=== PATIENT | male | born 1935 | race Caucasian/White ===

== ENCOUNTER 2016-05-23 08:20 | Inpatient (IN) | payer MEDICARE, OTHER ==
[2016-05-23] MEDS ORDERED: LEVALBUTEROL 1.25 MG INH STA (08:44)
[2016-05-23] MEDS ORDERED: methylPREDNISolone SUCCINATE 125 MG/2 ML VIAL IVP STA (08:44)
[2016-05-23] MEDS ORDERED: methylPREDNISolone SUCCINATE 125 MG/2 ML VIAL IVP ONE (08:55)
[2016-05-23] MEDS ORDERED: SODIUM CHLORIDE INHALATION 3 ML NEB ONE (09:00)
[2016-05-23] MEDS ORDERED: LEVALBUTEROL 1.25 MG INH ONE (09:00)
[2016-05-23] MEDS ORDERED: HYDROcod/ACETAM 5/325 MG TABLET PO PRN (12:27)
[2016-05-23] MEDS ORDERED: SODIUM CHLORIDE FLUSH 0.9% 10 ML SYRINGE IVP PRN (12:27)
[2016-05-23] MEDS ORDERED: HYDROcod/ACETAM 10 MG/325 MG TABLET PO PRN (12:27)
[2016-05-23] MEDS ORDERED: ONDANSETRON ODT 4 MG TABLET TL PRN (12:27)
[2016-05-23] MEDS: SODIUM CHLORIDE FLUSH 0.9% 10 ML SYRINGE IVP SCH ×2 (15:02→21:29)
[2016-05-23] MEDS: methylPREDNISolone SUCCINATE 40 MG/ML VIAL IVP SCH ×2 (15:02→21:29)
[2016-05-23] MEDS: ENOXAPARIN 40 MG/0.4 ML SYRINGE SUBQ SCH (15:02)
[2016-05-23] MEDS: IPRATROPIUM/ALBUTEROL 3 ML NEB INH PRN (16:29)
[2016-05-24] MEDS: methylPREDNISolone SUCCINATE 40 MG/ML VIAL IVP SCH ×2 (06:29→23:05)
[2016-05-24] MEDS: PANTOPRAZOLE 40 MG TABLET PO SCH (06:34)
[2016-05-24] MEDS: SODIUM CHLORIDE FLUSH 0.9% 10 ML SYRINGE IVP SCH ×3 (06:34→23:06)
[2016-05-24] MEDS: POLYETHYLENE GLYCOL 3350 17 GM PACKET PO SCH (08:22)
[2016-05-24] MEDS: MULTIVITAMIN W/MINERALS TABLET PO SCH (08:23)
[2016-05-24] MEDS: METOPROLOL SUCCINATE 50 MG TABLET PO SCH (08:23)
[2016-05-24] MEDS: ESCITALOPRAM 10 MG TABLET PO SCH (08:23)
[2016-05-24] MEDS: ASPIRIN CHEW 81 MG TABLET PO SCH (08:24)
[2016-05-24] MEDS: LOSARTAN 50 MG TABLET PO SCH (08:24)
[2016-05-24] MEDS: ENOXAPARIN 40 MG/0.4 ML SYRINGE SUBQ SCH (08:25)
[2016-05-24] MEDS ORDERED: OXYGEN NAS SCH (09:00)
[2016-05-24] MEDS ORDERED: LABETALOL 20 MG/4 ML SYRINGE IVP PRN (09:32)
[2016-05-24] MEDS: IPRATROPIUM/ALBUTEROL 3 ML NEB INH PRN (09:40)
[2016-05-24] MEDS: SODIUM CHLORIDE 0.45% 1,000 ML IV SCH ×2 (12:07→23:07)
[2016-05-25] MEDS: SODIUM CHLORIDE FLUSH 0.9% 10 ML SYRINGE IVP SCH (07:11)
[2016-05-25] MEDS: PANTOPRAZOLE 40 MG TABLET PO SCH (07:11)
[2016-05-25] MEDS: MULTIVITAMIN W/MINERALS TABLET PO SCH (08:23)
[2016-05-25] MEDS: ASPIRIN CHEW 81 MG TABLET PO SCH (08:23)
[2016-05-25] MEDS: LOSARTAN 50 MG TABLET PO SCH (08:23)
[2016-05-25] MEDS: ESCITALOPRAM 10 MG TABLET PO SCH (08:23)
[2016-05-25] MEDS: METOPROLOL SUCCINATE 50 MG TABLET PO SCH (08:24)
[2016-05-25] MEDS: ENOXAPARIN 40 MG/0.4 ML SYRINGE SUBQ SCH (08:24)
[2016-05-25] MEDS: POLYETHYLENE GLYCOL 3350 17 GM PACKET PO SCH (08:24)
[2016-05-25] MEDS: methylPREDNISolone SUCCINATE 40 MG/ML VIAL IVP SCH (10:11)
== END 2016-05-25 11:00 | disposition home or self-care (01) | DRG 190 ==
DX: J44.1 Chronic obstructive pulmonary disease with (acute) exacerbation (principal); J18.9 Pneumonia, unspecified organism; I50.32 Chronic diastolic (congestive) heart failure; I50.9 Heart failure, unspecified; J44.0 Chronic obstructive pulmonary disease with (acute) lower respiratory infection; E78.5 Hyperlipidemia, unspecified; J45.909 Unspecified asthma, uncomplicated; Z87.891 Personal history of nicotine dependence; Z99.81 Dependence on supplemental oxygen; Z79.52 Long term (current) use of systemic steroids; I11.0 Hypertensive heart disease with heart failure; Z85.51 Personal history of malignant neoplasm of bladder; Z98.42 Cataract extraction status, left eye; Z98.41 Cataract extraction status, right eye; Z96.1 Presence of intraocular lens; N40.0 Benign prostatic hyperplasia without lower urinary tract symptoms; Z88.2 Allergy status to sulfonamides; K21.9 Gastro-esophageal reflux disease without esophagitis; Z79.82 Long term (current) use of aspirin

== ENCOUNTER 2016-09-19 10:08 | Emergency (ER) | payer MEDICARE, OTHER ==
[2016-09-19] MEDS ORDERED: IPRATROPIUM/ALBUTEROL 3 ML NEB INH STA (10:33)
--- NOTE | 2016-09-19 10:38 | ED Physician Documentation ---
PD HPI CHEST PAIN - Stated complaint Stated Complaint: SOA/CHEST PX - Chief complaint Chief Complaint: Cardiac - History obtained from History obtained from: Patient, Family (spouse) - History of Present Illness Timing - onset: Yesterday Timing - duration: Days (2) Timing - details: Still present Quality: Tightness Location: Substernal Worsened by: Inspiration Associated symptoms: Shortness of air, Cough Similar symptoms before: Diagnosis (He reports history of similar symptoms with pneumonia/COPD exacerbation.) - Additional information Additional information: The patient is an 81-year-old male with history of COPD, who presents with shortness of breath and anterior chest pain that started yesterday and continues today. This pain is worse with inspiration. He reports productive cough, but denies fever, nausea or vomiting. He was more fatigued than usual yesterday. He has a history of similar symptoms when hospitalized with pneumonia/COPD exacerbation in June 2016. He quit smoking cigarettes about 11 years ago. Review of Systems Constitutional: reports: Fatigue. denies: Fever Ears: denies: Tinnitus/ringing Nose: denies: Congestion Throat: denies: Sore throat Cardiac: reports: Chest pain / pressure Respiratory: reports: Dyspnea, Cough GI: denies: Abdominal Pain, Nausea, Vomiting : denies: Dysuria Skin: denies: Rash Musculoskeletal: denies: Back pain, Extremity swelling Neurologic: denies: Focal weakness, Numbness, Headache PD PAST MEDICAL HISTORY - Past Medical History Cardiovascular: Hypertension Respiratory: Asthma, COPD, Emphysema Neuro: None Endocrine/Autoimmune: None GI: None : None HEENT: None Psych: None Musculoskeletal: None Derm: None - Past Surgical History Past Surgical History: Yes Ortho: Arthroscopic surgery HEENT: Cataracts - Present Medications Home Medications: Ambulatory Orders Medication Instructions Recorded Confirmed Aspirin Chewable [St Vlad 81 mg PO DAILY 09/04/12 09/19/16 Aspirin] Metoprolol Succinate [Toprol Xl] 50 mg PO DAILY 09/04/12 09/19/16 Tiotropium Joseph [Spiriva] 18 mcg IH DAILY 10/23/12 09/19/16 Fluticasone/Salmeterol [Advair 1 inh IH BID 02/26/15 09/19/16 500-50 Diskus] Multivitamin [Daily [place]] 1 each PO DAILY 02/26/15 09/19/16 Telmisartan [Micardis] 20 mg PO DAILY 02/26/15 09/19/16 Esomeprazole Magnesium [Nexium] 40 mg PO DAILY 02/27/16 09/19/16 Albuterol 2.5 mg INH Q4HR PRN #120 neb 03/02/16 09/19/16 Atorvastatin Calcium 20 mg PO Q1HR 05/24/16 09/19/16 Citalopram [CeleXA] 20 mg PO DAILY 05/24/16 09/19/16 Levofloxacin [Levaquin] 500 mg PO DAILY #5 tablet 05/25/16 09/19/16 Azithromycin [Zithromax] 250 mg PO DAILY #6 tablet 09/19/16 - Allergies Allergies/Adverse Reactions: Allergies Allergy/AdvReac Type Severity Reaction Status Date / Time Sulfa (Sulfonamide Allergy Unknown Rash Verified 09/19/16 10:19 Antibiotics) - Social History Does the pt smoke?: No Smoking Status: Former smoker Does the pt drink ETOH?: Yes Does the pt have substance abuse?: No - Immunizations Immunizations are current?: Yes - POLST Patient has POLST: No PD ED PE NORMAL - Vitals Vital signs reviewed: Yes (hypertensive) - General General: Alert and oriented X 3, Well developed/nourished - HEENT HEENT: Atraumatic, EOMI, Pharynx benign - Neck Neck: No adenopathy, No JVD - Cardiac Cardiac: RRR, No murmur - Respiratory Respiratory: Other (Appears dyspneic, and has inspiratory and expiratory wheezes bilaterally, worse on the right than the left.) - Abdomen Abdomen: Soft, Non tender - Back Back: No CVA TTP - Derm Derm: No rash - Extremities Extremities: No edema, No calf tenderness / cord - Neuro Neuro: Alert and oriented X 3, No motor deficit, Normal speech Results - Vitals Vitals: Vital Signs - 24 hr 09/19/16 09/19/16 09/19/16 10:11 11:11 11:15 Temperature 37.0 C Heart Rate 97 82 83 Respiratory 24 18 17 Rate Blood Pressure 155/97 H 159/89 H O2 Saturation 94 98 09/19/16 09/19/16 12:45 12:50 Temperature Heart Rate 89 87 Respiratory 13 16 Rate Blood Pressure 154/81 H O2 Saturation 97 Oxygen O2 Source [] Nasal cannula O2 Source [] Room air O2 Source Nasal cannula - EKG (time done) 10:21 Rate: Rate (enter#) (90) Rhythm: NSR [place]: Normal Intervals: RBBB Ischemia: No: ST elevation c/w repol Compare to prior EKG: Unchanged from prior EKG (No significant change compared to prior tracing dated 05/23/2016.) Computer interpretation: Agree with computer - Labs Labs: Laboratory Tests 09/19/16 09/19/16 09/19/16 10:28 10:28 10:28 WBC 8.9 RBC 4.05 L Hgb 12.6 L Hct 37.6 L MCV 93.0 MCH 31.2 H MCHC 33.5 RDW 13.0 Plt Count 236 MPV 7.9 Neut # 5.7 Lymph # 1.6 [place] # 1.4 H Eos # 0.1 Baso # 0.1 Absolute Nucleated RBC 0.00 Nucleated RBCs 0.0 Sodium 136 Potassium 3.8 Chloride 97 L Carbon Dioxide 31 Anion Gap 8.0 BUN 16 Creatinine 1.0 Estimated GFR (MDRD) 72 L Glucose 97 Calcium 9.0 Total Bilirubin 0.7 AST 81 H ALT 96 H Alkaline Phosphatase 69 Troponin I < 0.04 B-Natriuretic Peptide Total Protein 7.5 Albumin 3.7 Globulin 3.8 Albumin/Globulin Ratio 1.0 Lipase 32 09/19/16 10:28 WBC RBC Hgb Hct MCV MCH MCHC RDW Plt Count MPV Neut # Lymph # [place] # Eos # Baso # Absolute Nucleated RBC Nucleated RBCs Sodium Potassium Chloride Carbon Dioxide Anion Gap BUN Creatinine Estimated GFR (MDRD) Glucose Calcium Total Bilirubin AST ALT Alkaline Phosphatase Troponin I B-Natriuretic Peptide 15 Total Protein Albumin Globulin Albumin/Globulin Ratio Lipase - Rads (name of study) 2 view chest x-ray Radiology: Prelim report reviewed, EMP read contemporaneously, See rad report ( Bibasilar infiltration versus atelectasis, right more than left, with tiny right effusion.) PD MEDICAL DECISION MAKING - ED course Complexity details: reviewed old records, reviewed results, re-evaluated patient , considered differential, d/w patient, d/w family ED course: The patient's presentation is most consistent with acute exacerbation of COPD. Chest x-ray reveals bibasilar infiltrates versus atelectasis, with a small right pleural effusion.. His white blood cell count is normal at 8.9. Electrocardiogram reveals no ischemic abnormalities, and his troponin level is normal, as is his BNP. His presentation does not suggest cardiac ischemia, congestive heart failure, and I doubt pulmonary embolus. Treatment in the emergency department included administration of DuoNeb nebulizer, followed by Xopenex nebulizer, as well as dexamethasone 10 mg orally. His air movement improved with the above treatment. Ceftriaxone 1 g was administered IV. He is being discharged with prescription for Zithromax. I discussed with him and his the expected course of illness, treatment and outpatient follow-up, as well as potentially worrisome signs or symptoms that should prompt reevaluation in the emergency department. Departure - Departure Disposition: 01 Home, Self Care Clinical Impression: COPD with acute exacerbation Condition: Stable Instructions: ED COPD Flare Follow-Up: Jameel Spaulding DO [Primary Care Provider] - Prescriptions: Azithromycin [Zithromax] 250 mg PO DAILY #6 tablet Comments: 1. Take Zithromax daily as prescribed. 2. Take prednisone as previously prescribed, 4 tablets tomorrow, followed by 3 tablets the next day, followed by 2 tablets next day, followed by 1 tablet the next day, followed by 1 tablet the last day. 3. Use your albuterol inhaler as previously prescribed. 4. Follow-up with your primary physician within 1 week. Call to schedule appointment. 5. Return to the emergency department if you develop increasing difficulty breathing, or otherwise worsening symptoms. Discharge Date/Time: 09/19/16 13:25
[2016-09-19 10:50] LABS: BASOPHILS # (AUTO) 0.1 10^3/uL (0.0-0.1); BASOPHILS % (AUTO) 0.7 %; EOSINOPHILS # (AUTO) 0.1 10^3/uL (0.0-0.7); EOSINOPHILS % (AUTO) 0.9 %; HCT - HEMATOCRIT 37.6 % (42.0-52.0); HGB - HEMOGLOBIN 12.6 g/dL (14.0-18.0); LYMPHOCYTES # (AUTO) 1.6 10^3/uL (1.5-3.5); LYMPHOCYTES % (AUTO) 18.4 %; MEAN CORPUSCULAR HEMOGLOBIN 31.2 pg (27.0-31.0); MEAN CORPUSCULAR HGB CONC 33.5 g/dL (32.0-36.0); MEAN PLATELET VOLUME 7.9 fL (7.4-11.4); MONOCYTES # (AUTO) 1.4 10^3/uL (0.0-1.0); MONOCYTES % (AUTO) 15.8 %; NEUTROPHILS # (AUTO) 5.7 10^3/uL (1.5-6.6); NEUTROPHILS % (AUTO) 64.2 %; RED BLOOD COUNT 4.05 10^6/uL (4.70-6.10); UNCORRECTED WHITE BLOOD COUNT 8.9 x10^3/uL; WHITE BLOOD COUNT 8.9 x10^3/uL (4.8-10.8)
[2016-09-19 11:09] LABS: BILIRUBIN,TOTAL 0.7 mg/dL (0.2-1.0); POTASSIUM 3.8 mmol/L (3.5-5.0); TOTAL PROTEIN 7.5 g/dL (6.7-8.2)
[2016-09-19] MEDS ORDERED: IPRATROPIUM/ALBUTEROL 3 ML NEB INH ONE (11:13)
--- NOTE | 2016-09-19 11:27 | XRAY Preliminary Report ---
Exam: XR Chest 1 View IMPRESSION: Bibasilar infiltration versus atelectasis, right more than left, with tiny right effusion . [facility] SITE ID: [id number]
--- NOTE | 2016-09-19 11:30 | XRAY Report ---
EXAM: CHEST RADIOGRAPHY EXAM DATE: 09/19/2016 10:59 AM. CLINICAL HISTORY: Chest pain with dyspnea. COMPARISON: 05/23/2016 and 11/17/2015. TECHNIQUE: 1 view. FINDINGS: Lungs/Pleura: Patchy hazy densities in both lung bases, right more than left, infiltration versus ate lectasis. No consolidation or pneumothorax. Tiny right pleural effusion, but no definite left effusio n. Mediastinum: Within exam limitations, cardiomediastinal contour is normal. Upper lobe vessels not dis tended. Other: Degenerative changes. IMPRESSION: Bibasilar infiltration versus atelectasis, right more than left, with tiny right effusion . [facility] Referring Provider Line: [phone] SITE ID: [id number]
[2016-09-19] MEDS ORDERED: DEXAMETHASONE 10 MG/ML VIAL PO STA (11:57)
[2016-09-19] MEDS ORDERED: cefTRIAXone 1 GM in SODIUM CHLORIDE 0.9% MINIBAG 100 ML IV STA (11:57)
[2016-09-19] MEDS ORDERED: cefTRIAXone 1 GM VIAL ONE (11:58)
[2016-09-19] MEDS ORDERED: DEXAMETHASONE 10 MG/ML VIAL ONE (11:58)
[2016-09-19] MEDS ORDERED: CHERRY SYRUP 10 ML UDC PO ONE (11:59)
[2016-09-19] MEDS ORDERED: LEVALBUTEROL 1.25 MG INH STA (12:32)
[2016-09-19 12:51] VITALS: BP 154/81
[2016-09-19] MEDS ORDERED: LEVALBUTEROL 1.25 MG INH ONE (12:51)
[2016-09-19] MEDS ORDERED: SODIUM CHLORIDE INHALATION 3 ML NEB ONE (12:51)
== END 2016-09-19 13:25 | disposition home or self-care (01) ==
LOC: ED 10:08
DX: J44.1 Chronic obstructive pulmonary disease with (acute) exacerbation (principal); I10 Essential (primary) hypertension; I45.10 Unspecified right bundle-branch block; Z79.82 Long term (current) use of aspirin; Z87.891 Personal history of nicotine dependence
CPT/HCPCS: 36415; 71010; 80053; 83690; 83880; 84484; 85025; 93005; 94640; 96374; 99284; A9270; J7620

== ENCOUNTER 2017-02-01 07:39 | Emergency (ER) | payer MEDICARE, OTHER ==
[2017-02-01] MEDS ORDERED: DOXYCYCLINE 100 MG TABLET PO STA (08:10)
[2017-02-01] MEDS ORDERED: DEXAMETHASONE 10 MG/ML VIAL PO STA (08:10)
[2017-02-01] MEDS ORDERED: IPRATROPIUM/ALBUTEROL 3 ML NEB INH STA (08:10)
[2017-02-01] MEDS ORDERED: HYDROcod/ACETAM 5/325 MG TABLET PO STA (08:10)
--- NOTE | 2017-02-01 08:19 | XRAY Preliminary Report ---
Exam: XR CHEST 2 VIEW PA/LAT IMPRESSION: 1. Obstructive airways disease 2. Heterogeneous right lung base opacity is similar, may be infectious in etiology. Recommend follow- up. CT could evaluate. [facility] SITE ID: [id number]
--- NOTE | 2017-02-01 08:21 | XRAY Report ---
EXAM: CHEST RADIOGRAPHY EXAM DATE: 02/01/2017 08:02 AM. CLINICAL HISTORY: Cough. COMPARISON: Chest radiograph 09/19/2016. TECHNIQUE: 2 views. FINDINGS: Lungs/Pleura: Increased lung volumes. Increased lung markings. Heterogeneous right lung base opacity. No effusions. Mediastinum: Stable Other: Diffuse idiopathic skeletal hyperostosis IMPRESSION: 1. Obstructive airways disease 2. Heterogeneous right lung base opacity is similar, may be infectious in etiology. Recommend follow- up. CT could evaluate. [facility] Referring Provider Line: [phone] SITE ID: [id number]
[2017-02-01] MEDS ORDERED: IPRATROPIUM/ALBUTEROL 3 ML NEB INH ONE (08:22)
[2017-02-01] MEDS ORDERED: DEXAMETHASONE 10 MG/ML VIAL ONE (08:39)
--- NOTE | 2017-02-01 08:39 | ED Physician Documentation ---
PD HPI URI - Stated complaint Stated Complaint: BODYACHE/COUGH - Chief complaint Chief Complaint: Resp - History obtained from History obtained from: Patient - History of Present Illness Timing - onset: How many days ago (5) Timing duration: Days (5) Timing details: Abrupt onset, Still present Associated symptoms: Fever, Chills, Nasal congestion, Productive cough, Dyspnea. No: Hemoptysis, NVD, Bilateral edema Contributing factors: COPD / asthma. No: Sick contact, Travel, Immunocompromised Similar symptoms before: Diagnosis (bronchitis and pneumonia) Recently seen: Not recently seen Review of Systems Constitutional: reports: Fever, Chills, Myalgias, Fatigue Nose: reports: Congestion Throat: denies: Sore throat Cardiac: denies: Chest pain / pressure, Palpitations Respiratory: reports: Dyspnea, Cough, Wheezing GI: reports: Nausea. denies: Vomiting, Diarrhea Skin: denies: Rash Musculoskeletal: denies: Extremity swelling PD PAST MEDICAL HISTORY - Past Medical History Cardiovascular: Hypertension Respiratory: Asthma, COPD, Emphysema Neuro: None Endocrine/Autoimmune: None GI: None : None HEENT: None Psych: None Musculoskeletal: None Derm: None - Past Surgical History Past Surgical History: Yes Ortho: Arthroscopic surgery HEENT: Cataracts - Present Medications Home Medications: Ambulatory Orders Medication Instructions Recorded Confirmed Aspirin Chewable [St Vlad 81 mg PO DAILY 09/04/12 02/01/17 Aspirin] Metoprolol Succinate [Toprol Xl] 50 mg PO DAILY 09/04/12 02/01/17 Tiotropium [place] [Spiriva] 18 mcg IH DAILY 10/23/12 02/01/17 Fluticasone/Salmeterol [Advair 1 inh IH BID 02/26/15 02/01/17 500-50 Diskus] Multivitamin [Daily [place]] 1 each PO DAILY 02/26/15 02/01/17 Telmisartan [Micardis] 20 mg PO DAILY 02/26/15 02/01/17 Albuterol 2.5 mg INH Q4HR PRN #120 neb 03/02/16 02/01/17 Atorvastatin Calcium 20 mg PO Q1HR 05/24/16 02/01/17 Citalopram [CeleXA] 20 mg PO DAILY 05/24/16 02/01/17 Levofloxacin [Levaquin] 500 mg PO DAILY #5 tablet 05/25/16 02/01/17 Dexamethasone [Decadron] 4 mg PO DAILY #5 tablet 02/01/17 Doxycycline Monohydrate 100 mg PO BID #14 tablet 02/01/17 guaiFENesin/CODEINE [Robitussin AC] 10 ml PO Q6H PRN #240 ml 02/01/17 - Allergies Allergies/Adverse Reactions: Allergies Allergy/AdvReac Type Severity Reaction Status Date / Time Sulfa (Sulfonamide Allergy Unknown Rash Verified 02/01/17 07:48 Antibiotics) - Social History Does the pt smoke?: No Smoking Status: Never smoker Does the pt drink ETOH?: Yes Does the pt have substance abuse?: No - Immunizations Immunizations are current?: Yes - POLST Patient has POLST: No PD ED PE NORMAL - Vitals Vital signs reviewed: Yes - General General: Alert and oriented X 3, No acute distress, Well developed/nourished - HEENT HEENT: Moist mucous membranes, Pharynx benign - Neck Neck: Supple, no meningeal sign, No adenopathy - Cardiac Cardiac: RRR, No murmur - Respiratory Respiratory: No respiratory distress, Other (diffuse wheezing; no coarse sounds. ) - Abdomen Abdomen: Soft, Non tender - Derm Derm: Normal color, Warm and dry - Extremities Extremities: No tenderness to palpate, No edema, No calf tenderness / cord - Neuro Neuro: Alert and oriented X 3, No motor deficit, Normal speech - Psych Psych: Normal mood, Normal affect Results - Vitals Vitals: Oxygen O2 Source [With Activity] Nasal cannula O2 Source [Without Activity] Room air O2 Source Nasal cannula Oxygen Flow Rate 3 - Labs Labs: Laboratory Tests 02/01/17 07:50 Influenza A (Rapid) Negative Influenza B (Rapid) Negative Influenza Types A,B Ag - - Rads (name of study) chest Radiology: Prelim report reviewed, EMP read contemporaneously (right lung base scarring, similar to prior exams. COPD. ) PD MEDICAL DECISION MAKING - ED course Complexity details: reviewed results, re-evaluated patient, considered differential (URI which is likely viral, but with h/o COPD would be concerned for bacterial co-infection and will treat with abx/steroids/inhalers. Does not appear ill enough to need hospitalization. He would prefer home. ), d/w patient Departure - Departure Disposition: 01 Home, Self Care Clinical Impression: COPD with acute exacerbation Upper respiratory tract infection Qualifiers: URI type: unspecified URI Qualified Code(s): J06.9 - Acute upper respiratory infection, unspecified Condition: Stable Record reviewed to determine appropriate education?: Yes Instructions: ED Upper Resp Infec Abx Tx, ED COPD Flare Prescriptions: Dexamethasone [Decadron] 4 mg PO DAILY #5 tablet Doxycycline Monohydrate 100 mg PO BID #14 tablet guaiFENesin/CODEINE [Robitussin AC] 10 ml PO Q6H PRN #240 ml PRN Reason: Cough Comments: Continue usual medications. Add your nebulizer at home 4 times a day for the next week. We will treat with antibiotics for concern of bacterial infection given your COPD and current symptoms. Doxycycline twice daily for a week. We will also treat with steroids to decrease inflammation of the airways and use Decadron daily for 5 more days. He can use cough medicine such as codeine cough medicine to help with cough and will help a little with the pain. Tylenol if needed for pains. Recheck if not improving over the next few days. Return sooner if worsening. Discharge Date/Time: 02/01/17 08:57
[2017-02-01] MEDS ORDERED: CHERRY SYRUP 10 ML UDC PO ONE (08:40)
[2017-02-01] MEDS ORDERED: DOXYCYCLINE 100 MG TABLET PO ONE (08:40)
[2017-02-01] MEDS ORDERED: HYDROcod/ACETAM 5/325 MG TABLET ONE (08:41)
[2017-02-01 08:53] VITALS: BP 143/78
== END 2017-02-01 08:57 | disposition home or self-care (01) ==
LOC: ED 07:39
DX: J44.1 Chronic obstructive pulmonary disease with (acute) exacerbation (principal); J06.9 Acute upper respiratory infection, unspecified; I10 Essential (primary) hypertension; Z79.82 Long term (current) use of aspirin
CPT/HCPCS: 71020; 87275; 87276; 94640; 99283; 99284; A9270; J7620

== ENCOUNTER 2017-02-22 07:45 | Outpatient (CLI) | payer MEDICARE, OTHER | END 2017-02-22 07:46 | disposition critical access hospital (66) | LOC: EMS 07:45 | PROVIDERS: ATTEND Surgery | DX: M25.551 Pain in right hip (principal); M54.9 Dorsalgia, unspecified; R51 Headache; W10.9XXA Fall (on) (from) unspecified stairs and steps, initial encounter; Y92.008 Other place in unspecified non-institutional (private) residence as the place of occurrence of the external cause | CPT/HCPCS: A0425; A0429 ==

== ENCOUNTER 2017-02-22 08:05 | Emergency (ER) | payer MEDICARE, OTHER ==
[2017-02-22] MEDS ORDERED: TETANUS/DIPHTHERIA/PERTUSSIS 0.5 ML SYRINGE IM ONE ×2 (08:19→10:04)
--- NOTE | 2017-02-22 08:23 | ED Physician Documentation ---
History of Present Illness - Stated complaint Stated Complaint: FALL/HIP & BACK PX - Chief complaint Chief Complaint: Ext Problem - Additonal information Additional information: 81-year-old male With history of COPD and hypertensionbrought by EMS after a fall down 3 steps just prior to arrival. He reports that his foot slipped out from under him no presyncope or syncopal symptoms, no loss of consciousness. Patient had back of head and neck and right side of body during his fall. On arrival to the emergency department he complains of neck pain, right shoulder pain, right low back buttock and hip pain. He was ambulatory after the fall. He takes an 81 mg aspirin daily and no other blood thinners. Review of Systems Constitutional: denies: Fatigue Eyes: denies: Loss of vision Cardiac: reports: Other (Reports chronic chest discomfort that occurs only when he is breathing more heavily as he is right now due to pain.) Respiratory: reports: Wheezing, Other (Chronic wheezing does not feel needs nebulizer currently) GI: denies: Abdominal Pain Musculoskeletal: reports: Other (skin tear right arm) Neurologic: denies: Syncope, Confused PD PAST MEDICAL HISTORY - Past Medical History Cardiovascular: Hypertension Respiratory: Asthma, COPD, Emphysema Neuro: None Endocrine/Autoimmune: None GI: None : None HEENT: None Psych: None Musculoskeletal: None Derm: None - Past Surgical History Past Surgical History: Yes Ortho: Arthroscopic surgery HEENT: Cataracts - Present Medications Home Medications: Ambulatory Orders Medication Instructions Recorded Confirmed Aspirin Chewable [St Vlad 81 mg PO DAILY 09/04/12 02/22/17 Aspirin] Metoprolol Succinate [Toprol Xl] 50 mg PO DAILY 09/04/12 02/22/17 Tiotropium [place] [Spiriva] 18 mcg IH DAILY 10/23/12 02/22/17 Fluticasone/Salmeterol [Advair 1 inh IH BID 02/26/15 02/22/17 500-50 Diskus] Multivitamin [Daily [place]] 1 each PO DAILY 02/26/15 02/22/17 Telmisartan [Micardis] 20 mg PO DAILY 02/26/15 02/22/17 Atorvastatin Calcium 20 mg PO Q1HR 05/24/16 02/22/17 Citalopram [CeleXA] 20 mg PO DAILY 05/24/16 02/22/17 HYDROcod/ACETAM 5/325 [[place] 5/325] 1 - 2 ea PO Q6H PRN #11 tablet 02/22/17 Prednisone 5 mg PO .FREQ 02/22/17 02/22/17 - Allergies Allergies/Adverse Reactions: Allergies Allergy/AdvReac Type Severity Reaction Status Date / Time Sulfa (Sulfonamide Allergy Unknown Rash Verified 02/22/17 08:09 Antibiotics) - Social History Does the pt smoke?: No Smoking Status: Never smoker Does the pt drink ETOH?: Yes Does the pt have substance abuse?: No - Immunizations Immunizations are current?: Yes - POLST Patient has POLST: No PD ED PE NORMAL - Vitals Vital signs reviewed: Yes - General General: Alert and oriented X 3, No acute distress - HEENT HEENT: PERRL - Neck Neck: Other (mild lower cspine ttp ) - Cardiac Cardiac: RRR, No murmur - Respiratory Respiratory: Other (diffuse wheeze). No: No respiratory distress - Abdomen Abdomen: Normal bowel sounds, Soft, Non tender, Non distended - Back Back: Other (right lower back TTP, no midline ttp ) - Derm Derm: Warm and dry - Neuro Neuro: Alert and oriented X 3 Eye Opening: Spontaneous Motor: Obeys Commands Verbal: Oriented GCS Score: 15 - Psych Psych: Normal mood, Normal affect PD ED PE EXPANDED - Extremities Extremities: Right elbow (FROM but causes pain, radial head TTP, skin tear extensor surface just distal to right elbow), Right leg (right buttock eccymosis , right Trochanter tenderness, no deformities, no leg length discrepancy, no knee tenderness or joint effusion. Patient able to stand and weight-bear in the emergency department. No ankle tenderness or deformity.), Left leg (No tenderness or deformity), Pedal Pulses Present - Neuro Neuro: Normal motor, Normal Sensation, Normal speech Results - Vitals Vitals: Vital Signs - 24 hr 02/22/17 02/22/17 02/22/17 08:06 08:18 09:17 Temperature 36.7 C 36.5 C Heart Rate 88 74 75 Respiratory 18 18 16 Rate Blood Pressure 184/108 H 154/98 H 178/108 H O2 Saturation 98 99 98 02/22/17 02/22/17 10:23 11:20 Temperature Heart Rate 72 72 Respiratory 15 18 Rate Blood Pressure 165/114 H 184/104 H O2 Saturation 99 98 Oxygen O2 Source [] Nasal cannula O2 Source [] Room air O2 Source Nasal cannula Oxygen Flow Rate 2 - Rads (name of study) Hip and pelvis Radiology: Final report received (No definite acute fracture or dislocation, 2.8 x 2.3 cm circumscribed bone lesion in the medial right femoral neck MRI recommended) Chest x-ray Radiology: Other (No definite acute process identified in the chest. There is likely underlying COPD.) Head CT Radiology: Final report received (Generalized age-related cortical atrophic changes without evidence of acute intracranial abnormality no significant change from prior) lumbar spine 2 Radiology: Prelim report reviewed (No acute fracture or other acute bony abnormality is identified in the lumbar spine) right elbow Radiology: Other (No acute bony abnormality is identified in the right elbow. Limited by suboptimal positioning and osteopenia.) PD MEDICAL DECISION MAKING - ED course ED course: 81 year old with mechanical trip and fall. Patient had a head CT cervical spine CT, x-rays of low back hip and right elbow with no acute fracture seen. Patient was ambulatory, he had full range of motion of his elbow I have a low suspicion for an occult fracture of hip/pelvis or with elbow. He did have an incidental finding of a bony lesion in his right femur with recommended MRI, I discussed this with the patient and he reports that he will not have issues following up with his PCP this. Departure - Departure Disposition: 01 Home, Self Care Clinical Impression: Fall (on) (from) other stairs and steps, initial encounter, Hip pain, Low back pain Condition: Good Instructions: ED Low Back Pain Injury, ED Contusion Back Prescriptions: HYDROcod/ACETAM 5/325 [[place] 5/325] 1 - 2 ea PO Q6H PRN #11 tablet PRN Reason: Pain Comments: Make an appointment follow-up with your primary care doctor. There was a finding on an x-ray of your right hip that shows a 2.8 x 2.3 cm bone lesion in the right femoral neck. It is recommended that you have an MRI to further evaluate this. Please schedule this with your primary doctor. You may continue to be sore over the next couple of days and you should take it easy and rest you can use ice or heat for your pain. You were prescribed a small amount of pain medication for this. This medication can make you sleepy and you should not drink or drive while taking it. Return to the emergency department if you develop any new or worsening symptoms such as severe pain, difficulty breathing, Weakness or numbness, urinary or bowel incontinence, nausea and vomiting. Discharge Date/Time: 02/22/17 11:15
[2017-02-22] MEDS ORDERED: HYDROcod/ACETAM 5/325 MG TABLET PO STA (08:36)
--- NOTE | 2017-02-22 09:02 | CT Preliminary Report ---
Exam: CT HEAD W/O IMPRESSION: Generalized age-related cortical atrophic changes without evidence of acute intracranial abnormality. No significant change from prior. [id number]
--- NOTE | 2017-02-22 09:04 | CT Report ---
EXAM: CT HEAD EXAM DATE: 02/22/2017 08:36 AM. CLINICAL HISTORY: Fall with head strike. Pain. COMPARISON: 09/14/2014. TECHNIQUE: Multiaxial CT images were obtained from the foramen magnum to the vertex. Reformats: Coron al. IV contrast: None. In accordance with CT protocol optimization, one or more of the following dose reduction techniques w ere utilized for this exam: automated exposure control, adjustment of mA and/or KV based on patient s ize, or use of iterative reconstructive technique. FINDINGS: Parenchyma: No intraparenchymal hemorrhage. No evidence of mass, midline shift, or CT findings of acu te infarction. Maya-white differentiation is distinct. Diffuse chronic microangiopathic white matter changes are evident. Extraaxial Spaces: Normal for age. No subdural or epidural collections identified. Ventricles: The ventricles and cortical sulci are enlarged, consistent with age-related tissue loss. Sinuses and orbits: Imaged paranasal sinuses, orbits, and mastoids show no significant abnormality. Bones: No evidence of fracture or calvarial defect. Other: None. IMPRESSION: Generalized age-related cortical atrophic changes without evidence of acute intracranial abnormality. No significant change from prior. [facility] Referring Provider Line: [phone] SITE ID: [id number]
--- NOTE | 2017-02-22 09:06 | CT Preliminary Report ---
Exam: CT CERVICAL SPINE W/O IMPRESSION: No acute fracture or subluxation of the cervical spine. [facility] SITE ID: [id number]
--- NOTE | 2017-02-22 09:09 | CT Report ---
EXAM: CT CERVICAL SPINE WITHOUT CONTRAST DATE: 02/22/2017 08:44 AM. HISTORY: Fall neck pain . COMPARISONS: 09/14/2014. TECHNIQUE: Thin-section axial images were acquired of the cervical spine without contrast. Post-proce ssing: Coronal and sagittal reformats. Other: None. In accordance with CT protocol optimization, one or more of the following dose reduction techniques w ere utilized for this exam: automated exposure control, adjustment of mA and/or KV based on patient s ize, or use of iterative reconstructive technique. FINDINGS: Alignment: No scoliosis or spondylolisthesis. Bones: No fracture or bone lesion. Interspace Levels/Facets: Moderate decreased disk height at C5-C6 and C6-C7. Mild to moderate multile sada facet arthropathy, left worse than right. Other: No prevertebral soft tissue thickening. The lung apices are clear. IMPRESSION: No acute fracture or subluxation of the cervical spine. [facility] Referring Provider Line: [phone] SITE ID: [id number]
[2017-02-22] MEDS ORDERED: HYDROcod/ACETAM 5/325 MG TABLET ONE (09:40)
--- NOTE | 2017-02-22 09:43 | XRAY Preliminary Report ---
Exam: XR CHEST 1 VIEW IMPRESSION: No definite acute process identified in the chest. There is likely underlying COPD. There may be some atelectasis or scarring at the lung bases, similar to prior exam. [facility] SITE ID: [id number]
--- NOTE | 2017-02-22 09:43 | XRAY Report ---
EXAM: CHEST RADIOGRAPHY EXAM DATE: 02/22/2017 09:20 AM. CLINICAL HISTORY: Fall, chest discomfort. COMPARISON: 02/01/2017. TECHNIQUE: 2 AP upright images of the chest were obtained. FINDINGS: Lungs/Pleura: No focal consolidation evident. There may be a small amount of atelectasis or scarring at the lung bases, similar to prior exam. Persistent hyperinflation suggests underlying COPD. No pleu ral effusion. No pneumothorax. Mediastinum: Within exam limitations, the cardiomediastinal contour is normal. Other: Technique limits evaluation of the bony structures, but no definite acute bony abnormality is identif ied. IMPRESSION: No definite acute process identified in the chest. There is likely underlying COPD. There may be some atelectasis or scarring at the lung bases, similar to prior exam. [facility] Referring Provider Line: [phone] SITE ID: [id number]
--- NOTE | 2017-02-22 09:58 | XRAY Preliminary Report ---
Exam: XR HIP W/PELVIS 2-3V RT IMPRESSION: No definite acute fracture or dislocation is identified, although osteopenia decreases th e sensitivity of this exam. There is a 2.8 x 2.3 cm circumscribed bone lesion in the medial right fem oral neck. Given the patient's symptoms/history and the presence of a bone lesion, MRI is recommended for further evaluation. [facility] SITE ID: [id number]
--- NOTE | 2017-02-22 10:01 | XRAY Preliminary Report ---
Exam: XR ELBOW 3 VIEW RT IMPRESSION: Osteopenia and suboptimal lateral view positioning decreases the sensitivity of this exam . No definite acute bony abnormality is identified in the right elbow. [facility] SITE ID: [id number]
--- NOTE | 2017-02-22 10:01 | XRAY Report ---
EXAM: RIGHT HIP AND PELVIS RADIOGRAPHY EXAM DATE: 02/22/2017 09:20 AM. HISTORY: Fall, right hip pain. Patient was reportedly able to walk from the stretcher to the x-ray ta ble. COMPARISONS: None. TECHNIQUE: 1 view of the pelvis and 1 view of the hip. FINDINGS: Bones: No definite acute fracture is identified. There is diffuse osteopenia which decreases the sens itivity of this exam. In the medial right femoral neck, there is a circumscribed 2.8 x 2.3 cm bone le estuardo possibly containing chondroid matrix. There is a narrow zone of transition and no definite perio steal reaction. However, this abuts the cortex. There is a tiny likely benign bone island at the righ t symphysis pubis. Joints: The bilateral hip, pubis symphysis, and sacroiliac joints are preserved. Soft Tissues: Unremarkable. IMPRESSION: No definite acute fracture or dislocation is identified, although osteopenia decreases th e sensitivity of this exam. There is a 2.8 x 2.3 cm circumscribed bone lesion in the medial right fem oral neck. Given the patient's symptoms/history and the presence of a bone lesion, MRI is recommended for further evaluation. [facility] Referring Provider Line: [phone] SITE ID: [id number]
--- NOTE | 2017-02-22 10:04 | XRAY Report ---
EXAM: RIGHT ELBOW RADIOGRAPHY EXAM DATE: 02/22/2017 09:20 AM. CLINICAL HISTORY: Fall, radial head pain. COMPARISON: None. TECHNIQUE: 3 views. FINDINGS: Bones: There is osteopenia. No definite acute fracture or bone lesion is identified. Joints: Lateral view is suboptimally positioned. No definite effusion or dislocation is identified. Soft Tissues: Unremarkable. IMPRESSION: Osteopenia and suboptimal lateral view positioning decreases the sensitivity of this exam . No definite acute bony abnormality is identified in the right elbow. [facility] Referring Provider Line: [phone] SITE ID: [id number]
--- NOTE | 2017-02-22 10:05 | XRAY Preliminary Report ---
Exam: XR LUMBAR SPINE 2 VIEW IMPRESSION: Diffuse osteopenia decreases the sensitivity of this exam. No acute fracture or other acu te bony abnormality is identified in the lumbar spine. Mild degenerative changes noted. [facility] SITE ID: [id number]
--- NOTE | 2017-02-22 10:07 | XRAY Report ---
EXAM: LUMBOSACRAL SPINE RADIOGRAPHY EXAM DATE: 02/22/2017 09:20 AM. CLINICAL HISTORY: Fall, low back pain . COMPARISONS: None. TECHNIQUE: 3 views. FINDINGS: Alignment: Normal. No spondylolisthesis or scoliosis. Bones: Five fat-vge-spvvvpa lumbar vertebral bodies are present. Diffuse osteopenia decreases the sen sitivity of this exam. No definite acute fracture or bone lesion is seen. Disks: There is minimal multilevel degenerative disk disease. Some mild anterior osteophyte formation is noted at L1-L2 and L3-L4. Facets: Mild posterior facet DJD is seen in the lower lumbar spine. Sacroiliac Joints: Unremarkable. Soft Tissues: Normal. The visualized bowel gas pattern is normal. IMPRESSION: Diffuse osteopenia decreases the sensitivity of this exam. No acute fracture or other acu te bony abnormality is identified in the lumbar spine. Mild degenerative changes noted. [facility] Referring Provider Line: [phone] SITE ID: [id number]
[2017-02-22 11:34] VITALS: BP 184/104
== END 2017-02-22 11:15 | disposition home or self-care (01) ==
LOC: EDUNIT# → ED 08:05
DX: S51.011A Laceration without foreign body of right elbow, initial encounter (principal); S30.0XXA Contusion of lower back and pelvis, initial encounter; W10.9XXA Fall (on) (from) unspecified stairs and steps, initial encounter; Z23 Encounter for immunization; I10 Essential (primary) hypertension; J44.9 Chronic obstructive pulmonary disease, unspecified; Z79.82 Long term (current) use of aspirin
CPT/HCPCS: 70450; 71010; 72100; 72125; 73080; 73502; 90471; 90715; 99283; A9270

== ENCOUNTER 2017-03-20 08:26 | Outpatient (CLI) | payer MEDICARE, OTHER ==
--- NOTE | 2017-03-20 14:49 | MRI Report ---
EXAM: MRI PELVIS WITHOUT CONTRAST EXAM DATE: 03/20/2017 09:34 AM. CLINICAL HISTORY: Incidental right hip lesion seen on x-ray. Fall on 03/14/2017. COMPARISON: 02/22/2017 radiograph. TECHNIQUE: Multiplanar, multisequence T1-weighted and fluid-sensitive sequences of the pelvis without contrast. Other: None. FINDINGS: Bones: No fractures or subluxations. No marrow edema or bone lesions. Lower Lumbar Spine: Unremarkable. Sacroiliac Joints: No effusion or sacroiliitis. Right Hip: No acetabular retroversion. Femoral head/neck offset is normal. The ligamentum teres is in tact. The articular cartilage is intact. Corresponding to findings seen on the prior radiograph is a calcified loose body in the anterior joint space measuring 2.0 x 0.9 x 2.6 cm. Left Hip: No acetabular retroversion. Femoral head-neck offset is within normal limits. No effusion. Symphysis Pubis: Unremarkable. Musculature: No edema or fatty atrophy. Pelvic Cavity: The visualized bowel, bladder, and reproductive organs are unremarkable. No lymphadeno magui. No free fluid in the pelvis. Other: The visualized sciatic nerves are unremarkable. No bursitis. The patient has a small left ingu inal hernia containing fat. IMPRESSION: 1. The finding on the prior radiograph corresponds to a 2.6 cm loose body in the right anterior hip stephanie raman. [facility] Referring Provider Line: [phone] SITE ID: [id number]
== END 2017-03-20 08:27 | disposition home or self-care (01) ==
LOC: DI 08:26
PROVIDERS: ATTEND Internal Medicine
DX: M24.051 Loose body in right hip (principal)
CPT/HCPCS: 72195

== ENCOUNTER 2017-03-20 09:33 | Inpatient (IN) | payer MEDICARE, OTHER ==
[2017-03-20] MEDS ORDERED: BENZONATATE 100 MG CAPSULE PO STA (10:13)
--- NOTE | 2017-03-20 10:16 | ED Physician Documentation ---
History of Present Illness - Stated complaint Stated Complaint: COUGH - Chief complaint Chief Complaint: Resp - Additonal information Additional information: hx from pt 81 male home O2 dependent COPD cough productive of green sputum X 10 days now with right sided pain worse with coughing - actually had outpt MRI to eval this region today prior to coming to the ER because he fell a week or so ago no sick contacts no travel no fever generalized faitgue and myalgias got a flu shot Review of Systems Constitutional: reports: Myalgias, Fatigue. denies: Fever Cardiac: reports: Chest pain / pressure (R lower) Respiratory: reports: Dyspnea, Cough GI: reports: Abdominal Pain (R lateral) Endocrine: denies: Easy bruising / bleeding Immunocompromised: denies: Immunocompromised PD PAST MEDICAL HISTORY - Past Medical History Cardiovascular: Hypertension Respiratory: Asthma, COPD, Emphysema Neuro: None Endocrine/Autoimmune: None GI: None : None HEENT: None Psych: None Musculoskeletal: None Derm: None - Past Surgical History Past Surgical History: Yes Ortho: Arthroscopic surgery HEENT: Cataracts - Present Medications Home Medications: Ambulatory Orders Medication Instructions Recorded Confirmed RX: Aspirin Chewable [St Vlad 81 mg PO DAILY 09/04/12 03/20/17 Aspirin] RX: Metoprolol Succinate [Toprol 50 mg PO DAILY 09/04/12 03/20/17 Xl] RX: Tiotropium [place] [Spiriva] 18 mcg IH DAILY 10/23/12 03/20/17 RX: Fluticasone/Salmeterol [Advair 1 inh IH BID 02/26/15 03/20/17 500-50 Diskus] RX: Multivitamin [Daily [place]] 1 each PO DAILY 02/26/15 03/20/17 RX: Telmisartan [Micardis] 20 mg PO DAILY 02/26/15 03/20/17 RX: Atorvastatin Calcium 20 mg PO Q1HR 05/24/16 03/20/17 RX: Citalopram [CeleXA] 20 mg PO DAILY 05/24/16 03/20/17 RX: HYDROcod/ACETAM 5/325 [Breaks 1 - 2 ea PO Q6H PRN #11 tablet 02/22/17 5/325] RX: Prednisone 5 mg PO .FREQ 02/22/17 03/20/17 Levofloxacin [Levaquin] 500 mg PO DAILY 03/20/17 03/20/17 - Allergies Allergies/Adverse Reactions: Allergies Allergy/AdvReac Type Severity Reaction Status Date / Time Sulfa (Sulfonamide Allergy Unknown Rash Verified 03/20/17 09:45 Antibiotics) - Social History Does the pt smoke?: No Smoking Status: Never smoker Does the pt drink ETOH?: Yes Does the pt have substance abuse?: No - Immunizations Immunizations are current?: Yes - POLST Patient has POLST: No PD ED PE NORMAL - Vitals Vital signs reviewed: Yes - General General: Alert and oriented X 3 - HEENT HEENT: PERRL - Neck Neck: Supple, no meningeal sign - Cardiac Cardiac: RRR - Respiratory Respiratory: Other (ronchi R lungs, not wheezing right now, TTP lower lateral R ribs and far lat upper abd) - Abdomen Abdomen: Other (see chest) - Derm Derm: Normal color - Extremities Extremities: No edema - Neuro Neuro: Alert and oriented X 3 Results - Vitals Vitals: Vital Signs - 24 hr 03/20/17 03/20/17 09:41 12:09 Temperature 37.3 C 37.1 C Heart Rate 93 84 Respiratory 22 24 Rate Blood Pressure 148/95 H 168/95 H O2 Saturation 94 99 Oxygen O2 Source [] Nasal cannula O2 Source [] Room air O2 Source Nasal cannula Oxygen Flow Rate 3 - EKG (time done) 0955 Rate: Rate (enter#) (92) Rhythm: NSR Intervals: RBBB Other comments: Other comments (done per protocol upon triage - chest pain seems to be TTP after a fall and coughing for 10 days) Compare to prior EKG: Unchanged from prior EKG (09/19/16) - Labs Labs: Laboratory Tests 03/20/17 03/20/17 03/20/17 10:10 12:09 12:09 WBC 9.5 RBC 3.62 L Hgb 11.8 L Hct 34.6 L MCV 95.6 H MCH 32.6 H MCHC 34.1 RDW 13.2 Plt Count 205 MPV 7.6 Neut # 6.9 H Lymph # 1.2 L [place] # 1.2 H Eos # 0.1 Baso # 0.0 Absolute Nucleated RBC 0.00 Nucleated RBC % 0.0 Manual Slide Review Indicated Platelet Morphology RARE GIANT PLATELETS RBC Morph Micro Appear 1+ ANISOCYTOSIS Sodium 138 Potassium 4.4 Chloride 97 L Carbon Dioxide 29 Anion Gap 12.0 BUN 18 Creatinine 1.0 Estimated GFR (MDRD) 72 L Glucose 96 Calcium 9.4 Influenza A (Rapid) Negative Influenza B (Rapid) Negative Influenza Types A,B Ag - - Rads (name of study) CXR Radiology: See rad report (R pna) PD MEDICAL DECISION MAKING - ED course ED course: pna in 81 male with home O2 dep COPD CURB 65 1 but he does not feels safe going home with his lung dz and pna and it is a holiday weekend so no PMD follow up will be possible may merit obs at least will ask hospitaloist to consult for admit gave rocephin zmax, QT nl on EKG, hold celexa X 1 wk 2/2 zmax anemia not new paged hospitalist at 1110 AM spoke to hospitalist at noon Departure - Departure Disposition: ED Place in Observation Clinical Impression: Pneumonia Comments: Do not take you celexa for a week - it interacts with the antibiotic
--- NOTE | 2017-03-20 10:58 | XRAY Report ---
EXAM: CHEST RADIOGRAPHY EXAM DATE: 03/20/2017 10:28 AM. CLINICAL HISTORY: Cough R lung ronchi. COMPARISON: 05/20/2010. TECHNIQUE: 2 views. FINDINGS: The heart is not enlarged. There is atherosclerosis of the aorta. Increased lung markings are noted w ithin the right lung base may represent scattered infiltrates. Blunting of the right costophrenic ang le is noted but may represent a small pleural effusion. No pneumothorax. The left lung is well aerate d. Impression: Increased lung markings in the inferior aspect of the right lung may represent infiltrate sJoelle JOSÉ Referring Provider Line: [phone] SITE ID: [id number]
[2017-03-20] MEDS ORDERED: AZITHROMYCIN INJ 500 MG in SODIUM CHLORIDE 0.9% 250 ML IV STA (11:08)
[2017-03-20] MEDS ORDERED: cefTRIAXone 1 GM in SODIUM CHLORIDE 0.9% MINIBAG 100 ML IV STA (11:08)
[2017-03-20 12:20] LABS: BASOPHILS % (AUTO) 0.5 %; EOSINOPHILS # (AUTO) 0.1 10^3/uL (0.0-0.7); EOSINOPHILS % (AUTO) 1.2 %; HGB - HEMOGLOBIN 11.8 g/dL (14.0-18.0); LYMPHOCYTES # (AUTO) 1.2 10^3/uL (1.5-3.5); MEAN CORPUSCULAR HEMOGLOBIN 32.6 pg (27.0-31.0); MEAN CORPUSCULAR HGB CONC 34.1 g/dL (32.0-36.0); MEAN CORPUSCULAR VOLUME 95.6 fL (80.0-94.0); MEAN PLATELET VOLUME 7.6 fL (7.4-11.4); MONOCYTES # (AUTO) 1.2 10^3/uL (0.0-1.0); MONOCYTES % (AUTO) 12.8 %; NEUTROPHILS # (AUTO) 6.9 10^3/uL (1.5-6.6); NEUTROPHILS % (AUTO) 72.5 %; PLT - PLATELET COUNT 205 10^3/uL (130-450); RED BLOOD COUNT 3.62 10^6/uL (4.70-6.10); RED CELL DISTRIBUTION WIDTH 13.2 % (12.0-15.0); WHITE BLOOD COUNT 9.5 x10^3/uL (4.8-10.8)
[2017-03-20 12:26] LABS: CALCIUM 9.4 mg/dL (8.5-10.3)
[2017-03-20 12:36] LABS: PLATELET MORPHOLOGY RARE GIANT PLATELETS (NORMAL); RBC MORPHOLOGY (MULTIPLE) 1+ ANISOCYTOSIS (NORMAL)
--- NOTE | 2017-03-20 18:27 | HISTORY & PHYSICAL EXAMINATION ---
Chief Complaint - Chief Complaint Chief Complaint: productive cough x10 days, right sided flank pain. Respiratory Admission HPI - Admitted From Admitted from: ED - History Obtained From Records Reviewed: Old records reviewed History obtained from: Patient Exam limitations: No limitations - History of Present Illness Location Problem/Description: shortness of breath, right flank Severity at the worst: reports: Moderate Associated Pain Quality Description: reports: Sharp Context of Onset: reports: Exertion Timing: reports: Gradual onset Duration: reports: Other (at least 10 days.) Improved with: reports: Nothing Worsened by: reports: Exertion Associated symptoms: reports: General weakness HPI Comment/Other: Ozzy Flores is a pleasant 81-year old male with a past medical history of HTN, asthma, COPD-dependent home oxygen, emphysema, bilateral hearing loss, and a recent fall. Patient admits to a recent fall ~a week ago, which he came to the ED. He did not have any head injuries, or fractures, but has had ongoing right hip pain ever since. He had an out patient MRI today to check on a questionable "spot on his hip". Patient states that he has had a productive cough for the last 10 days which produces yellow/green, thick sputum. He also complains of fatigue, shortness of breath and trouble sleeping lately. He admits to using his home nebulizer at least 4 times this morning before coming to the ED. He will be admitted to observation for symptom control with IV steroids, IV antibiotics, and respiratory therapy. PMH/PSH - Past Medical History Cardiovascular: positive: Hypertension Respiratory: positive: Asthma, COPD, Emphysema Neuro: positive: Tremors (mild, noticable in the past few weeks and localized to right hand, right leg. Comes and goes.). negative: Headache/migraine Endocrine/Autoimmune: positive: None GI: positive: None : positive: Nocturia, Frequency, Other (urgency.) HEENT: positive: Chronic hearing loss, Other (post cataract surgery.) Psych: positive: None Musculoskeletal: positive: Chronic back pain (sees a chiropractor regularily.) Derm: positive: None MRSA Hx?: No - Past Surgical History Ortho: positive: Arthroscopic surgery HEENT: positive: Cataracts Derm: positive: Other (sees a senior oracle applications developer regularily.) Other past surgical history: status post bladder cancer that was treated with "TB infusions" in the year 1999. Social & Family Hx - Living Situation Living Arrangement: At home Living Situation: With spouse/s.o. 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 - POLST Patient has POLST: No POLST Status: Full Code - Family History Family History: Mother: , Cancer (mother-pancreatic, sister-liver), Father: , CAD, CVA/TIA, Sister: , Cancer Meds/Allgy - Home Medications Home Medications: Ambulatory Orders Medication Instructions Recorded Confirmed Aspirin Chewable [St Vlad 81 mg PO DAILY 09/04/12 03/20/17 Aspirin] Metoprolol Succinate [Toprol Xl] 50 mg PO DAILY 09/04/12 03/20/17 Tiotropium [place] [Spiriva] 18 mcg IH DAILY 10/23/12 03/20/17 Fluticasone/Salmeterol [Advair 1 inh IH BID 02/26/15 03/20/17 500-50 Diskus] Multivitamin [Daily [place]] 1 each PO DAILY 02/26/15 03/20/17 Telmisartan [Micardis] 20 mg PO DAILY 02/26/15 03/20/17 Atorvastatin Calcium 20 mg PO QPM 05/24/16 03/21/17 Citalopram [CeleXA] 20 mg PO DAILY 05/24/16 03/20/17 HYDROcod/ACETAM 5/325 [[place] 5/325] 1 - 2 ea PO Q6H PRN #11 tablet 02/22/17 Prednisone 5 mg PO .FREQ 02/22/17 03/20/17 Levofloxacin [Levaquin] 500 mg PO DAILY 03/20/17 03/20/17 - Allergies Allergies/Adverse Reactions: Allergies Allergy/AdvReac Type Severity Reaction Status Date / Time Sulfa (Sulfonamide Allergy Unknown Rash Verified 03/20/17 09:45 Antibiotics) Review of Systems - Constitutional Constitutional: reports: Fatigue, Weakness - Eyes Eyes: reports: Corrective lenses - Ears, Nose & Throat Ears, Nose & Throat: reports: Hearing loss, Hearing aids, Dentures (uppers) - Cardiovascular Cariovascular: reports: Exertional dyspnea, Decr. exercise tolerance - Respiratory Respiratory: reports: Cough, Sputum production, SOB with exertion, Pleuritic pain (right) - Gastrointestinal Gastrointestinal: reports: Abdominal distention (increased abdominal girth) - Genitourinary Genitourinary: reports: Urgency, Nocturia. denies: Incontinence - Musculoskeletal Musculoskeletal: reports: Joint pain (right shoulder), Joint swelling - Integumentary Integumentary: reports: Dryness - Neurological Neurological: reports: General weakness, Other (slight right arm, right leg tremor.) - Psychiatric Psychiatric: denies: Depression, Anxiety, Suicidal - Endocrine Endocrine: denies: Polyuria, Polydypsia - Hematologic/Lymphatic Hematologic/Lymphatic: denies: Anemia, Bruising, Petechiae - All Other Systems All Other Systems: reports: Reviewed and negative Exam - Vital Signs Reviewed Vital Signs: Yes Vital Signs: Vital Signs x48h Temp Pulse Pulse Resp BP BP Pulse Ox 03/20/17 16:29 36.8 C 89 20 189/92 H 99 03/20/17 15:40 36.6 C 64 14 158/84 H 100 - Physical Exam General Appearance: positive: No acute distress, Anxious Eyes Bilateral: positive: Normal inspection, PERRL ENT: positive: ENT inspection nml, Pharynx nml, Dry mucous membranes, Other (YAVAP[place]-APACHE ) Neck: positive: Nml inspection, Thyroid nml, No JVD, Trachea midline Respiratory: positive: Chest non-tender, Wheezes, Rhonchi, Other (coarse crackles over all lung sommer.) Cardiovascular: positive: Regular rate & rhythm, No gallop, Systolic murmur Peripheral Pulses: positive: 2+ Abdomen: positive: Non-tender, No organomegaly, Nml bowel sounds, No distention Back: positive: Nml inspection Skin: positive: No rash, Warm, Dry, Pallor Extremities: positive: Non-tender, Full ROM, Nml appearance, No pedal edema, Joint swelling Neurologic/Psychiatric: positive: Oriented x3, CN's nml (2-12), Motor nml, Sensation nml, Mood/affect nml Reflexes: Bicep (R): 3+, Bicep (L): 3+ Results - Lab Results Lab results reviewed: Yes Fish Bones: 03/20/17 12:09 03/20/17 12:09 - Diagnostic Imaging Results Diagnostic Imaging Results: positive: Prelim report reviewed, Final report reviewed Diagnostic Imaging Results Comments: FINDINGS: The heart is not enlarged. There is atherosclerosis of the aorta. Increased lung markings are noted within the right lung base may represent scattered infiltrates. Blunting of the right costophrenic angle is noted but may represent a small pleural effusion. No pneumothorax. The left lung is well aerated. Impression: Increased lung markings in the inferior aspect of the right lung may represent infiltrates. OUTPATIENT MRI: 03/20/17 FINDINGS: Bones: No fractures or subluxations. No marrow edema or bone lesions. Lower Lumbar Spine: Unremarkable. Sacroiliac Joints: No effusion or sacroiliitis. Right Hip: No acetabular retroversion. Femoral head/neck offset is normal. The ligamentum teres is intact. The articular cartilage is intact. Corresponding to findings seen on the prior radiograph is a calcified loose body in the anterior joint space measuring 2.0 x 0.9 x 2.6 cm. Left Hip: No acetabular retroversion. Femoral head-neck offset is within normal limits. No effusion. Symphysis Pubis: Unremarkable. Musculature: No edema or fatty atrophy. Pelvic Cavity: The visualized bowel, bladder, and reproductive organs are unremarkable. No lymphadenopathy. No free fluid in the pelvis. Other: The visualized sciatic nerves are unremarkable. No bursitis. The patient has a small left inguinal hernia containing fat. IMPRESSION: 1. The finding on the prior radiograph corresponds to a 2.6 cm loose body in the right anterior hip joint. - EKG Results EKG Interpreted Independently: Yes ARRA - Anticipated LOS Anticipated Stay Length: Less than 2 midnights - AMI - Statin at Admit Aspirin Prescribed on Admit: Yes - Stroke - Rehab Assessment Rehab services assessment to be ordered?: No Not Ordered - Medical Reason: Contraindicated - DVT/VTE - Prophylaxis VTE/DVT Device ordered at admit?: Yes VTE/DVT Prophylaxis med ordered at admit?: Yes Impression/Plan - Problem List Problem List: Chronic obstructive pulmonary disease with (acute) exacerbation: Patient is a long standing COPD patient that also has asthma and has been well controlled using LABAs and Kyle at home. Patient is dependent on oxygen. Plan: Oxygen via nasal cannula, IV steroids, IV antibiotics. Pneumonia: Based on chest x-ray, noted infiltrates. Patient complains of a productive cough for the past 10 days. Plan: IV antibiotics, IV steroids, respiratory therapy. Hypoxemia: Oxygen levels noted to be low upon presentation to ED ~89% on his usual 2L. Plan: Continue nebulizers, oxygen via nasal cannula. Cough: Thick sputum is noted upon exam. 10+ day history of a productive cough. Plan: Respiratory therapy to introduce flutter valve device or incentive spirometry. Expectorant prescribed. Code status: FULL Prophylaxis: SCDs.
[2017-03-20] MEDS: guaiFENesin 600 MG TABLET PO SCH (19:02)
[2017-03-20] MEDS ORDERED: HYDROcod/ACETAM 5/325 MG TABLET PO PRN (20:33)
[2017-03-20] MEDS: methylPREDNISolone SUCCINATE 40 MG/ML VIAL IVP SCH (22:01)
[2017-03-20] MEDS: SODIUM CHLORIDE FLUSH 0.9% 10 ML SYRINGE IVP PRN (22:04)
[2017-03-20] MEDS: PIPERACILLIN/TAZOBACTAM 3.375 GM in SODIUM CHLORIDE 0.9% MINIBAG 100 ML IV SCH (22:07)
[2017-03-20] MEDS: SODIUM CHLORIDE FLUSH 0.9% 10 ML SYRINGE IVP SCH (23:09)
[2017-03-21] MEDS: NON FORMULARY MED (Atorvastatin Calcium [Atorvastatin Calcium] 20 MG) PO SCH ×3 (00:43→00:45)
[2017-03-21] MEDS ORDERED: HYDROcod/ACETAM 5/325 MG TABLET PO PRN (02:10)
[2017-03-21] MEDS: PIPERACILLIN/TAZOBACTAM 3.375 GM in SODIUM CHLORIDE 0.9% MINIBAG 100 ML IV SCH ×4 (03:28→21:39)
[2017-03-21] MEDS: ATORVASTATIN 40 MG TABLET PO SCH ×2 (03:30→21:36)
[2017-03-21] MEDS: SODIUM CHLORIDE FLUSH 0.9% 10 ML SYRINGE IVP SCH ×3 (04:16→21:41)
[2017-03-21] MEDS: IPRATROPIUM 0.2 MG/ML NEB INH SCH ×4 (07:47→19:44)
--- NOTE | 2017-03-21 08:50 | PROVIDER PROGRESS NOTE ---
Subjective - Prog Note Date Prog Note Date: 03/21/17 Prog Note Time: 08:50 - Subjective Pt reports feeling: No change Subjective: Ozzy states he is not much improved from 24 hours ago. He denies SOB, chest pain, N/V or worsening sputum production. Current Medications - Current Medications Current Medications: Active Medications Acetaminophen/Hydrocodone Bitart ([place] 5/325) 1 tab PO Q6H PRN PRN Reason: PAIN Aspirin (St Vlad Aspirin) 81 mg PO DAILY [facility] Last Admin: 03/21/17 09:49 Dose: 81 mg Atorvastatin Calcium (Lipitor) 20 mg PO QPM BRITTANIE Last Admin: 03/21/17 21:36 Dose: 20 mg Guaifenesin (Mucinex) 600 mg PO DAILY [facility] Last Admin: 03/21/17 09:49 Dose: 600 mg Piperacillin Sod/Tazobactam (Sod 3.375 gm/ Sodium Chloride) 100 mls @ 200 mls/ hr IV Q6H [facility] Last Infusion: 03/21/17 22:19 Dose: Infused Ipratropium [place] (Atrovent) 0.5 mg INH RTQID [facility] Last Admin: 03/21/17 19:44 Dose: 0.5 mg Losartan Potassium (Cozaar) 25 mg PO DAILY [facility] Last Admin: 03/21/17 09:49 Dose: 25 mg Methylprednisolone (Solu-Medrol (40mg Vial)) 40 mg IVP BID [facility] Last Admin: 03/21/17 21:39 Dose: 40 mg Metoprolol Succinate (Toprol Xl) 50 mg PO DAILY [facility] Last Admin: 03/21/17 09:48 Dose: 50 mg Polyethylene Glycol (Miralax) 17 gm PO DAILY [facility] Last Admin: 03/21/17 09:56 Dose: Not Given Sodium Chloride (Normal Saline Flush 0.9%) 10 ml IVP PRN PRN PRN Reason: NEEDED PER PROVIDER ORDERS Last Admin: 03/21/17 15:42 Dose: 10 ml Sodium Chloride (Normal Saline Flush 0.9%) 10 ml IVP Q8HR [facility] Last Admin: 03/21/17 21:41 Dose: 10 ml Aspirin Chewable [St Vlad Aspirin] 81 mg PO DAILY 09/04/12 Metoprolol Succinate [Toprol Xl] 50 mg PO DAILY 09/04/12 Fluticasone/Salmeterol [Advair 500-50 Diskus] 1 inh IH BID 02/26/15 Multivitamin [Daily [place]] 1 each PO DAILY 02/26/15 Telmisartan [Micardis] 20 mg PO DAILY 02/26/15 Atorvastatin Calcium 20 mg PO QPM 05/24/16 Escitalopram [Lexapro] 20 mg PO DAILY 03/21/17 Pantoprazole [Protonix] 40 mg PO DAILY 03/21/17 Tiotropium [place] [Spiriva Respimat] 2.5 mcg IH DAILY 03/21/17 Objective - Vital Signs/Intake & Output Reviewed Vital Signs: Yes Vital Signs: Vital Signs x48h Temp Pulse Pulse Resp BP Pulse Ox 03/21/17 07:51 36.7 C 72 18 168/94 H 98 03/21/17 07:50 87 18 03/21/17 03:54 36.5 C 74 16 157/95 H 97 Intake & Output: Intake & Output 03/18/17 03/19/17 03/20/17 03/21/17 23:59 23:59 23:59 23:59 Intake Total 100 760 Balance 100 760 - Objective General Appearance: positive: No acute distress, Alert ENT: positive: ENT inspection nml, Pharynx nml, No signs of dehydration Neck: positive: Nml inspection, Thyroid nml, No JVD, Trachea midline Respiratory: positive: Chest non-tender, No respiratory distress, Wheezes, Rales (coarse crackles) Cardiovascular: positive: Regular rate & rhythm, No gallop Peripheral Pulses: 2+ Radial (R), 2+ Radial (L) Abdomen: positive: Non-tender, No organomegaly, Nml bowel sounds, No distention Back: positive: Nml inspection Skin: positive: Color nml, No rash, Warm, Dry Extremities: positive: Non-tender, Full ROM, Pedal edema (mild, feet elevated in bed) Reflexes: Bicep (R): 3+, Bicep (L): 3+ - Lab Results Fish Bones: 03/20/17 12:09 03/20/17 12:09 - Diagnostic Imaging Diagnostic Imaging Results: positive: Final report reviewed Assessment/Plan - Problem List (1) Pneumonia Impression: Based on chest x-ray, noted infiltrates. Patient complains of a productive cough for the past 10 days. Patient notes less sputum production today on exam and cough is improved. Plan: IV antibiotics, IV steroids, respiratory therapy. Orders for RT flutter valve therapy. (2) COPD with acute exacerbation Impression: Patient is a long standing COPD patient that also has asthma and has been well controlled using medications; LABAs and Kyle at home. Patient is dependent on oxygen. Plan: Oxygen via nasal cannula, IV steroids, IV antibiotics. Flutter valve will be ordered and is the recommended device for more severe COPD. (3) Hypoxemia Impression: Oxygen levels noted to be low upon presentation to ED ~89% on his usual 2L, now consistently above 90%. Plan: Continue nebulizers, oxygen via nasal cannula. Energy conservation techniques should be introduced and pursed lip breathing. (4) Cough Impression: Thick sputum is noted upon exam. 10+ day history of a productive cough. Patient admits to less coughing today and less sputum production. Plan: Respiratory therapy to introduce flutter valve device or incentive spirometry. Expectorant prescribed.
--- NOTE | 2017-03-21 08:55 | ADVANCE CARE PLANNING NOTE ---
Advance Care Planning - Date/Time Date: 03/20/17 Time: 18:00 - Purpose of encounter Text: To address code status and end-of-life wishes. - Parties in attendance Parties in attendance: Myself and patient, Ozzy Flores. - Decisional capacity Decisional capacity of: Ozzy understands all of his medical problems, is A & O x4, and has not shown any signs of confusion. He does not believe his needs to be present for this discussion. - Subjective/Patient's story Subjective/Patient's story: Answers to the following 4 questions: 1) If you should stop breathing, is it ok to intubate you to support your respiratory system? YES. 2) If your heart stops beating, can we do chest compressions? YES 3) If you need cardiac type medications, can we give you those either through an IV or IO? YES. 4) If you go into a shockable heart rhythm, can we shock you out of it using our zoll machine? YES. Patient had no reservations about any of these topics, but does not want to be kept in a vegetative state for an extended amount of time. 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 He has had the pleasure of having 4 biological children, 3 step children and numerous grand-children and great grand children. He continues to have support from several family members. - Objective/Medical story Objective/Medical Story: Due to patient answering YES to all questions surrounding end-of-life measures, I have designated his code status as FULL. He has a clear understanding based on my medical decision making abilities. - Goals of Care Goals of care determinations: Goals of care are based on maintaining a good quality of life and avoid technically invasive procedures and tests. He feels that his lung condition is generally well controlled and that this is just "a bump in the road". - Plan Plan: Continue to treat medically, avoiding technically invasive procedures/ surgeries. Patient is expected to respond well to current treatment of IV antibiotics, IV steroids and nebulizers. - Code Status Code Status: Attempt Resuscitation - Time Spent on Advance Care Planning Time spent on advance care plannin
[2017-03-21] MEDS ORDERED: TIOTROPIUM INHALER INH SCH ×2 (09:00)
[2017-03-21] MEDS ORDERED: TELMISARTAN 20 MG PO SCH (09:00)
[2017-03-21] MEDS: methylPREDNISolone SUCCINATE 40 MG/ML VIAL IVP SCH ×2 (09:48→21:39)
[2017-03-21] MEDS: METOPROLOL SUCCINATE 50 MG TABLET PO SCH (09:48)
[2017-03-21] MEDS: guaiFENesin 600 MG TABLET PO SCH (09:49)
[2017-03-21] MEDS: ASPIRIN CHEW 81 MG TABLET PO SCH (09:49)
[2017-03-21] MEDS: LOSARTAN 50 MG TABLET PO SCH (09:49)
[2017-03-21] MEDS: POLYETHYLENE GLYCOL 3350 17 GM PACKET PO SCH (09:56)
[2017-03-21] MEDS: SODIUM CHLORIDE FLUSH 0.9% 10 ML SYRINGE IVP PRN (15:42)
[2017-03-22] MEDS: PIPERACILLIN/TAZOBACTAM 3.375 GM in SODIUM CHLORIDE 0.9% MINIBAG 100 ML IV SCH ×2 (03:26→08:37)
[2017-03-22] MEDS: SODIUM CHLORIDE FLUSH 0.9% 10 ML SYRINGE IVP PRN (03:27)
[2017-03-22 05:36] LABS: BASOPHILS % (AUTO) 0.1 %; HGB - HEMOGLOBIN 11.3 g/dL (14.0-18.0); LYMPHOCYTES % (AUTO) 7.9 %; MEAN CORPUSCULAR HEMOGLOBIN 31.1 pg (27.0-31.0); MEAN CORPUSCULAR VOLUME 97.2 fL (80.0-94.0); MEAN PLATELET VOLUME 7.9 fL (7.4-11.4); MONOCYTES # (AUTO) 0.8 10^3/uL (0.0-1.0); MONOCYTES % (AUTO) 6.4 %; NEUTROPHILS # (AUTO) 10.7 10^3/uL (1.5-6.6); NEUTROPHILS % (AUTO) 85.6 %; PLT - PLATELET COUNT 237 10^3/uL (130-450); RED BLOOD COUNT 3.64 10^6/uL (4.70-6.10); RED CELL DISTRIBUTION WIDTH 13.4 % (12.0-15.0); WHITE BLOOD COUNT 12.5 x10^3/uL (4.8-10.8)
[2017-03-22 05:44] LABS: ALBUMIN 3.3 g/dL (3.2-5.5); ALBUMIN/GLOBULIN RATIO 0.8 (1.0-2.2); BILIRUBIN,TOTAL 0.5 mg/dL (0.2-1.0); CALCIUM 9.6 mg/dL (8.5-10.3); CREATININE 1.1 mg/dL (0.6-1.2); PHOSPHORUS 4.2 mg/dL (2.5-4.6); TOTAL PROTEIN 7.3 g/dL (6.7-8.2)
[2017-03-22] MEDS: SODIUM CHLORIDE FLUSH 0.9% 10 ML SYRINGE IVP SCH (05:50)
[2017-03-22] MEDS: IPRATROPIUM 0.2 MG/ML NEB INH SCH ×2 (07:48→11:24)
[2017-03-22] MEDS: LOSARTAN 50 MG TABLET PO SCH (08:36)
[2017-03-22] MEDS: METOPROLOL SUCCINATE 50 MG TABLET PO SCH (08:37)
[2017-03-22] MEDS: methylPREDNISolone SUCCINATE 40 MG/ML VIAL IVP SCH (08:37)
[2017-03-22] MEDS: POLYETHYLENE GLYCOL 3350 17 GM PACKET PO SCH (08:37)
[2017-03-22] MEDS: guaiFENesin 600 MG TABLET PO SCH (08:37)
[2017-03-22] MEDS: ASPIRIN CHEW 81 MG TABLET PO SCH (08:37)
--- NOTE | 2017-03-22 11:38 | Discharge Plan ---
Discharge Plan Disposition: Home, Self Care Condition: Good Prescriptions: Albuterol Sulfate [Proair Hfa Inhaler] 1 - 2 puffs INH Q4H PRN #1 inhaler PRN Reason: Shortness Of Air/Wheezing guaiFENesin [Mucinex] 600 mg PO DAILY PRN #30 tablet PRN Reason: Cough Levofloxacin [Levaquin] 500 mg PO DAILY 10 Days #10 tablet Prednisone 10 mg PO DAILY #21 tab.ds.pk Diet: Regular Activity Restrictions: No Restrictions Shower Restrictions: No Driving Restrictions: No Weight Bearing: Full Weight Instruction Topics: Pneumonia, Pneumonia Prevent, Pneumonia Dc Additional Instructions or Follow Up instructions: We have treated you for pneumonia using IV steroids and IV antibiotics. Please continue with oral forms of both as recommended. Use your oxygen as usual at home. Do not take you celexa for a week - it interacts with the antibiotic. See your PCP in the next 3-5 days as a follow up to this hospital stay. Happy New Year! No Smoking: If you smoke, Please STOP! Call for help. Follow-up with: YULI VERGARA MD [Primary Care Provider] -
--- NOTE | 2017-03-22 11:49 | DISCHARGE SUMMARY ---
Discharge Summary Admit Date: 03/20/17 Discharge Date: 03/22/17 Discharging Provider: DESTIN Gagnon Primary Care Provider: Susie Guardado Code Status: Attempt Resuscitation Condition at Discharge: Good Discharge Disposition: 01 Home, Self Care - DIAGNOSES Admission Diagnoses: Acute exacerbation of chronic obstructive pulmonary disease (J44.1) Hypoxia (R09.02) Activity intolerance (R68.89) Cough productive of purulent sputum (R05) Discharge Diagnoses with Status of Each Condition: Acute exacerbation of chronic obstructive pulmonary disease (J44.1) chronic, controlled on medications. Pneumonia (J18.9) resolving, continue short course of PO antibiotics/steroids at home. Hypoxia (R09.02) resolved, oxygen dependence is chronic. Activity intolerance (R68.89) chronic due to end stage lung disease. Cough productive of purulent sputum (R05) improved, chronic, stable. - HPI History of Present Illness: Ozzy Flores is a pleasant 81-year old male with a past medical history of HTN, asthma, COPD-dependent home oxygen, emphysema, bilateral hearing loss, and a recent fall. Patient admits to a recent fall ~a week ago, which he came to the ED. He did not have any head injuries, or fractures, but has had ongoing right hip pain ever since. He had an out patient MRI today to check on a questionable "spot on his hip". Patient states that he has had a productive cough for the last 10 days which produces yellow/green, thick sputum. He also complains of fatigue, shortness of breath and trouble sleeping lately. He admits to using his home nebulizer at least 4 times this morning before coming to the ED. He will be admitted to observation for symptom control with IV steroids, IV antibiotics, and respiratory therapy. - CONSULTS | PROCEDURES Consultations: none - HOSPITAL COURSE Hospital Course: Ozzy had an expected hospital course and was given IV antibiotics, IV steroids and nebulizers. He was updated on the findings of his out patient MRI as requested. He continued on oxygen and his lung sounds and breathing efforts improved. He was discharged in stable condition via private car back home with instructions to see his PCP in the next few days. - ALLERGIES Allergies/Adverse Reactions: Allergies Allergy/AdvReac Type Severity Reaction Status Date / Time Sulfa (Sulfonamide Allergy Unknown Rash Verified 03/20/17 09:45 Antibiotics) - MEDICATIONS Home Medications: Ambulatory Orders Medication Instructions Recorded Confirmed Aspirin Chewable [St Vlad 81 mg PO DAILY 09/04/12 03/20/17 Aspirin] Metoprolol Succinate [Toprol Xl] 50 mg PO DAILY 09/04/12 03/20/17 Fluticasone/Salmeterol [Advair 1 inh IH BID 02/26/15 03/20/17 500-50 Diskus] Multivitamin [Daily [place]] 1 each PO DAILY 02/26/15 03/20/17 Telmisartan [Micardis] 20 mg PO DAILY 02/26/15 03/20/17 Atorvastatin Calcium 20 mg PO QPM 05/24/16 03/21/17 Escitalopram [Lexapro] 20 mg PO DAILY 03/21/17 03/21/17 Pantoprazole [Protonix] 40 mg PO DAILY 03/21/17 03/21/17 Tiotropium [place] [Spiriva 2.5 mcg IH DAILY 03/21/17 03/21/17 Respimat] Albuterol Sulfate [Proair Hfa 1 - 2 puffs INH Q4H PRN #1 inhaler 03/22/17 Inhaler] Levofloxacin [Levaquin] 500 mg PO DAILY 10 Days #10 tablet 03/22/17 Prednisone 10 mg PO DAILY #21 tab.ds.pk 03/22/17 guaiFENesin [Mucinex] 600 mg PO DAILY PRN #30 tablet 03/22/17 - PHYSICAL EXAM AT DISCHARGE General Appearance: positive: No acute distress, Alert Eyes Bilateral: positive: Normal inspection, PERRL. negative: No scleral icterus ENT: positive: ENT inspection nml, Pharynx nml, No signs of dehydration Neck: positive: Nml inspection, Thyroid nml, No JVD, Trachea midline, Stiff neck Respiratory: positive: Chest non-tender, No respiratory distress, Wheezes, Other (minimal crackles to lower lobes.) Cardiovascular: positive: No gallop, Irregularly irregular, Systolic murmur, Decreased pulse(s) Peripheral Pulses: positive: 1+ Abdomen: positive: Non-tender, No organomegaly, Nml bowel sounds, No distention Back: positive: Nml inspection Skin: positive: No rash, Warm, Dry, Pallor Extremities: positive: Non-tender, Full ROM, Pedal edema (mild-trace) Neurologic/Psychiatric: positive: Oriented x3, CN's nml (2-12), Motor nml, Sensation nml, Sensory loss, Depressed mood/affect Reflexes: Bicep (R): 2+, Bicep (L): 2+ - LABS Result Diagrams: 03/22/17 05:18 03/22/17 05:18 - DIAGNOSTIC IMAGING Diagnostic Imaging Results: Final report reviewed Diagnostic Imaging Results Comments: 2-view chest x-ray: FINDINGS: The heart is not enlarged. There is atherosclerosis of the aorta. Increased lung markings are noted within the right lung base may represent scattered infiltrates. Blunting of the right costophrenic angle is noted but may represent a small pleural effusion. No pneumothorax. The left lung is well aerated. Impression: Increased lung markings in the inferior aspect of the right lung may represent infiltrates. OUTPATIENT MRI: 03/20/17 FINDINGS: Bones: No fractures or subluxations. No marrow edema or bone lesions. Lower Lumbar Spine: Unremarkable. Sacroiliac Joints: No effusion or sacroiliitis. Right Hip: No acetabular retroversion. Femoral head/neck offset is normal. The ligamentum teres is intact. The articular cartilage is intact. Corresponding to findings seen on the prior radiograph is a calcified loose body in the anterior joint space measuring 2.0 x 0.9 x 2.6 cm. Left Hip: No acetabular retroversion. Femoral head-neck offset is within normal limits. No effusion. Symphysis Pubis: Unremarkable. Musculature: No edema or fatty atrophy. Pelvic Cavity: The visualized bowel, bladder, and reproductive organs are unremarkable. No lymphadenopathy. No free fluid in the pelvis. Other: The visualized sciatic nerves are unremarkable. No bursitis. The patient has a small left inguinal hernia containing fat. IMPRESSION: 1. The finding on the prior radiograph corresponds to a 2.6 cm loose body in the right anterior hip joint. - FOLLOW UP Follow Up: We have treated you for pneumonia using IV steroids and IV antibiotics. Please continue with oral forms of both as recommended. Use your oxygen as usual at home. Do not take you celexa for a week - it interacts with the antibiotic. See your PCP in the next 3-5 days as a follow up to this hospital stay. - TIME SPENT Time Spent in Discharge (Minutes): 45
[2017-03-22 12:10] VITALS: BP 183/95
== END 2017-03-22 12:39 | disposition home or self-care (01) | DRG 190 ==
LOC: ED 09:33 → OBS 15:31 → OBSVTOIN 03-21 10:18 → MS2 03-21 15:12
PROVIDERS: ADMIT Nurse Practitioner; ATTEND Nurse Practitioner
DX: J44.1 Chronic obstructive pulmonary disease with (acute) exacerbation (principal); J18.9 Pneumonia, unspecified organism; J44.0 Chronic obstructive pulmonary disease with (acute) lower respiratory infection; D64.9 Anemia, unspecified; R09.02 Hypoxemia; I10 Essential (primary) hypertension; H91.93 Unspecified hearing loss, bilateral; M24.051 Loose body in right hip; Z99.81 Dependence on supplemental oxygen; Z85.51 Personal history of malignant neoplasm of bladder; Z87.891 Personal history of nicotine dependence; Z91.81 History of falling; Z79.82 Long term (current) use of aspirin
CPT/HCPCS: 36415; 71020; 72195; 80048; 80053; 83735; 84100; 85025; 87040; 87275; 87276; 93005; 94640; 96365; 96366; 96367; 96375; 96376; 99283; 99284

== ENCOUNTER 2017-06-03 12:43 | Emergency (ER) | payer MEDICARE, OTHER ==
[2017-06-03 13:01] VITALS: BP 153/96
--- NOTE | 2017-06-03 14:44 | ED Physician Documentation ---
PD HPI BACK PAIN - Stated complaint Stated Complaint: BACK PX - Chief complaint Chief Complaint: Back Pain - History obtained from History obtained from: Patient, Family - History of Present Illness Timing - onset: How many days ago (3) Timing - duration: Days (3) Timing - details: Abrupt onset, Still present Location: Mid, Lower, Left Quality: Pain, Spasm, Sharp Associated symptoms: No: Fever, Weakness, Numbness, Incontinent of urine, Unable to urinate, Hematuria, Incontinent of stool Improves with: Rest, Position, Meds Worsened by: Movement Contributing factors: Other (unknown) Similar symptoms before: Has not had sx before Recently seen: Not recently seen - Additional information Additional information: 82-year-old male with a history of oxygen dependent COPD was sitting in his easy chair 3 nights ago when he developed acute left flank pain. He has pain with any movement of his left side and he does not recall any form of injury to the area. Review of Systems Constitutional: denies: Fever, Chills, Myalgias Eyes: denies: Decreased vision Ears: denies: Loss of hearing, Ear pain Nose: denies: Rhinorrhea / runny nose, Congestion Throat: denies: Sore throat Respiratory: denies: Dyspnea, Cough GI: denies: Abdominal Pain, Nausea, Vomiting : reports: Frequency. denies: Dysuria, Incontinent Skin: denies: Rash Musculoskeletal: reports: Back pain. denies: Neck pain, Extremity pain PD PAST MEDICAL HISTORY - Past Medical History Cardiovascular: Hypertension Respiratory: Asthma, COPD, Emphysema Neuro: Tremors (mild, noticable in the past few weeks and localized to right hand, right leg. Comes and goes.) Endocrine/Autoimmune: None GI: None : Nocturia, Frequency, Other (urgency.) HEENT: Chronic hearing loss, Other (post cataract surgery.) Psych: None Musculoskeletal: Chronic back pain (sees a chiropractor regularily.) Derm: None - Past Surgical History Past Surgical History: Yes Ortho: Arthroscopic surgery HEENT: Cataracts Derm: Other (sees a earth moving technician regularily.) - Present Medications Home Medications: Ambulatory Orders Medication Instructions Recorded Confirmed Aspirin Chewable [St Vlad 81 mg PO DAILY 09/04/12 06/03/17 Aspirin] Metoprolol Succinate [Toprol Xl] 50 mg PO DAILY 09/04/12 06/03/17 Fluticasone/Salmeterol [Advair 1 inh IH BID 02/26/15 06/03/17 500-50 Diskus] Multivitamin [Daily [place]] 1 each PO DAILY 02/26/15 06/03/17 Telmisartan [Micardis] 20 mg PO DAILY 02/26/15 06/03/17 Atorvastatin Calcium 20 mg PO QPM 05/24/16 06/03/17 Escitalopram [Lexapro] 20 mg PO DAILY 03/21/17 06/03/17 Pantoprazole [Protonix] 40 mg PO DAILY 03/21/17 06/03/17 Tiotropium [place] [Spiriva 2.5 mcg IH DAILY 03/21/17 06/03/17 Respimat] Albuterol Sulfate [Proair Hfa 1 - 2 puffs INH Q4H PRN #1 inhaler 03/22/17 Inhaler] Levofloxacin [Levaquin] 500 mg PO DAILY 10 Days #10 tablet 03/22/17 06/03/17 Prednisone 10 mg PO DAILY #21 tab.ds.pk 03/22/17 06/03/17 guaiFENesin [Mucinex] 600 mg PO DAILY PRN #30 tablet 03/22/17 06/03/17 Levofloxacin [Levaquin] 500 mg PO DAILY #10 tablet 06/03/17 - Allergies Allergies/Adverse Reactions: Allergies Allergy/AdvReac Type Severity Reaction Status Date / Time Sulfa (Sulfonamide Allergy Unknown Rash Verified 03/20/17 09:45 Antibiotics) - Social History Does the pt smoke?: No Smoking Status: Former smoker (tobacco use from age [age].) Does the pt drink ETOH?: Yes Does the pt have substance abuse?: No - Immunizations Immunizations are current?: Yes - POLST Patient has POLST: No POLST Status: Full Code PD ED PE NORMAL - Vitals Vital signs reviewed: Yes (hypertension ) - General General: Alert and oriented X 3, No acute distress, Well developed/nourished - HEENT HEENT: Atraumatic, PERRL - Neck Neck: Supple, no meningeal sign - Respiratory Respiratory: No respiratory distress - Back Back: No spinal TTP, Other (There is point tenderness to the left paraspinous muscles and to bimanual palpation of the left kidney. ) - Derm Derm: Normal color, Warm and dry, No rash - Extremities Extremities: No deformity, No edema - Neuro Neuro: Alert and oriented X 3, No motor deficit, No sensory deficit, Normal speech Eye Opening: Spontaneous Motor: Obeys Commands Verbal: Oriented GCS Score: 15 - Psych Psych: Normal mood, Normal affect Results - Vitals Vitals: Vital Signs - 24 hr 06/03/17 12:58 Temperature 36.9 C Heart Rate 90 Respiratory 20 Rate Blood Pressure 153/96 H O2 Saturation 92 Oxygen O2 Source [] Nasal cannula O2 Source [] Room air O2 Source Room air - Labs Labs: Laboratory Tests 06/03/17 15:45 Urine Color YELLOW Urine Clarity CLEAR Urine pH 6.5 Ur Specific [place] 1.020 Urine Protein TRACE Urine Glucose (UA) NEGATIVE Urine Ketones 15 H Urine Occult Blood MODERATE H Urine Nitrite NEGATIVE Urine Bilirubin NEGATIVE Urine Urobilinogen 0.2 (NORMAL) Ur Leukocyte Esterase NEGATIVE Urine RBC 11-25 H Urine WBC 0-3 Ur Squamous Epith Cells RARE Squamous Urine Bacteria Rare Ur Microscopic Review INDICATED Urine Culture Comments NOT INDICATED - Rads (name of study) CT ab/pel without Radiology: Prelim report reviewed (Impression: 1. No urinary tract calculi are seen. No hydronephrosis. Normal appendix. Severe sigmoid diverticulosis. A few descending colon diverticula. No acute bowel findings are seen. Small hiatal hernia. 2. Small bilateral inguinal fat-containing hernias, left greater than right. 3. Fatty liver. 4. Mild bibasilar scarring and fibrotic changes again noted in the nodular reticular opacities. 5. New mild nodular hazy opacities are seen laterally in the left lower lobe, could represent mild pneumonia or aspiration.), EMP read indepedently, See rad report Procedures - Bedside sono Bedside sono by EMP: With use of bedside ultrasound the bladder is imaged there is no significant volume to the bladder. The left kidney is imaged it is sonographically tender there is some mild hydro-. PD MEDICAL DECISION MAKING - ED course Complexity details: reviewed results, re-evaluated patient, considered differential, d/w patient, d/w family ED course: 82-year-old male with pain on movement radiated to the left flank has tenderness to the left kidney he also has some mild hydro-on bedside exam. I am not entirely convinced this is a musculoskeletal injury and have ordered a CT of the abdomen pelvis as well. The CT does demonstrate what appears to be a left lower lobe pneumonia.The patient has had no pneumonia a number of times usually does not get sick with pneumonia.He has to had to be in the hospital with aggressive treatment. He has had pneumonia 1-5 times per year for the past 4 years. Departure - Departure Disposition: 01 Home, Self Care Clinical Impression: Pneumonia Qualifiers: Pneumonia type: due to unspecified organism Laterality: left Lung location: lower lobe of lung Qualified Code(s): J18.1 - Lobar pneumonia, unspecified organism Instructions: ED Pneumonia Adult Follow-Up: YULI VERGARA MD [Primary Care Provider] - Prescriptions: Levofloxacin [Levaquin] 500 mg PO DAILY #10 tablet
[2017-06-03] MEDS ORDERED: DEXAMETHASONE 10 MG/ML VIAL PO STA (15:12)
[2017-06-03 16:16] LABS: BILIRUBIN,URINE NEGATIVE (NEGATIVE); GLUCOSE, URINE (UA) NEGATIVE (NEGATIVE); KETONES,URINE (UA) 15 mg/dL (NEGATIVE); LEUKOCYTE ESTERASE, URINE NEGATIVE (NEGATIVE); NITRITE,URINE NEGATIVE (NEGATIVE); OCCULT BLOOD,URINE MODERATE (NEGATIVE); PH,URINE 6.5 PH (5.0-7.5); PROTEIN,URINE TRACE mg/dL (NEGATIVE); UROBILINOGEN,URINE 0.2 (NORMAL) E.U./dL (NORMAL)
--- NOTE | 2017-06-03 16:19 | CT Report ---
EXAM: CT ABDOMEN AND PELVIS EXAM DATE: 06/03/2017 03:45 PM. CLINICAL HISTORY: Left flank pain . COMPARISONS: Chest CT 09/25/2014. TECHNIQUE: Routine helical CT imaging was performed through the abdomen and pelvis. IV contrast: No. Enteric contrast: No. Reconstructions: Coronal and sagittal. In accordance with CT protocol optimization, one or more of the following dose reduction techniques w ere utilized for this exam: automated exposure control, adjustment of mA and/or KV based on patient s ize, or use of iterative reconstructive technique. FINDINGS: Lung Bases: Mild bibasilar scarring and fibrotic changes again noted with nodular reticular opacities . New mild nodular and hazy opacities are seen laterally in the left lower lobe, could represent mild pneumonia or aspiration. Liver: Diffuse fatty liver. Focal fatty sparing adjacent to the gallbladder. Couple of small calcific ations. Gallbladder: Unremarkable. Bile ducts: Unremarkable. Pancreas: Unremarkable. Adrenals: Unremarkable. Kidneys: Unremarkable. No hydronephrosis. No urinary tract calculi are seen. Bowel: Normal appendix. Severe sigmoid diverticulosis. A few descending colon diverticula. No acute b owel findings are seen. Small hiatal hernia. No free fluid or free air. No abscess. Pelvis: The bladder and remaining pelvic organs appear unremarkable. Vascular structures: No acute findings. Bones: No acute bone findings. Small bilateral inguinal fat-containing hernias, left greater than right. IMPRESSION: 1. No urinary tract calculi are seen. No hydronephrosis. 2. Normal appendix. Severe sigmoid diverticulosis. A few descending colon diverticula. No acute bowel findings are seen. Small hiatal hernia. 3. Small bilateral inguinal fat-containing hernias, left greater than right. 4. Fatty liver. 5. Mild bibasilar scarring and fibrotic changes again noted with nodular reticular opacities. New mil d nodular and hazy opacities are seen laterally in the left lower lobe, could represent mild pneumoni a or aspiration. [facility] Referring Provider Line: [phone] SITE ID: [id number]
[2017-06-03 16:21] LABS: CLARITY,URINE CLEAR (CLEAR)
[2017-06-03 16:24] LABS: BACTERIA,URINE Rare /HPF (None Seen); SQUAMOUS EPITHELIAL CELL,UR RARE Squamous (<= Few)
[2017-06-03] MEDS ORDERED: LIDOCAINE 1% 2 ML VIAL SUBQ ONE (16:43)
[2017-06-03] MEDS ORDERED: cefTRIAXone 1 GM VIAL IM STA (16:43)
== END 2017-06-03 17:09 | disposition home or self-care (01) ==
LOC: ED 12:43
DX: J18.1 Lobar pneumonia, unspecified organism (principal); R10.9 Unspecified abdominal pain; K57.30 Diverticulosis of large intestine without perforation or abscess without bleeding; R35.0 Frequency of micturition; I10 Essential (primary) hypertension; J44.9 Chronic obstructive pulmonary disease, unspecified; Z79.82 Long term (current) use of aspirin; Z87.891 Personal history of nicotine dependence
CPT/HCPCS: 74176; 81001; 81003; 87086; 96372; 99283; 99284

== ENCOUNTER 2017-06-10 08:20 | Inpatient (IN) | payer MEDICARE, OTHER ==
[2017-06-10] MEDS ORDERED: LEVALBUTEROL 1.25 MG/3 ML NEB INH STA ×2 (08:33→11:29)
[2017-06-10] MEDS ORDERED: DEXAMETHASONE 10 MG/ML VIAL PO STA (08:33)
--- NOTE | 2017-06-10 08:44 | ED Physician Documentation ---
History of Present Illness - Stated complaint Stated Complaint: SOA - Additonal information Additional information: hx from pt 82 male has home O2 dep COPD seen in ED recently and dx with LLL pna on levaquin also has home nebs recently finished steroids prior smoker but not now to ED with chest heaviness and worsening SOA since 2 AM use neb X 2 with some relief - but as soon as he tries to move the sx come back cough is productive no leg swelling Review of Systems Constitutional: denies: Fever, Chills Cardiac: reports: Chest pain / pressure Respiratory: reports: Dyspnea, Cough, Wheezing GI: denies: Abdominal Pain, Nausea, Vomiting Musculoskeletal: denies: Extremity swelling Endocrine: denies: Easy bruising / bleeding Immunocompromised: denies: Immunocompromised PD PAST MEDICAL HISTORY - Past Medical History Cardiovascular: Hypertension Respiratory: Asthma, COPD, Emphysema Neuro: Tremors (mild, noticable in the past few weeks and localized to right hand, right leg. 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.) - Present Medications Home Medications: Ambulatory Orders Medication Instructions Recorded Confirmed Aspirin Chewable [St Vlad 81 mg PO DAILY 09/04/12 06/10/17 Aspirin] Multivitamin [Daily [place]] 1 each PO DAILY 02/26/15 06/10/17 Telmisartan [Micardis] 20 mg PO DAILY 02/26/15 06/10/17 Tiotropium [place] [Spiriva 2 puffs INH DAILY 03/21/17 06/10/17 Respimat] Albuterol Sulfate [Proair Hfa 1 - 2 puffs INH Q4H PRN #1 inhaler 03/22/17 Inhaler] Atorvastatin Calcium 20 mg PO QPM 06/10/17 06/10/17 Escitalopram Oxalate [Lexapro] 20 mg PO DAILY 06/10/17 06/10/17 Fluticasone/Salmeterol [Advair Hfa 2 puffs INH BID 06/10/17 06/10/17 230-21 Mcg Inhaler] Metoprolol Succinate [Toprol Xl] 25 mg PO DAILY 06/10/17 06/10/17 Polyethylene Glycol 3350 [Miralax] 17 gm PO DAILY 06/10/17 06/10/17 - Allergies Allergies/Adverse Reactions: Allergies Allergy/AdvReac Type Severity Reaction Status Date / Time Sulfa (Sulfonamide Allergy Unknown Rash Verified 06/10/17 08:36 Antibiotics) - Social History Does the pt smoke?: No Smoking Status: Former smoker (tobacco use from age [age].) Does the pt drink ETOH?: Yes Does the pt have substance abuse?: No - Immunizations Immunizations are current?: Yes - POLST Patient has POLST: No POLST Status: Full Code PD ED PE NORMAL - Vitals Vital signs reviewed: Yes - General General: Alert and oriented X 3 - HEENT HEENT: PERRL - Neck Neck: Supple, no meningeal sign - Cardiac Cardiac: RRR - Respiratory Respiratory: No respiratory distress, Other (tight very limited air movement wheezing williams) - Derm Derm: Normal color - Extremities Extremities: Other (minimal williams edema) - Neuro Neuro: Alert and oriented X 3 Results - Vitals Vitals: Vital Signs - 24 hr 06/10/17 06/10/17 06/10/17 08:28 09:16 09:31 Temperature 37.3 C Heart Rate 116 H 112 H 103 H Respiratory 22 20 Rate Blood Pressure 164/86 H 118/98 H O2 Saturation 99 06/10/17 11:17 Temperature 36.7 C Heart Rate 108 H Respiratory 18 Rate Blood Pressure 141/84 H O2 Saturation 97 Oxygen O2 Source [With Activity] Nasal cannula O2 Source [Without Activity] Room air O2 Source Room air Oxygen Flow Rate 2 - EKG (time done) 0831 Rate: Rate (enter#) (112) Rhythm: Sinus tachycardia Fitzpatrick: Normal Intervals: Normal MT, RBBB Ischemia: Other (irreg baseline but possible [address] elev V5-V6) Compare to prior EKG: Other (fairly similar to 03/21/17) - Labs Labs: Microbiology 06/10/17 09:00 Respiratory Culture - Preliminary Sputum Laboratory Tests 06/10/17 06/10/17 06/10/17 08:44 08:44 08:44 WBC 8.0 RBC 4.10 L Hgb 13.0 L Hct 38.9 L MCV 94.9 H MCH 31.7 H MCHC 33.4 RDW 13.6 Plt Count 194 MPV 7.2 L Neut # Not Reportable Lymph # Not Reportable Cole # Not Reportable Eos # Not Reportable Baso # Not Reportable Absolute Nucleated RBC Not Reportable Total Counted 100 Band Neuts % (Manual) 0 Reactive Lymphs % (Man) 5 Abnorm Lymph % (Manual) 0 Nucleated RBC % Not Reportable Neutrophils # (Manual) 6.0 Lymphocytes # (Manual) 1.2 L Monocytes # (Manual) 0.7 Eosinophils # (Manual) 0.1 Basophils # (Manual) 0.0 Differential Comment MANUAL DIFFERENTIAL Manual Slide Review Indicated Platelet Morphology RARE GIANT PLATELETS RBC Morph Micro Appear 1+ ANISOCYTOSIS Sodium 137 Potassium 3.8 Chloride 98 L Carbon Dioxide 28 Anion Gap 11.0 BUN 15 Creatinine 1.0 Estimated GFR (MDRD) 72 L Glucose 135 H Calcium 9.5 Troponin I < 0.04 - Rads (name of study) CXR Radiology: See rad report (posterior opacity c/w pna or atelectasis) PD MEDICAL DECISION MAKING - ED course ED course: pt has no POLST on file in our EMR but did have d/w hospitalist 03/21/17 and at that time wished to be full code including intubation 82 male with severe home O2 dependent COPD already tried outpt tx for pna and is now worse with severe SOA despite home O2 and nebs given steroids and more nebs hard to compare imaging as pna was detected on CT AP 06/03 plan to admit unless sig better after steroids have time to work still very SOA and wheezy after steroids and nebs in the ED still a pna on CXR restarted levaquin (zmax interacts with lexapro) will admit spoke to hospitalist at 1130 Departure - Departure Disposition: 66 [facility] DC/Xfer Clinical Impression: Severe chronic obstructive pulmonary disease Pneumonia Qualifiers: Pneumonia type: due to unspecified organism Laterality: unspecified laterality Lung location: unspecified part of lung Qualified Code(s): J18.9 - Pneumonia, unspecified organism Discharge Date/Time: 06/10/17 11:48
--- NOTE | 2017-06-10 08:49 | ED Physician Documentation ---
History of Present Illness - Stated complaint Stated Complaint: SOA - Chief complaint Chief Complaint: Resp PD PAST MEDICAL HISTORY - Past Medical History Cardiovascular: Hypertension Respiratory: Asthma, COPD, Emphysema Neuro: Tremors (mild, noticable in the past few weeks and localized to right hand, right leg. 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.) - Present Medications Home Medications: Ambulatory Orders Medication Instructions Recorded Confirmed Aspirin Chewable [St Vlad 81 mg PO DAILY 09/04/12 06/03/17 Aspirin] Metoprolol Succinate [Toprol Xl] 50 mg PO DAILY 09/04/12 06/03/17 Fluticasone/Salmeterol [Advair 1 inh IH BID 02/26/15 06/03/17 500-50 Diskus] Multivitamin [Daily [place]] 1 each PO DAILY 02/26/15 06/03/17 Telmisartan [Micardis] 20 mg PO DAILY 02/26/15 06/03/17 Escitalopram [Lexapro] 20 mg PO DAILY 03/21/17 06/03/17 Pantoprazole [Protonix] 40 mg PO DAILY 03/21/17 06/03/17 Tiotropium [place] [Spiriva 2.5 mcg IH DAILY 03/21/17 06/03/17 Respimat] Albuterol Sulfate [Proair Hfa 1 - 2 puffs INH Q4H PRN #1 inhaler 03/22/17 Inhaler] Levofloxacin [Levaquin] 500 mg PO DAILY #10 tablet 06/03/17 - Allergies Allergies/Adverse Reactions: Allergies Allergy/AdvReac Type Severity Reaction Status Date / Time Sulfa (Sulfonamide Allergy Unknown Rash Verified 06/10/17 08:36 Antibiotics) - Social History Does the pt smoke?: No Smoking Status: Former smoker (tobacco use from age [age].) Does the pt drink ETOH?: Yes Does the pt have substance abuse?: No - Immunizations Immunizations are current?: Yes - POLST Patient has POLST: No POLST Status: Full Code Results - Vitals Vitals: Vital Signs - 24 hr 06/10/ 08:28 Temperature 37.3 C Heart Rate 116 H Respiratory 22 Rate Blood Pressure 164/86 H O2 Saturation 99 Oxygen O2 Source [] Nasal cannula O2 Source [] Room air O2 Source Nasal cannula PD MEDICAL DECISION MAKING - ED course ED course: no POLST in EMR but pt has advanced care planning while admitted in Feb 2017 and wished to be full code including intubation at that time
[2017-06-10 08:52] LABS: BASOPHILS % (AUTO) 0.6 %; EOSINOPHILS % (AUTO) 3.1 %; LYMPHOCYTES % (AUTO) 10.5 %; MEAN CORPUSCULAR HEMOGLOBIN 31.7 pg (27.0-31.0); MEAN CORPUSCULAR HGB CONC 33.4 g/dL (32.0-36.0); MEAN CORPUSCULAR VOLUME 94.9 fL (80.0-94.0); MEAN PLATELET VOLUME 7.2 fL (7.4-11.4); MONOCYTES % (AUTO) 11.4 %; NEUTROPHILS % (AUTO) 74.4 %; PLT - PLATELET COUNT 194 10^3/uL (130-450); RED CELL DISTRIBUTION WIDTH 13.6 % (12.0-15.0)
[2017-06-10 08:57] LABS: CALCIUM 9.5 mg/dL (8.5-10.3)
[2017-06-10 09:14] LABS: ABNORMAL LYMPHS % (MANUAL) 0 %; BAND NEUTROPHILS % (MANUAL) 0 %
[2017-06-10 09:17] LABS: EOSINOPHILS # (MANUAL) 0.1 10^3/uL (0-0.7); LYMPHOCYTES # (MANUAL) 1.2 10^3/uL (1.5-3.5); LYMPHOCYTES % (MANUAL) 10 %; MONOCYTES # (MANUAL) 0.7 10^3/uL (0.0-1.0); NEUTROPHILS % (MANUAL) 75 %
[2017-06-10 09:18] LABS: DIFFERENTIAL COMMENT MANUAL DIFFERENTIAL; PLATELET MORPHOLOGY RARE GIANT PLATELETS (NORMAL); RBC MORPHOLOGY (MULTIPLE) 1+ ANISOCYTOSIS (NORMAL)
--- NOTE | 2017-06-10 09:24 | XRAY Report ---
EXAM: CHEST RADIOGRAPHY EXAM DATE: 06/10/2017 09:11 AM. CLINICAL HISTORY: Cough soa wheeze. COMPARISON: Chest radiograph dated 03/20/2017. TECHNIQUE: 2 views. FINDINGS: Lungs/Pleura: Triangular opacity in the posterior lung field seen on the lateral view is new from the prior examination. Mild blunting of the right costophrenic angle. Mediastinum: Heart and mediastinal contours are unremarkable. Other: None. IMPRESSION: Subtle opacities in the posterior lung field, side indeterminate, can be seen in the sett ing of atelectasis, aspiration or infectious process. [facility] Referring Provider Line: [phone] SITE ID: [id number]
[2017-06-10] MEDS ORDERED: levoFLOXacin 750 MG/150 ML 750 MG/150 ML BAG IV ONE (11:29)
--- NOTE | 2017-06-10 11:35 | HISTORY & PHYSICAL EXAMINATION ---
Chief Complaint - Chief Complaint Chief Complaint: SOB History of Present Illness - Admitted From Admitted From:: ED - History Obtained From Records Reviewed: yes History obtained from: chart review, patient Exam Limitations: none - History of Present Illness HPI Comment/Other: Eduar Flores (Bill) is an 82-year old white male with a past medical history of hypertension, asthma, COPD, emphysema, chronic home oxygen use, essential tremors, nocturia, urinary urgency/frequency, s/p TURP x2, BPH, chronic hearing loss, macular degeneration, post cataract surgery, chronic back pain, osteoarthritis, skin cancer, and depression with anxiety. The patient claims that at home, he has been falling. He can remember resting against the wall, then waking back up on the floor. Luckily he has not sustained any life altering injuries. The patient was in the ED a week ago (06/03/17) for similar symptoms was treated with oral antibiotics and a steroid taper. His symptoms of shortness of breath, productive cough, and activity intolerance never completely resolved and he found himself using his rescue nebulizer more often with no relief. Around 2AM this morning the patient was "gasping for air" and his nebulizer made almost no difference. As soon as he would attempt to move or walk, the symptoms were worsened. Once in the ED he was found to have unremarkable labs including a negative troponin, but a chest x-ray shows posterior opacity suspicious for pneumonia or atelectasis. He will be admitted to inpatient for further treatment of pneumonia, manage symptoms, and evaluate chest heaviness complaints with recent falls. History - Past Medical History Cardiovascular: reports: Hypertension Respiratory: reports: Asthma, COPD, Emphysema, Pneumonia, Shortness of breath Neuro: reports: Tremors (mild, noticable in the past few weeks and localized to right hand, right leg. 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 Mother at a young age of pancreatic cancer. The patient had one sister and she of liver CA. Living arrangement: At home Living Situation: With spouse/s.o. 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 Retired, lives independently with , one dog, one cat and 3 cows that they drywaller for meat. He has 4 biological children, , Ellen has 3, so they have 7 children and have been for the past 22 years. He enjoys his numerous grand children and great-grand children. He left this [place] and lived in [place]. He and his returned a few years ago and live in [place], [place] near the [facility]. He drives a car very occasionally. He admits to tobacco dependence, but has since quit, denies illicit drug use, and uses alcohol only occasionally. He denies ever being an alcoholic. He wishes to remain a FULL code. - Substance History Use: Uses substance without health or social issues: NONE Abuse: Recurrent use of substance despite neg consequences: NONE Dependence: Experiences withdrawal or developed tolerances: NONE Tobacco Details: Cigarettes (history- started at age [age].) - POLST Patient has POLST: No POLST Status: Full Code Meds/Allgy - Home Medications Home Medications: Ambulatory Orders Medication Instructions Recorded Confirmed Aspirin Chewable [St Vlad 81 mg PO DAILY 09/04/12 06/10/17 Aspirin] Multivitamin [Daily [place]] 1 each PO DAILY 02/26/15 06/10/17 Telmisartan [Micardis] 20 mg PO DAILY 02/26/15 06/10/17 Tiotropium [place] [Spiriva 2 puffs INH DAILY 03/21/17 06/10/17 Respimat] Albuterol Sulfate [Proair Hfa 1 - 2 puffs INH Q4H PRN #1 inhaler 12/31/17 03/21/ 18 Inhaler] Atorvastatin Calcium 20 mg PO QPM 06/10/17 06/10/17 Escitalopram Oxalate [Lexapro] 20 mg PO DAILY 06/10/17 06/10/17 Fluticasone/Salmeterol [Advair Hfa 2 puffs INH BID 06/10/17 06/10/17 230-21 Mcg Inhaler] Metoprolol Succinate [Toprol Xl] 25 mg PO DAILY 06/10/17 06/10/17 Polyethylene Glycol 3350 [Miralax] 17 gm PO DAILY 06/10/17 06/10/17 - Allergies Allergies/Adverse Reactions: Allergies Allergy/AdvReac Type Severity Reaction Status Date / Time Sulfa (Sulfonamide Allergy Unknown Rash Verified 06/10/17 08:36 Antibiotics) Review of Systems - Constitutional Constitutional: reports: Fatigue, Weakness. denies: Weight gain, Weight loss - Eyes Eyes: reports: Vision loss, Corrective lenses. denies: Pain, Irritation - Ears, Nose & Throat Ears, Nose & Throat: reports: Hearing loss, Hearing aids, Dentures. denies: Ear pain, Tinnitus, Sore throat, Hoarseness - Cardiovascular Cariovascular: reports: Irregular heart rate, Lightheadedness, Syncope, Exertional dyspnea, Decr. 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 technology manager) - Neurological Neurological: reports: General weakness, Pre-existing deficit, Incoordination, Other (essential tremors) - Psychiatric Psychiatric: reports: Depression, Anxiety - Hematologic/Lymphatic Hematologic/Lymphatic: reports: Bruising, Recurrent infections - All Other Systems All Other Systems: reports: Reviewed and negative Exam - Vital Signs Reviewed Vital Signs: Yes Vital Signs: Vital Signs x48h Temp Pulse Resp BP Pulse Ox 06/10/17 11:17 36.7 C 108 H 18 141/84 H 97 03/21/18 09:31 103 H 118/98 H 06/10/17 09:16 112 H 20 06/10/17 08:28 37.3 C 116 H 22 164/86 H 99 - Physical Exam General Appearance: positive: Alert, Moderate distress, Anxious Eyes Bilateral: positive: Normal inspection, PERRL ENT: positive: ENT inspection nml, Pharynx nml, Dry mucous membranes Neck: positive: Nml inspection, Thyroid nml, No JVD, Trachea midline Respiratory: positive: Chest non-tender, No respiratory distress, Wheezes, Rhonchi Cardiovascular: positive: Irregularly irregular, Systolic murmur, Decreased pulse(s) Peripheral Pulses: positive: 1+ Abdomen: positive: Non-tender, Nml bowel sounds, Other (rounded, soft) Back: positive: Nml inspection Skin: positive: No rash, Warm, Dry, Pallor Extremities: positive: Non-tender, Full ROM, Nml appearance, No pedal edema Neurologic/Psychiatric: positive: Oriented x3, CN's nml (2-12), Motor nml, Sensation nml, Weakness, Sensory loss, Depressed mood/affect Reflexes: Bicep (R): 3+, Bicep (L): 3+ Conclusion/Plan - Problem List (1) Bilateral pneumonia Conclusion/Plan: As per imaging, patient has infiltrates in both posterior lung sommer. He had just finished PO outpatient treatment. Plan: Start IV antibiotic, nebs, high dose IV steroids. (2) Oxygen dependent Conclusion/Plan: Patient admits to being oxygen dependent for several years and generally wears 2 -4L per nasal cannula at home. During this exam, he was on 5L. Plan: Continue to monitor and wean in a few days. Respiratory therapy. 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 No one smokes in the home currently, and he admits to cessation for several years. Plan: Continue oxygen per nasal cannula and monitor vital signs. - Lab Results Lab results reviewed: Yes Fish Bones: 06/11/17 06:19 06/11/17 06:19 - Diagnostic Imaging Results Diagnostic Imaging Results: positive: Final report reviewed - EKG Results EKG Interpreted Independently: Yes Core Measures - Anticipated LOS I expect patient to be DC'd or transferred within 96 hours.: Yes - DVT/VTE - Prophylaxis VTE/DVT Device ordered at admit?: Yes VTE/DVT Prophylaxis med ordered at admit?: Yes - Stroke - Rehab Assessment Rehab services assessment to be ordered?: Yes - AMI - Statin at Admit Aspirin Prescribed on Admit: Yes
[2017-06-10] MEDS: SODIUM CHLORIDE 0.9% 1,000 ML IV SCH (13:26)
[2017-06-10] MEDS: SODIUM CHLORIDE FLUSH 0.9% 10 ML SYRINGE IVP SCH ×2 (13:26→15:36)
--- NOTE | 2017-06-10 13:45 | ADVANCE CARE PLANNING NOTE ---
Advance Care Planning - Date/Time Date: 06/10/17 Time: 13:44 - Purpose of encounter Text: To establish code status and talk about end of life wishes. - Parties in attendance Parties in attendance: My self and my patient Eduar Flores. - Decisional capacity Decisional capacity of: Ozzy can articulate his medical conditions and remains A & O x4. - Subjective/Patient's story Subjective/Patient's story: Ozzy states that we are to make attempts, but do no perform life saving measures. He states, "I do not want to be kept alive and dependent on machines ". - Objective/Medical story Objective/Medical Story: Ozzy was questioned about resuscitation with the following questions; Do you want chest compressions?-yes, do you want us to shock your heart?-yes, do you want cardiac medications?-yes and do you want intubation in the event you stop breathing?-yes. Ozzy states that he has talked to his about this and he wishes to remain a FULL code. - Goals of Care Goals of care determinations: Goals of care are focused around treating this acute illness and in the event Ozzy becomes worse, or is found unresponsive, we are to attempt resuscitation. - Plan Plan: Continue to treat this unresolved pneumonia in light of his severe-end stage COPD as he enjoys being independent at home and feels when he is not sick his quality of life is good. He enjoys his grand children and now his great-grand children and "has a lot more livin to do". - Code Status Code Status: Attempt Resuscitation - Time Spent on Advance Care Planning Time spent on advance care plannin
[2017-06-10] MEDS ORDERED: IPRATROPIUM/ALBUTEROL 3 ML NEB INH PRN (14:09)
[2017-06-10] MEDS: IPRATROPIUM/ALBUTEROL 3 ML NEB INH SCH ×2 (15:23→18:24)
[2017-06-10] MEDS: methylPREDNISolone SUCCINATE 125 MG/2 ML VIAL IVP SCH ×2 (15:36→22:01)
[2017-06-10] MEDS: guaiFENesin 600 MG TABLET PO SCH (15:37)
[2017-06-10] MEDS: PIPERACILLIN/TAZOBACTAM 4.5 GM in SODIUM CHLORIDE 0.9% MINIBAG 100 ML IV SCH ×2 (15:37→22:01)
[2017-06-10] MEDS: SODIUM CHLORIDE 0.65% NASAL SPRAY NAS SCH (22:01)
[2017-06-10] MEDS: SODIUM CHLORIDE FLUSH 0.9% 10 ML SYRINGE IVP PRN (22:01)
[2017-06-11] MEDS: SODIUM CHLORIDE 0.9% 1,000 ML IV SCH ×2 (00:26→13:21)
[2017-06-11] MEDS: SODIUM CHLORIDE FLUSH 0.9% 10 ML SYRINGE IVP SCH ×3 (00:26→16:49)
[2017-06-11] MEDS: PIPERACILLIN/TAZOBACTAM 4.5 GM in SODIUM CHLORIDE 0.9% MINIBAG 100 ML IV SCH ×4 (03:49→21:16)
[2017-06-11] MEDS: methylPREDNISolone SUCCINATE 125 MG/2 ML VIAL IVP SCH ×3 (05:45→21:15)
[2017-06-11] MEDS: SODIUM CHLORIDE FLUSH 0.9% 10 ML SYRINGE IVP PRN (05:45)
[2017-06-11 06:35] LABS: BASOPHILS % (AUTO) 0.1 %; LYMPHOCYTES # (AUTO) 0.5 10^3/uL (1.5-3.5); LYMPHOCYTES % (AUTO) 4.5 %; MEAN CORPUSCULAR HEMOGLOBIN 31.4 pg (27.0-31.0); MEAN CORPUSCULAR HGB CONC 33.3 g/dL (32.0-36.0); MEAN CORPUSCULAR VOLUME 94.4 fL (80.0-94.0); MEAN PLATELET VOLUME 7.9 fL (7.4-11.4); MONOCYTES # (AUTO) 0.4 10^3/uL (0.0-1.0); NEUTROPHILS # (AUTO) 9.5 10^3/uL (1.5-6.6); NEUTROPHILS % (AUTO) 91.4 %; PLT - PLATELET COUNT 171 10^3/uL (130-450); RED BLOOD COUNT 3.51 10^6/uL (4.70-6.10); WHITE BLOOD COUNT 10.4 x10^3/uL (4.8-10.8)
[2017-06-11 06:48] LABS: ALBUMIN 3.2 g/dL (3.2-5.5); ALBUMIN/GLOBULIN RATIO 0.9 (1.0-2.2); BILIRUBIN,TOTAL 0.6 mg/dL (0.2-1.0); CALCIUM 8.6 mg/dL (8.5-10.3); CREATININE 0.9 mg/dL (0.6-1.2); MAGNESIUM 1.7 mg/dL (1.7-2.8); PHOSPHORUS 2.8 mg/dL (2.5-4.6); TOTAL PROTEIN 6.7 g/dL (6.7-8.2)
[2017-06-11] MEDS: IPRATROPIUM/ALBUTEROL 3 ML NEB INH SCH ×4 (07:16→18:05)
[2017-06-11] MEDS: SODIUM CHLORIDE 0.65% NASAL SPRAY NAS SCH ×2 (08:15→21:16)
[2017-06-11] MEDS: guaiFENesin 600 MG TABLET PO SCH ×2 (08:17→21:16)
[2017-06-11] MEDS: POLYETHYLENE GLYCOL 3350 17 GM PACKET PO SCH (08:17)
[2017-06-11] MEDS: cefTRIAXone 2 GM in SODIUM CHLORIDE 0.9% MINIBAG 100 ML IV SCH (08:18)
[2017-06-11] MEDS: ENOXAPARIN 40 MG/0.4 ML SYRINGE SUBQ SCH (08:20)
[2017-06-11] MEDS: AZITHROMYCIN INJ 500 MG in SODIUM CHLORIDE 0.9% 250 ML IV SCH (09:01)
[2017-06-11] MEDS: METOPROLOL SUCCINATE 25 MG TABLET PO SCH (09:40)
[2017-06-11] MEDS: ASPIRIN CHEW 81 MG TABLET PO SCH (09:40)
[2017-06-11] MEDS: ESCITALOPRAM 10 MG TABLET PO SCH (09:40)
[2017-06-11] MEDS ORDERED: SODIUM CHLORIDE 0.9% 500 ML IV PRN (11:22)
[2017-06-11] MEDS: MULTIVITAMIN TABLET PO SCH (11:29)
--- NOTE | 2017-06-11 16:25 | PROVIDER PROGRESS NOTE ---
Subjective - Prog Note Date Prog Note Date: 06/11/17 Prog Note Time: 12:00 - Subjective Pt reports feeling: Improved Subjective: Ozzy continues to have profound activity intolerance and states that his tremors are not improved and he believes it may be the high dose steroids. He denies chest pain or pressure, worsening SOB, changes in sputum, anorexia, nausea, vomiting or changes in bowels. Current Medications - Current Medications Current Medications: Active Medications Albuterol/Ipratropium (Duoneb) 3 ml INH Q4HR PRN PRN Reason: Wheezing Albuterol/Ipratropium (Duoneb) 3 ml INH RTQID [facility] Last Admin: 06/11/17 14:53 Dose: 3 ml Aspirin (St Vlad Aspirin) 81 mg PO DAILY [facility] Last Admin: 06/11/17 09:40 Dose: 81 mg Atorvastatin Calcium (Lipitor) 20 mg PO QPM [facility] Enoxaparin Sodium (Lovenox) 40 mg SUBQ DAILY [facility] Last Admin: 06/11/17 08:20 Dose: 40 mg Escitalopram Oxalate (Lexapro) 20 mg PO DAILY [facility] Last Admin: 06/11/17 09:40 Dose: 20 mg Guaifenesin (Mucinex) 600 mg PO BID [facility] Last Admin: 06/11/17 08:17 Dose: 600 mg Sodium Chloride (Normal Saline 0.9%) 1,000 mls @ 100 mls/hr IV .Q10H [facility] Last Admin: 06/11/17 13:21 Dose: 100 mls/hr Piperacillin Sod/Tazobactam (Sod 4.5 gm/ Sodium Chloride) 100 mls @ 200 mls/hr IV Q6H [facility] Last Infusion: 06/11/17 10:45 Dose: Infused Azithromycin 500 mg/ Sodium (Chloride) 250 mls @ 250 mls/hr IV DAILY@1000 [facility] Last Admin: 06/11/17 09:01 Dose: 250 mls/hr Ceftriaxone Sodium 2 gm/ (Sodium Chloride) 100 mls @ 200 mls/hr IV DAILY [facility] Last Infusion: 06/11/17 08:55 Dose: Infused Sodium Chloride (Normal Saline 0.9%) 500 mls @ 20 mls/hr IV .Q25H PRN PRN Reason: [facility] protocol Methylprednisolone Sodium Succinate (Solu-Medrol (125mg Vial)) 125 mg IVP TID [facility] Last Admin: 06/11/17 13:22 Dose: 125 mg Metoprolol Succinate (Toprol Xl) 25 mg PO DAILY [facility] Last Admin: 06/11/17 09:40 Dose: 25 mg Multivitamins (Theragran) 1 tab PO DAILYWM [facility] Last Admin: 06/11/17 11:29 Dose: 1 tab Polyethylene Glycol (Miralax) 17 gm PO DAILY [facility] Last Admin: 06/11/17 08:17 Dose: 17 gm Sodium Chloride (Normal Saline Flush 0.9%) 10 ml IVP PRN PRN PRN Reason: NEEDED PER PROVIDER ORDERS Last Admin: 06/11/17 05:45 Dose: 10 ml Sodium Chloride (Normal Saline Flush 0.9%) 10 ml IVP 0100,0900,1700 [facility] Last Admin: 06/11/17 08:21 Dose: Not Given Sodium Chloride (Shell) 2 sprays PRITESH BID [facility] Last Admin: 06/11/17 08:15 Dose: 2 sprays Aspirin Chewable [St Vlad Aspirin] 81 mg PO DAILY 09/04/12 Multivitamin [Daily [place]] 1 each PO DAILY 02/26/15 Telmisartan [Micardis] 20 mg PO DAILY 02/26/15 Tiotropium [place] [Spiriva Respimat] 2 puffs INH DAILY 03/21/17 Atorvastatin Calcium 20 mg PO QPM 06/10/17 Escitalopram Oxalate [Lexapro] 20 mg PO DAILY 06/10/17 Fluticasone/Salmeterol [Advair Hfa 230-21 Mcg Inhaler] 2 puffs INH BID 06/10/17 Metoprolol Succinate [Toprol Xl] 25 mg PO DAILY 06/10/17 Polyethylene Glycol 3350 [Miralax] 17 gm PO DAILY 06/10/17 Objective - Vital Signs/Intake & Output Reviewed Vital Signs: Yes Vital Signs: Vital Signs x48h Temp Pulse Pulse Resp BP Pulse Ox 06/11/17 15:29 36.9 C 102 H 20 168/92 H 100 06/11/17 14:54 100 20 06/11/17 11:10 100 16 Intake & Output: Intake & Output 06/08/17 06/09/17 06/10/17 06/11/17 23:59 23:59 23:59 23:59 Intake Total 1550 1980 Output Total 500 1660 Balance 1050 320 - Objective General Appearance: positive: Alert, Moderate distress, Anxious, Other ( Irritable d/t just getting up to the bathroom.) Eyes Bilateral: positive: Normal inspection, PERRL Eyes: OU Conjunctivae pale, OU Scleral icterus ENT: positive: ENT inspection nml, Pharynx nml, Dry mucous membranes Neck: positive: Nml inspection, Thyroid nml, No JVD, Trachea midline Respiratory: positive: Chest non-tender, No respiratory distress, Wheezes, Rhonchi Cardiovascular: positive: Regular rate & rhythm, No gallop, Tachycardia, Systolic murmur, Decreased pulse(s) Peripheral Pulses: 1+ Radial (R), 1+ Radial (L) Abdomen: positive: Non-tender, Nml bowel sounds, Other (rounded, soft) Back: positive: Nml inspection Skin: positive: No rash, Warm, Dry, Pallor Extremities: positive: Non-tender, Full ROM, No pedal edema Neurologic/Psychiatric: positive: Oriented x3, CN's nml (2-12), Motor nml, Sensation nml, Weakness, Depressed mood/affect Reflexes: Bicep (R): 3+, Bicep (L): 3+ - Lab Results Fish Bones: 06/11/17 06:19 06/11/17 06:19 Other Labs: Lab Results x24hrs 06/11/17 06/11/17 Range/Units 06:19 06:19 WBC 10.4 (4.8-10.8) x10^3/uL RBC 3.51 L (4.70-6.10) 10^6/uL Hgb 11.0 L (14.0-18.0) g/dL Hct 33.1 L (42.0-52.0) % MCV 94.4 H (80.0-94.0) fL MCH 31.4 H (27.0-31.0) pg MCHC 33.3 (32.0-36.0) g/dL RDW 13.0 (12.0-15.0) % Plt Count 171 (130-450) 10^3/uL MPV 7.9 (7.4-11.4) fL Neut # 9.5 H (1.5-6.6) 10^3/uL Lymph # 0.5 L (1.5-3.5) 10^3/uL [place] # 0.4 (0.0-1.0) 10^3/uL Eos # 0.0 (0.0-0.7) 10^3/uL Baso # 0.0 (0.0-0.1) 10^3/uL Absolute Nucleated RBC 0.00 x10^3/uL Nucleated RBC % 0.0 /100WBC Sodium 138 (135-145) mmol/L Potassium 4.0 (3.5-5.0) mmol/L Chloride 105 (101-111) mmol/L Carbon Dioxide 24 (21-32) mmol/L Anion Gap 9.0 (6-13) BUN 17 (6-20) mg/dL Creatinine 0.9 (0.6-1.2) mg/dL Estimated GFR (MDRD) 81 L (>89) Glucose 172 H (70-100) mg/dL Calcium 8.6 (8.5-10.3) mg/dL Phosphorus 2.8 (2.5-4.6) mg/dL Magnesium 1.7 (1.7-2.8) mg/dL Total Bilirubin 0.6 (0.2-1.0) mg/dL AST 57 H (10-42) IU/L ALT 88 H (10-60) IU/L Alkaline Phosphatase 53 (42-121) IU/L Total Protein 6.7 (6.7-8.2) g/dL Albumin 3.2 (3.2-5.5) g/dL Globulin 3.5 (2.1-4.2) g/dL Albumin/Globulin Ratio 0.9 L (1.0-2.2) - Diagnostic Imaging Diagnostic Imaging Results: positive: Prelim report reviewed, Final report reviewed Assessment/Plan - Problem List (1) Bilateral pneumonia Impression: As per imaging, patient has infiltrates in both posterior lung sommer. He had just finished PO outpatient treatment. This is worrisome for aspiration, so a swallow study was ordered and is pending. Plan: Continue pip-tazo, ceftriaxone, and azithromycin IV antibiotics, nebulizers including MERLE,LABAs, high dose IV steroids at 125mg. (2) Oxygen dependent Impression: Patient's home dose of oxygen is 2-4L and he has been dependent for a few years. He now is requiring 3-4L per nasal cannula. He continues to have profound activity intolerance, which appears to be upsetting to him during his exam today. He was reminded that this is a slow process. Plan: Continue supplemental oxygen, high quality nursing care, and excellent respiratory care. 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 No one smokes in the home currently and there are no other known irritants. He admits cessation was several years ago. Plan: Continue oxygen per nasal cannula, respiratory toileting with the use of a flutter valve per RT, and monitor vital signs.
[2017-06-11] MEDS: ATORVASTATIN 10 MG TABLET PO SCH (21:16)
[2017-06-12] MEDS: SODIUM CHLORIDE 0.9% 1,000 ML IV SCH ×3 (01:07→17:55)
[2017-06-12] MEDS: SODIUM CHLORIDE FLUSH 0.9% 10 ML SYRINGE IVP SCH ×3 (01:08→17:16)
[2017-06-12] MEDS: PIPERACILLIN/TAZOBACTAM 4.5 GM in SODIUM CHLORIDE 0.9% MINIBAG 100 ML IV SCH ×4 (04:37→21:54)
[2017-06-12 06:26] LABS: BASOPHILS % (AUTO) 0.1 %; HGB - HEMOGLOBIN 10.8 g/dL (14.0-18.0); LYMPHOCYTES # (AUTO) 0.5 10^3/uL (1.5-3.5); LYMPHOCYTES % (AUTO) 3.6 %; MEAN CORPUSCULAR HEMOGLOBIN 31.6 pg (27.0-31.0); MEAN CORPUSCULAR HGB CONC 33.3 g/dL (32.0-36.0); MEAN CORPUSCULAR VOLUME 94.9 fL (80.0-94.0); MEAN PLATELET VOLUME 7.7 fL (7.4-11.4); MONOCYTES # (AUTO) 0.9 10^3/uL (0.0-1.0); MONOCYTES % (AUTO) 6.4 %; NEUTROPHILS # (AUTO) 13.2 10^3/uL (1.5-6.6); NEUTROPHILS % (AUTO) 89.9 %; PLT - PLATELET COUNT 207 10^3/uL (130-450); RED CELL DISTRIBUTION WIDTH 13.1 % (12.0-15.0); WHITE BLOOD COUNT 14.7 x10^3/uL (4.8-10.8)
[2017-06-12 06:37] LABS: ALBUMIN/GLOBULIN RATIO 0.9 (1.0-2.2); BILIRUBIN,TOTAL 0.4 mg/dL (0.2-1.0); CALCIUM 8.7 mg/dL (8.5-10.3); CREATININE 0.9 mg/dL (0.6-1.2); MAGNESIUM 1.8 mg/dL (1.7-2.8); TOTAL PROTEIN 6.4 g/dL (6.7-8.2)
[2017-06-12] MEDS: methylPREDNISolone SUCCINATE 125 MG/2 ML VIAL IVP SCH ×3 (06:38→21:54)
[2017-06-12] MEDS: ASPIRIN CHEW 81 MG TABLET PO SCH (08:21)
[2017-06-12] MEDS: MULTIVITAMIN TABLET PO SCH (08:21)
[2017-06-12] MEDS: POLYETHYLENE GLYCOL 3350 17 GM PACKET PO SCH (08:22)
[2017-06-12] MEDS: guaiFENesin 600 MG TABLET PO SCH ×2 (08:22→21:54)
[2017-06-12] MEDS: ENOXAPARIN 40 MG/0.4 ML SYRINGE SUBQ SCH (08:22)
[2017-06-12] MEDS: METOPROLOL SUCCINATE 25 MG TABLET PO SCH (08:22)
[2017-06-12] MEDS: ESCITALOPRAM 10 MG TABLET PO SCH (08:22)
[2017-06-12] MEDS: SODIUM CHLORIDE 0.65% NASAL SPRAY NAS SCH ×2 (08:23→22:00)
[2017-06-12] MEDS: cefTRIAXone 2 GM in SODIUM CHLORIDE 0.9% MINIBAG 100 ML IV SCH (08:23)
[2017-06-12] MEDS: IPRATROPIUM/ALBUTEROL 3 ML NEB INH SCH ×4 (08:48→20:25)
[2017-06-12] MEDS: AZITHROMYCIN INJ 500 MG in SODIUM CHLORIDE 0.9% 250 ML IV SCH (10:47)
--- NOTE | 2017-06-12 11:44 | PROVIDER PROGRESS NOTE ---
Subjective - Prog Note Date Prog Note Date: 06/12/17 Prog Note Time: 12:00 - Subjective Pt reports feeling: Improved Subjective: Pt feels a slight improvement in his shortness of breath but otherwise feels the same: weak, poor appetite, no exercise tolerance. Current Medications - Current Medications Current Medications: Albuterol/Ipratropium (Duoneb) 3 ml INH Q4HR PRN PRN Reason: Wheezing Albuterol/Ipratropium (Duoneb) 3 ml INH RTQID [facility] Last Admin: 06/11/17 14:53 Dose: 3 ml Aspirin (St Vlad Aspirin) 81 mg PO DAILY [facility] Last Admin: 06/11/17 09:40 Dose: 81 mg Atorvastatin Calcium (Lipitor) 20 mg PO QPM [facility] Enoxaparin Sodium (Lovenox) 40 mg SUBQ DAILY [facility] Last Admin: 06/11/17 08:20 Dose: 40 mg Escitalopram Oxalate (Lexapro) 20 mg PO DAILY [facility] Last Admin: 06/11/17 09:40 Dose: 20 mg Guaifenesin (Mucinex) 600 mg PO BID [facility] Last Admin: 06/11/17 08:17 Dose: 600 mg Sodium Chloride (Normal Saline 0.9%) 1,000 mls @ 100 mls/hr IV .Q10H [facility] Last Admin: 06/11/17 13:21 Dose: 100 mls/hr Piperacillin Sod/Tazobactam (Sod 4.5 gm/ Sodium Chloride) 100 mls @ 200 mls/hr IV Q6H [facility] Last Infusion: 06/11/17 10:45 Dose: Infused Azithromycin 500 mg/ Sodium (Chloride) 250 mls @ 250 mls/hr IV DAILY@1000 [facility] Last Admin: 06/11/17 09:01 Dose: 250 mls/hr Ceftriaxone Sodium 2 gm/ (Sodium Chloride) 100 mls @ 200 mls/hr IV DAILY [facility] Last Infusion: 06/11/17 08:55 Dose: Infused Sodium Chloride (Normal Saline 0.9%) 500 mls @ 20 mls/hr IV .Q25H PRN PRN Reason: [facility] protocol Methylprednisolone Sodium Succinate (Solu-Medrol (125mg Vial)) 125 mg IVP TID [facility] Last Admin: 06/11/17 13:22 Dose: 125 mg Metoprolol Succinate (Toprol Xl) 25 mg PO DAILY [facility] Last Admin: 06/11/17 09:40 Dose: 25 mg Multivitamins (Theragran) 1 tab PO DAILYWM [facility] Last Admin: 06/11/17 11:29 Dose: 1 tab Polyethylene Glycol (Miralax) 17 gm PO DAILY [facility] Last Admin: 06/11/17 08:17 Dose: 17 gm Sodium Chloride (Normal Saline Flush 0.9%) 10 ml IVP PRN PRN PRN Reason: NEEDED PER PROVIDER ORDERS Last Admin: 06/11/17 05:45 Dose: 10 ml Sodium Chloride (Normal Saline Flush 0.9%) 10 ml IVP 0100,0900,1700 [facility] Last Admin: 06/11/17 08:21 Dose: Not Given Sodium Chloride ([place]) 2 sprays PRITESH BID [facility] Last Admin: 06/11/17 08:15 Dose: 2 sprays Aspirin Chewable [St Vlad Aspirin] 81 mg PO DAILY 09/04/12 Multivitamin [Daily [place]] 1 each PO DAILY 02/26/15 Telmisartan [Micardis] 20 mg PO DAILY 02/26/15 Tiotropium [place] [Spiriva Respimat] 2 puffs INH DAILY 03/21/17 Atorvastatin Calcium 20 mg PO QPM 06/10/17 Escitalopram Oxalate [Lexapro] 20 mg PO DAILY 06/10/17 Fluticasone/Salmeterol [Advair Hfa 230-21 Mcg Inhaler] 2 puffs INH BID 06/10/17 Metoprolol Succinate [Toprol Xl] 25 mg PO DAILY 06/10/17 Polyethylene Glycol 3350 [Miralax] 17 gm PO DAILY 06/10/17 Objective - Vital Signs/Intake & Output Reviewed Vital Signs: Yes Vital Signs: Vital Signs x48h Temp Pulse Pulse Resp BP Pulse Ox 06/12/17 08:48 96 20 06/12/17 08:17 92 181/96 H 06/12/17 07:49 36.5 C 78 20 180/102 H 98 Intake & Output: Intake & Output 06/09/17 06/10/17 06/11/17 06/12/17 23:59 23:59 23:59 23:59 Intake Total 1550 3750 1508.333 Output Total 500 2360 1000 Balance 1050 1390 508.333 - Objective General Appearance: positive: No acute distress, Alert Eyes Bilateral: positive: Normal inspection, PERRL, EOMI, No lid inflammation, Conjunctivae nml, No scleral icterus ENT: positive: ENT inspection nml, Pharynx nml, No signs of dehydration Neck: positive: Nml inspection, Thyroid nml, No JVD, Trachea midline. negative : Thyromegaly Respiratory: positive: Chest non-tender, No respiratory distress, Breath sounds nml. negative: Rales, Rhonchi Cardiovascular: positive: Regular rate & rhythm, No murmur, No gallop Abdomen: positive: Non-tender, No organomegaly, Nml bowel sounds, No distention. negative: Guarding, Rebound Back: positive: Nml inspection. negative: CVA tenderness (R), CVA tenderness (L ) Skin: positive: Color nml, No rash, Warm, Dry. negative: Cyanosis Extremities: positive: Non-tender, Full ROM, Nml appearance Neurologic/Psychiatric: positive: Oriented x3, CN's nml (2-12), Motor nml, Sensation nml, Mood/affect nml - Lab Results Fish Bones: 06/12/17 06:17 06/12/17 06:17 Other Labs: Lab Results x24hrs 06/12/17 06/12/17 Range/Units 06:17 06:17 WBC 14.7 H (4.8-10.8) x10^3/uL RBC 3.40 L (4.70-6.10) 10^6/uL Hgb 10.8 L (14.0-18.0) g/dL Hct 32.3 L (42.0-52.0) % MCV 94.9 H (80.0-94.0) fL MCH 31.6 H (27.0-31.0) pg MCHC 33.3 (32.0-36.0) g/dL RDW 13.1 (12.0-15.0) % Plt Count 207 (130-450) 10^3/uL MPV 7.7 (7.4-11.4) fL Neut # 13.2 H (1.5-6.6) 10^3/uL Lymph # 0.5 L (1.5-3.5) 10^3/uL [place] # 0.9 (0.0-1.0) 10^3/uL Eos # 0.0 (0.0-0.7) 10^3/uL Baso # 0.0 (0.0-0.1) 10^3/uL Absolute Nucleated RBC 0.00 x10^3/uL Nucleated RBC % 0.0 /100WBC Sodium 140 (135-145) mmol/L Potassium 4.1 (3.5-5.0) mmol/L Chloride 107 (101-111) mmol/L Carbon Dioxide 24 (21-32) mmol/L Anion Gap 9.0 (6-13) BUN 21 H (6-20) mg/dL Creatinine 0.9 (0.6-1.2) mg/dL Estimated GFR (MDRD) 81 L (>89) Glucose 138 H (70-100) mg/dL Calcium 8.7 (8.5-10.3) mg/dL Magnesium 1.8 (1.7-2.8) mg/dL Total Bilirubin 0.4 (0.2-1.0) mg/dL AST 62 H (10-42) IU/L ALT 90 H (10-60) IU/L Alkaline Phosphatase 50 (42-121) IU/L Total Protein 6.4 L (6.7-8.2) g/dL Albumin 3.0 L (3.2-5.5) g/dL Globulin 3.4 (2.1-4.2) g/dL Albumin/Globulin Ratio 0.9 L (1.0-2.2) - Diagnostic Imaging Diagnostic Imaging Comments: EXAM: CHEST RADIOGRAPHY EXAM DATE: 06/10/2017 09:11 AM. CLINICAL HISTORY: Cough soa wheeze. COMPARISON: Chest radiograph dated 03/20/2017. TECHNIQUE: 2 views. FINDINGS: Lungs/Pleura: Triangular opacity in the posterior lung field seen on the lateral view is new from the prior examination. Mild blunting of the right costophrenic angle. Mediastinum: Heart and mediastinal contours are unremarkable. Other: None. IMPRESSION: Subtle opacities in the posterior lung field, side indeterminate, can be seen in the setting of atelectasis, aspiration or infectious process. Assessment/Plan - Problem List (1) Bilateral pneumonia Impression: Doubt aspiration is cause of bilateral pneumonia, await swallow study report. Continue zosyn, ceftriaxone, and azithromycin IV antibiotics, nebulizers including MERLE,LABAs, high dose IV steroids at 125mg. (2) Oxygen dependent Impression: The patient has been oxygen dependant, 2-4L/m for years. He is 3-4L/m dependent in hospital. This may be simply a worsening of the pt's underlying lung disease state. 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 No one smokes in the home currently and there are no other known irritants. He admits cessation was several years ago. Continue oxygen per nasal cannula, respiratory toileting with the use of a flutter valve per RT, and monitor vital signs.
[2017-06-12] MEDS: ATORVASTATIN 10 MG TABLET PO SCH (21:54)
[2017-06-13] MEDS: SODIUM CHLORIDE FLUSH 0.9% 10 ML SYRINGE IVP SCH ×4 (00:26→16:45)
[2017-06-13] MEDS: PIPERACILLIN/TAZOBACTAM 4.5 GM in SODIUM CHLORIDE 0.9% MINIBAG 100 ML IV SCH ×4 (04:04→21:20)
[2017-06-13 05:30] LABS: HGB - HEMOGLOBIN 10.8 g/dL (14.0-18.0); LYMPHOCYTES # (AUTO) 0.5 10^3/uL (1.5-3.5); MEAN CORPUSCULAR HEMOGLOBIN 31.1 pg (27.0-31.0); MEAN CORPUSCULAR HGB CONC 32.4 g/dL (32.0-36.0); MONOCYTES # (AUTO) 0.6 10^3/uL (0.0-1.0); NEUTROPHILS # (AUTO) 10.4 10^3/uL (1.5-6.6); PLT - PLATELET COUNT 210 10^3/uL (130-450); RED BLOOD COUNT 3.49 10^6/uL (4.70-6.10); RED CELL DISTRIBUTION WIDTH 13.3 % (12.0-15.0); WHITE BLOOD COUNT 11.4 x10^3/uL (4.8-10.8)
[2017-06-13 05:31] LABS: ALBUMIN 3.1 g/dL (3.2-5.5); ALBUMIN/GLOBULIN RATIO 0.9 (1.0-2.2); ALKALINE PHOSPHATASE 51 IU/L (42-121); ALT ALANINE AMINOTRANSFERASE 109 IU/L (10-60); AST ASPARTATE AMINOTRANSFERASE 77 IU/L (10-42); BILIRUBIN,TOTAL < 0.2 mg/dL (0.2-1.0); BUN - BLOOD UREA NITROGEN 22 mg/dL (6-20); CALCIUM 8.7 mg/dL (8.5-10.3); CARBON DIOXIDE - CO2 25 mmol/L (21-32); CHLORIDE 108 mmol/L (101-111); CREATININE 0.9 mg/dL (0.6-1.2); GFR - MDRD 81 (>89); GLUCOSE 144 mg/dL (70-100); MAGNESIUM 1.8 mg/dL (1.7-2.8); SODIUM 141 mmol/L (135-145); TOTAL PROTEIN 6.5 g/dL (6.7-8.2)
[2017-06-13] MEDS: methylPREDNISolone SUCCINATE 125 MG/2 ML VIAL IVP SCH ×3 (06:08→21:28)
[2017-06-13] MEDS: IPRATROPIUM/ALBUTEROL 3 ML NEB INH SCH ×4 (07:24→18:16)
[2017-06-13 07:35] LABS: DIFFERENTIAL COMMENT MANUAL=AUTO DIFF; PLATELET ESTIMATE, MANUAL NORMAL (130-450,000) (NORMAL); PLATELET MORPHOLOGY NORMAL APPEARANCE (NORMAL); RBC MORPHOLOGY (MULTIPLE) NORMAL APPEARANCE (NORMAL)
[2017-06-13] MEDS: SODIUM CHLORIDE 0.9% 1,000 ML IV SCH ×3 (07:42→21:19)
[2017-06-13] MEDS: POLYETHYLENE GLYCOL 3350 17 GM PACKET PO SCH (08:01)
[2017-06-13] MEDS: MULTIVITAMIN TABLET PO SCH (08:02)
[2017-06-13] MEDS: METOPROLOL SUCCINATE 25 MG TABLET PO SCH ×2 (08:02→21:19)
[2017-06-13] MEDS: LOSARTAN 50 MG TABLET PO SCH (08:02)
[2017-06-13] MEDS: cefTRIAXone 2 GM in SODIUM CHLORIDE 0.9% MINIBAG 100 ML IV SCH (09:43)
[2017-06-13] MEDS: ENOXAPARIN 40 MG/0.4 ML SYRINGE SUBQ SCH (09:45)
[2017-06-13] MEDS: ESCITALOPRAM 10 MG TABLET PO SCH (09:45)
[2017-06-13] MEDS: ASPIRIN CHEW 81 MG TABLET PO SCH (09:46)
[2017-06-13] MEDS: SODIUM CHLORIDE 0.65% NASAL SPRAY NAS SCH ×2 (09:46→21:20)
[2017-06-13] MEDS: guaiFENesin 600 MG TABLET PO SCH ×2 (09:46→21:20)
[2017-06-13] MEDS: LOPERAMIDE 2 MG CAPSULE PO PRN (10:36)
[2017-06-13] MEDS: AZITHROMYCIN INJ 500 MG in SODIUM CHLORIDE 0.9% 250 ML IV SCH (11:27)
--- NOTE | 2017-06-13 14:08 | PROVIDER PROGRESS NOTE ---
Assessment/Plan - Problem List (1) Bilateral pneumonia Assessment/Plan: The patient is doing well. He typically uses 2L/m oxygen at home, is on 2L/m now here. Pt still with significant DAO. Continue zosyn, ceftriaxone, and azithromycin IV antibiotics, nebulizers including MERLE,LABAs, high dose IV steroids at 125mg. (2) Severe chronic obstructive pulmonary disease Assessment/Plan: The patient has been oxygen dependant, 2 L/m for years. He is 2 L/m dependent in hospital. AE COPD appears resolved. (3) Hypertension Qualifiers: Hypertension type: essential hypertension Qualified Code(s): I10 - Essential (primary) hypertension Assessment/Plan: The pt typically takes 50mg metoprolol at home, will adjust mar to reflect this ; will add HCTZ. - Current Meds Current Meds: Current Medications Generic Name Dose Route Start Last Admin Trade Name Freq PRN Reason Stop Dose Admin Albuterol/Ipratropium 3 ml 06/10/17 15:00 06/13/17 10:53 Duoneb INH 3 ml RTQID [facility] Administration Aspirin 81 mg 06/11/17 10:00 06/13/17 09:46 St Vlad Aspirin PO 81 mg DAILY [facility] Administration Atorvastatin Calcium 20 mg 06/11/17 21:00 06/12/17 21:54 Lipitor PO 20 mg QPM [facility] Administration Enoxaparin Sodium 40 mg 06/11/17 09:00 06/13/17 09:45 Lovenox SUBQ 40 mg DAILY [facility] Administration Escitalopram Oxalate 20 mg 06/11/17 09:30 06/13/17 09:45 Lexapro PO 20 mg DAILY [facility] Administration Guaifenesin 600 mg 06/10/17 15:00 06/13/17 09:46 Mucinex PO 600 mg BID [facility] Administration Sodium Chloride 1,000 mls @ 100 mls/hr 06/10/17 12:00 06/13/17 13:01 Normal Saline 0.9% IV 100 mls/hr .Q10H [facility] Infusion Piperacillin Sod/Tazobactam 100 mls @ 200 mls/hr 06/10/17 16:00 06/13/17 11: 24 Sod 4.5 gm/ Sodium Chloride IV Infused Q6H [facility] Infusion Azithromycin 500 mg/ Sodium 250 mls @ 250 mls/hr 06/11/17 10:00 06/13/17 13: 02 Chloride IV Infused DAILY@1000 [facility] Infusion Ceftriaxone Sodium 2 gm/ 100 mls @ 200 mls/hr 06/11/17 09:00 06/13/17 10:20 Sodium Chloride IV Infused DAILY [facility] Infusion Loperamide HCl 2 mg 06/13/17 10:25 06/13/17 10:36 Imodium PO 2 mg QID PRN Administration Diarrhea Losartan Potassium 25 mg 06/13/17 09:00 06/13/17 08:02 Cozaar PO 25 mg DAILY [facility] Administration Methylprednisolone Sodium Succinate 125 mg 06/10/17 15:00 06/13/17 06:08 Solu-Medrol (125mg Vial) IVP 125 mg TID [facility] Administration Metoprolol Succinate 25 mg 06/11/17 10:00 06/13/17 08:02 Toprol Xl PO 25 mg DAILY [facility] Administration Multivitamins 1 tab 06/11/17 12:00 06/13/17 08:02 Theragran PO 1 tab DAILYWM [facility] Administration Polyethylene Glycol 17 gm 06/11/17 09:00 06/13/17 08:01 Miralax PO Not Given DAILY [facility] Sodium Chloride 10 ml 06/10/17 11:33 06/11/17 05:45 Normal Saline Flush 0.9% IVP 10 ml PRN PRN Administration NEEDED PER PROVIDER ORDERS Sodium Chloride 10 ml 06/10/17 17:00 06/13/17 09:46 Normal Saline Flush 0.9% IVP Not Given 0100,0900,1700 [facility] Sodium Chloride 2 sprays 06/10/17 21:00 06/13/17 09:46 Stacy PRITESH 2 sprays BID [facility] Administration - Lab Result Lab results reviewed: Yes Fish Bone Diagrams: 06/13/17 04:58 06/13/17 04:58 - Additional Planning My Orders: My Active Orders 06/13/17 10:25 Loperamide [Imodium] 2 mg PO QID PRN Subjective - Subjective Patient Reports: Feeling Better, Resting Comfortably, No Complaints, Shortness of Breath Nursing Reports: No Complaints, Shortness of Breath Objective Vital Signs: Vital Signs - 24 hr 06/12/17 06/12/17 06/12/17 15:48 16:45 17:20 Temperature 36.6 C Heart Rate 96 Heart Rate [ 77 92 Brachial] Respiratory 18 22 Rate Blood Pressure 187/96 H [Left Brachial artery] Blood Pressure 185/94 H [Right Brachial artery] O2 Saturation 100 06/12/17 06/13/17 06/13/17 20:27 00:38 07:25 Temperature 36.5 C Heart Rate 73 86 Heart Rate [ 77 Brachial] Respiratory 20 20 18 Rate Blood Pressure 172/94 H [Left Brachial artery] Blood Pressure [Right Brachial artery] O2 Saturation 97 06/13/17 06/13/17 06/13/17 08:34 09:09 11:05 Temperature 36.6 C Heart Rate 80 Heart Rate [ 65 Brachial] Respiratory 20 18 Rate Blood Pressure 208/98 H 177/90 H [Left Brachial artery] Blood Pressure [Right Brachial artery] O2 Saturation 100 Oxygen O2 Source Nasal cannula I&O (Last 24 Hrs): Intake and Output Totals x24h 06/11/17 06/12/17 06/13/17 23:59 23:59 23:59 Intake Total 3750 2710.000 2395 Output Total 2360 1800 1450 Balance 1390 910.000 945 General: Alert, Oriented x3, Cooperative, No acute distress HEENT: Atraumatic, PERRLA, EOMI, Mucous membr. moist/pink Neck: Supple, No JVD, No thyromegaly Lymphatic: no adenopathy Neuro: Alert, CN 2-12 Grossly Intact, Oriented Times 3 Cardiovascular: Regular rate, Normal S1, Normal S2 Respiratory: Chest non-tender, No respiratory distress, Breath sounds nml Abdomen: Normal bowel sounds, Soft, No tenderness, No hepatospenomegaly Extremities: No clubbing, No cyanosis, No edema, Normal pulses, No tenderness/ swelling Skin: No rashes, No breakdown, No significant lesion - Results Results: Laboratory Results WBC 11.4 x10^3/uL (4.8-10.8) H 06/13/17 04:58 RBC 3.49 10^6/uL (4.70-6.10) L 06/13/17 04:58 Hgb 10.8 g/dL (14.0-18.0) L 06/13/17 04:58 Hct 33.5 % (42.0-52.0) L 06/13/17 04:58 MCV 96.0 fL (80.0-94.0) H 06/13/17 04:58 MCH 31.1 pg (27.0-31.0) H 06/13/17 04:58 MCHC 32.4 g/dL (32.0-36.0) 06/13/17 04:58 RDW 13.3 % (12.0-15.0) 06/13/17 04:58 Plt Count 210 10^3/uL (130-450) 06/13/17 04:58 MPV 8.0 fL (7.4-11.4) 06/13/17 04:58 Neut # 10.4 10^3/uL (1.5-6.6) H 06/13/17 04:58 Lymph # 0.5 10^3/uL (1.5-3.5) L 06/13/17 04:58 [place] # 0.6 10^3/uL (0.0-1.0) 06/13/17 04:58 Eos # 0.0 10^3/uL (0.0-0.7) 06/13/17 04:58 Baso # 0.0 10^3/uL (0.0-0.1) 06/13/17 04:58 Absolute Nucleated RBC 0.01 x10^3/uL 06/13/17 04:58 Total Counted 100 06/10/17 08:44 Band Neuts % (Manual) Not Reportable 06/13/17 04:58 Reactive Lymphs % (Man) 5 % 06/10/17 08:44 Abnorm Lymph % (Manual) Not Reportable 06/13/17 04:58 Nucleated RBC % 0.1 /100WBC 06/13/17 04:58 Neutrophils # (Manual) Not Reportable 06/13/17 04:58 Lymphocytes # (Manual) Not Reportable 06/13/17 04:58 Monocytes # (Manual) Not Reportable 06/13/17 04:58 Eosinophils # (Manual) Not Reportable 06/13/17 04:58 Basophils # (Manual) Not Reportable 06/13/17 04:58 Differential Comment MANUAL=AUTO DIFF 06/13/17 04:58 Manual Slide Review Indicated 06/10/17 08:44 Platelet Estimate NORMAL (130-450,000) (NORMAL) 06/13/17 04:58 Platelet Morphology NORMAL APPEARANCE (NORMAL) 06/13/17 04:58 RBC Morph Micro Appear NORMAL APPEARANCE (NORMAL) 06/13/17 04:58 ESR 85 mm/Hr (0-20) H 06/10/17 15:06 Sodium 141 mmol/L (135-145) 06/13/17 04:58 Potassium 4.0 mmol/L (3.5-5.0) 06/13/17 04:58 Chloride 108 mmol/L (101-111) 06/13/17 04:58 Carbon Dioxide 25 mmol/L (21-32) 06/13/17 04:58 Anion Gap 8.0 (6-13) 06/13/17 04:58 BUN 22 mg/dL (6-20) H 06/13/17 04:58 Creatinine 0.9 mg/dL (0.6-1.2) 06/13/17 04:58 Estimated GFR (MDRD) 81 (>89) L 06/13/17 04:58 Glucose 144 mg/dL (70-100) H 06/13/17 04:58 Calcium 8.7 mg/dL (8.5-10.3) 06/13/17 04:58 Phosphorus 2.8 mg/dL (2.5-4.6) 06/11/17 06:19 Magnesium 1.8 mg/dL (1.7-2.8) 06/13/17 04:58 Total Bilirubin < 0.2 mg/dL (0.2-1.0) L 06/13/17 04:58 AST 77 IU/L (10-42) H 06/13/17 04:58 ALT 109 IU/L (10-60) H 06/13/17 04:58 Alkaline Phosphatase 51 IU/L (42-121) 06/13/17 04:58 Troponin I < 0.04 ng/mL (<0.49) 06/10/17 15:06 C-Reactive Protein 7.7 mg/dL (0-1.0) H 06/10/17 15:06 Total Protein 6.5 g/dL (6.7-8.2) L 06/13/17 04:58 Albumin 3.1 g/dL (3.2-5.5) L 06/13/17 04:58 Globulin 3.4 g/dL (2.1-4.2) 06/13/17 04:58 Albumin/Globulin Ratio 0.9 (1.0-2.2) L 06/13/17 04:58
[2017-06-13] MEDS: hydroCHLOROthiazide 25 MG TABLET PO SCH (14:43)
[2017-06-13] MEDS: ATORVASTATIN 10 MG TABLET PO SCH (21:20)
[2017-06-14] MEDS: SODIUM CHLORIDE FLUSH 0.9% 10 ML SYRINGE IVP SCH ×4 (00:02→23:52)
[2017-06-14] MEDS: PIPERACILLIN/TAZOBACTAM 4.5 GM in SODIUM CHLORIDE 0.9% MINIBAG 100 ML IV SCH ×2 (04:05→10:06)
[2017-06-14] MEDS: methylPREDNISolone SUCCINATE 125 MG/2 ML VIAL IVP SCH (05:55)
[2017-06-14] MEDS: IPRATROPIUM/ALBUTEROL 3 ML NEB INH SCH ×4 (07:27→19:42)
[2017-06-14] MEDS: POLYETHYLENE GLYCOL 3350 17 GM PACKET PO SCH (07:31)
[2017-06-14] MEDS: MULTIVITAMIN TABLET PO SCH (08:36)
[2017-06-14] MEDS: LOSARTAN 50 MG TABLET PO SCH (08:36)
[2017-06-14] MEDS: guaiFENesin 600 MG TABLET PO SCH ×2 (08:36→20:35)
[2017-06-14] MEDS: hydroCHLOROthiazide 25 MG TABLET PO SCH (08:36)
[2017-06-14] MEDS: METOPROLOL SUCCINATE 25 MG TABLET PO SCH (08:36)
[2017-06-14] MEDS: ASPIRIN CHEW 81 MG TABLET PO SCH (08:36)
[2017-06-14] MEDS: ESCITALOPRAM 10 MG TABLET PO SCH (08:36)
[2017-06-14] MEDS: LOPERAMIDE 2 MG CAPSULE PO PRN (08:36)
[2017-06-14] MEDS: ENOXAPARIN 40 MG/0.4 ML SYRINGE SUBQ SCH (09:14)
[2017-06-14] MEDS: cefTRIAXone 2 GM in SODIUM CHLORIDE 0.9% MINIBAG 100 ML IV SCH (09:14)
[2017-06-14] MEDS: SODIUM CHLORIDE 0.65% NASAL SPRAY NAS SCH ×2 (09:15→20:36)
[2017-06-14] MEDS: SODIUM CHLORIDE 0.9% 1,000 ML IV SCH (09:15)
[2017-06-14] MEDS: AZITHROMYCIN INJ 500 MG in SODIUM CHLORIDE 0.9% 250 ML IV SCH (10:44)
[2017-06-14] MEDS: amLODIPine 5 MG TABLET PO SCH (14:02)
--- NOTE | 2017-06-14 14:49 | PROVIDER PROGRESS NOTE ---
Assessment/Plan - Problem List (1) Pneumonia Assessment/Plan: Presented to ED 06/03 with increasing SOB and increased use of nebs without improvement, recently treated for LLL PNA with levaquin (4d left) and prednisone (finished). Returned on 06/10 with increasing symptoms despite antibx and nebs. Had multiple falls with out injury. No fever/chills. CXR 06/10, triangular opacity in the posterior lung field. Sputum cx with normal macie. Did not develop leukocystosis until hosp day 2 which leads me to think this may be steroid induced, not infectious related. -If Cdiff +, Follow-up CT chest, persistent pneumonia vs just COPD exacerbation persisting -Continue CTX and azithromycin, DC zosyn -Mucinex bid DIARRHEA Patient with 4 episodes of watery stool. Recent flouroquinolone therapy places hin at higher risk of Cdiff -Check Cdiff -Add florastor Volume overload Patient eating and drinking well, has been on NS@100 since admission. BNP up to 219, likely iatrogenic volume overload, normal ECHO. -Lasix 40mg PO x1 today (2) Hypertension Assessment/Plan: Hx of HTN on BB and ARB at home. Initial BB reduced to 25mg daily, unclear why , seems med list wrong. Now significantly HTN, 192/96 this AM. -Increase toprol XL to 50mg daily -Continue losartan (sub for micardis) 25mg -Add norvasc daily, start now -Monitor BP routinely and titrate meds as needed (3) COPD with acute exacerbation Assessment/Plan: On advair and spiriva with PRN albuterol [employer]. Increased symptoms since pneumonia noted 1 mo ago. Diffuse wheeze on exam, move air well. -Duoneb q6 -DC iv solumedrol, start prednisone 40mg daily in AM (4) Chronic hypoxemic respiratory failure Assessment/Plan: ON 2L nc at home [employer]. Currently at baseline O2 needs. -Continue 2L, keep sats >90% (5) Depression Assessment/Plan: Chronic on lexapro, mood stable. -Continue lexapro (6) Transaminitis Assessment/Plan: Noting increased LFTS, fatty liver noted on last CT abd. No abdominal pain. ? due to congestion from fluid overload. -Abd US, limited -NPO for scan (7) Hyperlipidemia Assessment/Plan: Chronic, stable. At goal as of last FLP 2014. -Continue statin - Current Meds Current Meds: Current Medications Generic Name Dose Route Start Last Admin Trade Name Freq PRN Reason Stop Dose Admin Albuterol/Ipratropium 3 ml 06/10/17 15:00 06/14/17 14:44 Duoneb INH 3 ml RTQID BRITTANIE Administration Amlodipine Besylate 5 mg 06/14/17 14:00 06/14/17 14:02 Norvasc PO 5 mg DAILY BRITTANIE Administration Aspirin 81 mg 06/11/17 10:00 06/14/17 08:36 [facility] [place] Aspirin PO 81 mg DAILY BRITTANIE Administration Atorvastatin Calcium 20 mg 06/11/17 21:00 06/13/17 21:20 Lipitor PO 20 mg QPM BRITTANIE Administration Enoxaparin Sodium 40 mg 06/11/17 09:00 06/14/17 09:14 Lovenox SUBQ 40 mg DAILY BRITTANIE Administration Escitalopram Oxalate 20 mg 06/11/17 09:30 06/14/17 08:36 Lexapro PO 20 mg DAILY BRITTANIE Administration Guaifenesin 600 mg 06/10/17 15:00 06/14/17 08:36 Mucinex PO 600 mg BID BRITTANIE Administration Hydrochlorothiazide 25 mg 06/13/17 15:00 06/14/17 08:36 Hydrodiuril PO 25 mg DAILY BRITTANIE Administration Azithromycin 500 mg/ Sodium 250 mls @ 250 mls/hr 06/11/17 10:00 06/14/17 11: 46 Chloride IV Infused DAILY@1000 BRITTANIE Infusion Ceftriaxone Sodium 2 gm/ 100 mls @ 200 mls/hr 06/11/17 09:00 06/14/17 09:45 Sodium Chloride IV Infused DAILY BRITTANIE Infusion Loperamide HCl 2 mg 06/13/17 10:25 06/14/17 08:36 Imodium PO 2 mg QID PRN Administration Diarrhea Losartan Potassium 25 mg 06/13/17 09:00 06/14/17 08:36 Cozaar PO 25 mg DAILY BRITTANIE Administration Multivitamins 1 tab 06/11/17 12:00 06/14/17 08:36 Theragran PO 1 tab DAILYWM BRITTANIE Administration Polyethylene Glycol 17 gm 06/11/17 09:00 06/14/17 07:31 Miralax PO Not Given DAILY BRITTANIE Sodium Chloride 10 ml 06/10/17 11:33 06/11/17 05:45 Normal Saline Flush 0.9% IVP 10 ml PRN PRN Administration NEEDED PER PROVIDER ORDERS Sodium Chloride 10 ml 06/10/17 17:00 06/14/17 09:15 Normal Saline Flush 0.9% IVP 10 ml 0100,[id number],1700 BRITTANIE Administration Sodium Chloride 2 sprays 06/10/17 21:00 06/14/17 09:15 [place] PRITESH Not Given BID BRITTANIE - Lab Result Lab results reviewed: Yes Fish Bone Diagrams: 06/13/17 04:58 06/13/17 04:58 - Diagnostic Imaging Results Diagnostic Imaging Results: Final report reviewed - Additional Planning Condition/Complexity: Stable My Orders: My Active Orders 06/14/17 14:00 amLODIPine [Norvasc] 5 mg PO DAILY 06/15/17 08:00 predniSONE [Deltasone] 40 mg PO DAILYWM 06/15/17 09:00 Metoprolol Succinate [Toprol Xl] 50 mg PO DAILY Time Spent: 15-30 minutes Subjective - Subjective Patient Reports: Other (Patient complains of SOB that is slightly better but still not back to baseline. He reports + cough, wet, but little sputum. He denies fever or chills. He has DAO which is more pronounced. His BP is high but he denies) Nursing Reports: Other (PT reports he is still unstable for DC home, will see him again tomorrow.) Objective Vital Signs: Vital Signs - 24 hr 06/13/17 06/13/17 06/13/17 15:23 16:19 18:17 Temperature 36.5 C Heart Rate 88 98 Heart Rate [ 67 Brachial] Respiratory 20 24 0 L Rate Blood Pressure 187/78 H [Left Brachial artery] Blood Pressure [Right Brachial artery] O2 Saturation 99 06/14/17 06/14/17 06/14/17 00:05 07:29 08:07 Temperature 36.6 C 36.4 C L Heart Rate 71 Heart Rate [ 82 89 Brachial] Respiratory 22 20 20 Rate Blood Pressure 174/86 H 192/96 H [Left Brachial artery] Blood Pressure [Right Brachial artery] O2 Saturation 98 99 06/14/17 06/14/17 06/14/17 11:00 12:40 14:03 Temperature Heart Rate 100 Heart Rate [ 81 Brachial] Respiratory 22 Rate Blood Pressure 179/100 H [Left Brachial artery] Blood Pressure 178/102 H [Right Brachial artery] O2 Saturation 03/25/18 14:46 Temperature Heart Rate 88 Heart Rate [ Brachial] Respiratory 20 Rate Blood Pressure [Left Brachial artery] Blood Pressure [Right Brachial artery] O2 Saturation Oxygen O2 Source Nasal cannula I&O (Last 24 Hrs): Intake and Output Totals x24h 06/12/17 06/13/17 06/14/17 23:59 23:59 23:59 Intake Total 2710.000 3749.333 2246.667 Output Total 1800 2850 2375 Balance 910.000 899.333 -128.333 General: Alert, Oriented x3, Cooperative HEENT: PERRLA Neck: No JVD Neuro: Alert Cardiovascular: Regular rate, No murmurs Respiratory: Chest non-tender, Other (diffuse wheeze) Abdomen: Normal bowel sounds, Soft Extremities: No clubbing, No cyanosis, No edema Skin: No rashes - Results Results: Laboratory Results WBC 11.4 x10^3/uL (4.8-10.8) H 06/13/17 04:58 RBC 3.49 10^6/uL (4.70-6.10) L 06/13/17 04:58 Hgb 10.8 g/dL (14.0-18.0) L 06/13/17 04:58 Hct 33.5 % (42.0-52.0) L 06/13/17 04:58 MCV 96.0 fL (80.0-94.0) H 06/13/17 04:58 MCH 31.1 pg (27.0-31.0) H 06/13/17 04:58 MCHC 32.4 g/dL (32.0-36.0) 06/13/17 04:58 RDW 13.3 % (12.0-15.0) 06/13/17 04:58 Plt Count 210 10^3/uL (130-450) 06/13/17 04:58 MPV 8.0 fL (7.4-11.4) 06/13/17 04:58 Neut # 10.4 10^3/uL (1.5-6.6) H 06/13/17 04:58 Lymph # 0.5 10^3/uL (1.5-3.5) L 06/13/17 04:58 [place] # 0.6 10^3/uL (0.0-1.0) 06/13/17 04:58 Eos # 0.0 10^3/uL (0.0-0.7) 06/13/17 04:58 Baso # 0.0 10^3/uL (0.0-0.1) 06/13/17 04:58 Absolute Nucleated RBC 0.01 x10^3/uL 06/13/17 04:58 Total Counted 100 06/10/17 08:44 Band Neuts % (Manual) Not Reportable 06/13/17 04:58 Reactive Lymphs % (Man) 5 % 06/10/17 08:44 Abnorm Lymph % (Manual) Not Reportable 06/13/17 04:58 Nucleated RBC % 0.1 /100WBC 06/13/17 04:58 Neutrophils # (Manual) Not Reportable 06/13/17 04:58 Lymphocytes # (Manual) Not Reportable 06/13/17 04:58 Monocytes # (Manual) Not Reportable 06/13/17 04:58 Eosinophils # (Manual) Not Reportable 06/13/17 04:58 Basophils # (Manual) Not Reportable 06/13/17 04:58 Differential Comment MANUAL=AUTO DIFF 06/13/17 04:58 Manual Slide Review Indicated 06/10/17 08:44 Platelet Estimate NORMAL (130-450,000) (NORMAL) 06/13/17 04:58 Platelet Morphology NORMAL APPEARANCE (NORMAL) 06/13/17 04:58 RBC Morph Micro Appear NORMAL APPEARANCE (NORMAL) 06/13/17 04:58 ESR 85 mm/Hr (0-20) H 06/10/17 15:06 Sodium 141 mmol/L (135-145) 06/13/17 04:58 Potassium 4.0 mmol/L (3.5-5.0) 06/13/17 04:58 Chloride 108 mmol/L (101-111) 06/13/17 04:58 Carbon Dioxide 25 mmol/L (21-32) 06/13/17 04:58 Anion Gap 8.0 (6-13) 06/13/17 04:58 BUN 22 mg/dL (6-20) H 06/13/17 04:58 Creatinine 0.9 mg/dL (0.6-1.2) 06/13/17 04:58 Estimated GFR (MDRD) 81 (>89) L 06/13/17 04:58 Glucose 144 mg/dL (70-100) H 06/13/17 04:58 Calcium 8.7 mg/dL (8.5-10.3) 06/13/17 04:58 Phosphorus 2.8 mg/dL (2.5-4.6) 06/11/17 06:19 Magnesium 1.8 mg/dL (1.7-2.8) 06/13/17 04:58 Total Bilirubin < 0.2 mg/dL (0.2-1.0) L 06/13/17 04:58 AST 77 IU/L (10-42) H 06/13/17 04:58 ALT 109 IU/L (10-60) H 06/13/17 04:58 Alkaline Phosphatase 51 IU/L (42-121) 06/13/17 04:58 Troponin I < 0.04 ng/mL (<0.49) 06/10/17 15:06 C-Reactive Protein 7.7 mg/dL (0-1.0) H 06/10/17 15:06 B-Natriuretic Peptide 219 pg/mL (5-100) H 06/14/17 13:30 Total Protein 6.5 g/dL (6.7-8.2) L 06/13/17 04:58 Albumin 3.1 g/dL (3.2-5.5) L 06/13/17 04:58 Globulin 3.4 g/dL (2.1-4.2) 06/13/17 04:58 Albumin/Globulin Ratio 0.9 (1.0-2.2) L 06/13/17 04:58
[2017-06-14] MEDS ORDERED: FUROSEMIDE 40 MG TABLET PO ONE (16:00)
[2017-06-14] MEDS: SACCHAROMYCES BOULARDII 250 MG CAPSULE PO SCH (16:08)
[2017-06-14] MEDS: ATORVASTATIN 10 MG TABLET PO SCH (20:35)
--- NOTE | 2017-06-14 23:29 | Ultrasound Preliminary Report ---
Exam: US ABDOMEN LIMITED IMPRESSION: 1. Normal gallbladder. 2. Enlarged, fatty liver. No mass. 3. Pancreas obscured by bowel gas. Normal caliber common bile duct. However, common bile that is not well seen or evaluated. [facility] SITE ID: [id number]
--- NOTE | 2017-06-15 00:56 | Ultrasound Report ---
EXAM: ABDOMEN ULTRASOUND LIMITED, RUQ EXAM DATE: 06/14/2017 07:48 PM. CLINICAL HISTORY: Rising LFTs. COMPARISON: 06/03/2017. TECHNIQUE: Real-time scanning was performed with static images obtained. FINDINGS: Liver: Liver parenchyma is heterogeneous and markedly hyperechoic. No discrete liver masses or intrah epatic bile duct dilation. However, evaluation for masses is limited secondary to the echogenicity. 16.9 cm. Main portal vein flow: Hepatopetal. Gallbladder: Normal. No stones, wall thickening, or sonographic Smith's sign. Biliary System: CBD measures 4 mm. No intrahepatic or extrahepatic ductal dilatation. Not well-seen. Pancreas: Obscured by bowel gas. Right kidney: Length measures 10.6 cm. No hydronephrosis. Small 0.7 cm renal simple cyst. Other: None. IMPRESSION: 1. Normal gallbladder. 2. Enlarged, fatty liver. No mass. 3. Pancreas obscured by bowel gas. Normal caliber common bile duct. However, common bile duct is not well-seen or evaluated. [facility] Referring Provider Line: [phone] SITE ID: [id number]
[2017-06-15] MEDS: IPRATROPIUM/ALBUTEROL 3 ML NEB INH SCH ×4 (07:00→21:15)
[2017-06-15] MEDS: ESCITALOPRAM 10 MG TABLET PO SCH (08:30)
[2017-06-15] MEDS: cefTRIAXone 2 GM in SODIUM CHLORIDE 0.9% MINIBAG 100 ML IV SCH (08:30)
[2017-06-15] MEDS: SODIUM CHLORIDE FLUSH 0.9% 10 ML SYRINGE IVP SCH ×3 (08:30→23:52)
[2017-06-15] MEDS: SACCHAROMYCES BOULARDII 250 MG CAPSULE PO SCH ×2 (08:30→17:10)
[2017-06-15] MEDS: ENOXAPARIN 40 MG/0.4 ML SYRINGE SUBQ SCH (08:30)
[2017-06-15] MEDS: predniSONE 20 MG TABLET PO SCH (08:31)
[2017-06-15] MEDS: LOSARTAN 50 MG TABLET PO SCH (08:31)
[2017-06-15] MEDS: amLODIPine 5 MG TABLET PO SCH (08:31)
[2017-06-15] MEDS: METOPROLOL SUCCINATE 25 MG TABLET PO SCH (08:31)
[2017-06-15] MEDS: MULTIVITAMIN TABLET PO SCH (08:31)
[2017-06-15] MEDS: guaiFENesin 600 MG TABLET PO SCH ×2 (08:31→21:35)
[2017-06-15] MEDS: ASPIRIN CHEW 81 MG TABLET PO SCH (08:31)
[2017-06-15] MEDS: POLYETHYLENE GLYCOL 3350 17 GM PACKET PO SCH (08:32)
[2017-06-15] MEDS: SODIUM CHLORIDE 0.65% NASAL SPRAY NAS SCH ×2 (08:32→21:36)
[2017-06-15] MEDS: hydroCHLOROthiazide 25 MG TABLET PO SCH (08:32)
[2017-06-15] MEDS: AZITHROMYCIN INJ 500 MG in SODIUM CHLORIDE 0.9% 250 ML IV SCH (10:45)
--- NOTE | 2017-06-15 19:06 | PROVIDER PROGRESS NOTE ---
Assessment/Plan - Problem List (1) Pneumonia Assessment/Plan: Presented to ED 06/03 with increasing SOB and increased use of nebs without improvement, recently treated for LLL PNA with levaquin (4d left) and prednisone (finished). Returned on 06/10 with increasing symptoms despite antibx and nebs. Had multiple falls with out injury. No fever/chills. CXR 06/10, triangular opacity in the posterior lung field. Sputum cx with normal macie. Did not develop leukocytosis until hosp day 2 which leads me to think this may be steroid induced, not infectious related. -Continue CTX and azithromycin -Mucinex bid -Procalcitonin ordered, will report Thursday. If negative then DC home only with steroids DIARRHEA Patient with 4 episodes of watery stool on 06/14. Recent flouroquinolone therapy places hin at higher risk of Cdiff. Sample sent and negative -Florastor added 06/14, continue Volume overload Patient eating and drinking well, had been on NS@100 since admission. BNP up to 219, likely iatrogenic volume overload, normal ECHO. Lasix 40mg PO x1 06/15. Breathing better today. (2) Hypertension Assessment/Plan: Hx of HTN on BB and ARB at home. Initial BB reduced to 25mg daily, unclear why , seems med list wrong. Significantl HTN, 192/96 when I first saw him 06/14. Corrected toprol to home dose and added norvasc, improved, 137/85. -Toprol XL 50mg daily -Continue losartan (sub for micardis) 25mg -Norvasc daily, started 06/15 -Monitor BP routinely and titrate meds as needed (3) COPD with acute exacerbation Assessment/Plan: On advair and spiriva with PRN albuterol [employer]. Increased symptoms since pneumonia noted 1 mo ago. Diffuse wheeze on exam 06/14, fine coarse breath sounds today but moving air well. -Duoneb q6 -Prednisone 40mg daily, wean (4) Chronic hypoxemic respiratory failure Assessment/Plan: ON 2L nc at home [employer]. Currently at baseline O2 needs. -Continue 2L, keep sats >90% (5) Depression Assessment/Plan: Chronic on lexapro, mood stable. -Continue lexapro (6) Transaminitis Assessment/Plan: Noting increased LFTS, fatty liver noted on last CT abd. No abdominal pain. ? due to congestion from fluid overload. ABd US obtained, fatty liver but otherwise ok. -PCP follow-up (7) Hyperlipidemia Assessment/Plan: Chronic, stable. At goal as of 2014. -Continue statin ATTESTATION: Patient remains in the hospital for medical treatment of pneumonia and COPD exacerbation DISCHARGE PLAN: Plan to DC home tomorrow 06/06 - Current Meds Current Meds: Current Medications Generic Name Dose Route Start Last Admin Trade Name Freq PRN Reason Stop Dose Admin Albuterol/Ipratropium 3 ml 06/10/17 15:00 06/15/17 16:02 Duoneb INH 3 ml RTQID BRITTANIE Administration Amlodipine Besylate 5 mg 06/14/17 14:00 06/15/17 08:31 Norvasc PO 5 mg DAILY BRITTANIE Administration Aspirin 81 mg 06/11/17 10:00 06/15/17 08:31 [facility] [place] Aspirin PO 81 mg DAILY BRITTANIE Administration Atorvastatin Calcium 20 mg 06/11/17 21:00 06/14/17 20:35 Lipitor PO 20 mg QPM BRITTANIE Administration Enoxaparin Sodium 40 mg 06/11/17 09:00 06/15/17 08:30 Lovenox SUBQ 40 mg DAILY BRITTANIE Administration Escitalopram Oxalate 20 mg 06/11/17 09:30 06/15/17 08:30 Lexapro PO 20 mg DAILY BRITTANIE Administration Guaifenesin 600 mg 06/10/17 15:00 06/15/17 08:31 Mucinex PO 600 mg BID BRITTANIE Administration Hydrochlorothiazide 25 mg 06/13/17 15:00 06/15/17 08:32 Hydrodiuril PO 25 mg DAILY BRITTANIE Administration Azithromycin 500 mg/ Sodium 250 mls @ 250 mls/hr 06/11/17 10:00 06/15/17 12: 29 Chloride IV Infused DAILY@1000 BRITTANIE Infusion Ceftriaxone Sodium 2 gm/ 100 mls @ 200 mls/hr 06/11/17 09:00 06/15/17 09:46 Sodium Chloride IV Infused DAILY BRITTANIE Infusion Loperamide HCl 2 mg 06/13/17 10:25 06/14/17 08:36 Imodium PO 2 mg QID PRN Administration Diarrhea Losartan Potassium 25 mg 06/13/17 09:00 06/15/17 08:31 Cozaar PO 25 mg DAILY BRITTANIE Administration Metoprolol Succinate 50 mg 06/15/17 09:00 06/15/17 08:31 Toprol Xl PO 50 mg DAILY BRITTANIE Administration Multivitamins 1 tab 06/11/17 12:00 06/15/17 08:31 Theragran PO 1 tab DAILYWM BRITTANIE Administration Polyethylene Glycol 17 gm 06/11/17 09:00 06/15/17 08:32 Miralax PO Not Given DAILY BRITTANIE Prednisone 40 mg 06/15/17 08:00 06/15/17 08:31 Deltasone PO 40 mg DAILYWM BRITTANIE Administration Saccharomyces Boulardii 250 mg 06/14/17 17:00 06/15/17 17:10 Florastor PO 250 mg BIDWM BRITTANIE Administration Sodium Chloride 10 ml 06/10/17 11:33 06/11/17 05:45 Normal Saline Flush 0.9% IVP 10 ml PRN PRN Administration NEEDED PER PROVIDER ORDERS Sodium Chloride 10 ml 06/10/17 17:00 06/15/17 08:30 Normal Saline Flush 0.9% IVP 10 ml 0100,0900,1700 BRITTANIE Administration Sodium Chloride 2 sprays 06/10/17 21:00 06/15/17 08:32 [place] PRITESH Not Given BID BRITTANIE - Lab Result Fish Bone Diagrams: 06/13/17 04:58 06/13/17 04:58 - Diagnostic Imaging Results Diagnostic Imaging Results: Final report reviewed - Additional Planning Condition/Complexity: Improved My Orders: My Active Orders 06/15/17 08:00 predniSONE [Deltasone] 40 mg PO DAILYWM 06/15/17 09:00 Metoprolol Succinate [Toprol Xl] 50 mg PO DAILY 06/15/17 Lunch Regular Diet [DIET] Plan Discussed with:: Patient Time Spent: 15-30 minutes Subjective - Subjective Patient Reports: Feeling Better (SOB slowly improving, had more formed BM this AM. No abd pain. No fever, chills. No chest pain. Still doesn't feel "good" but better than on admit.) Objective Vital Signs: Vital Signs - 24 hr 06/14/17 06/14/17 06/15/17 19:45 23:57 07:00 Temperature 36.7 C Heart Rate 90 72 Heart Rate [ 100 Brachial] Respiratory 20 18 16 Rate Blood Pressure 119/75 [Right Brachial artery] O2 Saturation 97 06/15/17 06/15/17 06/15/17 07:27 12:22 15:47 Temperature 36.5 C 36.6 C Heart Rate 105 H Heart Rate [ 81 99 Brachial] Respiratory 20 22 20 Rate Blood Pressure 128/88 H 137/85 H [Right Brachial artery] O2 Saturation 100 97 06/15/17 16:02 Temperature Heart Rate 100 Heart Rate [ Brachial] Respiratory 20 Rate Blood Pressure [Right Brachial artery] O2 Saturation Oxygen O2 Source Nasal cannula I&O (Last 24 Hrs): Intake and Output Totals x24h 06/13/17 06/14/17 06/15/17 23:59 23:59 23:59 Intake Total 3749.333 2919.667 2100 Output Total 2850 5000 1075 Balance 899.333 -2080.333 1025 General: No acute distress HEENT: Atraumatic Neck: No JVD Neuro: Alert, Non Focal, Oriented Times 3 Cardiovascular: Regular rate Respiratory: Chest non-tender, No respiratory distress, Breath sounds nml (fine coarse inspiratory breath sounds) Abdomen: Normal bowel sounds, Soft Extremities: No cyanosis, No edema, Normal pulses Skin: No rashes, No breakdown - Results Results: Laboratory Results WBC 11.4 x10^3/uL (4.8-10.8) H 06/13/17 04:58 RBC 3.49 10^6/uL (4.70-6.10) L 06/13/17 04:58 Hgb 10.8 g/dL (14.0-18.0) L 06/13/17 04:58 Hct 33.5 % (42.0-52.0) L 06/13/17 04:58 MCV 96.0 fL (80.0-94.0) H 06/13/17 04:58 MCH 31.1 pg (27.0-31.0) H 06/13/17 04:58 MCHC 32.4 g/dL (32.0-36.0) 06/13/17 04:58 RDW 13.3 % (12.0-15.0) 06/13/17 04:58 Plt Count 210 10^3/uL (130-450) 06/13/17 04:58 MPV 8.0 fL (7.4-11.4) 06/13/17 04:58 Neut # 10.4 10^3/uL (1.5-6.6) H 06/13/17 04:58 Lymph # 0.5 10^3/uL (1.5-3.5) L 06/13/17 04:58 [place] # 0.6 10^3/uL (0.0-1.0) 06/13/17 04:58 Eos # 0.0 10^3/uL (0.0-0.7) 06/13/17 04:58 Baso # 0.0 10^3/uL (0.0-0.1) 06/13/17 04:58 Absolute Nucleated RBC 0.01 x10^3/uL 06/13/17 04:58 Total Counted 100 06/10/17 08:44 Band Neuts % (Manual) Not Reportable 06/13/17 04:58 Reactive Lymphs % (Man) 5 % 06/10/17 08:44 Abnorm Lymph % (Manual) Not Reportable 06/13/17 04:58 Nucleated RBC % 0.1 /100WBC 06/13/17 04:58 Neutrophils # (Manual) Not Reportable 06/13/17 04:58 Lymphocytes # (Manual) Not Reportable 06/13/17 04:58 Monocytes # (Manual) Not Reportable 06/13/17 04:58 Eosinophils # (Manual) Not Reportable 06/13/17 04:58 Basophils # (Manual) Not Reportable 06/13/17 04:58 Differential Comment MANUAL=AUTO DIFF 06/13/17 04:58 Manual Slide Review Indicated 06/10/17 08:44 Platelet Estimate NORMAL (130-450,000) (NORMAL) 06/13/17 04:58 Platelet Morphology NORMAL APPEARANCE (NORMAL) 06/13/17 04:58 RBC Morph Micro Appear NORMAL APPEARANCE (NORMAL) 06/13/17 04:58 ESR 85 mm/Hr (0-20) H 06/10/17 15:06 Sodium 141 mmol/L (135-145) 06/13/17 04:58 Potassium 4.0 mmol/L (3.5-5.0) 06/13/17 04:58 Chloride 108 mmol/L (101-111) 06/13/17 04:58 Carbon Dioxide 25 mmol/L (21-32) 06/13/17 04:58 Anion Gap 8.0 (6-13) 06/13/17 04:58 BUN 22 mg/dL (6-20) H 06/13/17 04:58 Creatinine 0.9 mg/dL (0.6-1.2) 06/13/17 04:58 Estimated GFR (MDRD) 81 (>89) L 06/13/17 04:58 Glucose 144 mg/dL (70-100) H 06/13/17 04:58 Calcium 8.7 mg/dL (8.5-10.3) 06/13/17 04:58 Phosphorus 2.8 mg/dL (2.5-4.6) 06/11/17 06:19 Magnesium 1.8 mg/dL (1.7-2.8) 06/13/17 04:58 Total Bilirubin < 0.2 mg/dL (0.2-1.0) L 06/13/17 04:58 AST 77 IU/L (10-42) H 06/13/17 04:58 ALT 109 IU/L (10-60) H 06/13/17 04:58 Alkaline Phosphatase 51 IU/L (42-121) 06/13/17 04:58 Troponin I < 0.04 ng/mL (<0.49) 06/10/17 15:06 C-Reactive Protein 7.7 mg/dL (0-1.0) H 06/10/17 15:06 B-Natriuretic Peptide 219 pg/mL (5-100) H 06/14/17 13:30 Total Protein 6.5 g/dL (6.7-8.2) L 06/13/17 04:58 Albumin 3.1 g/dL (3.2-5.5) L 06/13/17 04:58 Globulin 3.4 g/dL (2.1-4.2) 06/13/17 04:58 Albumin/Globulin Ratio 0.9 (1.0-2.2) L 06/13/17 04:58
[2017-06-15] MEDS: ATORVASTATIN 10 MG TABLET PO SCH (21:35)
[2017-06-16] MEDS: IPRATROPIUM/ALBUTEROL 3 ML NEB INH SCH (07:51)
[2017-06-16] MEDS: POLYETHYLENE GLYCOL 3350 17 GM PACKET PO SCH (08:15)
[2017-06-16] MEDS ORDERED: predniSONE 20 MG TABLET PO SCH (08:16)
[2017-06-16] MEDS: SACCHAROMYCES BOULARDII 250 MG CAPSULE PO SCH (08:16)
[2017-06-16] MEDS: MULTIVITAMIN TABLET PO SCH (08:16)
[2017-06-16] MEDS: hydroCHLOROthiazide 25 MG TABLET PO SCH (08:16)
[2017-06-16] MEDS: predniSONE 20 MG TABLET PO SCH (08:17)
[2017-06-16] MEDS: LOSARTAN 50 MG TABLET PO SCH (08:17)
[2017-06-16] MEDS: METOPROLOL SUCCINATE 25 MG TABLET PO SCH (08:18)
[2017-06-16] MEDS: ESCITALOPRAM 10 MG TABLET PO SCH (08:18)
[2017-06-16] MEDS: amLODIPine 5 MG TABLET PO SCH (08:18)
[2017-06-16] MEDS: ASPIRIN CHEW 81 MG TABLET PO SCH (08:18)
[2017-06-16] MEDS: ENOXAPARIN 40 MG/0.4 ML SYRINGE SUBQ SCH (08:18)
[2017-06-16] MEDS: SODIUM CHLORIDE FLUSH 0.9% 10 ML SYRINGE IVP SCH (08:19)
[2017-06-16] MEDS: cefTRIAXone 2 GM in SODIUM CHLORIDE 0.9% MINIBAG 100 ML IV SCH (08:19)
[2017-06-16 08:26] LABS: BASOPHILS # (AUTO) 0.1 10^3/uL (0.0-0.1); BASOPHILS % (AUTO) 0.6 %; EOSINOPHILS # (AUTO) 0.1 10^3/uL (0.0-0.7); EOSINOPHILS % (AUTO) 0.7 %; HGB - HEMOGLOBIN 12.6 g/dL (14.0-18.0); LYMPHOCYTES % (AUTO) 11.6 %; MEAN CORPUSCULAR HEMOGLOBIN 31.7 pg (27.0-31.0); MEAN CORPUSCULAR HGB CONC 33.5 g/dL (32.0-36.0); MEAN CORPUSCULAR VOLUME 94.5 fL (80.0-94.0); MEAN PLATELET VOLUME 8.9 fL (7.4-11.4); MONOCYTES # (AUTO) 1.2 10^3/uL (0.0-1.0); MONOCYTES % (AUTO) 7.3 %; NEUTROPHILS # (AUTO) 13.5 10^3/uL (1.5-6.6); NEUTROPHILS % (AUTO) 79.8 %; PLT - PLATELET COUNT 307 10^3/uL (130-450); RED BLOOD COUNT 3.99 10^6/uL (4.70-6.10); RED CELL DISTRIBUTION WIDTH 13.8 % (12.0-15.0)
[2017-06-16 08:37] LABS: ALBUMIN 3.3 g/dL (3.2-5.5); ALBUMIN/GLOBULIN RATIO 0.9 (1.0-2.2); BILIRUBIN,TOTAL 0.4 mg/dL (0.2-1.0); CALCIUM 9.5 mg/dL (8.5-10.3); CREATININE 1.3 mg/dL (0.6-1.2); TOTAL PROTEIN 6.8 g/dL (6.7-8.2)
[2017-06-16 08:50] LABS: PLATELET MORPHOLOGY RARE GIANT PLATELETS (NORMAL); RBC MORPHOLOGY (MULTIPLE) 2+ ANISOCYTOSIS (NORMAL)
[2017-06-16] MEDS: AZITHROMYCIN INJ 500 MG in SODIUM CHLORIDE 0.9% 250 ML IV SCH (11:53)
[2017-06-16] MEDS: SODIUM CHLORIDE 0.65% NASAL SPRAY NAS SCH (11:53)
[2017-06-16] MEDS: guaiFENesin 600 MG TABLET PO SCH (11:53)
[2017-06-16] MEDS ORDERED: SODIUM CHLORIDE FLUSH 0.9% 10 ML SYRINGE ONE (11:54)
--- NOTE | 2017-06-16 12:48 | XRAY Report ---
FRONTAL CHEST: 06/16/2017 CLINICAL INDICATION: Shortness of breath. COMPARISON: 06/10/2017. FINDINGS: Frontal view of the chest demonstrates a normal cardiac silhouette. The lungs are hyperinflated, compatible with COPD. Minimal linear atelectasis or scarring at the bases is noted. No focal infiltrate, effusion, or pneumothorax. IMPRESSION: COPD WITH MINIMAL BASILAR ATELECTASIS OR SCARRING. TD: 06/16/2017 12:37
--- NOTE | 2017-06-16 13:21 | Discharge Plan ---
Discharge Plan Disposition: Home, Self Care Condition: Stable Prescriptions: amLODIPine [Norvasc] 5 mg PO DAILY #10 tablet hydroCHLOROthiazide [Hydrodiuril] 25 mg PO DAILY #10 tablet predniSONE [Deltasone] 10 mg PO [id number] #21 tab Diet: Regular Activity Restrictions: Activity as Tolerated Shower Restrictions: No Assistance Devices: Walker Weight Bearing: Full Weight Instruction Topics: Prednisone tablets, Amlodipine tablets, Hydrochlorothiazide HCTZ capsules or tablets Additional Instructions or Follow Up instructions: May see PCP in 2-3 days, may have CMP blood work when seeing PCP, may hold Atorvastatin now until seeing PCP. Follow-Up Care: [facility], [facility] No Smoking: If you smoke, Please STOP! Call for help. Follow-up with: YULI VERGARA MD [Primary Care Provider] -
--- NOTE | 2017-06-16 13:33 | DISCHARGE SUMMARY ---
Discharge Summary Discharge Date: 06/16/17 Discharging Provider: BUSTILLOS Primary Care Provider: Susie Banks Condition at Discharge: Stable Discharge Disposition: 01 Home, Self Care Discharge Facility Name: home - DIAGNOSES Admission Diagnoses: (1) Bilateral pneumonia (2) Oxygen dependent (3) Severe chronic obstructive pulmonary disease Discharge Diagnoses with Status of Each Condition: (1) Pneumonia CXR on today reveals clearance of pneumonia. Pt did not have fever, chill, cough. Pt took 2 liter of O2 at home. Pt's O2 Sats is 98% at 2 liter of oxygen. (2) Hypertension stable, after treatment at hospital. pt is prescribed two new meds Norvasc and HCTZ, will continue to be managed by PCP (3) COPD with acute exacerbation stable, after treatment. continue to be managed by PCP. Steroid Taper is prescribed to pt. (4) Chronic hypoxemic respiratory failure stable, Sats of O2 is 98% on 2 liter of O2, continue O2 supplement as needed, managed by PCP (5) Depression stable (6) Transaminitis it seems be caused by medication, hold Atorvastatin now until seen by PCP and follow up CMP test to monitor (7)lymphocytosis It seems be caused by Steroid usage. Taper down of Steroid. (8) slightly elevated BUN and Creatinine level it seems be caused by Diuretic, meds, fluid restriction. D/C Lasix. Pt is educated for properly hydration, follow up CMP test and managed by PCP. - HPI History of Present Illness: please refer from Ms Church's HPI for pt as the following: Eduar Flores (Bill) is an 82-year old white male with a past medical history of hypertension, asthma, COPD, emphysema, chronic home oxygen use, essential tremors, nocturia, urinary urgency/frequency, s/p TURP x2, BPH, chronic hearing loss, macular degeneration, post cataract surgery, chronic back pain, osteoarthritis, skin cancer, and depression with anxiety. The patient claims that at home, he has been falling. He can remember resting against the wall, then waking back up on the floor. Luckily he has not sustained any life altering injuries. The patient was in the ED a week ago (06/03/17) for similar symptoms was treated with oral antibiotics and a steroid taper. His symptoms of shortness of breath, productive cough, and activity intolerance never completely resolved and he found himself using his rescue nebulizer more often with no relief. Around 2AM this morning the patient was "gasping for air" and his nebulizer made almost no difference. As soon as he would attempt to move or walk, the symptoms were worsened. Once in the ED he was found to have unremarkable labs including a negative troponin, but a chest x-ray shows posterior opacity suspicious for pneumonia or atelectasis. He will be admitted to inpatient for further treatment of pneumonia, manage symptoms, and evaluate chest heaviness complaints with recent falls. - HOSPITAL COURSE Hospital Course: pt was admitted for bilateral pneumonia, severe COPD, hypoxia. Pt was treated with antibiotics, and steroid, INH. Pt also developed uncontrolled HTN. After treatment, pt is cleared for PNA, shown at CXR. No fever, chill, cough. Sats of O2 98% at 2 liter of O2. Pt took 2 liter of O2 at home. COPD is also controlled , hypoxia is resolved. pt request to be discharged on today. - ALLERGIES Allergies/Adverse Reactions: Allergies Allergy/AdvReac Type Severity Reaction Status Date / Time Sulfa (Sulfonamide Allergy Unknown Rash Verified 06/10/17 08:36 Antibiotics) - MEDICATIONS Home Medications: Ambulatory Orders Medication Instructions Recorded Confirmed Aspirin Chewable [St Vlad 81 mg PO DAILY 09/04/12 06/10/17 Aspirin] Multivitamin [Daily Cl[place]is] 1 each PO DAILY 02/26/15 06/10/17 Telmisartan [Micardis] 20 mg PO DAILY 02/26/15 06/10/17 Tiotropium Lead [Spiriva 2 puffs INH DAILY 03/21/17 06/10/17 Respimat] Albuterol Sulfate [Proair Hfa 1 - 2 puffs INH Q4H PRN #1 inhaler 03/22/17 Inhaler] Escitalopram Oxalate [Lexapro] 20 mg PO DAILY 06/10/17 06/10/17 Fluticasone/Salmeterol [Advair Hfa 2 puffs INH BID 06/10/17 06/10/17 230-21 Mcg Inhaler] Metoprolol Succinate [Toprol Xl] 25 mg PO DAILY 06/10/17 06/10/17 Polyethylene Glycol 3350 [Miralax] 17 gm PO DAILY 06/10/17 06/10/17 amLODIPine [Norvasc] 5 mg PO DAILY #10 tablet 06/16/17 hydroCHLOROthiazide [Hydrodiuril] 25 mg PO DAILY #10 tablet 06/16/17 predniSONE [Deltasone] 10 mg PO [id number] #21 tab 06/16/17 - PHYSICAL EXAM AT DISCHARGE General Appearance: positive: No acute distress, Alert. negative: Lethargic Eyes Bilateral: positive: Normal inspection, PERRL, No lid inflammation, Conjunctivae nml ENT: positive: ENT inspection nml, Pharynx nml. negative: Purulent nasal drainage, Pharyngeal erythema, Oral lesions Neck: positive: Nml inspection, Thyroid nml, No JVD, Trachea midline. negative : Thyromegaly, Lymphadenopathy (R), Lymphadenopathy (L), Stiff neck, Carotid bruit, Swelling/bruising, Tracheal deviation Respiratory: positive: Chest non-tender, No respiratory distress, Breath sounds nml. negative: Wheezes, Rales, Rhonchi Cardiovascular: positive: Regular rate & rhythm, No murmur, No gallop. negative : Irregularly irregular, Extrasystoles, Tachycardia, Bradycardia, Systolic murmur, Diastolic murmur Peripheral Pulses: positive: 2+ Abdomen: positive: Non-tender, No organomegaly, Nml bowel sounds, No distention. negative: Tenderness, Guarding, Rebound Back: positive: Nml inspection. negative: CVA tenderness (R), CVA tenderness (L ) Skin: positive: Color nml, No rash, Warm, Dry. negative: Cyanosis, Diaphoresis , Pallor Extremities: positive: Non-tender, Full ROM, Nml appearance. negative: Calf tenderness, Joint swelling, Kayla's sign/cords Neurologic/Psychiatric: positive: Oriented x3, Sensation nml, Mood/affect nml. negative: Weakness, Sensory loss, Facial droop, Slurred/abnml speech, Depressed mood/affect - LABS Result Diagrams: 06/16/17 05:13 06/16/17 05:13 - DIAGNOSTIC IMAGING Diagnostic Imaging Results Comments: FINDINGS: Frontal view of the chest demonstrates a normal cardiac silhouette. The lungs are hyperinflated, compatible with COPD. Minimal linear atelectasis or scarring at the bases is noted. No focal infiltrate, effusion, or pneumothorax. IMPRESSION: COPD WITH MINIMAL BASILAR ATELECTASIS OR SCARRING. IMPRESSION: 1. Normal gallbladder. 2. Enlarged, fatty liver. No mass. 3. Pancreas obscured by bowel gas. Normal caliber common bile duct. However, common bile duct is not well-seen or evaluated. - FOLLOW UP Follow Up: May see PCP in 2-3 days, may have CMP blood work when seeing PCP, may hold Atorvastatin now until seeing PCP. Advise pt: should symptoms return or worse, may present ER or call 911 for help. - TIME SPENT Time Spent in Discharge (Minutes): 50
[2017-06-16 14:23] VITALS: BP 149/75
== END 2017-06-16 14:35 | disposition home or self-care (01) | DRG 190 ==
LOC: ED 08:20 → MS2 11:33
PROVIDERS: ADMIT Nurse Practitioner; ATTEND Nurse Practitioner Gerontology
DX: J43.9 Emphysema, unspecified (principal); J44.0 Chronic obstructive pulmonary disease with (acute) lower respiratory infection; J18.9 Pneumonia, unspecified organism; J96.11 Chronic respiratory failure with hypoxia; J44.1 Chronic obstructive pulmonary disease with (acute) exacerbation; Z99.81 Dependence on supplemental oxygen; I10 Essential (primary) hypertension; F41.8 Other specified anxiety disorders; R74.0 Nonspecific elevation of levels of transaminase and lactic acid dehydrogenase [LDH]; D72.820 Lymphocytosis (symptomatic); R79.89 Other specified abnormal findings of blood chemistry; Z87.891 Personal history of nicotine dependence; N40.1 Benign prostatic hyperplasia with lower urinary tract symptoms; R35.1 Nocturia; R35.0 Frequency of micturition; R39.15 Urgency of urination; H91.90 Unspecified hearing loss, unspecified ear; M54.9 Dorsalgia, unspecified; G25.0 Essential tremor; H35.30 Unspecified macular degeneration; G89.29 Other chronic pain; M19.90 Unspecified osteoarthritis, unspecified site; K21.9 Gastro-esophageal reflux disease without esophagitis; E78.5 Hyperlipidemia, unspecified; Z79.82 Long term (current) use of aspirin; Z79.51 Long term (current) use of inhaled steroids; Z79.899 Other long term (current) drug therapy; Z85.828 Personal history of other malignant neoplasm of skin; Z91.81 History of falling; T38.0X5A Adverse effect of glucocorticoids and synthetic analogues, initial encounter
CPT/HCPCS: 36415; 71045; 71046; 76705; 80048; 80053; 81599; 83735; 83880; 84100; 84484; 85025; 85651; 86140; 87040; 87070; 87205; 87493; 93005; 93306; 94640; 94664; 99284

== ENCOUNTER 2017-07-09 07:47 | Emergency (ER) | payer MEDICARE, OTHER ==
[2017-07-09 07:59] VITALS: BP 149/88
--- NOTE | 2017-07-09 08:18 | ED Physician Documentation ---
PD HPI UPPER EXT INJURY - Stated complaint Stated Complaint: LT SHOULDER PX - Chief complaint Chief Complaint: Ext Problem - History obtained from History obtained from: Patient - History of Present Illness Location: Left, Shoulder Type of injury: Other (No specific injury.) Timing - duration: Days (3) Timing - details: Still present in ED Worsened by: Moving, Palpating Associated symptoms: No: Weakness, Numbness, Swelling Similar symptoms before: Has not had sx before - Treatment prior to arrival Treatment prior to arrival: Advil - Additonal information Additional information: The patient is an 82-year-old oxygen dependent male with COPD who presents with left shoulder pain. His pain has been ongoing for the past 3 days, having awoken with it 3 days ago. He denies any specific injury. The pain is worse with any attempt to move his shoulder. He is right-hand dominant. He denies history of similar symptoms in the past. Review of his medical record reveals he was hospitalized here 3 weeks ago for bilateral pneumonia. Review of Systems Constitutional: denies: Fever Nose: denies: Congestion Throat: denies: Sore throat Cardiac: denies: Chest pain / pressure Respiratory: reports: Dyspnea (Chronically). denies: Cough GI: denies: Abdominal Pain, Nausea, Vomiting : denies: Dysuria Skin: denies: Rash Musculoskeletal: reports: Joint pain (Left shoulder). denies: Back pain, Extremity swelling Neurologic: denies: Focal weakness, Numbness, Headache PD PAST MEDICAL HISTORY - Past Medical History Cardiovascular: Hypertension Respiratory: Asthma, COPD, Emphysema, Pneumonia, Shortness of breath Neuro: Tremors Endocrine/Autoimmune: None GI: GERD ATTENDING PHYSICIAN: None : Benign prostate hypertrophy, Nocturia, Frequency, Other HEENT: Chronic vision loss, Macular degeneration, Chronic hearing loss, Other Psych: Depression, Anxiety Musculoskeletal: Osteoarthritis, Chronic back pain Derm: Other - Past Surgical History Past Surgical History: Yes Ortho: Arthroscopic surgery HEENT: Cataracts Derm: Skin cancer surgery, Other - Present Medications Home Medications: Ambulatory Orders Medication Instructions Recorded Confirmed Aspirin Chewable [St Vlad 81 mg PO DAILY 09/04/12 06/10/17 Aspirin] Multivitamin [Daily [place]] 1 each PO DAILY 02/26/15 06/10/17 Tiotropium Mena [Spiriva 2 puffs INH DAILY 03/21/17 06/10/17 Respimat] Albuterol Sulfate [Proair Hfa 1 - 2 puffs INH Q4H PRN #1 inhaler 03/22/17 Inhaler] Escitalopram Oxalate [Lexapro] 20 mg PO DAILY 06/10/17 06/10/17 Fluticasone/Salmeterol [Advair Hfa 2 puffs INH BID 06/10/17 06/10/17 230-21 Mcg Inhaler] Metoprolol Succinate [Toprol Xl] 25 mg PO DAILY 06/10/17 06/10/17 Polyethylene Glycol 3350 [Miralax] 17 gm PO DAILY 06/10/17 06/10/17 Lidocaine 1 each TP DAILY #10 adh..patch 07/09/17 - Allergies Allergies/Adverse Reactions: Allergies Allergy/AdvReac Type Severity Reaction Status Date / Time Sulfa (Sulfonamide Allergy Unknown Rash Verified 06/10/17 08:36 Antibiotics) - Social History Does the pt smoke?: No Smoking Status: Never smoker Does the pt drink ETOH?: Yes Does the pt have substance abuse?: No - Immunizations Immunizations are current?: Yes - POLST Patient has POLST: No POLST Status: Full Code PD ED PE NORMAL - Vitals Vital signs reviewed: Yes (Hypertensive) - General General: Alert and oriented X 3, Other (Deconditioned, wearing nasal cannula supplemental oxygen.) - HEENT HEENT: Atraumatic - Neck Neck: Supple, no meningeal sign, No bony TTP, No adenopathy, No JVD - Cardiac Cardiac: RRR - Respiratory Respiratory: Other (Diffuse expiratory wheezes.) - Abdomen Abdomen: Soft, Non tender, Other (Rotund abdomen.) - Back Back: No CVA TTP - Derm Derm: No rash - Extremities Extremities: No edema, No calf tenderness / cord, Other (There is tenderness to palpation over the posterior superior aspect of the left shoulder/neck, as well as the anterior deltoid aspect. He resists any movement of the shoulder due to associated pain. Distal neurovascular is intact.) - Neuro Neuro: Alert and oriented X 3, No motor deficit, Normal speech Results - Vitals Vitals: Oxygen O2 Source [] Nasal cannula O2 Source [] Room air O2 Source Room air - Rads (name of study) Left shoulder Radiology: Prelim report reviewed, EMP read contemporaneously, See rad report ( 1. No fractures or erosive changes. 2. Acromioclavicular joint is moderately osteoarthritic. Glenohumeral joint is normal.) PD MEDICAL DECISION MAKING - ED course Complexity details: reviewed old records, reviewed results, re-evaluated patient , considered differential, d/w patient, d/w family ED course: The patient's presentation is most consistent with arthritic pain of the left shoulder. His presentation does not suggest referred pain from cardiac etiology , or pulmonary etiology for his pain. An x-ray of the shoulder reveals degenerative joint disease, without acute fracture or bony erosion. Treatment in the emergency department included administration of an arm sling and Vicodin one tablet orally. He is being discharged with prescription for lidocaine patch. I discussed with him and his female [employer] revenue officer the diagnosis, symptomatic treatment and outpatient follow-up, as well as potentially worrisome signs or symptoms that should prompt reevaluation in the emergency department. Departure - Departure Disposition: 01 Home, Self Care Clinical Impression: Arthralgia Qualifiers: Joint pain location: shoulder Laterality: left Qualified Code(s): M25.512 - Pain in left shoulder Osteoarthritis Qualifiers: Osteoarthritis location: shoulder Osteoarthritis type: unspecified Laterality: left Qualified Code(s): M19.012 - Primary osteoarthritis, left shoulder Condition: Stable Instructions: ED Degenerative Joint Disease Follow-Up: YULI VERGARA MD [Primary Care Provider] - Prescriptions: Lidocaine 1 each TP DAILY #10 adh..patch Comments: Use the arm sling if it provides comfort. Apply lidocaine patch daily. You can apply hot pack intermittently with cold pack. Let pain be your guide to activity level. Follow up with your primary physician within 2 weeks. Call to schedule an appointment. Return to the emergency department if you develop increasing pain, or otherwise worsening symptoms. Discharge Date/Time: 07/09/17 09:36
--- NOTE | 2017-07-09 08:58 | XRAY Preliminary Report ---
Exam: XR SHOULDER 3 VIEW LT IMPRESSION: 1. No fractures or erosive changes. 2. AC joint is moderately osteoarthritic. Glenohumeral joint is normal. [facility] SITE ID: [id number]
--- NOTE | 2017-07-09 09:02 | XRAY Report ---
EXAM: LEFT SHOULDER RADIOGRAPHY EXAM DATE: 07/09/2017 08:41 AM. CLINICAL HISTORY: Musculoskeletal pain left shoulder. COMPARISON: None. TECHNIQUE: 3 views. FINDINGS: Bones: Normal. No fracture or bone lesion. Joints: AC joint is moderately osteoarthritic. Glenohumeral joint is unremarkable. Soft tissues: The visualized hemithorax is unremarkable. No soft tissue swelling. IMPRESSION: 1. No fractures or erosive changes. 2. AC joint is moderately osteoarthritic. Glenohumeral joint is normal. [facility] Referring Provider Line: [phone] SITE ID: [id number]
[2017-07-09] MEDS ORDERED: HYDROcod/ACETAM 5/325 MG TABLET PO STA (09:24)
== END 2017-07-09 09:36 | disposition home or self-care (01) ==
LOC: ED 07:47
DX: M25.512 Pain in left shoulder (principal); M19.012 Primary osteoarthritis, left shoulder; J44.9 Chronic obstructive pulmonary disease, unspecified; Z99.81 Dependence on supplemental oxygen; I10 Essential (primary) hypertension; K21.9 Gastro-esophageal reflux disease without esophagitis; N40.0 Benign prostatic hyperplasia without lower urinary tract symptoms; Z79.82 Long term (current) use of aspirin
CPT/HCPCS: 73030; 99283; A9270

== ENCOUNTER 2017-07-23 06:19 | Outpatient (CLI) | payer MEDICARE, OTHER | END 2017-07-23 06:20 | disposition critical access hospital (66) | LOC: EMS 06:19 | PROVIDERS: ATTEND Surgery | DX: R06.02 Shortness of breath (principal); R05 Cough | CPT/HCPCS: A0425; A0427 ==

== ENCOUNTER 2017-07-23 06:42 | Inpatient (IN) | payer MEDICARE, OTHER ==
[2017-07-23] MEDS ORDERED: SODIUM CHLORIDE 0.9% 1,000 ML IV ONE ×2 (06:49)
[2017-07-23] MEDS ORDERED: IPRATROPIUM/ALBUTEROL 3 ML NEB INH STA (06:50)
[2017-07-23 07:11] LABS: BASOPHILS % (AUTO) 0.6 %; HGB - HEMOGLOBIN 12.4 g/dL (14.0-18.0); LYMPHOCYTES # (AUTO) 0.8 10^3/uL (1.5-3.5); LYMPHOCYTES % (AUTO) 10.3 %; MEAN CORPUSCULAR HEMOGLOBIN 31.6 pg (27.0-31.0); MEAN CORPUSCULAR HGB CONC 32.4 g/dL (32.0-36.0); MEAN CORPUSCULAR VOLUME 97.5 fL (80.0-94.0); MEAN PLATELET VOLUME 7.7 fL (7.4-11.4); MONOCYTES # (AUTO) 1.2 10^3/uL (0.0-1.0); MONOCYTES % (AUTO) 15.6 %; NEUTROPHILS # (AUTO) 5.6 10^3/uL (1.5-6.6); NEUTROPHILS % (AUTO) 73.5 %; PLT - PLATELET COUNT 176 10^3/uL (130-450); RED BLOOD COUNT 3.93 10^6/uL (4.70-6.10); RED CELL DISTRIBUTION WIDTH 15.2 % (12.0-15.0); WHITE BLOOD COUNT 7.6 x10^3/uL (4.8-10.8)
[2017-07-23 07:23] LABS: ALBUMIN 3.7 g/dL (3.2-5.5); BILIRUBIN,TOTAL 0.7 mg/dL (0.2-1.0); CALCIUM 8.9 mg/dL (8.5-10.3); TOTAL PROTEIN 7.4 g/dL (6.7-8.2)
--- NOTE | 2017-07-23 07:35 | XRAY Report ---
EXAM: CHEST RADIOGRAPHY EXAM DATE: 07/23/2017 07:10 AM. CLINICAL HISTORY: Cough, fever. COMPARISON: 06/16/2017. TECHNIQUE: 1 view. 2 images are provided. FINDINGS: Lungs/Pleura: Minimal blunting of the bilateral costophrenic angles is similar to prior and may be ch ronic. No focal consolidation evident. No pneumothorax or large pleural effusion. Mediastinum: Within exam limitations, the cardiomediastinal contour is normal. Aortic atherosclerosis . Other: None. IMPRESSION: No radiographically apparent acute abnormality in the chest. No significant change from p rior. [facility] Referring Provider Line: [phone] SITE ID: [id number]
--- NOTE | 2017-07-23 07:51 | ED Physician Documentation ---
PD HPI DYSPNEA - Stated complaint Stated Complaint: SOA - Chief complaint Chief Complaint: Resp - History obtained from History obtained from: Patient, EMS - History of Present Illness Timing - onset: Last night Timing - details: Gradual onset, Still present, Constant Worsened by: Coughing Associated symptoms: Fever, Cough Similar symptoms before: Diagnosis (Hospitalized with pneumonia/acute COPD exacerbation five weeks ago.) - Treatment prior to arrival Treatment prior to arrival: DuoNeb - Additional information Additional information: The patient is an 82-year-old male with history of oxygen dependent COPD, who presents with shortness of breath that is worse than usual this morning. He has had cough for the past 2 days, productive of frothy sputum. He reports fever, without chills. He has history of similar symptoms, and review of his medical record reveals hospitalization here 5 weeks ago with pneumonia/acute exacerbation of COPD. On further review of systems he reports mild headache and nausea. He denies chest pain, sore throat, abdominal pain, vomiting or diarrhea. He is a former cigarette smoker, but no longer smokes. Review of Systems Constitutional: reports: Fever Nose: denies: Congestion Throat: denies: Sore throat Cardiac: denies: Chest pain / pressure Respiratory: reports: Dyspnea, Cough GI: reports: Nausea. denies: Abdominal Pain, Vomiting, Diarrhea : denies: Dysuria Skin: denies: Rash Musculoskeletal: denies: Extremity swelling Neurologic: reports: Headache (mild). denies: Focal weakness, Numbness PD PAST MEDICAL HISTORY - Past Medical History Cardiovascular: Hypertension Respiratory: Asthma, COPD, Emphysema, Pneumonia, Shortness of breath Neuro: Tremors Endocrine/Autoimmune: None GI: GERD MEDICAL FIELD REPRESENTATIVE: None : Benign prostate hypertrophy, Nocturia, Frequency, Other HEENT: Chronic vision loss, Macular degeneration, Chronic hearing loss, Other Psych: Depression, Anxiety Musculoskeletal: Osteoarthritis, Chronic back pain Derm: Other - Past Surgical History Past Surgical History: Yes Ortho: Arthroscopic surgery HEENT: Cataracts Derm: Skin cancer surgery, Other - Present Medications Home Medications: Ambulatory Orders Medication Instructions Recorded Confirmed Aspirin Chewable [St Vlad 81 mg PO DAILY 09/04/12 07/23/17 Aspirin] Multivitamin [Daily [place]] 1 each PO DAILY 02/26/15 07/23/17 Tiotropium Dinosaur [Spiriva 2 puffs INH DAILY 03/21/17 07/23/17 Respimat] Albuterol Sulfate [Proair Hfa 1 - 2 puffs INH Q4H PRN #1 inhaler 03/22/17 Inhaler] Escitalopram Oxalate [Lexapro] 20 mg PO DAILY 06/10/17 07/23/17 Fluticasone/Salmeterol [Advair Hfa 2 puffs INH BID 06/10/17 07/23/17 230-21 Mcg Inhaler] Metoprolol Succinate [Toprol Xl] 25 mg PO DAILY 06/10/17 07/23/17 Polyethylene Glycol 3350 [Miralax] 17 gm PO DAILY 06/10/17 07/23/17 Atorvastatin Calcium 20 mg PO DAILY 07/23/17 07/23/17 Lidocaine [Lidocaine] 1 patch TP DAILY 07/23/17 07/23/17 Telmisartan 20 mg PO DAILY 07/23/17 07/23/17 - Allergies Allergies/Adverse Reactions: Allergies Allergy/AdvReac Type Severity Reaction Status Date / Time Sulfa (Sulfonamide Allergy Unknown Rash Verified 07/23/17 06:47 Antibiotics) - Social History Does the pt smoke?: No Smoking Status: Never smoker Does the pt drink ETOH?: Yes Does the pt have substance abuse?: No - Immunizations Immunizations are current?: Yes - POLST Patient has POLST: No POLST Status: Full Code PD ED PE NORMAL - Vitals Vital signs reviewed: Yes (Febrile, tachycardic, and hypertensive) - General General: Alert and oriented X 3, Well developed/nourished - HEENT HEENT: Atraumatic, EOMI, Moist mucous membranes, Pharynx benign - Neck Neck: Supple, no meningeal sign, No adenopathy, No JVD - Cardiac Cardiac: Other (Rapid rate, regular rhythm.) - Respiratory Respiratory: Other (Diffuse expiratory wheezing, with prolonged expiratory phase.) - Abdomen Abdomen: Soft, Non tender - Back Back: No CVA TTP - Derm Derm: No rash - Extremities Extremities: No edema, No calf tenderness / cord - Neuro Neuro: Alert and oriented X 3, No motor deficit, Normal speech Results - Vitals Vitals: Vital Signs - 24 hr 07/23/17 07/23/17 07/23/17 06:43 07:00 07:22 Temperature 38.0 C H Heart Rate 125 H 122 H 117 H Respiratory 25 H 23 19 Rate Blood Pressure 162/93 H O2 Saturation 87 L 95 07/23/17 07/23/17 07/23/17 07:59 09:00 10:17 Temperature Heart Rate 124 H 18 L 122 H Respiratory 23 16 24 Rate Blood Pressure 162/87 H 158/75 H O2 Saturation 99 98 Oxygen O2 Source [With Activity] Nasal cannula O2 Source [Without Activity] Room air O2 Source Nasal cannula Oxygen Flow Rate 4 - EKG (time done) 06:56 Rate: Rate (enter#) (123) Rhythm: Sinus tachycardia Morrill: Normal Intervals: Other (Nonspecific IVCD.) Ischemia: Non specific changes Compare to prior EKG: Unchanged from prior EKG Computer interpretation: Agree with computer - Labs Labs: Laboratory Tests 07/23/17 07/23/17 07/23/17 06:15 06:45 06:55 WBC 7.6 RBC 3.93 L Hgb 12.4 L Hct 38.3 L MCV 97.5 H MCH 31.6 H MCHC 32.4 RDW 15.2 H Plt Count 176 MPV 7.7 Neut # 5.6 Lymph # 0.8 L [place] # 1.2 H Eos # 0.0 Baso # 0.0 Absolute Nucleated RBC 0.00 Nucleated RBC % 0.0 Manual Slide Review Indicated WBC Morphology Platelet Estimate NORMAL (130-450,000) Platelet Morphology NORMAL APPEARANCE RBC Morph Micro Appear NORMAL APPEARANCE Sodium 136 Potassium 4.3 Chloride 98 L Carbon Dioxide 27 Anion Gap 11.0 BUN 15 Creatinine 1.0 Estimated GFR (MDRD) 72 L Glucose 97 Lactic Acid Calcium 8.9 Total Bilirubin 0.7 AST 179 H ALT 168 H Alkaline Phosphatase 72 Troponin I B-Natriuretic Peptide 22 Total Protein 7.4 Albumin 3.7 Globulin 3.7 Albumin/Globulin Ratio 1.0 Lipase 33 07/23/17 07/23/17 06:55 06:55 WBC RBC Hgb Hct MCV MCH MCHC RDW Plt Count MPV Neut # Lymph # [place] # Eos # Baso # Absolute Nucleated RBC Nucleated RBC % Manual Slide Review WBC Morphology Platelet Estimate Platelet Morphology RBC Morph Micro Appear Sodium Potassium Chloride Carbon Dioxide Anion Gap BUN Creatinine Estimated GFR (MDRD) Glucose Lactic Acid 2.0 Calcium Total Bilirubin AST ALT Alkaline Phosphatase Troponin I < 0.04 B-Natriuretic Peptide Total Protein Albumin Globulin Albumin/Globulin Ratio Lipase - Rads (name of study) CXR Radiology: Prelim report reviewed, EMP read contemporaneously, See rad report ( No radiographic acute abnormality in the chest. No significant change from prior.) PD MEDICAL DECISION MAKING - ED course Complexity details: reviewed old records, reviewed results, re-evaluated patient , considered differential, d/w patient, d/w marketing consultant ED course: The patient's presentation is most consistent with acute exacerbation of COPD. His presentation with fever of 38.0, also raises the concern for pneumonia, although his current chest x-ray is not convincing. His presentation does not suggest congestive heart failure, with a normal BNP. I doubt pulmonary embolus. Treatment in the emergency department included administration of DuoNeb nebulizer, and dexamethasone 10 mg IV. Xopenex nebulizer was also administered. On repeat examinations the patient remains only slightly improved , and continues to have diffuse expiratory wheezing. I discussed his condition with Dr. Bustamante, who accepts him for further evaluation and treatment. Departure - Departure Disposition: 66 [facility] DC/Oleg Clinical Impression: COPD with acute exacerbation Condition: Stable Discharge Date/Time: 07/23/17 11:12
[2017-07-23] MEDS ORDERED: DEXAMETHASONE 10 MG/ML VIAL IVP STA (07:52)
[2017-07-23 07:57] LABS: PLATELET ESTIMATE, MANUAL NORMAL (130-450,000) (NORMAL); PLATELET MORPHOLOGY NORMAL APPEARANCE (NORMAL); RBC MORPHOLOGY (MULTIPLE) NORMAL APPEARANCE (NORMAL)
[2017-07-23] MEDS ORDERED: ACETAMINOPHEN 325 MG TABLET PO STA (08:03)
[2017-07-23] MEDS ORDERED: LEVALBUTEROL 1.25 MG/3 ML NEB INH STA (08:16)
[2017-07-23] MEDS ORDERED: cefTRIAXone 1 GM in SODIUM CHLORIDE 0.9% MINIBAG 100 ML IV STA (09:39)
[2017-07-23] MEDS ORDERED: ONDANSETRON 4 MG/2 ML VIAL IVP PRN (10:28)
[2017-07-23] MEDS ORDERED: ZOLPIDEM 5 MG TABLET PO PRN (10:28)
[2017-07-23] MEDS ORDERED: LEVALBUTEROL 1.25 MG/3 ML NEB INH PRN (10:32)
[2017-07-23] MEDS ORDERED: IPRATROPIUM 0.2 MG/ML NEB INH SCH (11:00)
[2017-07-23] MEDS: methylPREDNISolone SUCCINATE 40 MG/ML VIAL IVP SCH ×3 (11:44→21:23)
[2017-07-23] MEDS: FAMOTIDINE 20 MG TABLET PO SCH (11:45)
[2017-07-23] MEDS: METOPROLOL SUCCINATE 25 MG TABLET PO SCH (11:45)
[2017-07-23] MEDS: ASPIRIN CHEW 81 MG TABLET PO SCH (11:45)
[2017-07-23] MEDS: AZITHROMYCIN 250 MG TABLET PO SCH (11:49)
[2017-07-23] MEDS: SODIUM CHLORIDE FLUSH 0.9% 10 ML SYRINGE IVP SCH ×2 (11:50→23:42)
[2017-07-23 12:22] LABS: GLUCOSE, URINE (UA) NEGATIVE (NEGATIVE); KETONES,URINE (UA) >=80 mg/dL (NEGATIVE); LEUKOCYTE ESTERASE, URINE NEGATIVE (NEGATIVE); NITRITE,URINE NEGATIVE (NEGATIVE); OCCULT BLOOD,URINE NEGATIVE (NEGATIVE); PH,URINE 5.5 PH (5.0-7.5); PROTEIN,URINE TRACE mg/dL (NEGATIVE); UROBILINOGEN,URINE 0.2 (NORMAL) E.U./dL (NORMAL)
[2017-07-23 12:24] LABS: BILIRUBIN,URINE NEGATIVE (NEGATIVE); CLARITY,URINE CLEAR (CLEAR); ICTOTEST,URINE NEGATIVE
[2017-07-23] MEDS ORDERED: LEVALBUTEROL 1.25 MG/3 ML NEB INH SCH (13:00)
--- NOTE | 2017-07-23 13:16 | HISTORY & PHYSICAL EXAMINATION ---
Chief Complaint - Chief Complaint Chief Complaint: shortness of breath History of Present Illness - History of Present Illness HPI Comment/Other: Eduar Flores (Bill) is an 82-year old white male with a past medical history of hypertension, asthma, chronic [id number], COPD, emphysema, frequent visiting ER for COPD/emphysema exacerbation, essential tremors, nocturia, urinary urgency/frequency, s/p TURP x2, BPH, chronic hearing loss, macular degeneration, post cataract surgery, chronic back pain, osteoarthritis, skin cancer, and depression with anxiety, who present ER for chief complaint of shortness of breath, cough with sputum, and low degree of fever. Pt report he has had cough for the past 2 days, productive of frothy sputum. He state his is sick with PNA and cough, fever as well. He reports low degree of fever, without chills. Pt also report he had mild headache and nausea but without vomiting. He denies chest pain, sore throat. No abdominal pain, vomiting or diarrhea. He report he had smoked cigarette for 40-50 yrs, the he quitted smoking 15 yrs ago. Lab test reveals elevated liver enzyme but with normal WBC, CXR reveals no radiographically apparent acute abnormality in the chest, no significant change from prior. History - Past Medical History Cardiovascular: reports: Hypertension Respiratory: reports: Asthma, COPD, Emphysema, Pneumonia, Shortness of breath Neuro: reports: None, Tremors Endocrine/Autoimmune: reports: None GI: reports: GERD ACCREDITATION MANAGER: reports: None : reports: Benign prostate hypertrophy, Nocturia, Frequency, Other HEENT: reports: Chronic vision loss, Macular degeneration, Chronic hearing loss , Other Psych: reports: Depression, Anxiety Musculoskeletal: reports: Osteoarthritis, Chronic back pain Derm: reports: Other MRSA Hx?: No - Past Surgical History Ortho: reports: Arthroscopic surgery HEENT: reports: Cataracts Derm: reports: Skin cancer surgery, Other - Family & Social History Family History: Mother: , Cancer, Father: , CAD, CVA/TIA, Sister : , Cancer Family History Comment/Other: Father of heart disease and had a CVA. Mother at a young age of pancreatic cancer. The patient had one sister and she of liver CA. 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 Retired, lives independently with , one dog, one cat and 3 cows that they patient attendant for meat. He has 4 biological children, , Ellen has 3, so they have 7 children and have been for the past 22 years. He enjoys his numerous grand children and great-grand children. He left this [place] in 1988 and lived in [place]. He and his returned a few years ago and live in [place], [place] near the [facility]. He drives a car very occasionally. He admits to tobacco dependence, but has since quit, denies illicit drug use, and uses alcohol only occasionally. He denies ever being an alcoholic. He wishes to remain a FULL code. - Substance History Use: Uses substance without health or social issues: NONE - POLST Patient has POLST: No POLST Status: Full Code Meds/Allgy - Home Medications Home Medications: Ambulatory Orders Medication Instructions Recorded Confirmed Aspirin Chewable [St Vlad 81 mg PO DAILY 09/04/12 07/23/17 Aspirin] Multivitamin [Daily [place]] 1 each PO DAILY 02/26/15 07/23/17 Tiotropium [place] [Spiriva 2 puffs INH DAILY 03/21/17 07/23/17 Respimat] Albuterol Sulfate [Proair Hfa 1 - 2 puffs INH Q4H PRN #1 inhaler 03/22/17 Inhaler] Escitalopram Oxalate [Lexapro] 20 mg PO DAILY 06/10/17 07/23/17 Fluticasone/Salmeterol [Advair Hfa 2 puffs INH BID 06/10/17 07/23/17 230-21 Mcg Inhaler] Metoprolol Succinate [Toprol Xl] 25 mg PO DAILY 06/10/17 07/23/17 Polyethylene Glycol 3350 [Miralax] 17 gm PO DAILY 06/10/17 07/23/17 Atorvastatin Calcium 20 mg PO DAILY 07/23/17 07/23/17 Lidocaine [Lidocaine] 1 patch TP DAILY 07/23/17 07/23/17 Telmisartan 20 mg PO DAILY 07/23/17 07/23/17 - Allergies Allergies/Adverse Reactions: Allergies Allergy/AdvReac Type Severity Reaction Status Date / Time Sulfa (Sulfonamide Allergy Unknown Rash Verified 07/23/17 06:47 Antibiotics) Review of Systems - Constitutional Constitutional: reports: Fever. denies: Fatigue, Chills, Malaise, Weakness, Poor appetite, Diaphoresis, Night sweats, Weight gain, Weight loss - Eyes Eyes: denies: Pain, Irritation, Amaurosis, Blurred vision, Spots in vision, Field loss, Vision loss, Dipolpia - Ears, Nose & Throat Ears, Nose & Throat: denies: Ear pain, Hearing loss, Hearing aids, Tinnitus, Nasal pain, Nasal discharge, Nosebleeds, Nasal congestion, Postnasal drainage, Sore throat, Mouth lesions, Bleeding gums - Cardiovascular Cariovascular: denies: Irregular heart rate, Palpitations, Chest pain, Edema, Lightheadedness, Syncope, Exertional dyspnea, Decr. exercise tolerance - Respiratory Respiratory: reports: Cough, Sputum production, Wheezing, SOB with exertion. denies: Snoring, Hemoptysis, Orthopnea, SOB at rest, Apnea - Gastrointestinal Gastrointestinal: reports: Nausea. denies: Abdominal pain, Abdominal distention , Constipation, Diarrhea, Change in bowel habits, Rectal bleeding, Black stools , Bloody stools, Vomiting, Bile emesis, [place] blood emesis, Coffee grounds emesis, Reflux/heartburn - Genitourinary Genitourinary: denies: Dysuria, Frequency, Urgency, Hematuria, Incontinence, Flank pain, Nocturia, Urethral discharge - Musculoskeletal Musculoskeletal: denies: Muscle pain, Back pain, Muscle aches, Stiffness, Limited range of motion, Muscle weakness, Gout, Joint pain - Integumentary Integumentary: denies: Rash, Pruritis, Lesions, Dryness, Lumps, Acne, Pigment changes, Nail changes - Neurological Neurological: denies: General weakness, Focal weakness, Headache, Dizziness, Numbness, Memory problems, Pre-existing deficit, Abnormal gait, Seizures, Incoordination, Slurred speech - Psychiatric Psychiatric: denies: Depression, Anxiety, Suicidal, Delusions, Hallucinations, Homicidal - Endocrine Endocrine: denies: Polyuria, Polydypsia, Polyphagia, Intolerance to cold - Hematologic/Lymphatic Hematologic/Lymphatic: reports: Recurrent infections. denies: Anemia, Bruising , Petechiae, Blood clots, Lymphadenopathy, Bleeding tendencies Exam - Vital Signs Reviewed Vital Signs: Yes Vital Signs: Vital Signs x48h Temp Pulse Pulse Resp BP Pulse Ox 07/23/17 11:47 125 H 24 07/23/17 11:29 36.5 C 05/03/18 11:26 112 H 19 146/68 H 99 - Physical Exam General Appearance: positive: Alert, Mild distress. negative: Lethargic Eyes Bilateral: positive: Normal inspection, PERRL, No lid inflammation, Conjunctivae nml ENT: positive: ENT inspection nml, Pharynx nml, No signs of dehydration. negative: Purulent nasal drainage, Pharyngeal erythema, Oral lesions Neck: positive: Nml inspection, Thyroid nml, No JVD, Trachea midline. negative : Thyromegaly, Lymphadenopathy (R), Lymphadenopathy (L), Stiff neck, Carotid bruit, Swelling/bruising, Tracheal deviation Respiratory: positive: Chest non-tender, No respiratory distress, Wheezes. negative: Rales, Rhonchi Cardiovascular: positive: Regular rate & rhythm, No murmur, No gallop. negative : Irregularly irregular, Extrasystoles, Tachycardia, Bradycardia, Systolic murmur, Diastolic murmur Peripheral Pulses: positive: 2+ Abdomen: positive: Non-tender, No organomegaly, Nml bowel sounds, No distention. negative: Tenderness, Guarding, Rebound Back: positive: Nml inspection. negative: CVA tenderness (R), CVA tenderness (L ) Skin: positive: Color nml, No rash, Warm, Dry. negative: Cyanosis, Diaphoresis , Pallor Extremities: positive: Non-tender, Full ROM, Nml appearance. negative: Calf tenderness, Joint swelling, Kayla's sign/cords Neurologic/Psychiatric: positive: Oriented x3, Motor nml, Sensation nml. negative: Sensory loss, Facial droop, Slurred/abnml speech, Depressed mood/ affect Conclusion/Plan - Problem List (1) COPD with acute exacerbation Conclusion/Plan: pt frequently visit hospital with similar problem solu-metro ipro xopenix since pt has tachycardia at 120 O2 supplement as needed INH and RT consult (2) Fever Conclusion/Plan: low degree fever at home and ER, but WBC normal and CXR without acute finding blood culture, follow up IVF add Azithyroimycin vital monitor (3) Sinus tachycardia Conclusion/Plan: it appears from respiratory distress, compensation reaction. EKG as needed resume home meds metoprolol treat the COPD exacerbation O2 supplement as needed IVF tele, vital monitor (4) Elevated liver enzymes Conclusion/Plan: pt had both ALT and AST elevated, unknown etiology order Hepatitis acute test panel hold hepatic toxical agent daily lab monitor (5) HTN (hypertension) Conclusion/Plan: it seems stable now, resume home BP meds continue vital monitor (6) DVT prophylaxis Conclusion/Plan: SCD and Lovenox (7) Full code status Conclusion/Plan: pt request full code status - Lab Results Fish Bones: 07/23/17 06:55 07/23/17 06:15 Core Measures - Anticipated LOS I expect patient to be DC'd or transferred within 96 hours.: Yes - DVT/VTE - Prophylaxis VTE/DVT Device ordered at admit?: Yes VTE/DVT Prophylaxis med ordered at admit?: Yes
[2017-07-23] MEDS: SODIUM CHLORIDE FLUSH 0.9% 10 ML SYRINGE IVP PRN ×2 (14:36→18:04)
[2017-07-23] MEDS: LEVALBUTEROL 1.25 MG/3 ML NEB INH PRN ×2 (15:00→20:36)
[2017-07-23] MEDS: IPRATROPIUM 0.2 MG/ML NEB INH PRN ×2 (15:00→20:36)
[2017-07-23 15:33] LABS: ABG PH 7.34 (7.35-7.45)
[2017-07-23 15:34] LABS: ABG HCO3 20.3 mmol/L (22.0-26.0); ABG OXYGEN SATURATION 98 % (94-98); ABG PCO2 39 mmHg (34-45); ABG PO2 111 mmHg (80-100); ABG TCO2 21.4 MMOL/L (21.0-29.0)
[2017-07-23] MEDS: SODIUM CHLORIDE 0.9% 1,000 ML IV SCH (18:03)
[2017-07-23] MEDS: BUDESONIDE 0.5 MG/2 ML NEB INH PRN (20:36)
--- NOTE | 2017-07-24 00:19 | Ultrasound Preliminary Report ---
Exam: US ABDOMEN LIMITED IMPRESSION: 1. Enlarged, markedly fatty liver. No mass. 2. Contracted gallbladder. Normal common bile duct. [facility] SITE ID: [id number]
--- NOTE | 2017-07-24 02:51 | Ultrasound Report ---
EXAM: ABDOMEN ULTRASOUND LIMITED, RUQ EXAM DATE: 07/23/2017 11:35 PM. CLINICAL HISTORY: 06/03/2017 and 06/14/2017 COMPARISON: None. TECHNIQUE: Real-time scanning was performed with static images obtained. FINDINGS: Liver: Liver parenchyma is heterogeneous and markedly hyperechoic. No discrete liver masses or intr ahepatic bile duct dilation. However, evaluation for masses is limited secondary to the echogenicity . 17.2 cm. Main portal vein flow: Hepatopetal. Gallbladder: Contracted gallbladder. No gallstones or pericholecystic inflammation is noted. Biliary System: CBD measures 4 mm. No intrahepatic or extrahepatic ductal dilatation. Right kidney: Length measures 10.7 cm. No mass or hydronephrosis. Other: None. IMPRESSION: 1. Enlarged, markedly fatty liver. No mass. 2. Contracted gallbladder. Normal common bile duct. [facility] Referring Provider Line: [phone] SITE ID: [id number]
[2017-07-24 06:01] LABS: BASOPHILS % (AUTO) 0.1 %; HGB - HEMOGLOBIN 11.1 g/dL (14.0-18.0); LYMPHOCYTES # (AUTO) 0.3 10^3/uL (1.5-3.5); LYMPHOCYTES % (AUTO) 3.2 %; MEAN CORPUSCULAR HEMOGLOBIN 31.9 pg (27.0-31.0); MEAN CORPUSCULAR VOLUME 96.8 fL (80.0-94.0); MONOCYTES # (AUTO) 0.9 10^3/uL (0.0-1.0); MONOCYTES % (AUTO) 9.9 %; NEUTROPHILS # (AUTO) 7.5 10^3/uL (1.5-6.6); NEUTROPHILS % (AUTO) 86.8 %; PLT - PLATELET COUNT 151 10^3/uL (130-450); RED BLOOD COUNT 3.49 10^6/uL (4.70-6.10); RED CELL DISTRIBUTION WIDTH 14.8 % (12.0-15.0); WHITE BLOOD COUNT 8.7 x10^3/uL (4.8-10.8)
[2017-07-24 06:09] LABS: ALBUMIN 3.3 g/dL (3.2-5.5); BILIRUBIN,TOTAL 0.4 mg/dL (0.2-1.0); CALCIUM 8.1 mg/dL (8.5-10.3); CREATININE 0.8 mg/dL (0.6-1.2); TOTAL PROTEIN 6.5 g/dL (6.7-8.2)
[2017-07-24] MEDS: methylPREDNISolone SUCCINATE 40 MG/ML VIAL IVP SCH ×3 (07:19→22:12)
[2017-07-24] MEDS: SODIUM CHLORIDE 0.9% 1,000 ML IV SCH ×2 (07:19→22:12)
[2017-07-24] MEDS: LOSARTAN 50 MG TABLET PO SCH (08:27)
[2017-07-24] MEDS: FAMOTIDINE 20 MG TABLET PO SCH (08:28)
[2017-07-24] MEDS: AZITHROMYCIN 250 MG TABLET PO SCH (08:28)
[2017-07-24] MEDS: ATORVASTATIN 10 MG TABLET PO SCH (08:28)
[2017-07-24] MEDS: ASPIRIN CHEW 81 MG TABLET PO SCH (08:29)
[2017-07-24] MEDS: METOPROLOL SUCCINATE 25 MG TABLET PO SCH (08:29)
[2017-07-24] MEDS: POLYETHYLENE GLYCOL 3350 17 GM PACKET PO SCH (08:29)
[2017-07-24] MEDS: SODIUM CHLORIDE FLUSH 0.9% 10 ML SYRINGE IVP SCH ×2 (08:30→20:41)
[2017-07-24] MEDS: ENOXAPARIN 40 MG/0.4 ML SYRINGE SUBQ SCH (08:30)
[2017-07-24] MEDS: IPRATROPIUM 0.2 MG/ML NEB INH PRN ×4 (09:01→21:16)
[2017-07-24] MEDS: BUDESONIDE 0.5 MG/2 ML NEB INH PRN ×2 (09:01→17:35)
[2017-07-24] MEDS: LEVALBUTEROL 1.25 MG/3 ML NEB INH PRN ×4 (09:01→21:15)
--- NOTE | 2017-07-24 17:45 | PROVIDER PROGRESS NOTE ---
Subjective - Prog Note Date Prog Note Date: 07/24/17 - Subjective Pt reports feeling: No change Subjective: pt state he still feel SOB and had cough, but denies chest pain, fever, chill. Current Medications - Current Medications Current Medications: Active Medications Acetaminophen (Tylenol) 650 mg PO Q4HR PRN PRN Reason: Pain 1 to 4 Aspirin (St Vlad Aspirin) 81 mg PO DAILY [facility] Last Admin: 07/24/17 08:29 Dose: 81 mg Atorvastatin Calcium (Lipitor) 20 mg PO DAILY [facility] Last Admin: 07/24/17 08:28 Dose: 20 mg Azithromycin (Zithromax) 500 mg PO DAILY [facility] Last Admin: 07/24/17 08:28 Dose: 500 mg Budesonide (Pulmicort) 0.5 mg INH RTBID PRN PRN Reason: Wheezing Last Admin: 07/24/17 17:35 Dose: 0.5 mg Enoxaparin Sodium (Lovenox) 40 mg SUBQ DAILY [facility] Last Admin: 07/24/17 08:30 Dose: 40 mg Famotidine (Pepcid) 20 mg PO DAILY [facility] Last Admin: 07/24/17 08:28 Dose: 20 mg Sodium Chloride (Normal Saline 0.9%) 1,000 mls @ 75 mls/hr IV .[id number] [facility] Last Admin: 07/24/17 07:19 Dose: 75 mls/hr Ipratropium [place] (Atrovent) 0.5 mg INH RTQ4H PRN PRN Reason: Wheezing Last Admin: 07/24/17 17:34 Dose: 0.5 mg Levalbuterol HCl (Xopenex) 1.25 mg INH QID PRN PRN Reason: Wheezing Last Admin: 07/24/17 17:35 Dose: 1.25 mg Losartan Potassium (Cozaar) 25 mg PO DAILY [facility] Last Admin: 07/24/17 08:27 Dose: 25 mg Methylprednisolone (Solu-Medrol (40mg Vial)) 40 mg IVP TID [facility] Last Admin: 07/24/17 14:29 Dose: 40 mg Metoprolol Succinate (Toprol Xl) 25 mg PO DAILY [facility] Last Admin: 07/24/17 08:29 Dose: 25 mg Ondansetron HCl (Zofran Inj) 4 mg IVP Q6HR PRN PRN Reason: Nausea / Vomiting Polyethylene Glycol (Miralax) 17 gm PO DAILY [facility] Last Admin: 07/24/17 08:29 Dose: 17 gm Sodium Chloride (Normal Saline Flush 0.9%) 10 ml IVP PRN PRN PRN Reason: NEEDED PER PROVIDER ORDERS Last Admin: 07/23/17 18:04 Dose: 10 ml Sodium Chloride (Normal Saline Flush 0.9%) 10 ml IVP 0100,0900,1700 [facility] Last Admin: 07/24/17 08:30 Dose: Not Given Zolpidem Tartrate (Ambien) 5 mg PO QPM PRN PRN Reason: Insomnia Aspirin Chewable [St Vlad Aspirin] 81 mg PO DAILY 09/04/12 Multivitamin [Daily [place]] 1 each PO DAILY 02/26/15 Tiotropium [place] [Spiriva Respimat] 2 puffs INH DAILY 03/21/17 Escitalopram Oxalate [Lexapro] 20 mg PO DAILY 06/10/17 Fluticasone/Salmeterol [Advair Hfa 230-21 Mcg Inhaler] 2 puffs INH BID 06/10/17 Metoprolol Succinate [Toprol Xl] 25 mg PO DAILY 06/10/17 Polyethylene Glycol 3350 [Miralax] 17 gm PO DAILY 06/10/17 Atorvastatin Calcium 20 mg PO DAILY 07/23/17 Lidocaine [Lidocaine] 1 patch TP DAILY 07/23/17 Telmisartan 20 mg PO DAILY 07/23/17 Objective - Vital Signs/Intake & Output Reviewed Vital Signs: Yes Vital Signs: Vital Signs x48h Temp Pulse Pulse Resp BP Pulse Ox 07/24/17 17:34 94 16 07/24/17 15:24 36.5 C 104 H 22 163/89 H 100 07/24/17 13:06 100 20 Intake & Output: Intake & Output 07/21/17 07/22/17 07/23/17 07/24/17 23:59 23:59 23:59 23:59 Intake Total 180 Output Total 950 Balance -770 - Objective General Appearance: positive: No acute distress, Alert. negative: Lethargic Eyes Bilateral: positive: Normal inspection, PERRL, No lid inflammation, Conjunctivae nml ENT: positive: ENT inspection nml, Pharynx nml, No signs of dehydration. negative: Purulent nasal drainage, Pharyngeal erythema, Oral lesions Neck: positive: Nml inspection, Thyroid nml, No JVD, Trachea midline. negative : Thyromegaly, Lymphadenopathy (R), Lymphadenopathy (L), Stiff neck, Carotid bruit, Swelling/bruising, Tracheal deviation Respiratory: positive: Chest non-tender, Wheezes Cardiovascular: positive: Regular rate & rhythm, No murmur, No gallop, Tachycardia. negative: Irregularly irregular, Extrasystoles, Bradycardia, Systolic murmur, Diastolic murmur Peripheral Pulses: 2+ Radial (R), 2+ Radial (L), 2+ Dorsalis pedis (R), 2+ Dorsalis pedis (L) Abdomen: positive: Non-tender, No organomegaly, Nml bowel sounds, No distention. negative: Tenderness, Guarding, Rebound Back: positive: Nml inspection. negative: CVA tenderness (R), CVA tenderness (L ) Skin: positive: Color nml, No rash, Warm, Dry. negative: Cyanosis, Diaphoresis , Pallor Extremities: positive: Non-tender, Full ROM, Nml appearance. negative: Calf tenderness, Joint swelling, Kayla's sign/cords Neurologic/Psychiatric: positive: Oriented x3, Sensation nml. negative: Sensory loss, Facial droop, Slurred/abnml speech, Depressed mood/affect - Lab Results Fish Bones: 07/25/17 05:30 07/25/17 05:30 ABX Reporting Has patient been on IV antibiotics over the past 48 hours?: Yes Assessment/Plan - Problem List (1) COPD with acute exacerbation Impression: Conclusion/Plan: 100% Sats at 2 liter of O2, is improved compared in the admission. pt frequently visit hospital with similar problem solu-metro ipro xopenix since pt has tachycardia at 120 O2 supplement as needed INH and RT consult (2) Fever Conclusion/Plan: no fever, follow up blood culture low degree fever at home and ER, but WBC normal and CXR without acute finding blood culture, follow up IVF add Azithyroimycin vital monitor (3) Sinus tachycardia Conclusion/Plan: resolved it appears from respiratory distress, compensation reaction. EKG as needed resume home meds metoprolol treat the COPD exacerbation O2 supplement as needed IVF tele, vital monitor (4) Elevated liver enzymes Conclusion/Plan: slight down UA reveal fatty liver, hold Lipitor pt had both ALT and AST elevated, unknown etiology order Hepatitis acute test panel hold hepatic toxical agent daily lab monitor (5) HTN (hypertension) Conclusion/Plan: it seems stable now, resume home BP meds continue vital monitor
[2017-07-25] MEDS: SODIUM CHLORIDE FLUSH 0.9% 10 ML SYRINGE IVP SCH ×3 (00:18→18:40)
[2017-07-25] MEDS: ACETAMINOPHEN 325 MG TABLET PO PRN ×4 (00:19→18:39)
[2017-07-25 05:51] LABS: HGB - HEMOGLOBIN 11.2 g/dL (14.0-18.0); LYMPHOCYTES # (AUTO) 0.4 10^3/uL (1.5-3.5); LYMPHOCYTES % (AUTO) 3.5 %; MEAN CORPUSCULAR HEMOGLOBIN 31.6 pg (27.0-31.0); MEAN CORPUSCULAR HGB CONC 32.6 g/dL (32.0-36.0); MEAN CORPUSCULAR VOLUME 96.9 fL (80.0-94.0); NEUTROPHILS # (AUTO) 8.7 10^3/uL (1.5-6.6); NEUTROPHILS % (AUTO) 86.5 %; PLT - PLATELET COUNT 165 10^3/uL (130-450); RED BLOOD COUNT 3.56 10^6/uL (4.70-6.10); RED CELL DISTRIBUTION WIDTH 14.9 % (12.0-15.0); WHITE BLOOD COUNT 10.1 x10^3/uL (4.8-10.8)
[2017-07-25] MEDS: methylPREDNISolone SUCCINATE 40 MG/ML VIAL IVP SCH ×3 (06:01→21:09)
[2017-07-25 06:10] LABS: ALBUMIN 3.2 g/dL (3.2-5.5); BILIRUBIN,TOTAL 0.7 mg/dL (0.2-1.0); CALCIUM 8.4 mg/dL (8.5-10.3); CREATININE 0.8 mg/dL (0.6-1.2); TOTAL PROTEIN 6.5 g/dL (6.7-8.2)
[2017-07-25] MEDS: BUDESONIDE 0.5 MG/2 ML NEB INH PRN ×2 (07:06→17:47)
[2017-07-25] MEDS: IPRATROPIUM 0.2 MG/ML NEB INH PRN ×3 (07:07→17:47)
[2017-07-25] MEDS: LEVALBUTEROL 1.25 MG/3 ML NEB INH PRN ×3 (07:07→17:47)
[2017-07-25] MEDS: ASPIRIN CHEW 81 MG TABLET PO SCH (09:33)
[2017-07-25] MEDS: AZITHROMYCIN 250 MG TABLET PO SCH (09:33)
[2017-07-25] MEDS: SODIUM CHLORIDE 0.9% 1,000 ML IV SCH (09:33)
[2017-07-25] MEDS: ENOXAPARIN 40 MG/0.4 ML SYRINGE SUBQ SCH (09:34)
[2017-07-25] MEDS: ATORVASTATIN 10 MG TABLET PO SCH (09:34)
[2017-07-25] MEDS: FAMOTIDINE 20 MG TABLET PO SCH (09:34)
[2017-07-25] MEDS: LOSARTAN 50 MG TABLET PO SCH (09:34)
[2017-07-25] MEDS: METOPROLOL SUCCINATE 25 MG TABLET PO SCH (09:34)
[2017-07-25] MEDS: POLYETHYLENE GLYCOL 3350 17 GM PACKET PO SCH (09:35)
[2017-07-25] MEDS: guaiFENesin 600 MG TABLET PO SCH ×2 (09:42→21:10)
[2017-07-25] MEDS: SODIUM CHLORIDE FLUSH 0.9% 10 ML SYRINGE IVP PRN (14:28)
[2017-07-25] MEDS: cloNIDine 0.1 MG TABLET PO PRN (16:22)
--- NOTE | 2017-07-25 17:10 | PROVIDER PROGRESS NOTE ---
Subjective - Prog Note Date Prog Note Date: 07/25/17 - Subjective Pt reports feeling: Improved Subjective: pt state he feel better than yesterday. No fever, chill, CP. plan to d/c tomorrow Current Medications - Current Medications Current Medications: Active Medications Acetaminophen (Tylenol) 650 mg PO Q4HR PRN PRN Reason: Pain 1 to 4 Last Admin: 07/25/17 09:33 Dose: 650 mg Aspirin (St Vlad Aspirin) 81 mg PO DAILY [facility] Last Admin: 07/25/17 09:33 Dose: 81 mg Azithromycin (Zithromax) 500 mg PO DAILY [facility] Last Admin: 07/25/17 09:33 Dose: 500 mg Budesonide (Pulmicort) 0.5 mg INH RTBID PRN PRN Reason: Wheezing Last Admin: 07/25/17 17:47 Dose: 0.5 mg Clonidine HCl (Catapres) 0.1 mg PO BID PRN PRN Reason: Hypertensive Emergency Last Admin: 07/25/17 16:22 Dose: 0.1 mg Enoxaparin Sodium (Lovenox) 40 mg SUBQ DAILY [facility] Famotidine (Pepcid) 20 mg PO DAILY [facility] Last Admin: 07/25/17 09:34 Dose: 20 mg Guaifenesin (Mucinex) 600 mg PO BID [facility] Last Admin: 07/25/17 09:42 Dose: 600 mg Ipratropium [place] (Atrovent) 0.5 mg INH RTQ4H PRN PRN Reason: Wheezing Last Admin: 07/25/17 17:47 Dose: 0.5 mg Levalbuterol HCl (Xopenex) 1.25 mg INH QID PRN PRN Reason: Wheezing Last Admin: 07/25/17 17:47 Dose: 1.25 mg Losartan Potassium (Cozaar) 25 mg PO DAILY [facility] Last Admin: 07/25/17 09:34 Dose: 25 mg Methylprednisolone (Solu-Medrol (40mg Vial)) 30 mg IVP TID [facility] Metoprolol Succinate (Toprol Xl) 25 mg PO DAILY [facility] Last Admin: 07/25/17 09:34 Dose: 25 mg Non-Formulary Medication (Escitalopram Oxalate [Lexapro]) 20 mg PO DAILY [facility] Non-Formulary Medication (Fluticasone/Salmeterol [Advair Hfa 230-21 Mcg Inhaler] ) 2 puffs INH BID [facility] Non-Formulary Medication (Multivitamin [Daily [place]]) 1 each PO DAILY [facility] Ondansetron HCl (Zofran Inj) 4 mg IVP Q6HR PRN PRN Reason: Nausea / Vomiting Polyethylene Glycol (Miralax) 17 gm PO DAILY [facility] Last Admin: 07/25/17 09:35 Dose: Not Given Sodium Chloride (Normal Saline Flush 0.9%) 10 ml IVP PRN PRN PRN Reason: NEEDED PER PROVIDER ORDERS Last Admin: 07/25/17 14:28 Dose: 10 ml Sodium Chloride (Normal Saline Flush 0.9%) 10 ml IVP 0100,0900,1700 [facility] Last Admin: 07/25/17 09:35 Dose: Not Given Zolpidem Tartrate (Ambien) 5 mg PO QPM PRN PRN Reason: Insomnia Aspirin Chewable [St Vlad Aspirin] 81 mg PO DAILY 09/04/12 Multivitamin [Daily [place]] 1 each PO DAILY 02/26/15 Tiotropium [place] [Spiriva Respimat] 2 puffs INH DAILY 03/21/17 Escitalopram Oxalate [Lexapro] 20 mg PO DAILY 06/10/17 Fluticasone/Salmeterol [Advair Hfa 230-21 Mcg Inhaler] 2 puffs INH BID 06/10/17 Metoprolol Succinate [Toprol Xl] 25 mg PO DAILY 06/10/17 Polyethylene Glycol 3350 [Miralax] 17 gm PO DAILY 06/10/17 Atorvastatin Calcium 20 mg PO DAILY 07/23/17 Lidocaine [Lidocaine] 1 patch TP DAILY 07/23/17 Telmisartan 20 mg PO DAILY 07/23/17 Objective - Vital Signs/Intake & Output Reviewed Vital Signs: Yes Vital Signs: Vital Signs x48h Temp Pulse Pulse Resp BP Pulse Ox 07/25/17 15:48 36.6 C 84 20 183/97 H 98 07/25/17 11:53 82 20 Intake & Output: Intake & Output 07/22/17 07/23/17 07/24/17 07/25/17 23:59 23:59 23:59 23:59 Intake Total 1580 1600 Output Total 1150 2125 Balance 430 -525 - Objective General Appearance: positive: No acute distress, Alert. negative: Lethargic Eyes Bilateral: positive: Normal inspection, PERRL, No lid inflammation, Conjunctivae nml ENT: positive: ENT inspection nml, Pharynx nml, No signs of dehydration. negative: Purulent nasal drainage, Pharyngeal erythema, Oral lesions Neck: positive: Nml inspection, Thyroid nml, No JVD, Trachea midline. negative : Thyromegaly, Lymphadenopathy (R), Lymphadenopathy (L), Stiff neck, Swelling/ bruising, Tracheal deviation Respiratory: positive: Chest non-tender, No respiratory distress, Other ( reduced bilateral lung sound). negative: Wheezes, Rales, Rhonchi Cardiovascular: positive: Regular rate & rhythm, No murmur, No gallop. negative : Irregularly irregular, Extrasystoles, Tachycardia, Bradycardia, Systolic murmur, Diastolic murmur Peripheral Pulses: 2+ Radial (R), 2+ Radial (L), 2+ Dorsalis pedis (R), 2+ Dorsalis pedis (L) Abdomen: positive: Non-tender, No organomegaly, Nml bowel sounds, No distention. negative: Tenderness, Guarding, Rebound Back: positive: Nml inspection. negative: CVA tenderness (R), CVA tenderness (L ) Skin: positive: Color nml, No rash, Warm, Dry. negative: Cyanosis, Diaphoresis , Pallor Extremities: positive: Non-tender, Full ROM, Nml appearance. negative: Calf tenderness, Joint swelling, Kayla's sign/cords Neurologic/Psychiatric: positive: Oriented x3, Sensation nml, Mood/affect nml. negative: Sensory loss, Facial droop, Slurred/abnml speech, Depressed mood/ affect - Lab Results Fish Bones: 07/25/17 05:30 07/25/17 05:30 Other Labs: Lab Results x24hrs 07/25/17 07/25/17 Range/Units 05:30 05:30 WBC 10.1 (4.8-10.8) x10^3/uL RBC 3.56 L (4.70-6.10) 10^6/uL Hgb 11.2 L (14.0-18.0) g/dL Hct 34.5 L (42.0-52.0) % MCV 96.9 H (80.0-94.0) fL MCH 31.6 H (27.0-31.0) pg MCHC 32.6 (32.0-36.0) g/dL RDW 14.9 (12.0-15.0) % Plt Count 165 (130-450) 10^3/uL MPV 8.0 (7.4-11.4) fL Neut # 8.7 H (1.5-6.6) 10^3/uL Lymph # 0.4 L (1.5-3.5) 10^3/uL Delta # 1.0 (0.0-1.0) 10^3/uL Eos # 0.0 (0.0-0.7) 10^3/uL Baso # 0.0 (0.0-0.1) 10^3/uL Absolute Nucleated RBC 0.00 x10^3/uL Nucleated RBC % 0.0 /100WBC Sodium 138 (135-145) mmol/L Potassium 4.6 (3.5-5.0) mmol/L Chloride 105 (101-111) mmol/L Carbon Dioxide 27 (21-32) mmol/L Anion Gap 6.0 (6-13) BUN 15 (6-20) mg/dL Creatinine 0.8 (0.6-1.2) mg/dL Estimated GFR (MDRD) 93 (>89) Glucose 132 H (70-100) mg/dL Calcium 8.4 L (8.5-10.3) mg/dL Total Bilirubin 0.7 (0.2-1.0) mg/dL AST 130 H (10-42) IU/L ALT 147 H (10-60) IU/L Alkaline Phosphatase 54 (42-121) IU/L Total Protein 6.5 L (6.7-8.2) g/dL Albumin 3.2 (3.2-5.5) g/dL Globulin 3.3 (2.1-4.2) g/dL Albumin/Globulin Ratio 1.0 (1.0-2.2) ABX Reporting Has patient been on IV antibiotics over the past 48 hours?: Yes Assessment/Plan - Problem List (1) COPD with acute exacerbation Impression: Conclusion/Plan: stable with 98% at 2 liter of O2 continue INH, RT treatment 100% Sats at 2 liter of O2, is improved compared in the admission. pt frequently visit hospital with similar problem solu-metro ipro xopenix since pt has tachycardia at 120 O2 supplement as needed INH and RT consult (2) Fever Conclusion/Plan: no fever, blood culture preliminary negative no fever, follow up blood culture low degree fever at home and ER, but WBC normal and CXR without acute finding blood culture, follow up IVF add Azithyroimycin vital monitor (3) Sinus tachycardia Conclusion/Plan: resolved it appears from respiratory distress, compensation reaction. EKG as needed resume home meds metoprolol treat the COPD exacerbation O2 supplement as needed IVF tele, vital monitor (4) Elevated liver enzymes Conclusion/Plan: continue monitor, stable slight down UA reveal fatty liver, hold Lipitor pt had both ALT and AST elevated, unknown etiology order Hepatitis acute test panel hold hepatic toxical agent daily lab monitor (5) HTN (hypertension) Conclusion/Plan: slight elevated BP add PRN Clonidine Losartan to 50 mg daily it seems stable now, resume home BP meds continue vital monitor
[2017-07-25] MEDS ORDERED: ENOXAPARIN 40 MG/0.4 ML SYRINGE SUBQ SCH (17:53)
[2017-07-26] MEDS: SODIUM CHLORIDE FLUSH 0.9% 10 ML SYRINGE IVP SCH ×3 (00:34→17:00)
[2017-07-26] MEDS: cloNIDine 0.1 MG TABLET PO PRN ×2 (00:34→21:39)
[2017-07-26] MEDS: methylPREDNISolone SUCCINATE 40 MG/ML VIAL IVP SCH ×2 (05:57→13:38)
[2017-07-26] MEDS: SODIUM CHLORIDE FLUSH 0.9% 10 ML SYRINGE IVP PRN (05:57)
[2017-07-26 05:58] LABS: BASOPHILS % (AUTO) 0.1 %; HGB - HEMOGLOBIN 12.6 g/dL (14.0-18.0); LYMPHOCYTES # (AUTO) 1.3 10^3/uL (1.5-3.5); LYMPHOCYTES % (AUTO) 11.6 %; MEAN CORPUSCULAR HGB CONC 31.9 g/dL (32.0-36.0); MEAN CORPUSCULAR VOLUME 97.2 fL (80.0-94.0); MEAN PLATELET VOLUME 8.5 fL (7.4-11.4); MONOCYTES # (AUTO) 1.4 10^3/uL (0.0-1.0); MONOCYTES % (AUTO) 11.7 %; NEUTROPHILS # (AUTO) 8.8 10^3/uL (1.5-6.6); NEUTROPHILS % (AUTO) 76.6 %; PLT - PLATELET COUNT 222 10^3/uL (130-450); RED BLOOD COUNT 4.06 10^6/uL (4.70-6.10); RED CELL DISTRIBUTION WIDTH 15.1 % (12.0-15.0); WHITE BLOOD COUNT 11.5 x10^3/uL (4.8-10.8)
[2017-07-26 06:04] LABS: ALBUMIN 3.6 g/dL (3.2-5.5); ALBUMIN/GLOBULIN RATIO 0.9 (1.0-2.2); BILIRUBIN,TOTAL 0.6 mg/dL (0.2-1.0); CALCIUM 8.8 mg/dL (8.5-10.3); CREATININE 0.9 mg/dL (0.6-1.2); TOTAL PROTEIN 7.6 g/dL (6.7-8.2)
[2017-07-26] MEDS: IPRATROPIUM 0.2 MG/ML NEB INH PRN ×2 (07:31→11:04)
[2017-07-26] MEDS: LEVALBUTEROL 1.25 MG/3 ML NEB INH PRN ×2 (07:31→11:04)
[2017-07-26] MEDS ORDERED: hydrALAZINE INJ 20 MG/ML VIAL IVP PRN (07:45)
[2017-07-26] MEDS ORDERED: FORMOTEROL FUMARATE NEB 20 MCG/2 ML INH SCH (08:00)
[2017-07-26] MEDS: MULTIVITAMIN TABLET PO SCH (10:02)
[2017-07-26] MEDS: guaiFENesin 600 MG TABLET PO SCH ×2 (10:02→20:24)
[2017-07-26] MEDS: FAMOTIDINE 20 MG TABLET PO SCH (10:02)
[2017-07-26] MEDS: ESCITALOPRAM 10 MG TABLET PO SCH (10:03)
[2017-07-26] MEDS: METOPROLOL SUCCINATE 25 MG TABLET PO SCH ×2 (10:04→20:24)
[2017-07-26] MEDS: AZITHROMYCIN 250 MG TABLET PO SCH (10:04)
[2017-07-26] MEDS: ASPIRIN CHEW 81 MG TABLET PO SCH (10:04)
[2017-07-26] MEDS: ENOXAPARIN 40 MG/0.4 ML SYRINGE SUBQ SCH (10:05)
[2017-07-26] MEDS: LOSARTAN 50 MG TABLET PO SCH (10:05)
[2017-07-26] MEDS: POLYETHYLENE GLYCOL 3350 17 GM PACKET PO SCH (10:06)
--- NOTE | 2017-07-26 14:20 | PROVIDER PROGRESS NOTE ---
Subjective - Prog Note Date Prog Note Date: 07/26/17 - Subjective Pt reports feeling: Improved Subjective: pt report his breath is as his baseline. Denies CP and SOB. complaint of some headache. Current Medications - Current Medications Current Medications: Active Medications Acetaminophen (Tylenol) 650 mg PO Q4HR PRN PRN Reason: Pain 1 to 4 Last Admin: 07/25/17 18:39 Dose: 650 mg Aspirin ([place] Vlad Aspirin) 81 mg PO DAILY [facility] Last Admin: 07/26/17 10:04 Dose: 81 mg Budesonide (Pulmicort) 0.5 mg INH RTBID PRN PRN Reason: Wheezing Last Admin: 07/25/17 17:47 Dose: 0.5 mg Clonidine HCl (Catapres) 0.1 mg PO BID PRN PRN Reason: Hypertensive Emergency Last Admin: 07/26/17 00:34 Dose: 0.1 mg Enoxaparin Sodium (Lovenox) 40 mg SUBQ DAILY [facility] Last Admin: 07/26/17 10:05 Dose: 40 mg Escitalopram Oxalate (Lexapro) 20 mg PO DAILY [facility] Last Admin: 07/26/17 10:03 Dose: 20 mg Famotidine (Pepcid) 20 mg PO DAILY [facility] Last Admin: 07/26/17 10:02 Dose: 20 mg Guaifenesin (Mucinex) 600 mg PO BID [facility] Last Admin: 07/26/17 10:02 Dose: 600 mg Hydralazine HCl (Apresoline Inj) 10 mg IVP DAILY PRN PRN Reason: Hypertensive Emergency Ipratropium [place] (Atrovent) 0.5 mg INH RTQ4H PRN PRN Reason: Wheezing Last Admin: 07/26/17 11:04 Dose: 0.5 mg Levalbuterol HCl (Xopenex) 1.25 mg INH QID PRN PRN Reason: Wheezing Last Admin: 07/26/17 11:04 Dose: 1.25 mg Losartan Potassium (Cozaar) 50 mg PO DAILY [facility] Last Admin: 07/26/17 10:05 Dose: 50 mg Metoprolol Succinate (Toprol Xl) 25 mg PO BID [facility] Multivitamins (Theragran) 1 tab PO DAILYWM [facility] Last Admin: 07/26/17 10:02 Dose: 1 tab Ondansetron HCl (Zofran Inj) 4 mg IVP Q6HR PRN PRN Reason: Nausea / Vomiting Polyethylene Glycol (Miralax) 17 gm PO DAILY [facility] Last Admin: 07/26/17 10:06 Dose: Not Given Prednisone (Deltasone) 30 mg PO DAILYWM [facility] Sodium Chloride (Normal Saline Flush 0.9%) 10 ml IVP PRN PRN PRN Reason: NEEDED PER PROVIDER ORDERS Last Admin: 07/26/17 05:57 Dose: 10 ml Sodium Chloride (Normal Saline Flush 0.9%) 10 ml IVP 0100,0900,1700 [facility] Last Admin: 07/26/17 10:06 Dose: 10 ml Zolpidem Tartrate (Ambien) 5 mg PO QPM PRN PRN Reason: Insomnia Aspirin Chewable [St Vlad Aspirin] 81 mg PO DAILY 09/04/12 Multivitamin [Daily [place]] 1 each PO DAILY 02/26/15 Tiotropium [place] [Spiriva Respimat] 2 puffs INH DAILY 03/21/17 Escitalopram Oxalate [Lexapro] 20 mg PO DAILY 06/10/17 Fluticasone/Salmeterol [Advair Hfa 230-21 Mcg Inhaler] 2 puffs INH BID 06/10/17 Metoprolol Succinate [Toprol Xl] 25 mg PO DAILY 06/10/17 Polyethylene Glycol 3350 [Miralax] 17 gm PO DAILY 06/10/17 Atorvastatin Calcium 20 mg PO DAILY 07/23/17 Lidocaine [Lidocaine] 1 patch TP DAILY 07/23/17 Telmisartan 20 mg PO DAILY 07/23/17 Objective - Vital Signs/Intake & Output Reviewed Vital Signs: Yes Vital Signs: Vital Signs x48h Temp Pulse Pulse Resp BP Pulse Ox 07/26/17 12:39 36.4 C L 98 20 169/89 H 99 07/26/17 11:49 164/97 H 07/26/17 11:14 90 20 07/26/17 08:09 36.5 C 87 20 178/97 H 100 07/26/17 07:17 76 20 Intake & Output: Intake & Output 07/23/17 07/24/17 07/25/17 07/26/17 23:59 23:59 23:59 23:59 Intake Total 1580 3200 476 Output Total 1150 3325 1150 Balance 430 -125 -674 - Objective General Appearance: positive: No acute distress, Alert. negative: Lethargic Eyes Bilateral: positive: Normal inspection, PERRL, No lid inflammation, Conjunctivae nml ENT: positive: ENT inspection nml, Pharynx nml, No signs of dehydration. negative: Purulent nasal drainage, Pharyngeal erythema, Oral lesions Neck: positive: Nml inspection, Thyroid nml, No JVD, Trachea midline. negative : Thyromegaly, Lymphadenopathy (R), Lymphadenopathy (L), Stiff neck, Carotid bruit, Swelling/bruising, Tracheal deviation Respiratory: positive: Chest non-tender, No respiratory distress, Other ( reduced lung bilaterally). negative: Wheezes, Rales Cardiovascular: positive: Regular rate & rhythm, No murmur, No gallop. negative : Irregularly irregular, Extrasystoles, Tachycardia, Bradycardia, JVD present, Systolic murmur, Diastolic murmur Peripheral Pulses: 2+ Radial (R), 2+ Radial (L), 2+ Dorsalis pedis (R), 2+ Dorsalis pedis (L) Abdomen: positive: Non-tender, No organomegaly, Nml bowel sounds, No distention. negative: Tenderness, Guarding, Rebound Back: positive: Nml inspection. negative: CVA tenderness (R), CVA tenderness (L ) Skin: positive: Color nml, No rash, Warm, Dry. negative: Cyanosis, Diaphoresis Extremities: positive: Non-tender, Full ROM, Nml appearance. negative: Calf tenderness, Joint swelling, Kayla's sign/cords Neurologic/Psychiatric: positive: Oriented x3, Sensation nml. negative: Weakness, Sensory loss, Facial droop, Slurred/abnml speech, Depressed mood/ affect - Lab Results Fish Bones: 07/26/17 05:30 07/26/17 05:30 Other Labs: Lab Results x24hrs 07/26/17 07/26/17 Range/Units 05:30 05:30 WBC 11.5 H (4.8-10.8) x10^3/uL RBC 4.06 L (4.70-6.10) 10^6/uL Hgb 12.6 L (14.0-18.0) g/dL Hct 39.5 L (42.0-52.0) % MCV 97.2 H (80.0-94.0) fL MCH 31.0 (27.0-31.0) pg MCHC 31.9 L (32.0-36.0) g/dL RDW 15.1 H (12.0-15.0) % Plt Count 222 (130-450) 10^3/uL MPV 8.5 (7.4-11.4) fL Neut # 8.8 H (1.5-6.6) 10^3/uL Lymph # 1.3 L (1.5-3.5) 10^3/uL [place] # 1.4 H (0.0-1.0) 10^3/uL Eos # 0.0 (0.0-0.7) 10^3/uL Baso # 0.0 (0.0-0.1) 10^3/uL Absolute Nucleated RBC 0.01 x10^3/uL Nucleated RBC % 0.1 /100WBC Sodium 136 (135-145) mmol/L Potassium 3.8 (3.5-5.0) mmol/L Chloride 98 L (101-111) mmol/L Carbon Dioxide 29 (21-32) mmol/L Anion Gap 9.0 (6-13) BUN 18 (6-20) mg/dL Creatinine 0.9 (0.6-1.2) mg/dL Estimated GFR (MDRD) 81 L (>89) Glucose 121 H (70-100) mg/dL Calcium 8.8 (8.5-10.3) mg/dL Total Bilirubin 0.6 (0.2-1.0) mg/dL AST 174 H (10-42) IU/L ALT 203 H (10-60) IU/L Alkaline Phosphatase 62 (42-121) IU/L Total Protein 7.6 (6.7-8.2) g/dL Albumin 3.6 (3.2-5.5) g/dL Globulin 4.0 (2.1-4.2) g/dL Albumin/Globulin Ratio 0.9 L (1.0-2.2) ABX Reporting Has patient been on IV antibiotics over the past 48 hours?: No Assessment/Plan - Problem List (1) COPD with acute exacerbation Impression: Conclusion/Plan: gradually wane of steroid stable with O2 sats continue INH, RT treatment O2 supplement stable with 99% at 2 liter of O2 continue INH, RT treatment 100% Sats at 2 liter of O2, is improved compared in the admission. pt frequently visit hospital with similar problem solu-metro ipro xopenix since pt has tachycardia at 120 O2 supplement as needed INH and RT consult (2) Fever Conclusion/Plan: resolved no fever, blood culture preliminary negative no fever, follow up blood culture low degree fever at home and ER, but WBC normal and CXR without acute finding blood culture, follow up IVF add Azithyroimycin vital monitor (3) Sinus tachycardia Conclusion/Plan: resolved it appears from respiratory distress, compensation reaction. EKG as needed resume home meds metoprolol treat the COPD exacerbation O2 supplement as needed IVF tele, vital monitor (4) Elevated liver enzymes Conclusion/Plan: continue monitor, stable slight down UA reveal fatty liver, hold Lipitor pt had both ALT and AST elevated, unknown etiology order Hepatitis acute test panel hold hepatic toxical agent daily lab monitor (5) HTN (hypertension) Conclusion/Plan: slight elevated BP, it may be caused by steroid wane off steroid gradually tynelol as needed add Hydralazine and Clonidine as PRN switch Metoprolol to Bid from daily continue monitor pt state he has no more headache. slight elevated BP add PRN Clonidine Losartan to 50 mg daily it seems stable now, resume home BP meds continue vital monitor
[2017-07-27] MEDS: SODIUM CHLORIDE FLUSH 0.9% 10 ML SYRINGE IVP SCH ×2 (02:49→09:24)
[2017-07-27 05:26] LABS: BASOPHILS % (AUTO) 0.1 %; HGB - HEMOGLOBIN 12.5 g/dL (14.0-18.0); LYMPHOCYTES # (AUTO) 1.2 10^3/uL (1.5-3.5); MEAN CORPUSCULAR HEMOGLOBIN 31.7 pg (27.0-31.0); MEAN CORPUSCULAR HGB CONC 33.1 g/dL (32.0-36.0); MEAN CORPUSCULAR VOLUME 95.7 fL (80.0-94.0); MEAN PLATELET VOLUME 8.4 fL (7.4-11.4); MONOCYTES # (AUTO) 1.2 10^3/uL (0.0-1.0); MONOCYTES % (AUTO) 12.9 %; NEUTROPHILS # (AUTO) 6.6 10^3/uL (1.5-6.6); PLT - PLATELET COUNT 182 10^3/uL (130-450); RED BLOOD COUNT 3.94 10^6/uL (4.70-6.10); RED CELL DISTRIBUTION WIDTH 14.6 % (12.0-15.0)
[2017-07-27 05:34] LABS: ALBUMIN 3.1 g/dL (3.2-5.5); ALBUMIN/GLOBULIN RATIO 0.9 (1.0-2.2); BILIRUBIN,TOTAL 0.7 mg/dL (0.2-1.0); CREATININE 0.8 mg/dL (0.6-1.2); TOTAL PROTEIN 6.7 g/dL (6.7-8.2)
[2017-07-27] MEDS ORDERED: predniSONE 10 MG TABLET PO SCH (08:00)
[2017-07-27] MEDS: IPRATROPIUM 0.2 MG/ML NEB INH PRN (09:03)
[2017-07-27] MEDS: LEVALBUTEROL 1.25 MG/3 ML NEB INH PRN (09:03)
[2017-07-27] MEDS: ASPIRIN CHEW 81 MG TABLET PO SCH (09:23)
[2017-07-27] MEDS: MULTIVITAMIN TABLET PO SCH (09:23)
[2017-07-27] MEDS: LOSARTAN 50 MG TABLET PO SCH (09:23)
[2017-07-27] MEDS: FAMOTIDINE 20 MG TABLET PO SCH (09:23)
[2017-07-27] MEDS: guaiFENesin 600 MG TABLET PO SCH (09:23)
[2017-07-27] MEDS: METOPROLOL SUCCINATE 25 MG TABLET PO SCH (09:23)
[2017-07-27] MEDS: ENOXAPARIN 40 MG/0.4 ML SYRINGE SUBQ SCH (09:24)
[2017-07-27] MEDS: POLYETHYLENE GLYCOL 3350 17 GM PACKET PO SCH (09:24)
[2017-07-27] MEDS: ESCITALOPRAM 10 MG TABLET PO SCH (09:24)
--- NOTE | 2017-07-27 10:30 | Discharge Plan ---
Discharge Plan Disposition: Home, Self Care Condition: Poor Prescriptions: predniSONE [Deltasone] 10 mg PO [id number] #21 tab Diet: Regular Activity Restrictions: Activity as Tolerated Shower Restrictions: No (caregiver closely monitor, fall precaution) Assistance Devices: Walker Weight Bearing: Full Weight Instruction Topics: Prednisone tablets, COPD, NAFLD Additional Instructions or Follow Up instructions: You may follow up your PCP in 2-3 days. You had the elevated liver enzyme when you was admitted. US of liver reveals fatty liver, no mass. You may follow up clubhouse manager and your drug safety specialist as out-pt. Should your symptoms return or worsen, you may present ER or call 911 for help. Follow-Up Care: [facility] No Smoking: If you smoke, Please STOP! Call for help. Follow-up with: YULI VERGARA MD [Primary Care Provider] -
--- NOTE | 2017-07-27 11:13 | DISCHARGE SUMMARY ---
Discharge Summary Discharge Date: 07/27/17 Discharging Provider: BUSTILLOS Primary Care Provider: Susie Banks Condition at Discharge: Poor Discharge Disposition: 01 Home, Self Care Discharge Facility Name: home - DIAGNOSES Admission Diagnoses: (1) COPD with acute exacerbation (2) Fever (3) Sinus tachycardia (4) Elevated liver enzymes (5) HTN (hypertension) Discharge Diagnoses with Status of Each Condition: (1) COPD with acute exacerbation 100% Sats of O2 with 2 liter of O2. Pt is chronic O2 usage in the home. 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 (2) Fever resolved (3) Sinus tachycardia resolved (4) Elevated liver enzymes pt had mild elevated liver enzyme in admission. Pt state he had an appointment with GI specialist to consult the medical problem. US of liver reveals fatty liver, no mass. (5) HTN (hypertension) slight elevated BP. Pt state every time he had steroid, his BP elevated. Steroid will be weaned for a few days. BP is 158/99 now. continued to be managed by PCP. - HPI History of Present Illness: Eduar Flores (Bill) is an 82-year old white male with a past medical history of hypertension, asthma, chronic [id number], COPD, emphysema, frequent visiting ER for COPD/emphysema exacerbation, essential tremors, nocturia, urinary urgency/frequency, s/p TURP x2, BPH, chronic hearing loss, macular degeneration, post cataract surgery, chronic back pain, osteoarthritis, skin cancer, and depression with anxiety, who present ER for chief complaint of shortness of breath, cough with sputum, and low degree of fever. Pt report he has had cough for the past 2 days, productive of frothy sputum. He state his is sick with PNA and cough, fever as well. He reports low degree of fever, without chills. Pt also report he had mild headache and nausea but without vomiting. He denies chest pain, sore throat. No abdominal pain, vomiting or diarrhea. He report he had smoked cigarette for 40-50 yrs, the he quitted smoking 15 yrs ago. Lab test reveals elevated liver enzyme but with normal WBC, CXR reveals no radiographically apparent acute abnormality in the chest, no significant change from prior. - HOSPITAL COURSE Hospital Course: pt was admitted for COPD exacerbation and hypoxia, and SOB. after treated with INH, steroid. pt's symptoms had great improved. Pt is d/c with continue home meds, wean off steroid. pt is advised to follow up PCP and GI specialist. - ALLERGIES Allergies/Adverse Reactions: Allergies Allergy/AdvReac Type Severity Reaction Status Date / Time Sulfa (Sulfonamide Allergy Unknown Rash Verified 07/23/17 06:47 Antibiotics) - MEDICATIONS Home Medications: Ambulatory Orders Medication Instructions Recorded Confirmed Aspirin Chewable [St Vlad 81 mg PO DAILY 09/04/12 07/23/17 Aspirin] Multivitamin [Daily [place]] 1 each PO DAILY 02/26/15 07/23/17 Tiotropium [place] [Spiriva 2 puffs INH DAILY 03/21/17 07/23/17 Respimat] Albuterol Sulfate [Proair Hfa 1 - 2 puffs INH Q4H PRN #1 inhaler 03/22/17 Inhaler] Escitalopram Oxalate [Lexapro] 20 mg PO DAILY 06/10/17 07/23/17 Fluticasone/Salmeterol [Advair Hfa 2 puffs INH BID 06/10/17 07/23/17 230-21 Mcg Inhaler] Metoprolol Succinate [Toprol Xl] 25 mg PO DAILY 06/10/17 07/23/17 Polyethylene Glycol 3350 [Miralax] 17 gm PO DAILY 06/10/17 07/23/17 Atorvastatin Calcium 20 mg PO DAILY 07/23/17 07/23/17 Lidocaine 1 patch TP DAILY 07/23/17 07/23/17 Telmisartan 20 mg PO DAILY 07/23/17 07/23/17 predniSONE [Deltasone] 10 mg PO [id number] #21 tab 07/27/17 - PHYSICAL EXAM AT DISCHARGE General Appearance: positive: No acute distress, Alert. negative: Lethargic Eyes Bilateral: positive: Normal inspection, PERRL, No lid inflammation, Conjunctivae nml ENT: positive: ENT inspection nml, Pharynx nml, No signs of dehydration. negative: Purulent nasal drainage, Pharyngeal erythema, Oral lesions Neck: positive: Nml inspection, Thyroid nml, No JVD, Trachea midline. negative : Thyromegaly, Lymphadenopathy (R), Lymphadenopathy (L), Stiff neck, Carotid bruit, Swelling/bruising, Tracheal deviation Respiratory: positive: Chest non-tender, No respiratory distress, Breath sounds nml. negative: Wheezes, Rales, Rhonchi Cardiovascular: positive: Regular rate & rhythm, No murmur, No gallop. negative : Irregularly irregular, Extrasystoles, Tachycardia, Bradycardia, Systolic murmur, Diastolic murmur Peripheral Pulses: positive: 2+ Abdomen: positive: Non-tender, No organomegaly, Nml bowel sounds, No distention. negative: Tenderness, Guarding, Rebound Back: positive: Nml inspection. negative: CVA tenderness (R), CVA tenderness (L ) Skin: positive: Color nml, No rash, Warm, Dry. negative: Cyanosis, Diaphoresis , Pallor Extremities: positive: Non-tender, Full ROM, Nml appearance. negative: Pedal edema, Calf tenderness, Joint swelling, Kayla's sign/cords Neurologic/Psychiatric: positive: Oriented x3, Motor nml, Sensation nml, Mood/ affect nml. negative: Weakness, Sensory loss, Facial droop, Slurred/abnml speech, Depressed mood/affect - LABS Result Diagrams: 07/27/17 04:54 07/27/17 04:54 - FOLLOW UP Follow Up: You may follow up your PCP in 2-3 days. You had the elevated liver enzyme when you was admitted. US of liver reveals fatty liver, no mass. You may follow up jewel inserter and your bricklayer supervisor as out-pt. Should your symptoms return or worsen, you may present ER or call 911 for help. - TIME SPENT Time Spent in Discharge (Minutes): 40
[2017-07-27 12:15] VITALS: BP 158/99
[2017-07-27 12:31] LABS: HEPATITIS A IGM NON-REACTIVE (NON-REACTIVE); HEPATITIS B CORE ANTIBODY IGM NON-REACTIVE (NON-REACTIVE); HEPATITIS B SURFACE ANTIGEN NON-REACTIVE (NON-REACTIVE); HEPATITIS C ANTIBODY NON-REACTIVE (NON-REACTIVE)
== END 2017-07-27 13:10 | disposition home or self-care (01) | DRG 192 ==
LOC: EDUNIT# → ED 06:42 → OBS 10:28 → OBSVTOIN 07-24 10:31 → MS2 07-24 13:40
PROVIDERS: ADMIT Nurse Practitioner Gerontology; ATTEND Nurse Practitioner Gerontology
DX: J43.9 Emphysema, unspecified (principal); R50.9 Fever, unspecified; R00.0 Tachycardia, unspecified; R74.8 Abnormal levels of other serum enzymes; R09.02 Hypoxemia; K76.0 Fatty (change of) liver, not elsewhere classified; I10 Essential (primary) hypertension; N40.1 Benign prostatic hyperplasia with lower urinary tract symptoms; R35.1 Nocturia; R35.0 Frequency of micturition; R39.15 Urgency of urination; F41.8 Other specified anxiety disorders; Z87.01 Personal history of pneumonia (recurrent); Z99.81 Dependence on supplemental oxygen; Z85.828 Personal history of other malignant neoplasm of skin; Z87.891 Personal history of nicotine dependence; Z79.82 Long term (current) use of aspirin; Z79.51 Long term (current) use of inhaled steroids
CPT/HCPCS: 36415; 36600; 71045; 76705; 80053; 80074; 81001; 81003; 82803; 83605; 83690; 83735; 83880; 84484; 85025; 87040; 87086; 93005; 94640; 96361; 96365; 96372; 96375; 96376; 99284

== ENCOUNTER 2017-08-11 07:08 | Emergency (ER) | payer MEDICARE, OTHER ==
--- NOTE | 2017-08-11 07:37 | ED Physician Documentation ---
PD HPI ABD PAIN - Stated complaint Stated Complaint: ABD PX - Chief complaint Chief Complaint: Abd Pain - History obtained from History obtained from: Patient, Family - History of Present Illness Timing - onset: How many days ago (4) Timing - duration: Days (4) Timing - details: Gradual onset, Still present Quality: Aching, Dull, Pain Location: Suprapubic Improved by: Other (nothing) Worsened by: Position (laying on either side makes pain worse) Associated symptoms: No: Fever, Nausea, Vomiting, Hematemesis, Diarrhea, Constipation, Melena, Hematochezia, Dysuria, Hematuria, Chest pain, Dizzy, Near syncope / syncope, Loss of appetite, Weight loss Similar symptoms before: Has not had sx before Recently seen: Admitted - Additional information Additional information: 82-year-old male with oxygen dependent COPD and hypertension has developed new onset suprapubic abdominal pain that has progressed over the past 4 days. He has not had any change in his appetite associated with this is having normal bowel movements he does have a little more urinary hesitancy than previously but does not feel like urinary retention that he has had previously. Review of Systems Constitutional: denies: Fever, Chills, Fatigue Eyes: denies: Decreased vision Ears: denies: Ear pain Nose: denies: Congestion Throat: denies: Sore throat Cardiac: denies: Chest pain / pressure, Palpitations Respiratory: reports: Dyspnea. denies: Cough GI: reports: Abdominal Pain, Nausea. denies: Vomiting, Constipation, Diarrhea : denies: Dysuria, Frequency Skin: denies: Rash Musculoskeletal: denies: Neck pain, Back pain, Extremity pain Neurologic: denies: Generalized weakness, Focal weakness, Numbness PD PAST MEDICAL HISTORY - Past Medical History Past Medical History: Yes Cardiovascular: Hypertension Respiratory: Asthma, COPD, Emphysema, Pneumonia, Shortness of breath Neuro: None Endocrine/Autoimmune: None GI: GERD TIRE ADJUSTER: None : Benign prostate hypertrophy, Nocturia, Frequency, Other HEENT: Chronic vision loss, Macular degeneration, Chronic hearing loss, Other Psych: Depression, Anxiety Musculoskeletal: Osteoarthritis, Chronic back pain Derm: Other Other Past Medical History: lin surgery for cancer - Past Surgical History Past Surgical History: Yes Ortho: Arthroscopic surgery HEENT: Cataracts Derm: Skin cancer surgery, Other - Present Medications Home Medications: Ambulatory Orders Medication Instructions Recorded Confirmed Aspirin Chewable [St Vlad 81 mg PO DAILY 09/04/12 07/23/17 Aspirin] Multivitamin [Daily [place]] 1 each PO DAILY 02/26/15 07/23/17 Tiotropium [place] [Spiriva 2 puffs INH DAILY 03/21/17 07/23/17 Respimat] Albuterol Sulfate [Proair Hfa 1 - 2 puffs INH Q4H PRN #1 inhaler 03/22/17 Inhaler] Escitalopram Oxalate [Lexapro] 20 mg PO DAILY 06/10/17 07/23/17 Fluticasone/Salmeterol [Advair Hfa 2 puffs INH BID 06/10/17 07/23/17 230-21 Mcg Inhaler] Metoprolol Succinate [Toprol Xl] 25 mg PO DAILY 06/10/17 07/23/17 Atorvastatin Calcium 20 mg PO DAILY 07/23/17 07/23/17 Levofloxacin [Levaquin] 500 mg PO DAILY #10 tablet 08/11/17 - Allergies Allergies/Adverse Reactions: Allergies Allergy/AdvReac Type Severity Reaction Status Date / Time Sulfa (Sulfonamide Allergy Unknown Rash Verified 08/11/17 07:16 Antibiotics) - Social History Does the pt smoke?: No Smoking Status: Never smoker Does the pt drink ETOH?: Yes Does the pt have substance abuse?: No - Immunizations Immunizations are current?: Yes - POLST Patient has POLST: No POLST Status: Full Code PD ED PE NORMAL - Vitals Vital signs reviewed: Yes (hypertensive ) - General General: Alert and oriented X 3, Well developed/nourished, Other (pursed lip breathing with n/C oxygen in place. ) - HEENT HEENT: Atraumatic, PERRL, EOMI - Neck Neck: Supple, no meningeal sign - Cardiac Cardiac: RRR, No murmur - Respiratory Respiratory: No respiratory distress, Other (scattered wheezes and rhonchi) - Abdomen Abdomen: Normal bowel sounds, Soft, Other (suprapubic tenderness bilaterally without gaurding or rebound tenderness. ) - Back Back: No CVA TTP, No spinal TTP - Derm Derm: Normal color, Warm and dry, No rash - Extremities Extremities: No deformity, No edema - Neuro Neuro: Alert and oriented X 3, No motor deficit, Normal speech Eye Opening: Spontaneous Motor: Obeys Commands Verbal: Oriented GCS Score: 15 - Psych Psych: Normal mood, Normal affect Results - Vitals Vitals: Vital Signs - 24 hr 08/11/17 08/11/17 08/11/17 07:13 09:40 10:14 Temperature 36.5 C Heart Rate 98 84 86 Respiratory 18 20 18 Rate Blood Pressure 136/89 H 158/98 H 145/95 H O2 Saturation 94 96 98 08/11/17 08/11/17 11:02 12:03 Temperature Heart Rate 87 85 Respiratory 16 18 Rate Blood Pressure 137/97 H 144/102 H O2 Saturation 97 94 Oxygen O2 Source [] Nasal cannula O2 Source [] Room air O2 Source Room air - Labs Labs: Laboratory Tests 08/11/17 08/11/17 08/11/17 07:57 07:57 07:57 WBC 10.8 RBC 3.96 L Hgb 12.7 L Hct 38.0 L MCV 95.9 H MCH 32.1 H MCHC 33.5 RDW 15.1 H Plt Count 202 MPV 8.1 Neut # Not Reportable Lymph # Not Reportable [place] # Not Reportable Eos # Not Reportable Baso # Not Reportable Absolute Nucleated RBC Not Reportable Total Counted 100 Band Neuts % (Manual) 3 Reactive Lymphs % (Man) 5 Abnorm Lymph % (Manual) 0 Myelocytes % 1 H Nucleated RBC % Not Reportable Neutrophils # (Manual) 7.6 H Lymphocytes # (Manual) 1.8 Monocytes # (Manual) 1.3 H Eosinophils # (Manual) 0.0 Basophils # (Manual) 0.0 Differential Comment MANUAL DIFFERENTIAL Manual Slide Review Indicated Platelet Morphology RARE GIANT PLATELETS RBC Morph Micro Appear 2+ ANISOCYTOSIS Sodium 136 Potassium 4.1 Chloride 97 L Carbon Dioxide 31 Anion Gap 8.0 BUN 14 Creatinine 1.0 Estimated GFR (MDRD) 72 L Glucose 131 H Calcium 8.9 Total Bilirubin 1.5 H AST 63 H ALT 135 H Alkaline Phosphatase 64 Total Creatine Kinase CK-MB (CK-2) Troponin I < 0.04 Total Protein 7.8 Albumin 3.7 Globulin 4.1 Albumin/Globulin Ratio 0.9 L Lipase 48 Urine Color Urine Clarity Urine pH Ur Specific [place] Urine Protein Urine Glucose (UA) Urine Ketones Urine Occult Blood Urine Nitrite Urine Bilirubin Urine Urobilinogen Ur Leukocyte Esterase Ur Microscopic Review Urine Culture Comments 08/11/17 08/11/17 08/11/17 07:57 07:57 09:40 WBC RBC Hgb Hct MCV MCH MCHC RDW Plt Count MPV Neut # Lymph # [place] # Eos # Baso # Absolute Nucleated RBC Total Counted Band Neuts % (Manual) Reactive Lymphs % (Man) Abnorm Lymph % (Manual) Myelocytes % Nucleated RBC % Neutrophils # (Manual) Lymphocytes # (Manual) Monocytes # (Manual) Eosinophils # (Manual) Basophils # (Manual) Differential Comment Manual Slide Review Platelet Morphology RBC Morph Micro Appear Sodium Potassium Chloride Carbon Dioxide Anion Gap BUN Creatinine Estimated GFR (MDRD) Glucose Calcium Total Bilirubin AST ALT Alkaline Phosphatase Total Creatine Kinase 24 CK-MB (CK-2) 1.2 Troponin I Total Protein Albumin Globulin Albumin/Globulin Ratio Lipase Urine Color DARK YELLOW Urine Clarity CLEAR Urine pH 8.0 H Ur Specific [place] <=1.005 Urine Protein TRACE Urine Glucose (UA) NEGATIVE Urine Ketones NEGATIVE Urine Occult Blood NEGATIVE Urine Nitrite NEGATIVE Urine Bilirubin NEGATIVE Urine Urobilinogen 0.2 (NORMAL) Ur Leukocyte Esterase NEGATIVE Ur Microscopic Review NOT INDICATED Urine Culture Comments NOT INDICATED - Rads (name of study) CT abdomen and pelvis with Radiology: Prelim report reviewed (Impression: 1. No definite acute abnormality of the abdomen or pelvis. 2. Probable small right renal cyst. 3. Chronic bilateral lower lobe pulmonary changes with very mild increased right lower lobe reticulonodular infiltrate. 4. Additional stable chronic findings.), EMP read indepedently, See rad report PD MEDICAL DECISION MAKING - ED course Complexity details: reviewed results, re-evaluated patient, considered differential, d/w patient, d/w family ED course: 82 y/o male with suprapubic pain and some tenderness has a negative exam on evaluation today. He does have the appearance of an infiltrate in the right lower lobe today on CT scanning. He does not feel ill like he has with pneumonia previously and he has had a hard time with outpatient treatment being adequate and he has required hospitalization. Today he would like to go home and he would like to treat the findings on CT. Departure - Departure Disposition: 01 Home, Self Care Clinical Impression: Pneumonia Abdominal pain Qualifiers: Abdominal location: lower abdomen, unspecified Qualified Code(s): R10.30 - Lower abdominal pain, unspecified Condition: Stable Instructions: ED Abdominal Pain Unkn Cause, ED Pneumonia Adult Follow-Up: YULI VERGARA MD [Primary Care Provider] - Prescriptions: Levofloxacin [Levaquin] 500 mg PO DAILY #10 tablet Discharge Date/Time: 08/11/17 12:04
[2017-08-11 08:06] LABS: BASOPHILS % (AUTO) 0.3 %; EOSINOPHILS % (AUTO) 0.5 %; HGB - HEMOGLOBIN 12.7 g/dL (14.0-18.0); LYMPHOCYTES % (AUTO) 13.2 %; MEAN CORPUSCULAR HEMOGLOBIN 32.1 pg (27.0-31.0); MEAN CORPUSCULAR HGB CONC 33.5 g/dL (32.0-36.0); MEAN CORPUSCULAR VOLUME 95.9 fL (80.0-94.0); MEAN PLATELET VOLUME 8.1 fL (7.4-11.4); MONOCYTES % (AUTO) 12.3 %; NEUTROPHILS % (AUTO) 73.7 %; PLT - PLATELET COUNT 202 10^3/uL (130-450); RED BLOOD COUNT 3.96 10^6/uL (4.70-6.10); RED CELL DISTRIBUTION WIDTH 15.1 % (12.0-15.0); WHITE BLOOD COUNT 10.8 x10^3/uL (4.8-10.8)
[2017-08-11 08:15] LABS: ALBUMIN 3.7 g/dL (3.2-5.5); ALBUMIN/GLOBULIN RATIO 0.9 (1.0-2.2); BILIRUBIN,TOTAL 1.5 mg/dL (0.2-1.0); CALCIUM 8.9 mg/dL (8.5-10.3); TOTAL PROTEIN 7.8 g/dL (6.7-8.2)
[2017-08-11] MEDS ORDERED: IOPAMIDOL-300 100 ML VIAL ONE (08:28)
[2017-08-11] MEDS ORDERED: IOPAMIDOL-300 100 ML VIAL IVP ONE (08:40)
[2017-08-11 08:47] LABS: ABNORMAL LYMPHS % (MANUAL) 0 %
[2017-08-11 08:50] LABS: BAND NEUTROPHILS % (MANUAL) 3 %; LYMPHOCYTES # (MANUAL) 1.8 10^3/uL (1.5-3.5); LYMPHOCYTES % (MANUAL) 12 %; MONOCYTES # (MANUAL) 1.3 10^3/uL (0.0-1.0); MYELOCYTES % (MANUAL) 1 %; NEUTROPHILS # (MANUAL) 7.6 10^3/uL (1.5-6.6); NEUTROPHILS % (MANUAL) 67 %; PLATELET MORPHOLOGY RARE GIANT PLATELETS (NORMAL); RBC MORPHOLOGY (MULTIPLE) 2+ ANISOCYTOSIS (NORMAL)
[2017-08-11 08:51] LABS: DIFFERENTIAL COMMENT MANUAL DIFFERENTIAL
--- NOTE | 2017-08-11 09:00 | CT Preliminary Report ---
Exam: CT ABDOMEN/PELVIS W/ IMPRESSION: 1. No definite acute abnormality of the abdomen or pelvis. 2. Probable small right renal cyst. 3. Chronic bilateral lower lobe pulmonary changes with very mild increased right lower lobe reticulon odular infiltrate. 4. Additional stable chronic findings. RADIA SITE ID: [id number]
--- NOTE | 2017-08-11 09:00 | CT Report ---
EXAM: CT ABDOMEN AND PELVIS EXAM DATE: 08/11/2017 08:36 AM. CLINICAL HISTORY: Lower abdominal pain/tenderness. COMPARISONS: Noncontrast CT abdomen and pelvis 06/03/2017. TECHNIQUE: Routine helical CT imaging was performed through the abdomen and pelvis. IV contrast: 100M L ISOVUE 300. Enteric contrast: No. Reconstructions: Coronal and sagittal. In accordance with CT protocol optimization, one or more of the following dose reduction techniques w ere utilized for this exam: automated exposure control, adjustment of mA and/or KV based on patient s ize, or use of iterative reconstructive technique. FINDINGS: Lung Bases: Bilateral lower lobe reticular nodular infiltrate, right greater than left, appears very mildly increased on the right. Some left lower lobe and minimal right lower lobe. Scarring is stable. Stable mild right lower lobe bronchiectasis. Liver: Diffuse fatty infiltration and small calcified nodules/granulomata again demonstrated. No evid ence of mass. Gallbladder/Bile Ducts: Unremarkable. Spleen: Normal. Pancreas: Normal. Adrenal Glands: Normal. Kidneys: Subcentimeter anterior right upper pole cortical hypodensity is too small to definitively ch aracterize but is probably without significant change in its compatible phthisis. No definite mass. N o hydronephrosis, hydroureter or perinephric stranding. Peritoneal Cavity/Bowel: Substantial colonic diverticulosis without evidence of diverticulitis. No fr ee fluid, free air or adenopathy. No masses or acute inflammatory process. The appendix is well visua lized and normal. Pelvic Organs: Normal. The bladder and visualized pelvic organs are within normal limits apart from s table prostate calcifications. Vasculature: No aneurysms or other significant abnormality. Bones: No acute abnormality. Other: None. IMPRESSION: 1. No definite acute abnormality of the abdomen or pelvis. 2. Probable small right renal cyst. 3. Chronic bilateral lower lobe pulmonary changes with very mild increased right lower lobe reticulon odular infiltrate. 4. Additional stable chronic findings. [facility] Referring Provider Line: [phone] SITE ID: [id number]
[2017-08-11 10:17] LABS: BILIRUBIN,URINE NEGATIVE (NEGATIVE); GLUCOSE, URINE (UA) NEGATIVE (NEGATIVE); KETONES,URINE (UA) NEGATIVE (NEGATIVE); LEUKOCYTE ESTERASE, URINE NEGATIVE (NEGATIVE); NITRITE,URINE NEGATIVE (NEGATIVE); OCCULT BLOOD,URINE NEGATIVE (NEGATIVE); PROTEIN,URINE TRACE mg/dL (NEGATIVE); UROBILINOGEN,URINE 0.2 (NORMAL) E.U./dL (NORMAL)
[2017-08-11 10:18] LABS: CLARITY,URINE CLEAR (CLEAR)
[2017-08-11 12:19] VITALS: BP 144/102
== END 2017-08-11 12:04 | disposition home or self-care (01) ==
LOC: ED 07:08
DX: J18.9 Pneumonia, unspecified organism (principal); R10.30 Lower abdominal pain, unspecified; J44.9 Chronic obstructive pulmonary disease, unspecified; Z99.81 Dependence on supplemental oxygen; I10 Essential (primary) hypertension; Z79.82 Long term (current) use of aspirin
CPT/HCPCS: 36415; 74177; 80053; 81003; 82550; 82553; 83690; 84484; 85025; 99283; 99284; Q9967; 81001; 87086

== ENCOUNTER 2018-01-19 09:18 | Emergency (ER) | payer MEDICARE, OTHER ==
--- NOTE | 2018-01-19 10:18 | XRAY Report ---
Reason: fall/sternum pain Procedure Date: 01/19/2018 Accession Number: [id number] / [id number] Procedure: XR - Chest 2 View X-Ray CPT Code: 36973 FULL RESULT: EXAM: CHEST RADIOGRAPHY EXAM DATE: 01/19/2018 09:59 AM. CLINICAL HISTORY: Fall/sternum pain. COMPARISON: CHEST 1 VIEW 07/23/2017 6:52 AM. TECHNIQUE: 2 views. FINDINGS: Lungs/Pleura: No focal opacities evident. No pleural effusion. No pneumothorax. Flattened diaphragms with relatively high lung volumes are again seen, often a result of obstructive lung disease. Mediastinum: The cardiomediastinal silhouette including minimally calcified aortic arch and prominent pulmonary vasculature is stable. Other: No acute fracture is identified. IMPRESSION: Suspect obstructive lung disease; no acute cardiopulmonary abnormality. [facility]
--- NOTE | 2018-01-19 10:53 | ED Physician Documentation ---
PD HPI TRUNK INJURY - Stated complaint Stated Complaint: GLF - Chief complaint Chief Complaint: General - History obtained from History obtained from: Patient - History of Present Illness Location: Anterior chest (sternal area) Type of injury: Fall, Blunt / blow Timing - onset: Yesterday (he slipped and fell, falling forward and struck sternal area on counter. Pain locally sternal area. Denies other injury.) Timing - details: Abrupt onset, Still present Quality: Pain. No: Tearing, Aching Worsened by: Moving, Palpating, Other (breathing) Associated symtptoms: No: Weakness, Numbness, Swelling Contributing factors: No: Anticoagulated Where injury occured: Home Similar symptoms before: Has not had sx before Recently seen: Not recently seen Review of Systems Constitutional: denies: Fever, Chills Nose: denies: Rhinorrhea / runny nose, Congestion Throat: denies: Sore throat Cardiac: reports: Chest pain / pressure. 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 : Benign prostate hypertrophy, Nocturia, Frequency, Other HEENT: Chronic vision loss, Macular degeneration, Chronic hearing loss, Other Psych: Depression, Anxiety Musculoskeletal: Osteoarthritis, Chronic back pain Derm: Other - Past Surgical History Past Surgical History: Yes Ortho: Arthroscopic surgery HEENT: Cataracts Derm: Skin cancer surgery, Other - Present Medications Home Medications: Ambulatory Orders Medication Instructions Recorded Confirmed Aspirin Chewable [St Vlad 81 mg PO DAILY 09/04/12 07/23/17 Aspirin] Multivitamin [Daily [place]] 1 each PO DAILY 02/26/15 07/23/17 Tiotropium [place] [Spiriva 2 puffs INH DAILY 03/21/17 07/23/17 Respimat] Escitalopram Oxalate [Lexapro] 20 mg PO DAILY 06/10/17 07/23/17 Fluticasone/Salmeterol [Advair Hfa 2 puffs INH BID 06/10/17 07/23/17 230-21 Mcg Inhaler] Metoprolol Succinate [Toprol Xl] 25 mg PO DAILY 06/10/17 07/23/17 Atorvastatin Calcium 20 mg PO DAILY 07/23/17 07/23/17 Dexamethasone [Decadron] 4 mg PO DAILY #5 tablet 01/19/18 HYDROcod/ACETAM 5/325 [[place] 5/325] 1 tab PO Q6H PRN #20 tablet 01/19/18 - Allergies Allergies/Adverse Reactions: Allergies Allergy/AdvReac Type Severity Reaction Status Date / Time Sulfa (Sulfonamide Allergy Unknown Rash Verified 01/19/18 11:30 Antibiotics) - Social History Does the pt smoke?: No Smoking Status: Never smoker Does the pt drink ETOH?: Yes Does the pt have substance abuse?: No - Immunizations Immunizations are current?: Yes - POLST Patient has POLST: No POLST Status: Full Code PD ED PE NORMAL - Vitals Vital signs reviewed: Yes - General General: Alert and oriented X 3, No acute distress, Well developed/nourished - HEENT HEENT: Atraumatic, Pharynx benign - Neck Neck: Supple, no meningeal sign, No adenopathy - Cardiac Cardiac: RRR, No murmur - Respiratory Respiratory: Clear bilaterally, Other (sternal area with some tenderness, both sides without crepitance. Mid sternal area, lung sounds clear. ) - Abdomen Abdomen: Normal bowel sounds, Soft, Non tender, Non distended - Back Back: No spinal TTP - Derm Derm: Normal color, Warm and dry, No rash - Extremities Extremities: No deformity, No tenderness to palpate, Normal ROM s pain, No edema, No calf tenderness / cord - Neuro Neuro: Alert and oriented X 3, No motor deficit, No sensory deficit, Normal speech Eye Opening: Spontaneous Motor: Obeys Commands Verbal: Oriented GCS Score: 15 Results - Vitals Vitals: Oxygen O2 Source [With Activity] Nasal cannula O2 Source [Without Activity] Room air O2 Source Nasal cannula - Rads (name of study) chest xray Radiology: Prelim report reviewed (no acute process) PD MEDICAL DECISION MAKING - ED course Complexity details: considered differential, d/w patient Departure - Departure Disposition: 01 Home, Self Care Clinical Impression: Moderate COPD (chronic obstructive pulmonary disease), Syncope due to orthostatic hypotension Chest wall contusion Qualifiers: Encounter type: initial encounter Laterality: unspecified laterality Qualified Code(s): S20.219A - Contusion of unspecified front wall of thorax, initial encounter Condition: Stable Record reviewed to determine appropriate education?: Yes Instructions: ED Contusion Chest Wall Follow-Up: Cr Peterson ARNP [Primary Care Provider] - Prescriptions: Dexamethasone [Decadron] 4 mg PO DAILY #5 tablet HYDROcod/ACETAM 5/325 [[place] 5/325] 1 tab PO Q6H PRN #20 tablet PRN Reason: Pain Comments: I would agree with you to hold your new prostate medicine as it presumably led to the lightheadedness and therefore fainting and falling. Drink lots of fluids. Continue your other usual medicines. Add Decadron anti-inflammatory daily for several days to help with some of the pain and bruising. Add Tylenol or hydrocodone as needed for pain. Recheck if not improving over the next several days to week. Discharge Date/Time: 01/19/18 11:34
[2018-01-19] MEDS ORDERED: DEXAMETHASONE 10 MG/ML VIAL PO STA (11:12)
[2018-01-19] MEDS ORDERED: HYDROcod/ACETAM 5/325 MG TABLET PO STA (11:12)
[2018-01-19 11:35] VITALS: BP 133/94
== END 2018-01-19 11:34 | disposition home or self-care (01) ==
LOC: ED 09:18
DX: J44.1 Chronic obstructive pulmonary disease with (acute) exacerbation (principal); I95.1 Orthostatic hypotension; S20.219A Contusion of unspecified front wall of thorax, initial encounter; W01.10XA Fall on same level from slipping, tripping and stumbling with subsequent striking against unspecified object, initial encounter; Y92.009 Unspecified place in unspecified non-institutional (private) residence as the place of occurrence of the external cause; I10 Essential (primary) hypertension; Z79.82 Long term (current) use of aspirin; N40.0 Benign prostatic hyperplasia without lower urinary tract symptoms
CPT/HCPCS: 71046; 99283; A9270

== ENCOUNTER 2018-01-26 10:47 | Emergency (ER) | payer MEDICARE, OTHER ==
--- NOTE | 2018-01-26 11:53 | ED Physician Documentation ---
PD HPI UPPER EXT INJURY - Stated complaint Stated Complaint: RT WRIST INJ - Chief complaint Chief Complaint: Ext Problem - History obtained from History obtained from: Patient - History of Present Illness Location: Left, Wrist Type of injury: Fall Where injury occurred: Home Timing - onset: How many hours ago (3) Worsened by: Moving, Palpating Associated symptoms: No: Weakness, Numbness - Additonal information Additional information: The patient is an 82-year-old male who fell off a two-step stepstool about 3 hours prior to arrival, impacting his left wrist on concrete. He presents now with pain in his left wrist. He denies any other injuries. He is right-hand dominant. His last tetanus booster was about 4 years ago. He has a remote history of left metacarpal fractures for which he underwent ORIF. Past medical history is also significant for COPD for which he is on 2 L supplemental oxygen by nasal cannula routinely. Review of Systems Constitutional: denies: Fever Cardiac: denies: Chest pain / pressure Respiratory: reports: Dyspnea (chronically) GI: denies: Abdominal Pain, Nausea, Vomiting Skin: reports: Abrasion (s) Musculoskeletal: reports: Joint pain (left wrist). 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 : Benign prostate hypertrophy, Nocturia, Frequency, Other HEENT: Chronic vision loss, Macular degeneration, Chronic hearing loss, Other Psych: Depression, Anxiety Musculoskeletal: Osteoarthritis, Chronic back pain Derm: Other - Past Surgical History Past Surgical History: Yes Ortho: Arthroscopic surgery HEENT: Cataracts Derm: Skin cancer surgery, Other - Present Medications Home Medications: Ambulatory Orders Medication Instructions Recorded Confirmed Aspirin Chewable [St Vlad 81 mg PO DAILY 09/04/12 01/26/18 Aspirin] Multivitamin [Daily [place]] 1 each PO DAILY 02/26/15 01/26/18 Tiotropium [place] [Spiriva 2 puffs INH DAILY 03/21/17 01/26/18 Respimat] Escitalopram Oxalate [Lexapro] 20 mg PO DAILY 06/10/17 01/26/18 Fluticasone/Salmeterol [Advair Hfa 2 puffs INH BID 06/10/17 01/26/18 230-21 Mcg Inhaler] Metoprolol Succinate [Toprol Xl] 25 mg PO DAILY 06/10/17 01/26/18 Dexamethasone [Decadron] 4 mg PO DAILY #5 tablet 01/19/18 01/26/18 HYDROcod/ACETAM 5/325 [[place] 5/325] 1 tab PO Q6H PRN #20 tablet 01/19/18 01/26/18 Hydrocodone/Acetaminophen 1 - 2 each PO Q6H PRN #20 tablet 01/26/18 [Hydrocodon-Acetaminophen 5-325] - Allergies Allergies/Adverse Reactions: Allergies Allergy/AdvReac Type Severity Reaction Status Date / Time Sulfa (Sulfonamide Allergy Unknown Rash Verified 01/26/18 11:00 Antibiotics) - Social History Does the pt smoke?: No Smoking Status: Never smoker Does the pt drink ETOH?: Yes ETOH Use: Liquor Does the pt have substance abuse?: No - Immunizations Immunizations are current?: Yes Immunizations: TDAP current <10years - POLST Patient has POLST: No POLST Status: Full Code PD ED PE NORMAL - Vitals Vital signs reviewed: Yes (hypertensive) - General General: Alert and oriented X 3, Well developed/nourished - HEENT HEENT: Atraumatic - Neck Neck: No bony TTP - Cardiac Cardiac: RRR - Respiratory Respiratory: Other (Diffuse expiratory wheezes,) - Abdomen Abdomen: Soft, Non tender - Back Back: No spinal TTP - Derm Derm: No rash - Extremities Extremities: Other (There is swelling over the dorsal aspect of the left wrist, with associated tenderness to palpation. There is superficial skin tear at the dorsum of the left wrist, as well as the extensor aspect of the left proximal forearm. There is no tenderness at the elbow or shoulder. Distal neurovascular is intact.) - Neuro Neuro: Alert and oriented X 3, No motor deficit, Normal speech Results - Vitals Vitals: Vital Signs - 24 hr 01/26/18 01/26/18 10:56 14:21 Temperature 36.6 C Heart Rate 88 73 Respiratory 20 16 Rate Blood Pressure 151/96 H 177/103 H O2 Saturation 95 98 Oxygen O2 Source [With Activity] Nasal cannula O2 Source [Without Activity] Room air O2 Source Nasal cannula Procedures - Splint (location) left wrist Splint applied by: Tech Type of splint: Fiberglass, Volar cock up Other: Patient tolerated well, No complications, Neurovascular intact PD MEDICAL DECISION MAKING - ED course Complexity details: reviewed results, re-evaluated patient, considered differential, d/w patient ED course: The patient's presentation is significant for a left distal radius fracture, which is visualized on x-ray. Treatment in the emergency department included administration of Vicodin 1 tablet orally, and application of a volar wrist splint. Superficial skin tears were cleaned and antibiotic wound dressings applied. I discussed with the patient and his the expected course of injury, follow- up with orthopedics, as well as potentially worrisome signs or symptoms that should prompt reevaluation in the emergency department. He is being discharged with prescription for Vicodin, 20 tablets. Departure - Departure Disposition: 01 Home, Self Care Clinical Impression: Skin tear Fracture of left distal radius Qualifiers: Encounter type: initial encounter Fracture type: closed Fracture morphology: unspecified fracture morphology Qualified Code(s): S52.502A - Unspecified fracture of the lower end of left radius, initial encounter for closed fracture Condition: Stable Instructions: ED Fx Colles Wrist No Redu Requ Follow-Up: [facility] [Provider Group] Prescriptions: Hydrocodone/Acetaminophen [Hydrocodon-Acetaminophen 5-325] 1 - 2 each PO Q6H PRN #20 tablet PRN Reason: pain Comments: Keep your left hand elevated as much the time as possible. Keep the splint dry. You can use Vicodin as prescribed if needed for pain. Follow-up with orthopedics within 1 week. Call to schedule an appointment. Return to the emergency department if you develop markedly increasing pain despite the pain medication, or otherwise worsening symptoms.
[2018-01-26] MEDS ORDERED: HYDROcod/ACETAM 5/325 MG TABLET PO STA (12:43)
[2018-01-26] MEDS ORDERED: BACITRACIN OINT TOP ONE (13:38)
[2018-01-26 14:22] VITALS: BP 177/103
--- NOTE | 2018-01-26 15:16 | XRAY Report ---
Reason: left wrist injury Procedure Date: 01/26/2018 Accession Number: [id number] / [id number] Procedure: XR - Wrist 3 View LT CPT Code: FULL RESULT: EXAM: LEFT WRIST RADIOGRAPHY EXAM DATE: 01/26/2018 12:53 PM. CLINICAL HISTORY: Fell off stool--left wrist injury. Pain COMPARISON: 05/20/2010. TECHNIQUE: 3 views. FINDINGS: Bones: Impacted distal left radius predominantly transverse fracture with possible intra-articular extension and dorsal angulation of the distal fracture fragment. Ulna appears intact. Joints: No subluxations. Soft Tissues: Mild soft tissue swelling. 5 mm radiopaque foreign body left thumb at the level of the metacarpal phalangeal articulation. IMPRESSION: Fracture distal left radius. 5 mm radiopaque foreign body left thumb. [facility]
== END 2018-01-26 14:43 | disposition home or self-care (01) ==
LOC: ED 10:47
DX: S61.511A Laceration without foreign body of right wrist, initial encounter (principal); S52.502A Unspecified fracture of the lower end of left radius, initial encounter for closed fracture; W17.89XA Other fall from one level to another, initial encounter; J44.9 Chronic obstructive pulmonary disease, unspecified; I10 Essential (primary) hypertension; Z99.81 Dependence on supplemental oxygen; Z79.82 Long term (current) use of aspirin
CPT/HCPCS: 29125; 73110; 99283; A9270

== ENCOUNTER 2018-01-29 13:13 | Outpatient (CLI) | payer MEDICARE, OTHER ==
--- NOTE | 2018-01-29 13:24 | CONSULTATION NOTE ---
Palliative Care Consultation - Referral Referring Provider: Dr Magaly Guardado ([employer] [employer]) Time of Visit: 01/29/2018. 11:00 - 12:30 Referral setting: Home Referral Reason: Advancing COPD, frequent falls - Information Sources Records reviewed: Previous records reviewed History/Review of Systems obtained from: Patient, Family - History of Present Illness Brief History of Present Illness: Thank you, Dr. Guardado, for asking the palliative care consult service to be involved in the care of your patient. I am asked to provide support regarding a recent decline in functional status, symptom management, goal clarification and advanced care planning. 82-year-old gentleman with severe COPD and history of recurrent syncope and multiple ED visits/hospitalizations for COPD exacerbations, pneumonia, falls and syncope. His most recent fall was 01/26/18, fracturing his L distal radius. Medical history: Severe COPD, oxygen dependent; chronic hypoxemic respiratory failure; pulmonary fibrosis; diastolic CHF; h/o bladder cancer in remission; HTN; HLD; osteoarthritis; GERD; depression; h/o suprapubic catheter; cognitive deficits; mild-moderate dementia. -Patient has increasing weakness in lower legs, including tremor of R LE and UE for several years, of unknown etiology. -He has had 3 hospitalizations (pneumonia, COPD, hypoxia) and 5 ED visits since the beginning of the year. -COPD was diagnosed [id number]. Hestopped using tobacco 15 years ago. -He is on continuous oxygen, 2L/hour. He uses the nebulizer about once a month. He has a Trilogy but declines to use it; doesn't like it, "can't stand all the tubes." -He has been in cardiopulmonary therapy -Patient reports syncopal episodes off and on for 5-6 years, when he suddenly blacks out. there is no discernable pattern. -He does drink 3-4 glasses of "watered down" whiskey (as reported by his ) but denies there is a connection because the syncopal events happen at all hours. -He notes the last time it happened was after starting a "prostate" medicine (alfuzosin), he became dizzy and stopped it after one day. - notes he is a poor historian, and is in denial about his general decline; he does not want to face it. -He reports several doctors have investigated the syncopal episodes, denies it is orthostatic hypotension, they have tested that and reports his BP is usually in the 120s-140s. -Today is it 141/79. -Spouse notes general decline and worsening cognition. She feels it's no longer safe to leave him in home, for example he turns on the oven and forgets it (so she has started turning off the breaker). His gait is more and more unsteady, he falls frequently, but won't use his walker. -The patient says he wants to do less and less. he used to go hunting with his son, and fishing on their boat, but in the past year and a half is no longer doing so. -Patient and his moved here from [place] 6 years ago, [place] but his says they are not especially close. She feels they have no social support here, and she feels the lack of it. -He is being followed by clinical program coordinator Dr Xi Wang in [facility]. [phone]. -He is followed by urologist Dr Baker [phone]. Medical/Surgical History - Past Medical History Cardiovascular: reports: Congestive heart failure (diastolic), Hypertension, High cholesterol Respiratory: reports: Asthma, COPD, Emphysema, Pneumonia, Shortness of breath Neuro: reports: Dementia, Tremors Endocrine/Autoimmune: reports: None GI: reports: GERD DIRECTOR OF DIRECT MARKETING: reports: None : reports: Benign prostate hypertrophy, Nocturia, Frequency, Other (bladder cancer, in remission) HEENT: reports: Chronic vision loss, Macular degeneration, Chronic hearing loss, Other Psych: reports: Depression, Anxiety Musculoskeletal: reports: Osteoarthritis, Chronic back pain Derm: reports: Other MRSA Hx?: No - Past Surgical History Ortho: reports: Arthroscopic surgery HEENT: reports: Cataracts Derm: reports: Skin cancer surgery, Other - Substance History Use: Uses substance without health or social issues: NONE Tobacco Details: Cigarettes (Smoked or chewed tobacco since childhood, says 5-6 years old. Quit tobacco 15 years ago), Chewing Tobacco Social History - Living Situation Living arrangement: At home Living Situation: With spouse/s.o. Support System: -Patient grew up on a [employer] in [place]. 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 -He started smoking and chewing tobacco at a very young age, his says maybe 5-6 years old. 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 -He and his have been together 26 years. -He has 4 adult [place] one [place]. -Her 3 children all live in [place]. -They moved to [facility] 6 years ago and do not have a social support network. -His reports that his children are not very involved in his life, although son Jose Eduardo does check in. He is the son he used to go on hunting trips with, and fishing too. They get 12 hours monthly of caregiver support through [employer], used for bath aid. Family History - Family History Family History Comment/Other: Father in his late 60s of heart disease. Mother in her 40s of cancer. One sister of liver disease. Medications/Allergies - Medications Home Medications: Ambulatory Orders Medication Instructions Recorded Confirmed Aspirin Chewable [St Vlad 81 mg PO DAILY 09/04/12 01/29/18 Aspirin] Multivitamin [Daily [place]] 1 each PO DAILY 02/26/15 01/29/18 Tiotropium [place] [Spiriva 2 puffs INH DAILY 03/21/17 01/29/18 Respimat] Escitalopram Oxalate [Lexapro] 20 mg PO DAILY 06/10/17 01/29/18 Fluticasone/Salmeterol [Advair Hfa 2 puffs INH BID 06/10/17 01/29/18 230-21 Mcg Inhaler] Metoprolol Succinate [Toprol Xl] 25 mg PO DAILY 06/10/17 01/29/18 Dexamethasone [Decadron] 4 mg PO DAILY #5 tablet MDD For 5 01/19/18 01/29/18 days only HYDROcod/ACETAM 5/325 [Cyril 5/325] 1 tab PO Q6H PRN #20 tablet 01/19/18 01/29/18 Azithromycin 250 mg PO .M,W,F MDD for one week 01/29/18 01/29/18 only Omeprazole 20 mg PO 01/29/18 predniSONE [Prednisone] 0.5 tab PO DAILY PRN 01/29/18 01/29/18 - Allergies Allergies/Adverse Reactions: Allergies Allergy/AdvReac Type Severity Reaction Status Date / Time Sulfa (Sulfonamide Allergy Unknown Rash Verified 01/26/18 11:00 Antibiotics) Review of Systems - Constitutional Constitutional: reports: Weakness, Weight stable (195 lbs. In the past he had lost weight, from 230 lbs to 170 lbs. Now is stabilized at 195.) - Ears, Nose & Throat Ears, Nose & Throat: reports: Hearing loss, Postnasal drainage - Respiratory Respiratory: reports: Sputum production, SOB at rest (baseline), SOB with exertion (baseline) - Gastrointestinal Gastrointestinal: reports: Constipation (opioid induced). denies: Poor appetite - Genitourinary Genitourinary: reports: Urgency, Incontinence, Nocturia - Musculoskeletal Musculoskeletal: reports: Other (pain in recently (3 days ago) fractured L radius,) - Neurological Neurological: reports: Focal weakness (lower extremities, with tremor), Memory problems, Pre-existing deficit, Abnormal gait - Hematologic/Lymphatic Hematologic/Lymphatic: reports: Recurrent infections (pneumonia) Physical Exam - Vital Signs Temperature: 96.6 F Pulse Rate: 82 O2 Saturation: 95 (2L oxygen) Blood Pressure: 141/79 (wrist cuff) - Physical Exam General Appearance: positive: No acute distress, Alert Eyes Bilateral: positive: EOMI, No lid inflammation, Conjunctivae nml, No scleral icterus ENT: positive: No signs of dehydration Neck: positive: Trachea midline Cardiovascular: positive: Regular rate & rhythm, No murmur, No gallop Respiratory: positive: Chest non-tender, Diminished throughout Abdomen: positive: Non-tender, Soft, Nml bowel sounds, Obese Skin: positive: Wound (on bridge of nose, injury from his fall) Extremities: positive: Nml appearance, No pedal edema Neurologic/Psychiatric: positive: Oriented x3, Mood/affect nml Palliative Care - POLST Patient has POLST: No Pain: Location (L distal radial fracture) Tiredness/Fatigue: Mild (1-3) Drowsiness/Sedation: None Sleep: Variable sleep pattern (wakes up during night to use bathroom; falls) Feelings of wellbeing/Perceived Quality of Life: Fair Performance Status: gait unstable; weakness in LEs; syncopal episodes pain from L radial fracture is controlled with Cyril - Palliative Care Discussion: Patient is in denial about his declining functionality and cognition and worsening gait and balance. His avoids speaking with him in the afternoons and evenings because he can't rememer things: forgeting conversations, giving things away and not remembering, etc. She says mornings are fine and when he is at his sharpest. would like a break but admits she would have a hard time taking a break because of the sense of responsibility she feels. It is difficult because they a re lacking social and family support, and so she feels she can't leave him at all. She has seen Melia Bacon at [facility]. They now have [facility] for 12 hours per month of bathing aid. [facility] also [facility]. In discussing continuum of care, his states she could never "put him in a facility," she "just wouldn't do that." Impression and Recommendations - Palliative Care Impression: 82-year-old gentleman with severe COPD and history of recurrent syncope and multiple ED visits/hospitalizations for COPD exacerbations, pneumonia, falls and syncope. His fell 01/26/18, fracturing his L distal radius. His of 26 years is his sole caregiver and they have little social or family support at this time. They have starting getting bath aid help through [facility], which helps, but his remains at risk for caregiver burnout. Patient resists recognizing his declining functionality. Palliative care to provide support and monitoring with further discussion and clarification of goals at next visit. Recommendations/Counseling Done: Cognitive deficits, mild-moderate dementia: Declining short term memory and functionality. Spouse is main caregiver, not much family support. [facility] is providing 12 hours of bathing aid per month through [facility]. They were just enrolled in the Family Caregiver support program, also through [facility] Weakness: Increasing unsteadiness of lower extremities, episodes of syncope and frequent falls. Patient resists using walker. Has had reactions in the past to medications that have increased dizziness. He resists new medications, refused taking orthostatic BP today, says it has already been done, with inconclusive results. Encouraged adequate hydration (he drinks very little water), also drinks "3-4 glasses" of whiskey per night (watered down, according to his ). L distal radial fracture: Acute, 3 days ago. Cyril 5/325 Q6h for pain Constipation, opioid induced: He had regular bowel movements until recently, since he started Cyril for the arm fracture. Will start Miralax daily (he has some at home already) and wrote script for Senna 8.6mg tab, 1-2 tablets per day. COPD: Slow decline, able to do less of his previous activities (hunting, fishing, cooking) He is on continuous 2L oxygen, and routine Spiriva and Advair inhalers. Uses nebulizer about once a month. Has tried the Trilogy ventilator, doesn't like it and is not using it currently. He saw his new clinical program coordinator, Dr Xi Wang, about 3 weeks ago. Just completed a short course of Decadron. Has a supply of prednisone 10mg tablets, occasionally does short tapers of 0.5 tablets as needed. He has done cardiopulmonary therapy in the past, but doesn't plan to in the future, doesn't think it helps Advanced care planning: No POLST. Goal is to for patient to remain at home. Will continue discussion for clarification of goals at follow up visit Thursday02/26/18 10:00am.
== END 2018-01-29 13:14 | disposition home or self-care (01) ==
LOC: PC 13:13
PROVIDERS: ATTEND Nurse Practitioner
DX: Z51.5 Encounter for palliative care (principal); F03.90 Unspecified dementia, unspecified severity, without behavioral disturbance, psychotic disturbance, mood disturbance, and anxiety; R53.1 Weakness; R29.6 Repeated falls; S52.502D Unspecified fracture of the lower end of left radius, subsequent encounter for closed fracture with routine healing; K59.03 Drug induced constipation; T40.2X5A Adverse effect of other opioids, initial encounter; J43.9 Emphysema, unspecified; J84.10 Pulmonary fibrosis, unspecified; J96.11 Chronic respiratory failure with hypoxia; I11.0 Hypertensive heart disease with heart failure; I50.30 Unspecified diastolic (congestive) heart failure; R25.1 Tremor, unspecified; Z87.01 Personal history of pneumonia (recurrent); Z99.81 Dependence on supplemental oxygen; Z87.891 Personal history of nicotine dependence; Z79.899 Other long term (current) drug therapy; Z91.81 History of falling; Z79.51 Long term (current) use of inhaled steroids
CPT/HCPCS: 99345

== ENCOUNTER 2018-03-02 08:21 | Outpatient (CLI) | payer MEDICARE, OTHER ==
[2018-03-02 08:53] LABS: CREATININE 1.1 mg/dL (0.6-1.2)
[2018-03-02] MEDS ORDERED: IOVERSOL 320 100 ML VIAL IVP ONE ×2 (09:27→13:00)
--- NOTE | 2018-03-02 16:26 | CT Report ---
Reason: MICROSCOPIC HEMATURIA Procedure Date: 03/02/2018 Accession Number: [id number] / [id number] Procedure: CT - IVP CPT Code: FULL RESULT: EXAM: CT ABDOMEN AND PELVIS WITHOUT AND WITH CONTRAST (CT IVP) EXAM DATE: 03/02/2018 10:53 AM. CLINICAL HISTORY: Microscopic hematuria. COMPARISONS: Abdomen, pelvis with contrast 08/11/2017 8:31 AM. TECHNIQUE: Routine helical imaging was performed through the kidneys, ureters and bladder in the precontrast, postcontrast and delayed phase. IV Contrast: Optiray 320 100 mL. Reconstructions: Coronal and sagittal. In accordance with CT protocol optimization, one or more of the following dose reduction techniques were utilized for this exam: automated exposure control, adjustment of mA and/or KV based on patient size, or use of iterative reconstructive technique. FINDINGS: Lung Bases: Right basilar interstitial thickening. Right Kidney/Ureter: Hypodensities which are too small to characterize. No stones, hydronephrosis, or suspicious masses. Left Kidney/Ureter: Hypodensities which are too small to characterize. No stones, hydronephrosis, or suspicious masses. Other Solid Organs: The liver, spleen, pancreas, gallbladder, and adrenal glands are unremarkable with the exception of hepatic calcifications, possibly prior granulomatous disease.The bile ducts are unremarkable. Peritoneal Cavity/Bowel: Normal. No free fluid, free air or adenopathy. No masses. Bowel loops are unremarkable. Pelvic Organs: The bladder wall is thickened with 2 small diverticuli with a caliber of approximate 1 cm posteriorly. This finding in the setting of prostatic hypertrophy by CT. No bladder stones or masses. Vasculature: Vascular calcifications without aortic aneurysm. Bones: No aggressive osseous lesions. Other: None. IMPRESSION: Bladder wall thickening and bladder diverticuli. Suspect bladder outlet obstruction. RADIA
== END 2018-03-02 08:22 | disposition home or self-care (01) ==
LOC: LAB 08:21 → DI 08:22
PROVIDERS: ATTEND Urology
DX: N32.3 Diverticulum of bladder (principal); R31.29 Other microscopic hematuria
CPT/HCPCS: 36415; 74178; 82565; Q9967

== ENCOUNTER 2018-03-03 16:30 | Outpatient (CLI) | payer MEDICARE, OTHER ==
--- NOTE | 2018-03-03 18:05 | CONSULTATION NOTE ---
Palliative Care Follow Up - Referral Referring Provider: Navy Jeannine Time of Visit: 03/03/2018. 12:30 - 13:40 Referral setting: Home (Seen in home setting due to taxing and considerable effort required to leave the home due to significant SOA from severe COPD and chronic hypoxemic respiratory failure.) Referral Reason: Chronic SOA, general weakness - Information Sources Records reviewed: Previous records reviewed History/Review of Systems obtained from: Patient, Family Exam limitations: No limitations - History of Present Illness Update Brief HPI Update: 82-year-old gentleman with severe COPD and history of recurrent syncope and multiple ED visits/hospitalizations for COPD exacerbations, pneumonia, falls and syncope. His most recent fall was 01/26/18, fracturing his L distal radius. Medical history: Severe COPD, oxygen dependent; chronic hypoxemic respiratory failure; pulmonary fibrosis; diastolic CHF; h/o bladder cancer in remission; HTN; HLD; osteoarthritis; GERD; depression; h/o suprapubic catheter; cognitive deficits; mild-moderate dementia. -Continued decline: fatigue with any exertion (shower, walking from car, etc), more shortness of air, increased phlegm, less appetite though weight appears stable. -Improvement with mobility, fewer falls, able to get back and forth to bathroom. -He has bath aid help weekly. -Caregiver still very alert, doesn't like to leave him alone for long. -He spilled hot gravy on R thigh last night, his spouse iced it well afterwards so burn maite is mild 1st degree, no blisters, no broken skin, no heat or swelling. Recommend aloe vera, and covering with large bandage if clothing is irritating the burn. -Retains urine and has occasional burning with urine. Had bladder cancer 15 years ago. -Pelvic/abdominal scan yesterday shows bladder wall thickening and bladder diverticuli. Suspect bladder outlet obstruction. No stones, hydronephrosis or suspicious masses on kidneys/ureters -Being followed by urologist Dr Baker [phone]. -No complaints of pain on L distal radial fracture, is no longer using the Guild. Has follow up ortho appointment Mon 03/08. Social History - Living Situation Living arrangement: At home Living Situation: With spouse/s.o. Support System: -Patient grew up [place] a [place] in [place]. 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 -He started smoking and chewing tobacco at a very young age, his says maybe 5-6 years old. 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 -He and his have been together 26 years. -He has 4 adult [place]. -Her 3 children all live in [place]. -They moved to [facility] 6 years ago and do not have a social support network. -His reports that his children are not very involved in his life, although son Jose Eduardo does check in. He is the son he used to go on hunting trips with, and fishing too. They receive 12 hours monthly of bath aid support from [facility] through [employer]. Medications/Allergies - Medications Home Medications: Ambulatory Orders Medication Instructions Recorded Confirmed Aspirin Chewable [St Vlad 81 mg PO DAILY 09/04/12 03/04/18 Aspirin] Multivitamin [Daily [place]] 1 each PO DAILY 02/26/15 03/04/18 Tiotropium [place] [Spiriva 2 puffs INH DAILY 03/21/17 03/04/18 Respimat] Escitalopram Oxalate [Lexapro] 20 mg PO DAILY 06/10/17 03/04/18 Fluticasone/Salmeterol [Advair Hfa 2 puffs INH BID 06/10/17 03/04/18 230-21 Mcg Inhaler] Metoprolol Succinate [Toprol Xl] 25 mg PO DAILY 06/10/17 03/04/18 Omeprazole 20 mg PO 01/29/18 predniSONE [Prednisone] 0.5 tab PO DAILY PRN 01/29/18 03/04/18 - Allergies Allergies/Adverse Reactions: Allergies Allergy/AdvReac Type Severity Reaction Status Date / Time Sulfa (Sulfonamide Allergy Unknown Rash Verified 01/26/18 11:00 Antibiotics) Review of Systems - Constitutional Constitutional: reports: Fatigue (increasing), Weakness, Poor appetite, Weight stable (Range is 185-195 lbs. will try to start weighing him at home) - Eyes Eyes: reports: Vision loss (cataracts) - Ears, Nose & Throat Ears, Nose & Throat: reports: Hearing loss, Other (chronic sinus issues) - Cardiovascular Cardiovascular: reports: Exertional dyspnea, Decr. exercise tolerance. denies: Chest pain - Respiratory Respiratory: reports: Sputum production (chronic), SOB with exertion - Gastrointestinal Gastrointestinal: denies: Constipation - Genitourinary Genitourinary: reports: Dysuria, Frequency, Other (retention) - Musculoskeletal Musculoskeletal: reports: Other (fractured L radius) - Integumentary Integumentary: reports: Other (Recent mild burn on R thigh, unbroken skin) - Neurological Neurological: reports: General weakness, Focal weakness (lower extremities), Memory problems (short term memory) Physical Exam - Vital Signs Temperature: 96.9 F Pulse Rate: 86 O2 Saturation: 95 (2L O2) Blood Pressure: 153/90 - Physical Exam General Appearance: positive: No acute distress, Alert Eyes Bilateral: positive: No lid inflammation, Conjunctivae nml, No scleral icterus ENT: positive: No signs of dehydration Neck: positive: Trachea midline Cardiovascular: positive: Regular rate & rhythm, No murmur, No gallop Respiratory: positive: Chest non-tender, No respiratory distress, Diminished throughout (severe), Wheezes Skin: positive: Wound (1st degree burn wound R thigh, no blistering) Extremities: positive: No pedal edema Neurologic/Psychiatric: positive: Oriented x3, Mood/affect nml Palliative Care - POLST Patient has POLST: Yes POLST Status: DNR, Selective Treatment Pain: No pain Anorexia: Mild (1-3) Sleep: Sleeps poorly Performance Status: Mobility improved in that he is falling less, and is getting back and forth to bathroom well. Otherwise, increased fatigue, increase SOA, decreased appetite LUE fracture is healing, nonpainful, he is off Guild now Continued urinary frequency and retention. Had pelvic/abd CT yesterday. - Palliative Care Discussion: We discussed goals of care at length and filled out POLST (DNR and selective). He speaks about comfort care being important to him, but does want hospitalization for crisis and treatment for reversible conditions. He and his both recognize he is declining, she wants to enjoy the time they have together and have him with her for as long as possible. When the time comes, the patient does want to be at home for end of life. The 's son is coming 03/14/18 and she is planning to go out with him. The patient is supportive of this and of his having time away from the house and from caregiving. All her children live in [place]. The patient has 3 children who live on [facility]. The has said they are not very involved in his life or in care giving. Currently patient receives bath aid from [facility] 12 hours per month. They are not currently pursuing further caregiver support. I spoke about Palliative Care SW services, they don't feel it is necessary at this time. Results - Lab Results Lab and Imaging Results: Pelvic/abdominal scan 03/02/18 shows bladder wall thickening and bladder diverticuli. Suspect bladder outlet obstruction. No stones, hydronephrosis or suspicious masses on kidneys/ureters Impression and Recommendations - Palliative Care Impression: 82-year-old gentleman with severe COPD and history of recurrent syncope and multiple ED visits/hospitalizations for COPD exacerbations, pneumonia, falls and syncope. His L distal radius is healing. General decline with increasing weakness and fatigue, decreased appetite but no apparent weight loss. is sole caregiver, they do have weekly bath aid [facility]. remains at risk for caregiver fatigue, declines SW support at this time. POLST was filled out today: DNR and selective treatment. Palliative care will continue to provide support and monitoring. Recommendations/Counseling Done: Cognitive deficits, mild-moderate dementia: Declining short term memory and functionality. Spouse is main caregiver, not much family support. [facility] is providing 12 hours of bathing aid per month through [facility]. They were just enrolled in the Family Caregiver support program, also through [facility] Weakness: Increasing fatigue and weakness but some improvement in mobility back and forth to bathroom, with no falls. Patient continues to resist using walker. Has history of lightheadedness with falls, reports past orthostatic BP have been inconclusive. Drinks "3-4 glasses" of whiskey per night (watered down). Poor appetite: Appetite is decreasing, he often skips breakfast, but consistently eats dinner. They don't think he has lost much weight. will try to start taking weekly weights. His range has been 185-195 lbs. L distal radial fracture: Healing, denies pain. Finished with Guild. Has ortho follow up Thursday03/08/18, there is possibility surgery may be required. Constipation, opioid induced: Improved since stopping Guild. Has Miralax at home and [facility] provided a script for Senna 8.6mg at last visit. COPD: Increased fatigue and SOA with exertion. On continuous 2L oxygen, routine Spiriva and Advair inhalers. Uses nebulizer rarely and won't use Trilogy ventilator. Does intermittent, short prednisone tapers as needed using his diego pply of 10mg prednisone tablets. His mechanical maintenance instructor is Dr Xi Wang. Cardiopulmonary therapy has not helped in the past, per patient's report. Advanced care planning: POLST signed: DNR, selective treatment. Comfort is fenton, but he agrees to transfer to hospital for reversible conditions. He wants his end of life, when that time comes, to be home. likes to call Palliative Care to provide FYI updates. Follow up visit 03/31/18 10:30 Time Spent: 70 minutes were spent with more than 50% of the time spent on counseling, education, anticipatory guidance, and coordination of care.
== END 2018-03-03 16:31 | disposition home or self-care (01) ==
LOC: PC 16:30
PROVIDERS: ATTEND Nurse Practitioner
DX: Z51.5 Encounter for palliative care (principal); F03.90 Unspecified dementia, unspecified severity, without behavioral disturbance, psychotic disturbance, mood disturbance, and anxiety; R53.1 Weakness; R63.0 Anorexia; S52.502D Unspecified fracture of the lower end of left radius, subsequent encounter for closed fracture with routine healing; K59.03 Drug induced constipation; T40.2X5D Adverse effect of other opioids, subsequent encounter; J44.9 Chronic obstructive pulmonary disease, unspecified; J84.10 Pulmonary fibrosis, unspecified; J96.11 Chronic respiratory failure with hypoxia; T24.111A Burn of first degree of right thigh, initial encounter; X10.1XXA Contact with hot food, initial encounter; N32.3 Diverticulum of bladder; R35.0 Frequency of micturition; R33.9 Retention of urine, unspecified; I11.0 Hypertensive heart disease with heart failure; I50.30 Unspecified diastolic (congestive) heart failure; Z99.81 Dependence on supplemental oxygen; Z87.01 Personal history of pneumonia (recurrent); Z91.81 History of falling; Z85.51 Personal history of malignant neoplasm of bladder; Z87.891 Personal history of nicotine dependence; Z79.51 Long term (current) use of inhaled steroids; Z79.899 Other long term (current) drug therapy; Z66 Do not resuscitate
CPT/HCPCS: 99350

== ENCOUNTER 2018-03-31 16:55 | Outpatient (CLI) | payer MEDICARE, OTHER ==
--- NOTE | 2018-03-31 17:08 | CONSULTATION NOTE ---
Palliative Care Follow Up - Referral Referring Provider: Dr Susie Guardado Time of Visit: 03/31/2018. 10:50 - 11:15 Referral setting: Home (Seen in home setting due to taxing and considerable effort required to leave the home due to significant SOA from severe COPD and chronic hypoxemic respiratory failure.) Referral Reason: Chronic SOA - Information Sources Records reviewed: Previous records reviewed History/Review of Systems obtained from: Patient, Family Exam limitations: No limitations - History of Present Illness Update Brief HPI Update: 82-year-old gentleman with severe COPD and history of recurrent syncope and multiple ED visits/hospitalizations for COPD exacerbations, pneumonia, falls and syncope. His most recent fall was 01/26/18, fracturing his L distal radius. Medical history: Severe COPD, oxygen dependent; chronic hypoxemic respiratory failure; pulmonary fibrosis; diastolic CHF; h/o bladder cancer in remission; HTN; HLD; osteoarthritis; GERD; depression; h/o suprapubic catheter; cognitive deficits; mild-moderate dementia. Patient reports he has been stable, with continuing, chronic SOA where he has to carefully manage his activities and exertion. However, he is learning to compensate, and managing better. Having a LEONID caregiver for hygiene aid is a significant benefit. Khloe is their caregiver, and both and are very pleased to have her helping out. The patient trusts and likes her, she helps out the with needed tasks around the house, and it gives the a chance to do other things and let down her vigilance. The news is that the patient's bladder cancer has returned (it was originally diagnosed 15 years ago). Dr Baker is his urologist, [facility], [phone] On 04/13/18 they will scrape the bladder out, obtain a biopsy, and determine what's next. The patient is in good spirits, and states that he still has years left, that there are options after a cystectomy, if it comes to that. He denies pain and other symptoms. He has not reported any recent syncopal events. Now when he gets up, he does it slower and waits to get his balance before moving. His reports some lesions on his back. They appear to be normal barnacles, but I suggested monitoring and seeing a clerk telegraph service. He reports that he checks his skin with a clerk telegraph service regularly. Social History - Living Situation Living arrangement: At home Living Situation: With spouse/s.o., With caregiver(s) Support System: [place] He and his moved to [facility] [place] from [place] 6 years ago. She reports they do not have a social support network here. He receives 18 hours monthly of hygiene care from [facility] through [facility]. Both of them are very satisfied with Khloe, the caregiver. Medications/Allergies - Medications Home Medications: Ambulatory Orders Medication Instructions Recorded Confirmed Aspirin Chewable [St Vlad 81 mg PO DAILY 09/04/12 03/04/18 Aspirin] Multivitamin [Daily [place]] 1 each PO DAILY 02/26/15 03/04/18 Tiotropium [place] [Spiriva 2 puffs INH DAILY 03/21/17 03/04/18 Respimat] Escitalopram Oxalate [Lexapro] 20 mg PO DAILY 06/10/17 03/04/18 Fluticasone/Salmeterol [Advair Hfa 2 puffs INH BID 06/10/17 03/04/18 230-21 Mcg Inhaler] Metoprolol Succinate [Toprol Xl] 25 mg PO DAILY 06/10/17 03/04/18 Omeprazole 20 mg PO 01/29/18 predniSONE [Prednisone] 0.5 tab PO DAILY PRN 01/29/18 03/04/18 - Allergies Allergies/Adverse Reactions: Allergies Allergy/AdvReac Type Severity Reaction Status Date / Time Sulfa (Sulfonamide Allergy Unknown Rash Verified 01/26/18 11:00 Antibiotics) Review of Systems - Constitutional Constitutional: reports: Weakness, Weight stable (around 195 lbs). denies: Poor appetite - Ears, Nose & Throat Ears, Nose & Throat: reports: Hearing loss, Postnasal drainage - Cardiovascular Cardiovascular: reports: Chest pain, Exertional dyspnea, Decr. exercise tolerance - Respiratory Respiratory: reports: Sputum production, SOB at rest, SOB with exertion - Gastrointestinal Gastrointestinal: denies: Constipation - Genitourinary Genitourinary: reports: Urgency, Incontinence, Nocturia - Musculoskeletal Musculoskeletal: reports: Other (L radius healing well, now in wrist brace) - Integumentary Integumentary: reports: Other (burn on R thigh resolving as expected) - Neurological Neurological: reports: Focal weakness (lower extremities), Memory problems, Pre- existing deficit, Abnormal gait - Hematologic/Lymphatic Hematologic/Lymphatic: reports: Recurrent infections (pneumonia, h/o) Physical Exam - Vital Signs Temperature: 96.7 F Pulse Rate: 87 O2 Saturation: 98 (2L O2) Blood Pressure: 140/90 (arm cuff) - Physical Exam General Appearance: positive: No acute distress, Alert Eyes Bilateral: positive: No lid inflammation, Conjunctivae nml, No scleral icterus ENT: positive: No signs of dehydration Neck: positive: Trachea midline Cardiovascular: positive: Regular rate & rhythm, No murmur, No gallop Respiratory: positive: Chest non-tender, No respiratory distress, Diminished throughout (nearly no breath sounds) Abdomen: positive: Obese Skin: positive: Dryness Extremities: positive: Nml appearance, No pedal edema Neurologic/Psychiatric: positive: Oriented x3, Mood/affect nml Palliative Care - POLST Patient has POLST: Yes POLST Status: DNR, Selective Treatment Performance Status: Mobility improved, less frequent falling. Continued fatigue and significant SOA, very limited activity. LUE fracture is healing Reoccurrence of bladder cancer. Has urology procedure 04/13/18. - Palliative Care Discussion: Wants hospitalization for crisis and treatment for reversible conditions. When the time comes, the patient does want to be at home for end of life. Recurrence of bladder cancer, so they are waiting for results of procedure on 04/13/18 for next steps. Bath aid/caregiver support, 18hrs/month, is sufficient for his needs currently, and agreed with this (in spouse's presence). Impression and Recommendations - Palliative Care Impression: 82-year-old gentleman with severe COPD and history of recurrent syncope and multiple ED visits/hospitalizations for COPD exacerbations, pneumonia, falls and syncope, with declining status and functionality. His L distal radius fracture continues to heal. He has just been diagnosed with recurrent bladder cancer (previous cancer was 15 years ago). He is scheduled for a procedure, likely a TURBT (transurethral resection) on 04/13/18. Recommendations/Counseling Done: Bladder cancer: Recently reoccurred after 15 years remission. Bladder scraping (transurethral resection?) is scheduled for 04/13/18. Dr Baker of [facility] is his urologist. No complaints of symptoms Cognitive deficits, mild-moderate dementia: Slow decline. Weakness: Continued fatigue and weakness, but improvement with less falls. Has history of lightheadedness with falls, but is learning to compensate, stand up slower and take time to adjust. Drinks "3-4 glasses" of whiskey per night (watered down). Receives 18 hrs /month bathing aid through [facility]. Spouse is main caregiver, not much family support. L distal radial fracture: Continues to heal, now he wears a wrist brace. No complaints of pain. COPD: Continued fatigue and chronic SOA. On continuous 2L oxygen, routine Spiriva and Advair inhalers. Does intermittent, short prednisone tapers as needed using his supply of 10mg prednisone tablets. Manager Plan is Dr Xi Wang. Advanced care planning: POLST is DNR, selective treatment. Patient agrees to transfer to hospital for reversible conditions, but end of life, when that comes, is to be home. Time Spent: 25 minutes were spent with more than 50% of the time spent on counseling, education, and coordination of care.
== END 2018-03-31 16:56 | disposition home or self-care (01) ==
LOC: PC 16:55
PROVIDERS: ATTEND Nurse Practitioner
DX: Z51.5 Encounter for palliative care (principal); J44.9 Chronic obstructive pulmonary disease, unspecified; J84.10 Pulmonary fibrosis, unspecified; J96.11 Chronic respiratory failure with hypoxia; R55 Syncope and collapse; Z99.81 Dependence on supplemental oxygen; I11.0 Hypertensive heart disease with heart failure; I50.30 Unspecified diastolic (congestive) heart failure; S69.91XD Unspecified injury of right wrist, hand and finger(s), subsequent encounter; Z93.50 Unspecified cystostomy status; M19.90 Unspecified osteoarthritis, unspecified site; Z87.01 Personal history of pneumonia (recurrent); F32.9 Major depressive disorder, single episode, unspecified; F03.90 Unspecified dementia, unspecified severity, without behavioral disturbance, psychotic disturbance, mood disturbance, and anxiety; C67.9 Malignant neoplasm of bladder, unspecified; Z66 Do not resuscitate; Z79.82 Long term (current) use of aspirin; Z79.52 Long term (current) use of systemic steroids; Z91.81 History of falling
CPT/HCPCS: 99348

== ENCOUNTER 2018-05-17 04:12 | Emergency (ER) | payer MEDICARE, OTHER ==
[2018-05-17 05:31] LABS: BILIRUBIN,URINE NEGATIVE (NEGATIVE); GLUCOSE, URINE (UA) NEGATIVE (NEGATIVE); KETONES,URINE (UA) NEGATIVE (NEGATIVE); LEUKOCYTE ESTERASE, URINE SMALL (NEGATIVE); NITRITE,URINE NEGATIVE (NEGATIVE); OCCULT BLOOD,URINE MODERATE (NEGATIVE); PROTEIN,URINE 30 mg/dL (NEGATIVE); UROBILINOGEN,URINE 0.2 (NORMAL) E.U./dL (NORMAL)
--- NOTE | 2018-05-17 05:31 | ED Physician Documentation ---
PD HPI MALE - Stated complaint Stated Complaint: UNABLE TO URINATE - Chief complaint Chief Complaint: Abd Pain - History obtained from History obtained from: Patient, Family - History of Present Illness Timing - onset: Yesterday Timing - duration: Days (2) Timing - details: Gradual onset, Still present Associated symptoms: Dysuria, Urinary frequency, Unable to urinate Similar symptoms before: Diagnosis (urinary retention) Recently seen: Surgery - Additional information Additional information: 83-year-old male who has had a bladder tumor removal done 10 days ago has developed urinary urgency and frequency with significant pain in the urethra and he is noted that he has a very small volume of urine when he urinates. He feels that he is drinking plenty of fluids. Review of Systems Constitutional: denies: Fever, Chills, Myalgias, Fatigue Eyes: denies: Decreased vision Ears: denies: Ear pain Nose: denies: Rhinorrhea / runny nose, Congestion Throat: denies: Sore throat Cardiac: denies: Chest pain / pressure, Palpitations Respiratory: reports: Dyspnea (similar to always), Cough (similar to always) GI: denies: Abdominal Pain, Nausea, Vomiting, Constipation, Diarrhea : reports: Dysuria, Frequency, Unable to Void Skin: denies: Rash Musculoskeletal: denies: Neck pain, Back pain, Extremity pain Neurologic: denies: Generalized weakness, Focal weakness, Numbness PD PAST MEDICAL HISTORY - Past Medical History Past Medical History: Yes Cardiovascular: Congestive heart failure, Hypertension, High cholesterol Respiratory: Asthma, COPD, Emphysema, Pneumonia, Shortness of breath Neuro: None Endocrine/Autoimmune: None GI: GERD 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 : Benign prostate hypertrophy, Nocturia, Frequency, Other HEENT: Chronic vision loss, Macular degeneration, Chronic hearing loss, Other Psych: Depression, Anxiety Musculoskeletal: Osteoarthritis, Chronic back pain Derm: Other - Past Surgical History Past Surgical History: Yes Ortho: Arthroscopic surgery HEENT: Cataracts Derm: Skin cancer surgery, Other - Present Medications Home Medications: Ambulatory Orders Medication Instructions Recorded Confirmed Aspirin Chewable [St Vlad 81 mg PO DAILY 09/04/12 03/04/18 Aspirin] Multivitamin [Daily [place]] 1 each PO DAILY 02/26/15 03/04/18 Tiotropium [place] [Spiriva 2 puffs INH DAILY 03/21/17 03/04/18 Respimat] Escitalopram Oxalate [Lexapro] 20 mg PO DAILY 06/10/17 03/04/18 Fluticasone/Salmeterol [Advair Hfa 2 puffs INH BID 06/10/17 03/04/18 230-21 Mcg Inhaler] Metoprolol Succinate [Toprol Xl] 25 mg PO DAILY 06/10/17 03/04/18 Omeprazole 20 mg PO 01/29/18 Ciprofloxacin HCl [Cipro] 500 mg PO BID #14 tablet 05/17/18 - Allergies Allergies/Adverse Reactions: Allergies Allergy/AdvReac Type Severity Reaction Status Date / Time Sulfa (Sulfonamide Allergy Unknown Rash Verified 05/17/18 04:18 Antibiotics) - Social History Does the pt smoke?: No Smoking Status: Never smoker Does the pt drink ETOH?: Yes Does the pt have substance abuse?: No - Immunizations Immunizations are current?: Yes Immunizations: TDAP current <10years - POLST Patient has POLST: Yes POLST Status: Full Code PD ED PE NORMAL - Vitals Vital signs reviewed: Yes (tachy and hypertensive ) - General General: Alert and oriented X 3, No acute distress, Well developed/nourished - Neck Neck: Supple, no meningeal sign, No bony TTP - Respiratory Respiratory: No respiratory distress - Abdomen Abdomen: Soft, Non tender - Back Back: No CVA TTP, No spinal TTP - Derm Derm: Normal color, Warm and dry, No rash - Extremities Extremities: No deformity, No edema - Neuro Neuro: Alert and oriented X 3, 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 2-12 intact, No motor deficit, No sensory deficit, Normal speech Eye Opening: Spontaneous Motor: Obeys Commands Verbal: Oriented GCS Score: 15 - Psych Psych: Normal mood, Normal affect Results - Vitals Vitals: Vital Signs - 24 hr 05/17/18 05/17/18 05/17/18 04:15 06:33 07:48 Temperature 36.7 C Heart Rate 113 H 109 H 90 Respiratory 20 16 Rate Blood Pressure 158/102 H 157/99 H 179/105 H O2 Saturation 93 96 99 Oxygen O2 Source [] Nasal cannula O2 Source [] Room air O2 Source Nasal cannula - Labs Labs: Laboratory Tests 05/17/18 05/17/18 05/17/18 04:39 07:24 07:24 WBC 7.5 RBC 3.61 L Hgb 12.0 L Hct 35.0 L MCV 96.9 H MCH 33.1 H MCHC 34.2 RDW 12.7 Sodium 136 Potassium 4.4 Chloride 100 L Carbon Dioxide 28 Anion Gap 8.0 BUN 20 Creatinine 0.9 Estimated GFR (MDRD) 81 L Glucose 114 H Lactic Acid Calcium 8.5 Total Bilirubin 0.6 AST 62 H ALT 69 H Alkaline Phosphatase 48 Total Protein 6.7 Albumin 3.2 Globulin 3.5 Albumin/Globulin Ratio 0.9 L Lipase 41 Urine Color YELLOW Urine Clarity HAZY Urine pH 7.0 Ur Specific [place] 1.015 Urine Protein 30 H Urine Glucose (UA) NEGATIVE Urine Ketones NEGATIVE Urine Occult Blood MODERATE H Urine Nitrite NEGATIVE Urine Bilirubin NEGATIVE Urine Urobilinogen 0.2 (NORMAL) Ur Leukocyte Esterase SMALL H Urine RBC TNTC H Urine WBC >25 H Ur Squamous Epith Cells RARE Squamous Urine Bacteria Few Urine Mucus Few Strands Ur Microscopic Review INDICATED Urine Culture Comments INDICATED 05/17/18 07:24 WBC RBC Hgb Hct MCV MCH MCHC RDW Sodium Potassium Chloride Carbon Dioxide Anion Gap BUN Creatinine Estimated GFR (MDRD) Glucose Lactic Acid 0.7 Calcium Total Bilirubin AST ALT Alkaline Phosphatase Total Protein Albumin Globulin Albumin/Globulin Ratio Lipase Urine Color Urine Clarity Urine pH Ur Specific [place] Urine Protein Urine Glucose (UA) Urine Ketones Urine Occult Blood Urine Nitrite Urine Bilirubin Urine Urobilinogen Ur Leukocyte Esterase Urine RBC Urine WBC Ur Squamous Epith Cells Urine Bacteria Urine Mucus Ur Microscopic Review Urine Culture Comments Procedures - IVC sono (time) 0520 Bedside IVC sono: IVC measures (cm) (0.88), IVC collapsed c insp (cm) (complete), Dehydration (est 2 liter deficit) PD MEDICAL DECISION MAKING - ED course Complexity details: reviewed results, re-evaluated patient, considered differential, d/w patient, d/w family ED course: 83-year-old male with a recent bladder tumor removal has developed urinary frequency and urgency has lots of white blood cells in his urine and is treated for infection. He also was found to be significantly dehydrated and is administered intravenous fluid. Departure - Departure Disposition: 01 Home, Self Care Clinical Impression: Dehydration Urinary tract infection Qualifiers: Urinary tract infection type: acute cystitis Hematuria presence: with hematuria Qualified Code(s): N30.01 - Acute cystitis with hematuria Condition: Stable Instructions: ED Dehydration, ED UTI Cystitis Male Follow-Up: Your, urologist as planned [Other] Prescriptions: Ciprofloxacin HCl [Cipro] 500 mg PO BID #14 tablet
[2018-05-17 05:44] LABS: CLARITY,URINE HAZY (CLEAR)
[2018-05-17 05:45] LABS: BACTERIA,URINE Few /HPF (None Seen); MUCUS,URINE Few Strands; RBC,URINE TNTC /HPF (0-5); SQUAMOUS EPITHELIAL CELL,UR RARE Squamous (<= Few)
[2018-05-17] MEDS ORDERED: cefTRIAXone 1 GM in SODIUM CHLORIDE 0.9% MINIBAG 100 ML IV STA (06:03)
[2018-05-17] MEDS ORDERED: SODIUM CHLORIDE 0.9% 1,000 ML IV ONE (06:22)
[2018-05-17 07:46] LABS: ALBUMIN 3.2 g/dL (3.2-5.5); ALBUMIN/GLOBULIN RATIO 0.9 (1.0-2.2); BILIRUBIN,TOTAL 0.6 mg/dL (0.2-1.0); CALCIUM 8.5 mg/dL (8.5-10.3); CREATININE 0.9 mg/dL (0.6-1.2); TOTAL PROTEIN 6.7 g/dL (6.7-8.2)
[2018-05-17 07:48] VITALS: BP 179/105
[2018-05-17 07:48] LABS: BASOPHILS # (AUTO) 0.1 10^3/uL (0.0-0.1); EOSINOPHILS # (AUTO) 0.2 10^3/uL (0.0-0.7); EOSINOPHILS % (AUTO) 2.1 %; LYMPHOCYTES # (AUTO) 1.1 10^3/uL (1.5-3.5); MEAN CORPUSCULAR HEMOGLOBIN 33.1 pg (27.0-31.0); MEAN CORPUSCULAR HGB CONC 34.2 g/dL (32.0-36.0); MEAN CORPUSCULAR VOLUME 96.9 fL (80.0-94.0); MEAN PLATELET VOLUME 7.7 fL (7.4-11.4); MONOCYTES % (AUTO) 12.8 %; NEUTROPHILS # (AUTO) 5.2 10^3/uL (1.5-6.6); NEUTROPHILS % (AUTO) 69.1 %; PLT - PLATELET COUNT 214 10^3/uL (130-450); RED BLOOD COUNT 3.61 10^6/uL (4.70-6.10); RED CELL DISTRIBUTION WIDTH 12.7 % (12.0-15.0); WHITE BLOOD COUNT 7.5 x10^3/uL (4.8-10.8)
[2018-05-17 08:06] LABS: PLATELET ESTIMATE, MANUAL NORMAL (130-450,000) (NORMAL); PLATELET MORPHOLOGY NORMAL APPEARANCE (NORMAL); RBC MORPHOLOGY (MULTIPLE) NORMAL APPEARANCE (NORMAL)
== END 2018-05-17 07:56 | disposition home or self-care (01) ==
LOC: ED 04:12
DX: N30.01 Acute cystitis with hematuria (principal); E86.0 Dehydration; J43.9 Emphysema, unspecified; I10 Essential (primary) hypertension; Z79.82 Long term (current) use of aspirin
CPT/HCPCS: 36415; 80053; 81001; 81003; 83605; 83690; 85025; 87077; 87086; 87181; 96365; 99283; 99284

== ENCOUNTER 2018-07-17 06:34 | Emergency (ER) | payer MEDICARE, OTHER ==
--- NOTE | 2018-07-17 08:26 | ED Physician Documentation ---
PD HPI BACK PAIN - Stated complaint Stated Complaint: L LOWER BACK PAIN - Chief complaint Chief Complaint: Back Pain - History obtained from History obtained from: Patient, Family - History of Present Illness Timing - onset: Enter time (1800), Last night Timing - duration: Hours Timing - details: Abrupt onset, Still present Location: Lower, Left Quality: Pain, Spasm, Sharp Associated symptoms: No: Fever, Weakness, Numbness, Incontinent of urine, Unable to urinate, Hematuria, Incontinent of stool Improves with: Rest Worsened by: Movement, Twisting, Palpation Contributing factors: Other (no known injury) Similar symptoms before: Has not had sx before Recently seen: Other - Additional information Additional information: 83-year-old male who is being treated for bladder cancer with BCG has developed acute back pain on the left side and he states it feels like it is coming from inside. He states that if he is very still he has control of the pain can still feel that there is some pain there but if he goes to move he has severe pain. He did not have any injury that he is aware of and he has not had this pain previously. He denies any numbness or tingling distally and states that currently his breathing is as good as it gets. He does state that last night he drank enough whisky to quell the pain. Review of Systems Constitutional: denies: Fever Eyes: denies: Decreased vision Ears: denies: Ear pain Nose: denies: Rhinorrhea / runny nose, Congestion Throat: denies: Sore throat Cardiac: denies: Chest pain / pressure, Palpitations Respiratory: reports: Dyspnea (similar to always). denies: Cough GI: reports: Abdominal Pain. denies: Nausea, Vomiting, Constipation, Diarrhea : denies: Dysuria, Frequency Skin: denies: Rash Musculoskeletal: reports: Back pain. 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 : Benign prostate hypertrophy, Nocturia, Frequency, Other HEENT: Chronic vision loss, Macular degeneration, Chronic hearing loss, Other Psych: Depression, Anxiety Musculoskeletal: Osteoarthritis, Chronic back pain Derm: Other Other Past Medical History: Bladder CA - Past Surgical History Past Surgical History: Yes Ortho: Arthroscopic surgery HEENT: Cataracts Derm: Skin cancer surgery, Other - Present Medications Home Medications: Ambulatory Orders Medication Instructions Recorded Confirmed Aspirin Chewable [St Vlad 81 mg PO DAILY 09/04/12 03/04/18 Aspirin] Multivitamin [Daily [place]] 1 each PO DAILY 02/26/15 03/04/18 Tiotropium [place] [Spiriva 2 puffs INH DAILY 03/21/17 03/04/18 Respimat] Escitalopram Oxalate [Lexapro] 20 mg PO DAILY 06/10/17 03/04/18 Fluticasone/Salmeterol [Advair Hfa 2 puffs INH BID 06/10/17 03/04/18 230-21 Mcg Inhaler] Metoprolol Succinate [Toprol Xl] 25 mg PO DAILY 06/10/17 03/04/18 Omeprazole 20 mg PO 01/29/18 Oxycodone HCl/Acetaminophen 1 - 2 each PO Q6H PRN #14 tablet 07/17/18 [Percocet 5-325 mg Tablet] - Allergies Allergies/Adverse Reactions: Allergies Allergy/AdvReac Type Severity Reaction Status Date / Time Sulfa (Sulfonamide Allergy Unknown Rash Verified 07/17/18 06:51 Antibiotics) - Social History Does the pt smoke?: No Smoking Status: Never smoker Does the pt drink ETOH?: Yes Does the pt have substance abuse?: No - Immunizations Immunizations are current?: Yes Immunizations: TDAP current <10years - POLST Patient has POLST: Yes POLST Status: Full Code PD ED PE NORMAL - Vitals Vital signs reviewed: Yes (hypertensive ) - General General: Alert and oriented X 3, No acute distress, Well developed/nourished - HEENT HEENT: Atraumatic, PERRL, EOMI - Neck Neck: Supple, no meningeal sign - Cardiac Cardiac: RRR, No murmur - Respiratory Respiratory: No respiratory distress, Other (scattered wheezes bilaterally ) - Abdomen Abdomen: Soft, Non tender - Back Back: No CVA TTP, Other (There is pain to palpation of the muscles of the back at the insertion of the latissimus to the illiac posteriorly ) - Derm Derm: Normal color, Warm and dry, No rash - Extremities Extremities: No deformity, No edema - Neuro Neuro: Alert and oriented X 3, 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 RESULTS TO FOLLOW. Laboratory Tests 07/17/18 07/17/18 07/17/18 08:20 08:45 08:52 WBC 7.7 RBC 3.91 L Hgb 12.7 L Hct 38.2 L MCV 97.7 H MCH 32.5 H MCHC 33.3 RDW 13.6 Plt Count 157 MPV 8.7 Neut # (Auto) 5.3 Lymph # (Auto) 1.2 L [place] # (Auto) 1.0 Eos # (Auto) 0.2 Baso # (Auto) 0.0 Absolute Nucleated RBC 0.00 Nucleated RBC % 0.0 Sodium 141 Potassium 4.3 Chloride 100 L Carbon Dioxide 33 H Anion Gap 8.0 BUN 21 H Creatinine 1.0 Estimated GFR (MDRD) 71 L Glucose 127 H Lactic Acid Calcium 9.0 Total Bilirubin 0.7 AST 73 H ALT 95 H Alkaline Phosphatase 51 Troponin I Total Protein 7.0 Albumin 3.6 Globulin 3.4 Albumin/Globulin Ratio 1.1 Lipase 34 Urine Color YELLOW Urine Clarity CLEAR Urine pH 7.0 Ur Specific [place] 1.020 Urine Protein 30 H Urine Glucose (UA) NEGATIVE Urine Ketones NEGATIVE Urine Occult Blood TRACE-INTA Urine Nitrite NEGATIVE Urine Bilirubin NEGATIVE Urine Urobilinogen 0.2 (NORMAL) Ur Leukocyte Esterase TRACE H Urine RBC 0-5 Urine WBC 4-5 Ur Squamous Epith Cells NONE SEEN Urine Bacteria Rare Ur Microscopic Review INDICATED Urine Culture Comments INDICATED 07/17/18 07/17/18 08:52 08:52 WBC RBC Hgb Hct MCV MCH MCHC RDW Plt Count MPV Neut # (Auto) Lymph # (Auto) [place] # (Auto) Eos # (Auto) Baso # (Auto) Absolute Nucleated RBC Nucleated RBC % Sodium Potassium Chloride Carbon Dioxide Anion Gap BUN Creatinine Estimated GFR (MDRD) Glucose Lactic Acid 1.2 Calcium Total Bilirubin AST ALT Alkaline Phosphatase Troponin I < 0.04 Total Protein Albumin Globulin Albumin/Globulin Ratio Lipase Urine Color Urine Clarity Urine pH Ur Specific Cooks Urine Protein Urine Glucose (UA) Urine Ketones Urine Occult Blood Urine Nitrite Urine Bilirubin Urine Urobilinogen Ur Leukocyte Esterase Urine RBC Urine WBC Ur Squamous Epith Cells Urine Bacteria Ur Microscopic Review Urine Culture Comments - Rads (name of study) CT abd/pel with Radiology: Prelim report reviewed (Impression: 1. Bladder is fairly collapsed, with tiny posterior bladder wall diverticula. Tiny amount of gas in the urinary bladder is probably from recent instrumentation. No hydronephrosis.[address] evidence of diverticulitis. 3 Bibasilar pulmonary parenchymal disease appears slightly improved, likely improvement in bronchitis.), EMP read indepedently, See rad report Procedures - Bedside sono Bedside sono by EMP: With use of bedside ultrasound the left flank is imaged the kidney is without hydronephrosis and it is not sonographically tender. I am unable to image the aorta secondary to bowel gas - IVC sono (time) 0828 Bedside IVC sono: IVC measures (cm) (1.48), Euvolemia PD MEDICAL DECISION MAKING - ED course Complexity details: reviewed old records, reviewed results, re-evaluated patient, considered differential, d/w patient, d/w family ED course: 83-year-old male with a history of COPD that is oxygen dependent and with a history of bladder cancer has developed acute left flank pain with movement. CT the abdomen and pelvis with contrast is obtained. The patient's pain is under control when he is motionless. The CT study is unremarkable and no specific etiology for pain is discovered. The patient is able to sit up in bed with a lot of pain and this is specifically to an area on the back where the latissimus inserts to the illiac. I believe his pain is musculoskeletal and he is given a dose of decadron and we will provide a short course of pain medication. Departure - Departure Disposition: 01 Home, Self Care Clinical Impression: Low back pain Qualifiers: Chronicity: acute Back pain laterality: left Sciatica presence: without sciatica Qualified Code(s): M54.5 - Low back pain Condition: Stable Instructions: ED Spasm Back No Trauma Follow-Up: PRITESH Matias [Provider Group] Prescriptions: Oxycodone HCl/Acetaminophen [Percocet 5-325 mg Tablet] 1 - 2 each PO Q6H PRN #14 tablet PRN Reason: pain
[2018-07-17 08:44] LABS: BASOPHILS % (AUTO) 0.6 %; EOSINOPHILS # (AUTO) 0.2 10^3/uL (0.0-0.7); EOSINOPHILS % (AUTO) 2.4 %; HGB - HEMOGLOBIN 12.7 g/dL (14.0-18.0); LYMPHOCYTES # (AUTO) 1.2 10^3/uL (1.5-3.5); LYMPHOCYTES % (AUTO) 15.4 %; MEAN CORPUSCULAR HEMOGLOBIN 32.5 pg (27.0-31.0); MEAN CORPUSCULAR HGB CONC 33.3 g/dL (32.0-36.0); MEAN CORPUSCULAR VOLUME 97.7 fL (80.0-94.0); MEAN PLATELET VOLUME 8.7 fL (7.4-11.4); MONOCYTES % (AUTO) 12.6 %; NEUTROPHILS # (AUTO) 5.3 10^3/uL (1.5-6.6); PLT - PLATELET COUNT 157 10^3/uL (130-450); RED BLOOD COUNT 3.91 10^6/uL (4.70-6.10); RED CELL DISTRIBUTION WIDTH 13.6 % (12.0-15.0); WHITE BLOOD COUNT 7.7 x10^3/uL (4.8-10.8)
[2018-07-17 08:53] LABS: BILIRUBIN,URINE NEGATIVE (NEGATIVE); CLARITY,URINE CLEAR (CLEAR); GLUCOSE, URINE (UA) NEGATIVE (NEGATIVE); KETONES,URINE (UA) NEGATIVE (NEGATIVE); LEUKOCYTE ESTERASE, URINE TRACE (NEGATIVE); NITRITE,URINE NEGATIVE (NEGATIVE); OCCULT BLOOD,URINE TRACE-INTA (NEGATIVE); PROTEIN,URINE 30 mg/dL (NEGATIVE); UROBILINOGEN,URINE 0.2 (NORMAL) E.U./dL (NORMAL)
[2018-07-17 09:07] LABS: BACTERIA,URINE Rare /HPF (None Seen); RBC,URINE 0-5 /HPF (0-5); SQUAMOUS EPITHELIAL CELL,UR NONE SEEN (<= Few)
[2018-07-17 09:18] LABS: ALBUMIN 3.6 g/dL (3.2-5.5); ALBUMIN/GLOBULIN RATIO 1.1 (1.0-2.2); BILIRUBIN,TOTAL 0.7 mg/dL (0.2-1.0)
[2018-07-17] MEDS ORDERED: IOVERSOL 320 100 ML VIAL IVP ONE ×3 (09:27→10:21)
--- NOTE | 2018-07-17 11:15 | CT Report ---
Reason: L abd/flank pain Procedure Date: 07/17/2018 Accession Number: [id number] / [id number] Procedure: CT - Abdomen/Pelvis W CPT Code: FULL RESULT: EXAM: CT ABDOMEN AND PELVIS EXAM DATE: 07/17/2018 10:19 AM. CLINICAL HISTORY: L abd/flank pain. COMPARISONS: ABDOMEN/PELVIS W/ 07/17/2018 9:38 AM IVP 03/02/2018 10:21 AM. TECHNIQUE: Routine helical CT imaging was performed through the abdomen and pelvis. IV contrast: OPTI 320 90 ML. Enteric contrast: No. Reconstructions: Coronal and sagittal. In accordance with CT protocol optimization, one or more of the following dose reduction techniques were utilized for this exam: automated exposure control, adjustment of mA and/or KV based on patient size, or use of iterative reconstructive technique. FINDINGS: Lung Bases: Some subtle areas of some bronchial wall thickening and probably plugging, with ill-defined centrilobular nodules, appears slightly improved compared to the prior exam. No effusions. Liver: Some decreased attenuation may be related to some underlying fatty infiltration. Calcified granulomas. No solid masses. Gallbladder/Bile Ducts: Unremarkable. Spleen: Normal. Pancreas: Normal. Adrenal Glands: Normal. Kidneys: Symmetric excretion of contrast in nondilated collecting systems. No solid renal masses. Peritoneal Cavity/Bowel: Scattered diverticulosis, more in the sigmoid colon. No CT evidence of diverticulitis. No free air or free fluid The appendix is well visualized and normal. Pelvic Organs: Tiny amount of gas in the lumen of the urinary bladder is probably from recent instrumentation. Tiny bladder diverticula posteriorly. The bladder is relatively collapsed and filled with contrast. Some prostate calcifications. Vasculature: No aneurysms or other significant abnormality. Bones: No significant abnormality. Other: None. IMPRESSION: 1. Bladder is fairly collapsed, with tiny posterior bladder wall diverticula. Tiny amount of gas in the urinary bladder is probably from recent instrumentation. No hydronephrosis. 2. Diverticulosis without CT evidence of diverticulitis. 3. Bibasilar pulmonary parenchymal disease appears slightly improved, likely improvement in bronchitis. RADIA
[2018-07-17] MEDS ORDERED: DEXAMETHASONE 10 MG/ML VIAL IVP STA (11:34)
[2018-07-17 11:39] VITALS: BP 183/99
== END 2018-07-17 12:05 | disposition home or self-care (01) ==
LOC: ED 06:34
DX: M54.5 Low back pain (principal); C67.9 Malignant neoplasm of bladder, unspecified; Z79.899 Other long term (current) drug therapy; I10 Essential (primary) hypertension
CPT/HCPCS: 36415; 74177; 80053; 81001; 83605; 83690; 84484; 85025; 87086; 99284; Q9967; 81003

== ENCOUNTER 2018-09-06 12:46 | Outpatient (CLI) | payer MEDICARE, OTHER ==
--- NOTE | 2018-09-06 12:52 | CONSULTATION NOTE ---
Palliative Care Follow Up - Referral Referring Provider: Dr Susie Guardado Time of Visit: 09/06/2018. 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 Medical history: Recurrent bladder cancer, BCG treatment recently completed; severe COPD, oxygen dependent; chronic hypoxemic respiratory failure; pulmonary fibrosis; diastolic CHF; recurrent bladder cancer; HTN; HLD; osteoarthritis; GERD; depression; h/o suprapubic catheter; cognitive deficits; mild-moderate dementia. Patient had recurring bladder cancer in situ in April after [address] Rolando WOODSON, Urologist with [facility] performed a cystoscopy with transdurethral resection on bladder tumor (TURBT). The patient then underwent bacillus Calmette-Avila (BCG) treatment, which completed around August 18. He will have a follow up cystoscopy with urology 6 weeks following the end of BCG treatment. Today patient is awake, alert and pleasant. He reports having had some significant pain following the TURBT, particularly back pain (with a visit to [facility] ED 07/17/18). Now the back pain has mostly resolved, her reports being used to it. He was given an order for oxycodone at the ED but has used only 3-4 tablets. Mainly he doesn't like to use it. When the pain was significant, Advil and Tylenol didn't relieve it. He reports his L wrist joint (from his fracture) and R hip are more bothersome now We did discuss trying Tylenol again now that pain is more moderate. Also d/w him benefits and burdens of trying NSAIDs. Discussed side effects, what to look out for Provided education regarding pain control through increased activity and mobilization. Patient has been largely immobile since 2012. He reports shortness of air is at baseline; SOA with any exertion at all. He occasionally uses the nebulizer with albuterol. He uses his two inhalers daily. Khloe their paid caregiver continues visits twice weekly for bathing aid. This is working out very well. His weight has dropped a few pounds and is fairly stable at a new baseline, around 189 lbs. It was previously around 195 lbs around March. He eats dinner, skips breakfast and lunch Patient's is present at today's visit. Social History - Living Situation Living arrangement: At home Living Situation: With spouse/s.o. Support System: [place] 4 [place]. He and his moved to [facility] from [place] 6 years ago. She reports they do not have a good social support network here. He receives 18 hours monthly of hygiene care from [facility] [place] through [employer]. Both of them are very satisfied with Khloe, the caregiver. Medications/Allergies - Medications Home Medications: Ambulatory Orders Medication Instructions Recorded Confirmed Aspirin Chewable [St Vlad 81 mg PO DAILY 09/04/12 09/06/18 Aspirin] Multivitamin [Daily [place]] 1 each PO DAILY 02/26/15 09/06/18 Tiotropium [place] [Spiriva 2 puffs INH DAILY 03/21/17 09/06/18 Respimat] Escitalopram Oxalate [Lexapro] 20 mg PO DAILY 06/10/17 09/06/18 Fluticasone/Salmeterol [Advair Hfa 2 puffs INH BID 06/10/17 09/06/18 230-21 Mcg Inhaler] Omeprazole 20 mg PO 01/29/18 Oxycodone HCl/Acetaminophen 1 - 2 each PO Q6H PRN #14 tablet 07/17/18 09/06/18 [Percocet 5-325 mg Tablet] Azithromycin 250 mg PO .DAILY EVERY M,W,F 09/06/18 09/06/18 - Allergies Allergies/Adverse Reactions: Allergies Allergy/AdvReac Type Severity Reaction Status Date / Time Sulfa (Sulfonamide Allergy Unknown Rash Verified 07/17/18 06:51 Antibiotics) Review of Systems - Constitutional Constitutional: reports: Weight loss (new baseline is 189 lbs. Previously (around March) it was 195 lbs.). denies: Fever, Chills, Diaphoresis, Night sweats - Ears, Nose & Throat Ears, Nose & Throat: reports: Hearing loss, Hearing aids - Cardiovascular Cardiovascular: reports: Exertional dyspnea, Decr. exercise tolerance - Respiratory Respiratory: reports: Sputum production, SOB at rest, SOB with exertion - Gastrointestinal Gastrointestinal: denies: Constipation, Poor appetite - Genitourinary Genitourinary: denies: Dysuria, Incontinence - Musculoskeletal Musculoskeletal: reports: Back pain, Stiffness, Joint pain (R hip; L wrist s/p fracture). denies: Transfer issues - Neurological Neurological: reports: Focal weakness (lower extremities), Memory problems - Psychiatric Psychiatric: denies: Depression, Anxiety - Hematologic/Lymphatic Hematologic/Lymphatic: reports: Recurrent infections (UTIs, pneumonia) Physical Exam - Vital Signs Temperature: 96.9 F Pulse Rate: 98 O2 Saturation: 95 (2L O2 via NC) Blood Pressure: 156/91 (wrist cuff) - Physical Exam General Appearance: positive: No acute distress, Alert Eyes Bilateral: positive: Normal inspection ENT: positive: No signs of dehydration Neck: positive: Trachea midline Cardiovascular: positive: Regular rate & rhythm, No murmur Respiratory: positive: Diminished throughout (significantly), Rhonchi. negative: Wheezes, Rales Abdomen: positive: Non-tender, Soft, Obese Skin: positive: Dryness Extremities: positive: Nml appearance, No pedal edema Neurologic/Psychiatric: positive: Oriented x3, Mood/affect nml Palliative Care - POLST Patient has POLST: Yes POLST Status: DNR, Selective Treatment Pain: Pain improved (back pain), Location (L wrist and R hip bothering him more than the LBP), Comment (doesn't like to take pain medications) Drowsiness/Sedation: None Nausea: None Depression: None Anxiety: None Dyspnea: Severe (7-10) Anorexia: Mild (1-3) Constipation: No Performance Status: oxygen dependent 2L via NC significantly limited activity tolerance, SOA with exertion chronic back pain and joint pain balance improved, less falls self transfers paid caregiver assistance for bathing, 2x week - Palliative Care Discussion: Goals remain the same: patient would want to be hospitalized for reversible conditions. He does want to pursue treatment for bladder cancer. BCG therapy completed about 10 days ago, and he will follow up with urologist 6 weeks after the last treatment for a cystoscopy to review results. Patient does not feel anxious about the future or the prognosis. He is open to the other options for treatment (neobladder, urostomy, catheterization) and is willing to pursue these. It is unclear whether he is a suitable candidate for these operations, with his advanced COPD. He reports his pain is manageable, improved from a few months ago. We had long discussion and demonstration on methods to reduce/improve pain levels with mobilization exercises. Their bath aid who comes 2x weekly continues to work out well for both of them. Ellen, his spouse, no longer keeps the records because the aid is doing an excellent job. This gives Ellen a much needed break. The patient feels his quality of life and his well being is good. 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 TURBT procedure was done in April, and BCG therapy completed about 10 days ago. He will have a follow up cystoscopy with urology in about 4 weeks to determine next steps. Recommendations/Counseling Done: Bladder cancer in situ: Recurrence in early 2018 after 15 years remission. TURBT procedure done April 2018 by [facility]. He had 6 weeks of BCG therapy, completed about 10 days ago. He has a follow up cystoscopy scheduled for September or October with Dr Woodson. Advanced COPD: At baseline SOA, on continuous 2L oxygen. He uses his Spiriva and Advair inhalers as directed. Uses nebulizer only occasionally for increased SOA. Skin behind ears is scraped raw from air cannula and hearing aids. Suggested they call oxygen provider for the foam tube protectors. Also provided them a duoderm dressing to cut and place behind ears for protection. Also suggested baseline hat with buttons sewn on each side so cannula can hook there instead of on ears. Advance care planning: POLST: DNR, selective treatment. Patient will continue to pursue cancer treatment if indicated, feels positive about the future, is willing to consider various alternative as indicated (including donta bladder, urostomy, catheterization. Patient agrees to transfer to hospital for reversible conditions, but end of life, when that comes, is to be home. Time Spent: 45 minutes were spent with more than 50% of the time spent on counseling, education, and coordination of care regarding joint/hip pain, and bladder cancer.
== END 2018-09-06 12:47 | disposition home or self-care (01) ==
LOC: PC 12:46
PROVIDERS: ATTEND Nurse Practitioner
DX: Z51.5 Encounter for palliative care (principal); J44.9 Chronic obstructive pulmonary disease, unspecified; J84.10 Pulmonary fibrosis, unspecified; Z99.81 Dependence on supplemental oxygen; J96.11 Chronic respiratory failure with hypoxia; I11.0 Hypertensive heart disease with heart failure; I50.30 Unspecified diastolic (congestive) heart failure; Z93.50 Unspecified cystostomy status; C67.9 Malignant neoplasm of bladder, unspecified; E78.5 Hyperlipidemia, unspecified; M19.90 Unspecified osteoarthritis, unspecified site; K21.9 Gastro-esophageal reflux disease without esophagitis; F32.9 Major depressive disorder, single episode, unspecified; F03.90 Unspecified dementia, unspecified severity, without behavioral disturbance, psychotic disturbance, mood disturbance, and anxiety; H91.90 Unspecified hearing loss, unspecified ear; M54.9 Dorsalgia, unspecified; M25.651 Stiffness of right hip, not elsewhere classified; Z66 Do not resuscitate; Z79.51 Long term (current) use of inhaled steroids; Z79.82 Long term (current) use of aspirin; Z87.440 Personal history of urinary (tract) infections
CPT/HCPCS: 99349

== ENCOUNTER 2019-10-07 22:50 | Outpatient (CLI) | payer MEDICARE, OTHER | END 2019-10-07 22:51 | disposition critical access hospital (66) | LOC: EMS 22:50 | PROVIDERS: ATTEND Surgery | DX: S51.802A Unspecified open wound of left forearm, initial encounter (principal); S01.01XA Laceration without foreign body of scalp, initial encounter; W18.39XA Other fall on same level, initial encounter; Y92.009 Unspecified place in unspecified non-institutional (private) residence as the place of occurrence of the external cause | CPT/HCPCS: A0425; A0429 ==

== ENCOUNTER 2019-10-07 23:15 | Emergency (ER) | payer MEDICARE, OTHER ==
[2019-10-08] MEDS ORDERED: SODIUM CHLORIDE 0.9% 1,000 ML IV STA (03:10)
--- NOTE | 2019-10-08 03:12 | ED Physician Documentation ---
PD HPI Fall - Stated complaint Stated Complaint: GLF - Chief complaint Chief Complaint: General - History obtained from History obtained from: Patient, EMS - History of Present Illness Mechanism of injury: Unknown Fall distance: Standing position Where injury occurred: Home Timing - onset: Today Injury(ies) location: Head, Right Upper Extremity, Left Uppper Extremity Quality of pain: Pain Associated symptoms: No: LOC, AMS, Amnesia, Seizures, Ear drainage, Nasal drainage, Neck pain, Weakness, Paresthesias, Dyspnea, Nausea / vomiting, Hematemesis, Abdominal distension Symptoms improve with: Rest Worsens with: Palpation Contributing factors: No: Anticoagulated, Intoxicated Similar symptoms before: Diagnosis (fall more than a year ago) Recently seen: Not recently seen - Additional information Additional information: 84-year-old male with a history of COPD states that he has been in his usual state of health and this evening he went to get some ice out of his refrigerator and he collapsed backwards striking the back of his head he did not have loss of consciousness with this and he is torn skin on both of his forearms. His insisted he come to the hospital. She called the ambulance. The patient states that he feels he would have just stayed home. He did have some bleeding associated with all this and he acquiesced and came to the hospital on the ambulance. He states that he has not been ill recently he always has some shortness of breath from his COPD and this is not different than usual. Review of Systems Constitutional: denies: Fever, Chills, Myalgias Eyes: denies: Decreased vision Ears: denies: Ear pain Nose: denies: Rhinorrhea / runny nose, Congestion Throat: denies: Sore throat Cardiac: denies: Chest pain / pressure, Palpitations, Calf pain Respiratory: reports: Dyspnea (similar to always with COPD) GI: denies: Abdominal Pain, Nausea, Vomiting, Constipation, Diarrhea : denies: Dysuria, Frequency Skin: reports: Laceration (s). denies: Rash Musculoskeletal: reports: Extremity pain. denies: Neck pain, Back pain Neurologic: reports: Head injury. denies: Generalized weakness, Focal weakness, Numbness, Headache, LOC PD PAST MEDICAL HISTORY - Past Medical History Past Medical History: Yes Cardiovascular: Congestive heart failure, Hypertension, High cholesterol Respiratory: Asthma, COPD, Emphysema, Pneumonia, Shortness of breath Neuro: None Endocrine/Autoimmune: None GI: GERD MECHANICAL ESTIMATOR: None : Benign prostate hypertrophy, Nocturia, Frequency, Other HEENT: Chronic vision loss, Macular degeneration, Chronic hearing loss, Other Psych: Depression, Anxiety Musculoskeletal: Osteoarthritis, Chronic back pain Derm: Other - Past Surgical History Past Surgical History: Yes Ortho: Arthroscopic surgery HEENT: Cataracts Derm: Skin cancer surgery, Other - Present Medications Home Medications: Ambulatory Orders Medication Instructions Recorded Confirmed Aspirin Chewable [St Vlad 81 mg PO DAILY 09/04/12 09/06/18 Aspirin] Multivitamin [Daily [place]] 1 each PO DAILY 02/26/15 09/06/18 Tiotropium [place] [Spiriva 2 puffs INH DAILY 03/21/17 09/06/18 Respimat] Escitalopram Oxalate [Lexapro] 20 mg PO DAILY 06/10/17 09/06/18 Fluticasone/Salmeterol [Advair Hfa 2 puffs INH BID 06/10/17 09/06/18 230-21 Mcg Inhaler] Omeprazole 20 mg PO 01/29/18 Oxycodone HCl/Acetaminophen 1 - 2 each PO Q6H PRN #14 tablet 07/17/18 09/06/18 [Percocet 5-325 mg Tablet] Azithromycin 250 mg PO .DAILY EVERY M,W,F 09/06/18 09/06/18 - Allergies Allergies/Adverse Reactions: Allergies Allergy/AdvReac Type Severity Reaction Status Date / Time Sulfa (Sulfonamide Allergy Unknown Rash Verified 10/07/19 23:20 Antibiotics) - Social History Does the pt smoke?: No Smoking Status: Never smoker Does the pt drink ETOH?: Yes Does the pt have substance abuse?: No - Immunizations Immunizations are current?: Yes Immunizations: TDAP current <10years - POLST Patient has POLST: Yes POLST Status: Full Code PD ED PE NORMAL - Vitals Vital signs reviewed: Yes (hypertensive ) - General General: Alert and oriented X 3, No acute distress, Well developed/nourished - HEENT HEENT: PERRL, EOMI, Other (There is a superficial laceration to the left parietal/occipital scalp 1.5cm does not penetrate the dermis ) - Neck Neck: Supple, no meningeal sign, No bony TTP - Cardiac Cardiac: RRR, No murmur - Respiratory Respiratory: No respiratory distress, Other (scattered wheezes with fair air movement) - Abdomen Abdomen: Soft, Non tender - Back Back: No CVA TTP, No spinal TTP - Derm Derm: Normal color, Warm and dry, No rash, Other (dry skin ) - Extremities Extremities: No deformity, No edema - Neuro Neuro: Alert and oriented X 3, 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 operator 2-12 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, No motor deficit, No sensory deficit, Normal speech Eye Opening: Spontaneous Motor: Obeys Commands Verbal: Oriented GCS Score: 15 - Psych Psych: Normal mood, Normal affect Results - Vitals Vitals: Vital Signs - 24 hr 10/07/19 10/07/19 10/08/19 23:20 23:27 00:26 Temperature 36.9 C Heart Rate 88 88 89 Respiratory 18 18 16 Rate Blood Pressure 133/83 H 133/83 H 109/70 O2 Saturation 98 98 98 10/08/19 10/08/19 01:54 03:20 Temperature Heart Rate 93 89 Respiratory 16 16 Rate Blood Pressure 118/77 150/89 H O2 Saturation 98 98 Oxygen O2 Source [] Nasal cannula O2 Source [] Room air O2 Source Room air - Labs Labs: Laboratory Tests 10/08/19 10/08/19 10/08/19 03:15 03:15 04:00 WBC 7.1 RBC 3.68 L Hgb 12.5 L Hct 36.7 L MCV 99.7 H MCH 34.0 H MCHC 34.1 RDW 13.2 Plt Count 160 MPV 9.6 Neut # (Auto) 4.3 Lymph # (Auto) 1.6 [place] # (Auto) 1.0 Eos # (Auto) 0.2 Baso # (Auto) 0.1 Absolute Nucleated RBC 0.00 Nucleated RBC % 0.0 Sodium 135 Potassium 3.6 Chloride 99 L Carbon Dioxide 26 Anion Gap 10.0 BUN 11 Creatinine 0.8 Estimated GFR (MDRD) 92 Glucose 111 H Calcium 8.7 Total Bilirubin 0.4 AST 202 H ALT 167 H Alkaline Phosphatase 110 Total Protein 7.3 Albumin 3.7 Globulin 3.6 Albumin/Globulin Ratio 1.0 Lipase 112 H Urine Color YELLOW Urine Clarity CLEAR Urine pH 6.5 Ur Specific [place] 1.010 Urine Protein NEGATIVE Urine Glucose (UA) NEGATIVE Urine Ketones NEGATIVE Urine Occult Blood NEGATIVE Urine Nitrite NEGATIVE Urine Bilirubin NEGATIVE Urine Urobilinogen 0.2 (NORMAL) Ur Leukocyte Esterase NEGATIVE Ur Microscopic Review NOT INDICATED Urine Culture Comments NOT INDICATED Procedures - Laceration (location) forearm Length in cm: 12 (2 thin tears on right one larger tear on left ) Wound type: Curved, Irregular, Flap, Superficial, Clean Neurovascular status: Sensory intact, Motor intact, Vascular intact Anesthesia: Lidocaine 2% (burn gel) Wound Preparation: Hibiclens, Irrigated copiously NS, Wound explored, To the base, Multiple flaps aligned Skin layer closure: Dermabond, Steri strips Other: Patient tolerated well, No complications, Neurovascular intact, Dressing applied, Tetanus UTD Complexity: Simple - IVC sono (time) 0308 Bedside IVC sono: IVC measures (cm) (0.93), IVC collapsed c insp (cm) (complete), Dehydration (est 2 liter deficit) PD MEDICAL DECISION MAKING - ED course Complexity details: reviewed results, re-evaluated patient, considered differential, d/w patient ED course: 84-year-old male with a collapse at home has not been ill recently and he is found to be dehydrated on interrogation the inferior vena cava. Is administered saline. He is found to have a superficial laceration to his left scalp he did not have loss of consciousness with this episode and he does not have signs or symptoms of concussion now. A CT scan of his head was not obtained. The laceration to his scalp is superficial and 1.5 cm. There are skin tears to the forearms bilaterally the skin is present to cover the wounds. These are about 6 to 7 cm on both forearms and these are repaired with Steri-Strips tincture benzoin and Dermabond after cleaning and reapplying the tissue. Patient tolerates this well. The patient is uncertain exactly why he collapsed indicates that his legs just gave out on him. With that we did interrogate the inferior vena cava and found him to be dehydrated. At that point we initiated IV saline and check the patient's electrolytes. Patient was hydrated and discharged to home. Departure - Departure Disposition: 01 Home, Self Care Clinical Impression: Elevated liver enzymes, Skin tear, Dehydration Condition: Stable Instructions: ED Dehydration, ED Laceration Ext Sutr Stap Tape Follow-Up: PRITESH Matias [Provider Group]
[2019-10-08 03:21] LABS: BASOPHILS # (AUTO) 0.1 10^3/uL (0.0-0.1); BASOPHILS % (AUTO) 0.7 %; EOSINOPHILS # (AUTO) 0.2 10^3/uL (0.0-0.7); EOSINOPHILS % (AUTO) 2.2 %; HGB - HEMOGLOBIN 12.5 g/dL (14.0-18.0); LYMPHOCYTES # (AUTO) 1.6 10^3/uL (1.5-3.5); LYMPHOCYTES % (AUTO) 21.9 %; MEAN CORPUSCULAR HGB CONC 34.1 g/dL (32.0-36.0); MEAN CORPUSCULAR VOLUME 99.7 fL (80.0-94.0); MEAN PLATELET VOLUME 9.6 fL (7.4-11.4); MONOCYTES % (AUTO) 13.6 %; NEUTROPHILS # (AUTO) 4.3 10^3/uL (1.5-6.6); NEUTROPHILS % (AUTO) 59.9 %; PLT - PLATELET COUNT 160 10^3/uL (130-450); RED BLOOD COUNT 3.68 10^6/uL (4.70-6.10); RED CELL DISTRIBUTION WIDTH 13.2 % (12.0-15.0); WHITE BLOOD COUNT 7.1 x10^3/uL (4.8-10.8)
[2019-10-08 03:33] LABS: ALBUMIN 3.7 g/dL (3.2-5.5); BILIRUBIN,TOTAL 0.4 mg/dL (0.2-1.0); CALCIUM 8.7 mg/dL (8.5-10.3); CREATININE 0.8 mg/dL (0.6-1.2); TOTAL PROTEIN 7.3 g/dL (6.7-8.2)
[2019-10-08 04:19] LABS: BILIRUBIN,URINE NEGATIVE (NEGATIVE); GLUCOSE, URINE (UA) NEGATIVE (NEGATIVE); KETONES,URINE (UA) NEGATIVE (NEGATIVE); LEUKOCYTE ESTERASE, URINE NEGATIVE (NEGATIVE); NITRITE,URINE NEGATIVE (NEGATIVE); OCCULT BLOOD,URINE NEGATIVE (NEGATIVE); PH,URINE 6.5 PH (5.0-7.5); PROTEIN,URINE NEGATIVE (NEGATIVE); UROBILINOGEN,URINE 0.2 (NORMAL) E.U./dL (NORMAL)
[2019-10-08 04:21] LABS: CLARITY,URINE CLEAR (CLEAR)
[2019-10-08 04:43] VITALS: BP 145/88
== END 2019-10-08 05:13 | disposition home or self-care (01) ==
LOC: EDBD → EDUNIT# → ED 23:15
DX: E86.0 Dehydration (principal); R74.8 Abnormal levels of other serum enzymes; S51.812A Laceration without foreign body of left forearm, initial encounter; S51.811A Laceration without foreign body of right forearm, initial encounter; S01.01XA Laceration without foreign body of scalp, initial encounter; W18.39XA Other fall on same level, initial encounter; Y92.009 Unspecified place in unspecified non-institutional (private) residence as the place of occurrence of the external cause; J43.9 Emphysema, unspecified; I10 Essential (primary) hypertension; Z79.82 Long term (current) use of aspirin
CPT/HCPCS: 12004; 36415; 80053; 81001; 81003; 83690; 85025; 87086; 99282

== ENCOUNTER 2019-11-29 22:05 | Outpatient (CLI) | payer MEDICARE, OTHER | END 2019-11-29 22:06 | disposition critical access hospital (66) | LOC: EMS 22:05 | PROVIDERS: ATTEND Surgery | DX: S51.812A Laceration without foreign body of left forearm, initial encounter (principal); S01.81XA Laceration without foreign body of other part of head, initial encounter; W01.190A Fall on same level from slipping, tripping and stumbling with subsequent striking against furniture, initial encounter; Y92.009 Unspecified place in unspecified non-institutional (private) residence as the place of occurrence of the external cause | CPT/HCPCS: A0425; A0429 ==

== ENCOUNTER 2019-11-29 22:26 | Emergency (ER) | payer MEDICARE, OTHER ==
--- NOTE | 2019-11-29 23:23 | ED Physician Documentation ---
History of Present Illness - Stated complaint Stated Complaint: GLF/LAC - Chief complaint Chief Complaint: Laceration - History obtained from History obtained from: Patient, Family - Additonal information Additional information: 84-year-old male who slipped out of his chair and suffered a laceration to his left forearm denies any other complaints. Denies hitting his head denies head or neck pain denies taking blood thinners. Review of Systems Constitutional: reports: Reviewed and negative Eyes: reports: Reviewed and negative Ears: reports: Reviewed and negative Nose: reports: Reviewed and negative Throat: reports: Reviewed and negative Cardiac: reports: Reviewed and negative Respiratory: reports: Reviewed and negative GI: reports: Reviewed and negative : reports: Reviewed and negative Skin: reports: Laceration (s) Musculoskeletal: reports: Reviewed and negative Neurologic: reports: Reviewed and negative Psychiatric: reports: Reviewed and negative Endocrine: reports: Reviewed and negative Immunocompromised: reports: Reviewed and negative PD PAST MEDICAL HISTORY - Past Medical History Cardiovascular: Congestive heart failure, Hypertension, High cholesterol Respiratory: Asthma, COPD, Emphysema (uses 2 l n/c /), Pneumonia, Shortness of breath Neuro: None Endocrine/Autoimmune: None GI: GERD 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 R D: None : Benign prostate hypertrophy, Nocturia, Frequency, Other HEENT: Chronic vision loss, Macular degeneration, Chronic hearing loss, Other Psych: Depression, Anxiety Musculoskeletal: Osteoarthritis, Chronic back pain Derm: Other - Past Surgical History Past Surgical History: Yes Ortho: Arthroscopic surgery HEENT: Cataracts Derm: Skin cancer surgery, Other - Present Medications Home Medications: Ambulatory Orders Medication Instructions Recorded Confirmed Multivitamin [Daily [place]] 1 each PO DAILY 02/26/15 11/04/19 Tiotropium [place] [Spiriva 2 puffs INH DAILY 03/21/17 11/04/19 Respimat] Escitalopram Oxalate [Lexapro] 20 mg PO DAILY 06/10/17 11/04/19 Fluticasone/Salmeterol [Advair Hfa 2 puffs INH BID 06/10/17 11/04/19 230-21 Mcg Inhaler] Omeprazole 20 mg PO DAILY 01/29/18 11/04/19 Azithromycin 250 mg PO .DAILY EVERY M,W,F 09/06/18 11/04/19 Albuterol Oral Soln 1 applic PO PRN PRN 08/14/20 08/14/20 Amlodipine Besylate [Norvasc] 2.5 mg PO DAILY 11/04/19 11/04/19 Vit A/Vit C/Vit E/Zinc/Copper 1 cap PO DAILY 11/04/19 11/04/19 [Preservision Areds Softgel] - Allergies Allergies/Adverse Reactions: Allergies Allergy/AdvReac Type Severity Reaction Status Date / Time Sulfa (Sulfonamide Allergy Unknown Rash Verified 11/29/19 22:33 Antibiotics) - Social History Does the pt smoke?: No Smoking Status: Former smoker Does the pt drink ETOH?: Yes Does the pt have substance abuse?: No - Immunizations Immunizations are current?: Yes Immunizations: TDAP current <10years - POLST Patient has POLST: Yes POLST Status: Full Code PD ED PE NORMAL - Vitals Vital signs reviewed: Yes - General General: Alert and oriented X 3, No acute distress, Well developed/nourished - HEENT HEENT: PERRL - Neck Neck: Supple, no meningeal sign - Cardiac Cardiac: RRR, No murmur - Respiratory Respiratory: Clear bilaterally - Abdomen Abdomen: Normal bowel sounds, Soft, Non tender, Non distended - Derm Derm: Warm and dry, Other (There is a 4 x 4 flap L-shaped laceration over the left forearm over the dorsal aspect radian, median, ulnar motor and sensory exam are intact compartments are soft neurovascular intact.) - Extremities Extremities: Other (There is a 4 x 4 flap L-shaped laceration over the left forearm over the dorsal aspect radian, median, ulnar motor and sensory exam are intact compartments are soft neurovascular intact.) - Neuro Neuro: Alert and oriented X 3 - Psych Psych: Normal mood, Normal affect Results - Vitals Vitals: Vital Signs - 24 hr 11/29/19 11/30/19 22:33 01:23 Temperature 36.7 C 36.9 C Heart Rate 90 92 Respiratory 16 18 Rate Blood Pressure 119/76 127/73 O2 Saturation 95 96 Oxygen O2 Source [With Activity] Nasal cannula O2 Source [Without Activity] Room air O2 Source Nasal cannula Procedures - Laceration (location) Upper extremity left Dorsal Length in cm: 8 Wound type: Irregular, Flap, Clean Neurovascular status: Sensory intact, Motor intact, Vascular intact Tendon involvement: Tendon intact Anesthesia: Lidocaine 1% with epi, Volume - enter cc (3) Wound Preparation: Irrigated copiously NS, Debrided extensively, Wound explored, To the base, Wound edges modified, Multiple flaps aligned Skin layer closure: Nylon, Size #-0 - enter number (4), Sutures - enter # (8) Other: Patient tolerated well, No complications, Neurovascular intact, Dressing applied, Tetanus UTD Complexity: Intermediate PD MEDICAL DECISION MAKING - ED course Complexity details: considered differential (Left forearm laceration), d/w patient ED course: Left forearm laceration with large flap, irrigated thoroughly no foreign bodies identified closed using simple interrupted sutures with eight 4-0 nylon bacitracin and dressing applied. X-rays shows no obvious foreign body or fractures radiologist interpretation does mention some sort of irregularity over the olecranon the patient has no pain over the over the elbow or the olecranon I did recommend x-rays however the patient is refusing his medical decision-making capability and capacity. Departure - Departure Disposition: 01 Home, Self Care Clinical Impression: Laceration of left forearm Qualifiers: Encounter type: initial encounter Qualified Code(s): S51.812A - Laceration without foreign body of left forearm, initial encounter Condition: Stable Instructions: ED Laceration Ext Sutr Stap Tape Follow-Up: LOWELL CASEY MD [Primary Care Provider] - Comments: Please follow-up with wound care today for a wound check. Keep wound clean protected and bandage at all times. Call your primary care provider today to schedule wound check as well. Have sutures removed in 10 days. Discharge Date/Time: 11/30/19 01:20
[2019-11-29] MEDS ORDERED: BACITRACIN ZINC OINT 1 PACKET TOP STA (23:30)
[2019-11-29] MEDS ORDERED: LIDOCAINE 1%-EPI 1:100000 20 ML MDV SUBQ STA (23:30)
[2019-11-30 01:25] VITALS: BP 127/73
--- NOTE | 2019-11-30 07:51 | XRAY Report ---
PROCEDURE: Forearm LT INDICATIONS: injury TECHNIQUE: 2 views of the forearm were acquired. COMPARISON: None two-view wrist 03/08/2018 FINDINGS: Bones: Chronic distal radius fracture. Cortical irregularity noted in the proximal ulna may represent a fracture. No suspicious bony lesions. Soft tissues: No suspicious soft tissue calcifications or masses. Large laceration involving the zara ismael margin of the forearm noted. No radiodense foreign body. IMPRESSION: 1. Large forearm laceration. No radiodense foreign body. 2. Possible fracture of the proximal ulna. If there is clinical concern for proximal ulnar fracture, recommend dedicated left elbow series. 3. Chronic distal radial fracture. Reviewed by: Miriam Wells MD, PhD on 11/30/2019 7:50 AM PDT Approved by: Miriam Wells MD, PhD on 11/30/2019 7:50 AM PDT Station ID: [id number]
== END 2019-11-30 01:20 | disposition home or self-care (01) ==
LOC: EDUNIT# → ED 22:26
DX: S52.502A Unspecified fracture of the lower end of left radius, initial encounter for closed fracture (principal); S51.812A Laceration without foreign body of left forearm, initial encounter; W08.XXXA Fall from other furniture, initial encounter; Y92.009 Unspecified place in unspecified non-institutional (private) residence as the place of occurrence of the external cause; I11.0 Hypertensive heart disease with heart failure; I50.9 Heart failure, unspecified; E78.00 Pure hypercholesterolemia, unspecified; J44.9 Chronic obstructive pulmonary disease, unspecified; Z99.81 Dependence on supplemental oxygen; Z87.891 Personal history of nicotine dependence
CPT/HCPCS: 12034; 73090; 99282; 99283; A9270

== ENCOUNTER 2019-12-06 12:30 | Outpatient (CLI) | payer MEDICARE, OTHER ==
--- NOTE | 2019-12-06 15:58 | CONSULTATION NOTE ---
Palliative Care Follow Up - Referral Referring Provider: Dr. Tracie Mejia Time of Visit: 8027-8811 Referral setting: Home Referral Reason: Severe COPD/History of Bladder Cancer - Information Sources Records reviewed: Previous records reviewed History/Review of Systems obtained from: Patient, Family (, Ellen present) Exam limitations: No limitations - History of Present Illness Update Brief HPI Update: This is an 84-year-old gentleman with severe COPD on supplemental oxygen with a history of bladder cancer who is seen and evaluated today within his home for really initiation of palliative care services with his , Ellen present. The patient was last seen by [facility] palliative care in August 2018. He was diagnosed with COPD approximately 1999 2000. He is a former user of tobacco both with chewing and cigarettes and quit at approximately age 60. He is on continuous oxygen supplementation at 2 L/h via nasal cannula. He does have a nebulizer within the home that he typically only uses with increased respiratory symptoms which has not been for some time. He previously during the winter months would have an episode of pneumonia or bronchitis. Last winter is the first winter" sometime" that he did not have pneumonia. He does have a trilogy machine within the home and has used it a handful of times but feels that he cannot typically use it given the pattern of his sleep. The patient has a prior history of frequent falls. This has tapered off and he now has intermittent falls typically in association with a syncopal episode with no prodromal symptoms prior to the event. There has been no discernible pattern. The patient's last fall was 11/30/2019 where he reports he tripped over the [employer] resulting in a laceration to his left forearm. He is scheduled to see Dr. Flores in the wound care clinic tomorrow for evaluation. He denies any redness around the site or discharge. He presently has it dressed appropriately. The patient himself does not perceive any concerns regarding his health. His , however is concerned regarding some of his limitations and in particular is concerned regarding him falling leading to a significant injury. They are in a rental home, and therefore any adjustments to the home have to be approved by the home education officer. They have been able to add a railing along the front steps which has added extra support. They are scheduled to have a ramp installed through the [place]. The patient does perceive which would be most beneficial is having additional bars in the bathroom for support and preventing falls. They are presently waiting to hear from the [facility] about this approval and install. The patient finds that he is easily fatigued with tasks. He becomes quite fatigued after bathing. He does have a caregiver that comes 3 days a week for assistance. He also becomes quite fatigued after dressing himself or with ambulation from the living room to the bedroom. He ambulates using a walker with his supplemental oxygen. The patient does report lower back pain on either side of his spine. This is been present for approximately 18 to 19 years. He has seen a chiropractor in the past. He denies any radiation of the pain. He describes the pain as a dull ache that is intermittent and not constant. He has found the most effective intervention has been massage. However, after a friend to pursue more formed massage therapy for him he has been unable to find a subsequent replacement. The patient does have a history of bladder cancer with a recent recurrence that has resolved in the last 6 to 8 months per his report. He is due to follow-up with urology. Patient is seen in his recliner chair with supplemental oxygen on. No obvious distress. 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 Social History - Living Situation Living arrangement: At home Living Situation: With spouse/s.o. Support System: Patient resides with his , Ellen of 29 years. This is a second marriage for both of them. The patient was previously . He [place] in [place]. He beganEarly age. on smoking at a veryHe has 4 children from his prior marriage, 3 boys and 1 girl. 3 children live on the [place] and one in [place]. The patient's son, Jose Eduardo does provide assistance. The patient has 2 stepchildren. His stepdaughter, Asia comes up every 3 months and stays for 2 weeks to help the patient and his and is quite attentive to his needs. He received 40 hours/month through rest care with the bathing aide, Julia who he enjoys and has quite a good rapport with. Medications/Allergies - Medications Home Medications: Ambulatory Orders Medication Instructions Recorded Confirmed Multivitamin [Daily [place]] 1 each PO DAILY 02/26/15 12/06/19 Tiotropium [place] [Spiriva 2 puffs INH DAILY 03/21/17 12/06/19 Respimat] Escitalopram Oxalate [Lexapro] 20 mg PO DAILY 06/10/17 12/06/19 Fluticasone/Salmeterol [Advair Hfa 2 puffs INH BID 06/10/17 12/06/19 230-21 Mcg Inhaler] Omeprazole 20 mg PO DAILY 01/29/18 12/06/19 Azithromycin 250 mg PO .DAILY EVERY M,W,F 09/06/18 11/04/19 Albuterol Oral Soln 1 applic PO PRN PRN 11/04/19 12/06/19 Amlodipine Besylate [Norvasc] 2.5 mg PO DAILY 11/04/19 12/06/19 Vit A/Vit C/Vit E/Zinc/Copper 1 cap PO DAILY 11/04/19 12/06/19 [Preservision Areds Softgel] Metoprolol Succinate [Toprol Xl] 25 mg PO DAILY 12/06/19 12/06/19 On Guard Plus Protective Blend 1 cap PO DAILY 12/06/19 12/06/19 - Allergies Allergies/Adverse Reactions: Allergies Allergy/AdvReac Type Severity Reaction Status Date / Time Sulfa (Sulfonamide Allergy Unknown Rash Verified 11/29/19 22:33 Antibiotics) Review of Systems - Constitutional Constitutional: reports: Fatigue, Weight loss ( reports a weight loss to 183lb but patient himself reports a weight gain noted to his abdomen) - Eyes Eyes: reports: Vision loss (left eye macular degeneartion), Corrective lenses - Ears, Nose & Throat Ears, Nose & Throat: reports: Hearing loss, Hearing aids - Cardiovascular Cardiovascular: denies: Chest pain, Edema - Respiratory Respiratory: reports: SOB with exertion. denies: Cough, SOB at rest - Gastrointestinal Gastrointestinal: reports: Other (Only consumes dinner and skips breakfast and lunch). denies: Abdominal pain, Constipation, Diarrhea - Genitourinary Genitourinary: denies: Dysuria, Hematuria, Incontinence - Musculoskeletal Musculoskeletal: reports: Back pain (see HPI), Assistive devices - Integumentary Integumentary: reports: Other (laceration to left forearm) - Neurological Neurological: reports: General weakness, Memory problems (mild STM impairment reported by patient that is intermittent) - Psychiatric Psychiatric: reports: Depression - Endocrine Endocrine: denies: Diabetes type 2 - Hematologic/Lymphatic Hematologic/Lymphatic: reports: Recurrent infections (h/o of frequent pneumonia) - All Other Systems All Other Systems: reports: Reviewed and negative Physical Exam - Vital Signs Temperature: 36.8 C Pulse Rate: 100 Respiratory Rate: 18 O2 Saturation: 96 (on 2L via NC) Blood Pressure: 138/84 (left arm) - Physical Exam General Appearance: positive: No acute distress, Alert Eyes Bilateral: positive: Normal inspection ENT: positive: No signs of dehydration, Other (missing teeth) Neck: positive: Nml inspection Cardiovascular: positive: Regular rate & rhythm, No murmur Respiratory: positive: No respiratory distress, Wheezes (expiratory wheezes noted BLL), Other (able to speak in full sentences without pausing for breath) Abdomen: positive: Non-tender, Soft, Nml bowel sounds. negative: Distended Skin: positive: Dryness (to lower extremities), Other (venous insufficency hyperpigementation to b/l feet) Extremities: positive: No pedal edema Neurologic/Psychiatric: positive: Oriented x3, Mood/affect nml Palliative Care - POLST Patient has POLST: Yes POLST Status: DNR, Selective Treatment Pain: Comment (see HPI) Tiredness/Fatigue: Mild (1-3) (will nap during the day per 's report but patient does to perceive his naps that he takes) Nausea: None Anorexia: None Dyspnea: Moderate (4-6) Depression: None (controlled) Anxiety: None Feelings of wellbeing/Perceived Quality of Life: Fair Sleep: Sleeps well Constipation: No, Managed Performance Status: Oxygen dependent via 2 L nasal cannula. Poor activity tolerance due to shortness of breath on exertion. Chronic low back pain. History of falls that are less frequent. Able to ambulate with a walker. Has a caregiver 3 times a week for assistance with bathing. - Palliative Care Discussion: The patient has significant advanced COPD on chronic oxygen supplementation. He has not required a hospitalization over the last year due to pneumonia or bronchitis which is quite optimistic for him. He is generally an upbeat and jovial individual. He is not troubled by his present health circumstances and relays "what happens will happen." He typically is one to roll with what ever comes along where his is one to express concerns. The patient does appreciate his advanced COPD and has attempted to use his trilogy machine in the past but not regularly. He typically only uses his nebulizer as needed and this has not been recently. He does report to underlying back pain but this is longstanding and not troubling for him. He does not take any pain medications. He has found massage to be assistive in the past. The patient's is expresses concern regarding the patient's risk of falling. Encouraged to call for lift assist if needed from emergency medical services and to not have the patient's assist getting him up for risk of herself undergoing injury. Discussed [employer] options to have within the home to call for assistance. Strongly encouraged the patient and his to discuss with her landlord regarding supportive railings within the bathroom to significantly reduce his potential risk of fall. Impression and Recommendations - Palliative Care Impression: This is a kayli 84-year-old gentleman with severe COPD on continuous oxygen supplementation with a history of bladder cancer. He has had a steady functional decline due to his advanced COPD but has been one to focus on the positives and to continue to move forward. He has not had any recent COPD exacerbations or hospitalizations due to his underlying COPD. Palliative care to continue to provide support for symptom management and advance care planning. Recommendations/Counseling Done: 1. Advanced COPD. Has shortness of breath upon exertion at baseline on continuous supplemental oxygen. History of tobacco abuse. Uses his Spiriva and Advair as directed. Azithromycin 250mg every Thursday, Thursday and Thursday as directed by template cutter for COPD exacerbation prevention. Only uses his nebulizer occasionally for increased shortness of breath. Discussed energy conservation techniques to use within the home. Followed by pulmonary and request last office visit. Follow-up with pulmonary as directed. 2. Left forearm laceration. No new signs or symptoms of infection based on history. Follow-up with wound care clinic as scheduled on 12/07/2019. 3. History of falls. Fall precautions. Questionable history of syncopal episodes. No evidence of orthostasis on evaluation today. Encouraged to change positions slowly. Encouraged to use Rollator at all times during ambulation. Request that he follow-up with his landlord to have obtainment of support bars in the bathroom and is scheduled to have a ramp installed into the front entry. Consider support for community resources with palliative care social services technician in the future. 4. History of bladder cancer. Two occurrences. Status post TURBT. Patient is due for a follow-up with his urologist and request that the patient and his follow-up with an appointment. 5. Chronic lower back pain. No evidence of neuropathy. Patient is not inclined to take pain medication. Recommend repositioning. Is to have obtainment of a new lift chair and recommended heat application to lower back and reestablishment with a massage therapist as he has found this effective in the past. Continue to monitor and adjust regiment based on patient's symptoms and functional status. 6. Advanced care planning. POLST is DN AR with selective treatment. We will continue to explore goals of care in future visits given the patient's advanced COPD, history of bladder cancer and functional debility due to his chronic conditions.To monitor the patient's for caregiver burden as she is the primary caregiver within the home. Time Spent: F/u in 4-6 weeks or prn. Total time spent 70 minutes with greater than 50% of this spent in counseling and coordination of care with patient and spouse; supportive listening; review of palliative philosophy; examination of patient; review of symptom management and anticipatory guidance. Disclaimer: The chart note was formulated using voice recognition technology and unfortunately sound alike errors may occur.
== END 2019-12-06 12:31 | disposition home or self-care (01) ==
LOC: PC 12:30
PROVIDERS: ATTEND Nurse Practitioner Family
DX: Z51.5 Encounter for palliative care (principal); J44.9 Chronic obstructive pulmonary disease, unspecified; S51.812D Laceration without foreign body of left forearm, subsequent encounter; W22.8XXD Striking against or struck by other objects, subsequent encounter; M54.5 Low back pain; G89.29 Other chronic pain; E11.9 Type 2 diabetes mellitus without complications; Z99.81 Dependence on supplemental oxygen; Z87.891 Personal history of nicotine dependence; Z85.51 Personal history of malignant neoplasm of bladder; Z91.81 History of falling; Z66 Do not resuscitate
CPT/HCPCS: 99350

== ENCOUNTER 2020-01-12 14:25 | Outpatient (CLI) | payer MEDICARE, OTHER ==
--- NOTE | 2020-01-12 19:44 | CONSULTATION NOTE ---
Palliative Care Follow Up - Referral Referring Provider: Dr. 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 Please see detailed history from [facility] dated 12/06/2019. The patient was diagnosed with COPD in approximately 0423-4416 and formally abused tobacco both via cigarettes and chewing. He is on continuous supplemental oxygen at 2 L via nasal cannula. He has not had any recent pneumonia or COPD exacerbation. He does have a trilogy machine within the home and since this [employer]ENT[employer] CURATOR's visit had retried it however, he feels that the trilogy is restricting and affects his quality of life and does not wish to use it. After a previous fall he had sustaining and lacerations to his forearms. He was being followed by the [facility] [place] care [facility] and has had resolution to both skin tears and lacerations to his forearms. The patient's , Ellen, had reported via phone prior to this visit that she has concerns regarding the patient's mood and concern for depressive symptoms. The patient himself does not perceive any concerns regarding his health. He finds that he is not troubled by his present state and is happy to be living. He does have a history of bladder cancer with recurrence that has resolved in the last 6 to 8 months. He followed up with his urologist this week and co randall to not have evidence of cancer with a follow-up in April 2019 without any further changes. Patient is seen in his recliner chair with supplemental oxygen on with no visible distress. 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 Social History - Living Situation Living arrangement: At home Living Situation: With spouse/s.o. Support System: Patient resides with his , Ellen of 29 years. This is a second marriage for both of them. The patient was previously . He has 3 children from his prior marriage. 3 of his children live locally. He also has a supportive stepdaughter, Asia. He receives 40 hours/month through rest care with the bathing aide. However, he is reporting today that he wishes to have a change in his bathing time but this is not feasible with his present caregivers schedule. The patient's recently sustained a fall and has some difficulty with mobility. Medications/Allergies - Medications Home Medications: Ambulatory Orders Medication Instructions Recorded Confirmed Multivitamin [Daily [place]] 1 each PO DAILY 02/26/15 01/11/20 Tiotropium [place] [Spiriva 2 puffs INH DAILY 03/21/17 01/11/20 Respimat] Escitalopram Oxalate [Lexapro] 20 mg PO DAILY 06/10/17 01/11/20 Fluticasone/Salmeterol [Advair Hfa 2 puffs INH BID 06/10/17 01/11/20 230-21 Mcg Inhaler] Omeprazole 20 mg PO DAILY 01/29/18 01/11/20 Azithromycin 250 mg PO .DAILY EVERY M,W,F 09/06/18 01/11/20 Albuterol Oral Soln 1 applic PO PRN PRN 11/04/19 01/11/20 Amlodipine Besylate [Norvasc] 2.5 mg PO DAILY 11/04/19 01/11/20 Vit A/Vit C/Vit E/Zinc/Copper 1 cap PO DAILY 11/04/19 01/11/20 [Preservision Areds Softgel] Metoprolol Succinate [Toprol Xl] 25 mg PO DAILY 12/06/19 01/11/20 On Guard Plus Protective Blend 1 cap PO DAILY 12/06/19 01/11/20 - Allergies Allergies/Adverse Reactions: Allergies Allergy/AdvReac Type Severity Reaction Status Date / Time Sulfa (Sulfonamide Allergy Unknown Rash Verified 01/11/20 09:09 Antibiotics) Review of Systems - Constitutional Constitutional: reports: Fatigue, Weight stable. denies: Fever - Eyes Eyes: reports: Vision loss (left eye) - Ears, Nose & Throat Ears, Nose & Throat: reports: Hearing loss - Cardiovascular Cardiovascular: reports: Decr. exercise tolerance. denies: Chest pain, Edema, Orthopnea - Respiratory Respiratory: reports: SOB with exertion. denies: Cough, Wheezing - Gastrointestinal Gastrointestinal: denies: Constipation, Diarrhea, Vomiting - Genitourinary Genitourinary: denies: Dysuria, Hematuria, Incontinence - Musculoskeletal Musculoskeletal: reports: Back pain (chronic that does not have radiation--massage is effective for relief), Assistive devices - Integumentary Integumentary: denies: Rash - Neurological Neurological: reports: General weakness, Memory problems (reprots to foregtting words and being foregetful but this does not phase or worry him) - Psychiatric Psychiatric: denies: Depression - Endocrine Endocrine: denies: Diabetes type 2 - All Other Systems All Other Systems: reports: Reviewed and negative Physical Exam - Vital Signs Temperature: 36.6 C Pulse Rate: 86 O2 Saturation: 98 (on 2L via NC) Blood Pressure: 128/88 (left wrist cuff) - Physical Exam General Appearance: positive: No acute distress, Alert, Other (dry, flaking skin noted to shirt) Eyes Bilateral: positive: Normal inspection ENT: positive: No signs of dehydration Neck: positive: Trachea midline Cardiovascular: positive: Regular rate & rhythm, No murmur Respiratory: positive: No respiratory distress, Wheezes (expiratory wheezes noted BLL), Other (able to speak in full sentences without pausing for breath) Abdomen: positive: Non-tender, Soft, Nml bowel sounds, Obese Skin: positive: Dryness (to lower extremities), Other (venous insufficency hyperpigementation to b/l feet; scabs to BLE forearms due to healed lacerations) Extremities: positive: No pedal edema Neurologic/Psychiatric: positive: Oriented x3, Mood/affect nml, Other (Engaged and attentive) Palliative Care - POLST Patient has POLST: Yes POLST Status: DNR, Selective Treatment Pain: Pain unchanged (chronic back pain and bilateral shoulder pain) Tiredness/Fatigue: Mild (1-3) Drowsiness/Sedation: None Nausea: None Anorexia: None Dyspnea: Moderate (4-6) Depression: None Anxiety: None Feelings of wellbeing/Perceived Quality of Life: Good Sleep: Sleeps well Constipation: No, Managed Performance Status: Poor activity tolerance due to shortness of breath. Oxygen dependent via 2 L nasal cannula. History of falls, that are less frequent. Able to ambulate short distances with a walker. Has a motorized wheelchair for further distances. Has a caregiver 3 times a week for assistance with bathing. - Palliative Care Discussion: The patient's had expressed concerned regarding the patient's mood and depressive symptoms. However, the patient himself denies a loss of interest in things that he finds pleasurable as well as depressive symptoms. Encouraged the patient to participate in getting out of the house on his motorized wheelchair for at least 30 minutes on a weekly basis. He presently uses his motorized wheelchair to go to the mailbox which is presently approximately 15 minutes away. The patient is quite pleased that his recent evaluation by urology in follow-up did not demonstrate any signs of bladder cancer. He did reflect that if this were to occur for a third time he is not quite sure how he would wish to proceed as he found that treatments painful and taking away from his quality of life. Impression and Recommendations - Palliative Care Impression: This is an 84-year-old gentleman with severe COPD on continuous oxygen supplementation with a history of bladder cancer. He has had a steady functional decline due to his advanced COPD and continues to have a positive outlook and denies depressive symptoms. Palliative care to continue to provide support for symptom management and advance care planning. Recommendations/Counseling Done: 1. Advanced COPD. Shortness of breath upon exertion at baseline on continuous supplemental oxygen. History of tobacco abuse. Followed by a pulmonary. Patient's has found the trilogy machine restrictive and impacting on his quality of life and does not wish to continue its use. No recent administration of his nebulizer. Follow-up with pulmonary as directed and request last office visit note. 2. Forearm lacerations. Resolved bilaterally status post [facility] wound care clinic. 3. History of falls. Fall precautions. Provided literature for the patient and his to review regarding Striiv [employer]eline which may be further appropriate for both the patient and his given her recent fall. The patient reports that if he obtains support bars that his landlord will allow application. 4. Advanced care planning. POLST as DN AR with selective treatment. Patient is presently in good spirits and denies depressive symptoms. He recognizes his physical capabilities and is quite content where he is spending time watching TV and interacting with his . Time Spent: Follow-up in March 2020 or as needed Total time spent 30 minutes with greater than 50% of the spent in counseling and coordination of care with the patient; supportive listening; examination of the patient; review of symptom management and anticipatory guidance. Disclaimer: The chart note was formulated using voice recognition technology and unfortunately sound alike errors may occur.
== END 2020-01-12 14:26 | disposition home or self-care (01) ==
LOC: PC 14:25
PROVIDERS: ATTEND Nurse Practitioner Family
DX: Z51.5 Encounter for palliative care (principal); J44.9 Chronic obstructive pulmonary disease, unspecified; Z99.81 Dependence on supplemental oxygen; Z91.81 History of falling; Z85.51 Personal history of malignant neoplasm of bladder; Z87.891 Personal history of nicotine dependence; I10 Essential (primary) hypertension
CPT/HCPCS: 99348